=== PATIENT | female | born 1945 | race Caucasian/White ===

== ENCOUNTER 2023-02-21 09:14 | Outpatient (OUT) | payer MEDICARE, OTHER, SELFPAY ==
[2023-02-21 09:54] LABS: Basophils Absolute Auto 0.1 10^3/uL (0.0-0.1); Basophils Percent Auto 0.8 % (0.2-2.0); Eosinophils Absolute Auto 0.8 10^3/uL (0.0-0.7); Eosinophils Percent Auto 8.8 % (0.9-7.0); Hematocrit 31.6 % (36.0-48.0); Immature Granulocytes Abs Auto 0.03 10^3/uL (0.00-0.03); Immature Granulocytes Pct Auto 0.3 % (0.0-0.5); Lymphocytes Absolute Auto 3.1 10^3/uL (1.2-3.8); Lymphocytes Percent Auto 32.9 % (20.5-60.0); Mean Corpuscular HGB Conc 31.6 g/dL (29.9-35.2); Mean Corpuscular Volume 88.5 fL (81.0-99.0); Mean Platelet Volume 9.6 fL (9.5-13.5); Monocytes Percent Auto 10.5 % (1.7-12.0); Neutrophils Absolute Auto 4.3 10^3/uL (1.4-6.5); Neutrophils Percent Auto 46.7 % (43.0-75.0); Platelet Count 305 10^3/uL (150-450); Red Blood Count 3.57 10^6/uL (4.20-5.40); Red Cell Distribution Width 14.9 % (11.0-15.0); White Blood Count 9.3 10^3/uL (4.0-11.0)
[2023-02-21 10:12] LABS: Estimated Average Glucose 120 mg/dL; Glycohemoglobin A1C 5.8 % (4.5-6.2)
[2023-02-21 10:26] LABS: Alanine Aminotransferase 26 U/L (14-59); Albumin Globulin Ratio 0.7; Alkaline Phosphatase 110 U/L (46-116); Anion Gap 12.9; Aspartate Amino Transferase 22 U/L (15-37); BUN Creatinine Ratio 21.5; Bilirubin Total 0.4 mg/dL (0.2-1.0); Calcium 8.5 mg/dL (8.5-10.1); Carbon Dioxide 25.2 mmol/L (21.0-32.0); Chloride 107 mmol/L (98-107); Chol HDL Ratio 2.2; Cholesterol 112 mg/dL (<=200); Estimated GFR (African America >60 (>=60); Estimated GFR (Non-African Ame >60 (>=60); Free T3 1.97 pg/mL (2.18-3.98); Globulin 4.5 g/dL; Glucose 94 mg/dL (74-106); HDL Cholesterol 50 mg/dL (40-60); LDL Cholesterol Calculated 44.2 mg/dL; Potassium 4.1 mmol/L (3.5-5.1); Sodium 141 mmol/L (136-145); Total Protein 7.5 g/dL (6.4-8.2); Triglycerides 89 mg/dL (<=150); VLDL CHOLESTEROL 17.8 mg/dL
== END 2023-02-21 09:15 | disposition home or self-care (01) ==
LOC: LAB 09:23
PROVIDERS: PCP Family Medicine; Visit Provider Family Medicine
DX: E78.5 Hyperlipidemia, unspecified (principal); I48.91 Unspecified atrial fibrillation; E03.9 Hypothyroidism, unspecified; E66.9 Obesity, unspecified; I25.10 Atherosclerotic heart disease of native coronary artery without angina pectoris; I10 Essential (primary) hypertension; R73.09 Other abnormal glucose; E55.9 Vitamin D deficiency, unspecified; D64.9 Anemia, unspecified
CPT/HCPCS: 36415; 80053; 80061; 82306; 83036; 83540; 84436; 84443; 84481; 85025

== ENCOUNTER 2023-03-15 20:52 | Outpatient (OUT) | payer MEDICARE, OTHER, SELFPAY | END 2023-03-15 20:53 | disposition home or self-care (01) | LOC: SLEEP 20:53 | PROVIDERS: PCP Family Medicine; Visit Provider Family Medicine | DX: G47.33 Obstructive sleep apnea (adult) (pediatric) (principal) | CPT/HCPCS: 95810 ==

== ENCOUNTER 2023-04-19 19:54 | Outpatient (OUT) | payer MEDICARE, OTHER, SELFPAY | END 2023-04-19 19:55 | disposition home or self-care (01) | LOC: SLEEP 19:54 | PROVIDERS: PCP Family Medicine; Visit Provider Family Medicine | DX: G47.33 Obstructive sleep apnea (adult) (pediatric) (principal) | CPT/HCPCS: 95811 ==

== ENCOUNTER 2023-04-21 08:10 | Outpatient (OUT) | payer MEDICARE, OTHER, SELFPAY ==
[2023-04-21 08:23] LABS: Basophils Absolute Auto 0.1 10^3/uL (0.0-0.1); Basophils Percent Auto 0.8 % (0.2-2.0); Eosinophils Absolute Auto 0.6 10^3/uL (0.0-0.7); Hematocrit 38.5 % (36.0-48.0); Hemoglobin 11.9 g/dL (12.0-16.0); Immature Granulocytes Abs Auto 0.03 10^3/uL (0.00-0.03); Immature Granulocytes Pct Auto 0.3 % (0.0-0.5); Lymphocytes Absolute Auto 3.5 10^3/uL (1.2-3.8); Lymphocytes Percent Auto 35.1 % (20.5-60.0); Mean Corpuscular HGB Conc 30.9 g/dL (29.9-35.2); Mean Corpuscular Hemoglobin 28.1 pg (26.7-34.0); Mean Corpuscular Volume 90.8 fL (81.0-99.0); Mean Platelet Volume 9.7 fL (9.5-13.5); Monocytes Absolute Auto 1.2 10^3/uL (0.3-0.8); Monocytes Percent Auto 12.2 % (1.7-12.0); Neutrophils Absolute Auto 4.6 10^3/uL (1.4-6.5); Neutrophils Percent Auto 45.6 % (43.0-75.0); Platelet Count 297 10^3/uL (150-450); Red Blood Count 4.24 10^6/uL (4.20-5.40); Red Cell Distribution Width 14.5 % (11.0-15.0)
[2023-04-21 09:14] LABS: Estimated Average Glucose 120 mg/dL; Glycohemoglobin A1C 5.8 % (4.5-6.2)
[2023-04-21 10:52] LABS: Alanine Aminotransferase 27 U/L (14-59); Albumin Globulin Ratio 0.7; Albumin Level 3.3 g/dL (3.4-5.0); Alkaline Phosphatase 120 U/L (46-116); Anion Gap 11.7; Aspartate Amino Transferase 24 U/L (15-37); BUN Creatinine Ratio 22.3; Bilirubin Total 0.4 mg/dL (0.2-1.0); Calcium 8.9 mg/dL (8.5-10.1); Chloride 104 mmol/L (98-107); Chol HDL Ratio 2.6; Cholesterol 112 mg/dL (<=200); Estimated GFR (African America >60 (>=60); Estimated GFR (Non-African Ame 58 (>=60); Free T3 2.18 pg/mL (2.18-3.98); Globulin 4.9 g/dL; Glucose 99 mg/dL (74-106); HDL Cholesterol 43 mg/dL (40-60); Potassium 4.7 mmol/L (3.5-5.1); Sodium 138 mmol/L (136-145); Thyroid Stimulating Hormone 4.595 uIU/mL (0.358-3.740); Total Protein 8.2 g/dL (6.4-8.2); Triglycerides 100 mg/dL (<=150)
== END 2023-04-21 08:11 | disposition home or self-care (01) ==
LOC: LAB 08:10
PROVIDERS: PCP Family Medicine; Visit Provider Family Medicine
DX: R73.09 Other abnormal glucose (principal); I48.91 Unspecified atrial fibrillation; E78.5 Hyperlipidemia, unspecified; E03.9 Hypothyroidism, unspecified; I25.10 Atherosclerotic heart disease of native coronary artery without angina pectoris; I10 Essential (primary) hypertension; Z12.12 Encounter for screening for malignant neoplasm of rectum; D64.9 Anemia, unspecified; E55.9 Vitamin D deficiency, unspecified
CPT/HCPCS: 36415; 80053; 80061; 82306; 83036; 83540; 84436; 84443; 84481; 85025

== ENCOUNTER 2023-10-31 08:36 | Outpatient (OUT) | payer MEDICARE, OTHER, SELFPAY ==
--- OUTSIDE RECORDS SUMMARY | 2023-10-31 08:41 | XMS_ITS | CCD ---
Author Organization [facility] Care Team Providers Care Paper Machine Backtender Name Role Phone CARI DE LEON Attending Unavailable MAKENNA SCHILLING Primary Care Unavailable CARI DE LEON Attending Unavailable MAKENNA SCHILLING Primary Care Unavailable Nicki Tamayo Unavailable Unavailable Unavailable ENRIKE ., DR CACERES Primary Care Unavailable HOY ., DR CACERES Admitting Unavailable HOY ., DR CACERES Attending Unavailable HOY ., DR CACERES Consulting Unavailable [place], DR ALMA ROSA Dickinson Consulting Unavailable ZIEBER, DR GORDY Martinez Consulting Unavailable HOY ., DR CACERES Primary Care Unavailable HOY ., DR CACERES Consulting Unavailable HOY ., DR CACERES Admitting Unavailable HOY ., DR CACERES Attending Unavailable ZIEBER, DR GORDY Martinez Consulting Unavailable HOY ., DR CACERES Admitting Unavailable HOY ., DR CACERES Primary Care Unavailable HOY ., DR CACERES Attending Unavailable HOY ., DR CACERES Consulting Unavailable DE LEON, DR CARI Silva Attending Unavailable DE LEON, DR CARI Silva Admitting Unavailable HOY ., DR CACERES Primary Care Unavailable HOY ., DR CACERES Admitting Unavailable HOY ., DR CACERES Attending Unavailable HOY ., DR CACERES Consulting Unavailable HOY ., DR CACERES Primary Care Unavailable HOY ., DR CACERES Admitting Unavailable HOY ., DR CACERES Attending Unavailable HOY ., DR CACERES Primary Care Unavailable HOY ., DR CACERES Admitting Unavailable HOY ., DR CACERES Attending Unavailable HOY ., DR CACERES Consulting Unavailable HOY ., DR CACERES Primary Care Unavailable HOY ., DR CACERES Primary Care Unavailable DE LEON, DR CARI Silva Admitting Unavailable DE LEON, DR CARI Silva Attending Unavailable DE LEON, DR CARI iSlva Consulting Unavailable Kristin Giang Unavailable Cari De Leon Attending Unavailable Dr. Nicki Tamayo Primary [facility] Unavail able Cari De Leon Referring Unavailable Dr. Nicki Tamayo Primary Care Unavail able Cari De Leon Referring Unavailable Cari De Leon Attending Unavailable Dr. Nicki Tamayo Primary Care Unavail able Cari De Leon Referring Unavailable Cari De Leon Attending Unavailable CARI D ELEON Attending Unavailable NICKI TAMAYO Primary Care Unavailable Allergies Allergy Classification Reported Allergen(s) Allergy Type Date of Onset Reaction(s) Facility (13 sources) Lisinopril; Translations: [Lisinopril TABS] Drug Allergy Cough [address] Work Phone: (1 source) Lisinopril; Translations: [LISINOPRIL] Drug Allergy 03-22-2023 [facility] 3 Repository Medications Current Medications Medication Drug Class(es) Dates Sig (Normalized) Sig (Original) amoxicillin 500 mg oral capsule (1 source) Penicillin-class Antibacterial Start: 08-21-2022 take 1 capsule by mouth every eight hours Amoxicillin 500 MG 1 capsule Orally three times a day for 10 day(s) Aug, Active Iron (1 source) Iron Active Potassium (1 source) Potassium Active Triple Layland-3-6-9 (1 source) Triple Layland-3-6 -9 Active Vitamin D3 (1 source) Vitamin D3 Activ e Womens Multivitamin (1 source) Womens Multivitamin Active Completed/Discontinued Medications Medication Drug Class(es) Dates Sig (Normalized) Sig (Original) amLODIPine 10 mg oral tablet (13 sources) Dihydropyridine Calcium Channel Jordan Start: 09-16-2021 take 1 tablet by mouth once daily amLODIPine Besylate 10 MG Oral Tablet TAKE 1 TABLET DAILY. Quantity: 90 Refills: 3 Ordered: 17-Aug-2022 Cari De Leon MD Start : 16-Sep-2021 Active amLODIPine Besyl ate Active take 1 tablet by mouth once mamta y amLODIPine Besylate 5 MG Oral Tablet TAKE 1 TABLET DAILY. Quantity: 90 Refills: 3 Ordered: 26-May-2021 Cari De Leon MD Active ascorbic acid 1000 mg oral tablet (13 sources) Vitamin C take 1 tablet by once daily Vitamin C 1000 MG Oral Tablet TAKE 1 TABLET DAILY. Quantity: 0 Refills: 0 Ordered: 18-Mar-2021 DO Active Vitamin C Active aspirin 81 mg delayed release oral tablet (13 sources) Platelet Aggregation Inhibitor, Nonsteroidal Anti-inflammatory Drug Aspirin 81 MG Oral T ablet Delayed Release take one tablet on Mon and only Quantity: 24 Refills: 3 Ordered: 15-Sep-2022 Cari De Leon MD Active Aspirin 81 Activ e atorvastatin 80 mg oral tablet (13 sources) HMG-CoA Reductase Inhibitor take 1 tablet by mouth at bedtime Atorvastatin Calcium 80 MG Oral Tablet TAKE 1 TABLET AT BEDTIME. Quantity: 90 Refills: 3 Ordered: 17-Aug-2022 Cari De Leon MD Active Atorvastatin Arnold cium Active cholecalciferol 0.05 mg oral tablet (12 sources) Vitamin D take 1 tablet by mouth once daily Vitamin D3 50 MCG (1999 [place]) Oral Tablet Take 1 tablet daily Quantity: 0 Refills: 0 Ordered: 18-Mar-2021 DO Active cranberry preparation 200 mg oral capsule (9 sources) Non-Standardized Food Allergenic Extract, Non-Standardized Plant Allergenic Extract Cranberry 200 MG Ora l Capsule as directed Quantity: 0 Refills: 0 Ordered: 16-Sep-2021 DO Active Cranberry Active ferrous sulfate (8 sources) Ferrous Sulfate 325 MG CAPS TAKE 1 CAPSULE EVERY OTHER DAY Quantity: 0 Refills: 0 Ordered: 16-Sep-2021 DO Active 24 hr isosorbide mononitrate 30 mg extended release oral tablet (13 sources) Nitrate Vasodilator take 1 tablet by mouth once daily Isosorbide Mononitrate ER 30 MG Oral Tablet Extended Release 24 Hour TAKE 1 TABLET DAILY. Quantity: 90 Refills: 3 Ordered: 20-May-2022 Cari De Leon MD Active Isosorbide Helena itrate Active levothyroxine sodium 0.05 mg oral tablet (13 sources) l-Thyroxine take 1 tablet by mouth once daily Levothyroxine Sodium 50 MCG Oral Tablet TAKE 1 TABLET DAILY. Quantity: 0 Refills: 0 Ordered: 23-Mar-2022 DO Active Levothyroxine So dium Active take 1 tablet by mouth once mamta y Levothyroxine Sodium 25 MCG Oral Tablet TAKE 1 TABLET DAILY. Quantity: 0 Refills: 0 Ordered: 18-Mar-2021 DO Active Layland 3 340 MG Oral Capsule Delayed Release (8 sources) take 1 capsule by mouth twice daily Layland 3 340 MG Oral Capsule Delayed Release one twice daily Quantity: 0 Refills: 0 Ordered: 16-Sep-2021 DO Active microencapsulated potassium chloride 20 meq extended release oral tablet (12 sources) take 1 tablet by brandy th once daily Potassium Chloride Ruby ER 20 MEQ Oral Tablet Extended Release TAKE 1 TABLET DAILY. Quantity: 90 Refills: 3 Ordered: 20-May-2022 Cari De Leon MD Active take 1 tablet by mouth once mamta y Potassium Chloride Ruby ER 20 MEQ Oral Tablet Extended Release TAKE 1 TABLET DAILY. Quantity: 90 Refills: 3 Ordered: 26-May-2021 Cari De Leon MD Active rivaroxaban 20 mg oral tablet (13 sources) Factor Xa Inhibitor take 1 tablet by mouth once daily Xarelto 20 MG Oral Tablet 1 TAB DAILY Quantity: 90 Refills: 3 Ordered: 17-Aug-2022 Cari De Leon MD Active Xarelto Active sotalol hydrochloride 120 mg oral tablet (13 sources) Antiarrhythmic take 1 tablet by mouth twice daily Sotalol HCl - 120 MG Oral Tablet TAKE 1 TABLET TWICE DAILY. Quantity: 180 Refills: 3 Ordered: 07-Jul-2022 Cari De Leon MD Active Sotalol HCl Acti ve sucralfate 1000 mg oral tablet (13 sources) Aluminum Complex take 1 tablet by mouth four times daily Sucralfate 1 GM Oral Tablet TAKE 1 TABLET 4 TIMES DAILY. Quantity: 0 Refills: 0 Ordered: 18-Mar-2021 DO Active Sucralfate Activ e valsartan 320 mg oral tablet (13 sources) Angiotensin 2 Receptor Jordan take 1 tablet by mouth once daily Valsartan 320 MG Oral Tablet TAKE 1 TABLET DAILY. Quantity: 90 Refills: 3 Ordered: 07-Jul-2022 Cari De Leon MD Active Valsartan Active Problems Active Problems Problem Classification Problem Date Documented Date Episodic/Chronic Cardiac dysrhythmias (17 sources) Paroxysmal atrial fibrillation; Translations: [Persistent atrial fibrillation] Onset: 11-16-2017 Chronic Coronary atherosclerosis and other heart disease (20 sources) Atherosclerotic heart disease of [place] coronary artery without angina pectoris; Translations: [Coronary atherosclerosis] Onset: 06-27-2018 Chronic Disorders of lipid metabolism (16 sources) Hyperlipidemia, unspecified; Translations: [Hyperlipidemia] Onset: 06-27-2018 Chronic Comment on above: on Lipitor; Essential hypertension (16 sources) Essential (primary) hypertension; Translations: [Essential hypertension] Onset: 06-27-2018 Chronic Immunizations and screening for infectious disease (2 sources) Contact with and (suspected) exposure to other viral communicable diseases; Translations: [Contact with and (suspected) exposure to other viral communicable diseases] Episodic Other aftercare (20 sources) Drug therapy finding; Translations: [Long-term (current) use of anticoagulants] Episodic Other bone disease and musculoskeletal deformities (1 source) Other specified disorders of bone density and structure, left thigh; Translations: [OTH D/O BONE DEN STRUCT LT THIGH] Onset: 06-20-2022 Episodic Other nutritional; endocrine; and metabolic disorders (12 sources) Obesity; Translations: [Obesity, unspecified] Chronic Other nutritional; endocrine; and metabolic disorders (2 sources) Obesity, unspecified; Translations: [Obesity, unspecified] Onset: 03-23-2023 Chronic Other nutritional; endocrine; and metabolic disorders (2 sources) Body mass index (BMI) 36.0-36.9, adult; Translations: [Body mass index (BMI) 36.0-36.9, adult] Onset: 03-23-2023 Chronic Other screening for suspected conditions (not mental disorders or infectious disease) (9 sources) Other abnormal and inconclusive findings on diagnostic imaging of breast; Translations: [Encounter for screening mammogram for malignant neoplasm of breast] Onset: 06-16-2022 Episodic Other upper respiratory infections (1 source) Streptococcal pharyngitis Episodic Residual codes; unclassified (1 source) Family history of malignant neoplasm of breast; Translations: [FAMILY HX MALIG NEOPLASM OF BREAST] Onset: 06-20-2022 Episodic Residual codes; unclassified (1 source) Family history of malignant neoplasm of trachea, bronchus and lung; Translations: [FAM HX MALIG NEOPLSM TRACH BRON LNG] Onset: 06-20-2022 Episodic Residual codes; unclassified (1 source) Family history of malignant neoplasm of other organs or systems; Translations: [FAM HX MALIG NEOPLASM OTH ORGN/SYS] Onset: 06-20-2022 Episodic Screening and history of mental health and substance abuse codes (8 sources) Ex-smoker; Translations: [Personal history of tobacco use] Episodic Comment on above: quit approx 1988, 1 PPD; Thyroid disorders (4 sources) Hypothyroidism, unspecified; Translations: [HYPOTHYROIDISM UNSPECIFIED] Onset: 11-12-2021 Chronic Unclassified (1 source) Other intermodal dispatcher (current) drug therapy Onset: 06-27-2018 Unclassified (1 source) Chronic atrial fibrillation, unspecified; Translations: [CHRONIC ATRIAL FIBRILLATION UNSPEC] Onset: 09-08-2021 Unclassified (1 source) CONTACT W/AND (SUSP) EXPOS COVID-19; Translations: [CONTACT W/AND (SUSP) EXPOS COVID-19] Onset: 09-01-2021 Past or Other Problems Problem Classification Problem Date Documented Da te Episodic/Chronic Acute bronchitis (4 sources) Acute bronchitis, unspecified; Translations: [ACUTE BRONCHITIS UNSPECIFIED] Onset: 08-30-2021 Episodic Cardiac dysrhythmias (3 sources) Sinus bradycardia; Translations: [Other specified cardiac dysrhythmias] Onset: 03-22-2023 Episodic Coronary atherosclerosis and other heart disease (14 sources) Past history of procedure; Translations: [Percutaneous transluminal coronary angioplasty status] Onset: 03-22-2023 Episodic Comment on above: LAD 1997 /RCA; Deficiency and other anemia (1 source) Anemia, unspecified; Translations: [ANEMIA UNSPECIFIED] Onset: 09-08-2021 Episodic Diabetes mellitus without complication (1 source) Other abnormal glucose; Translations: [OTHER ABNORMAL GLUCOSE] Onset: 09-08-2021 Episodic Other aftercare (6 sources) Other intermodal dispatcher (current) drug therapy; Translations: [OTH SKILLED NURSING CURRENT DRUG THERAPY] Onset: 04-05-2022 Episodic Other aftercare (2 sources) alf (current) use of anticoagulants; Translations: [alf (current) use of anticoagulants] Onset: 03-22-2023 Episodic Results Test Name Value Interpretation Reference Range Facility Office Visit (Cardiology)on 09-15-2022 Follow-up visit Diagnoses/Problems Assessed Atherosclerosis of [place] coronary artery (414.01) (I25.10) Status post coronary angioplasty (V45.82) (Z98.61) LAD 1997 /RCA Paroxysmal atrial fibrillation (427.31) (I48.0) High risk medication use (V58.69) (Z79.899) Anticoagulated (V58.61) (Z79.01) Essential hypertension (401.9) (I10) Hyperlipidemia (272.4) (E78.5) on Lipitor Sinus bradycardia (427.89) (R00.1) Class 2 obesity with body mass index (BMI) of 35.0 to 35.9 in adult (278.00,V85.35) (E66.9,Z68.35) Former smoker (V15.82) (Z87.891) quit approx 1988, 1 PPD Orders Atherosclerosis of [place] coronary artery Changed: From Aspirin EC 81 MG TBEC 1 tablet twice weekly To Aspirin 81 MG Oral Tablet Delayed Release take one tablet on Mon and only Atherosclerosis of [place] coronary artery, High risk medication use, Paroxysmal atrial fibrillation Basic Metabolic Panel; Status:Active - Retrospective Authorization; Requested for:15Sep2022; Complete Blood Count; Status:Active - Retrospective Authorization; Requested for:15Sep2022; Atherosclerosis of [place] coronary artery, Hyperlipidemia ALT - Alanine Aminotransferase, Serum; Status:Active - Retrospective Authorization; Requested for:15Sep2022; AST; Status:Active - Retrospective Authorization; Requested for:15Sep2022; Lipid Panel; Status:Active - Retrospective Authorization; Requested for:15Sep2022; Class 2 obesity with body mass index (BMI) of 35.0 to 35.9 in adult Healthy Weight Tips; Status:Complete - Retrospective Authorization; Done: 15Sep2022 Some eating tips that can help you lose weight.; Status:Complete - Retrospective Authorization; Done: 15Sep2022 SocHx: Former smoker Tobacco Use Screening; Status:Complete; Done: 15Sep2022 Patient Instructions Please bring all medicines, vitamins, and herbal supplements with you when you come to the office. Prescriptions will not be filled unless you are compliant with your follow up appointments or have a follow up appointment scheduled as per instruction of your physician. Refills should be requested at the time of your visit. Follow up in 6 months Lab work Same meds The provider reviewed the following test(s) and result(s) with the patient: ECG Chief Complaint MARIO MITCHELL is being seen for a 6 month follow-up of. Patient is in the office for follow-up for the problems noted below. Since her last visit she has had no current events whatsoever. Has had no breakthrough defibrillation and no bleeding complications. She is on sotalol and Xarelto. EKG today confirmed normal sinus rhythm with sinus bradycardia which is asymptomatic QTc interval in the therapeutic range. Her lab data from PCP were reviewed. She need lipid profile which is ordered. Apart from obesity physical examination is unremarkable. Her weight has dropped several pounds from last visit and encouragement for weight loss was provided to the patient. ASSESSMENT AND PLAN: 1. Paroxysmal fibrillation, on sotalol and Xarelto, which have been monitored and have been well tolerated. ECG today revealed normal sinus rhythm and normal intervals 2. Two-vessel coronary artery disease and status post angioplasty in 1997 involving the right coronary artery and 2007 involving the LAD. Risk factor had been controlled. The patient has been compliant with no recurrent disease. Last stress test with 2016 was normal 3. Obesity. Encouraged Mrs. Mitchell to cut back calorie intake on regular basis, patient lost several pounds last visit and encouragement for more weight loss provided. 4. Hypertension, currently controlled. 5. Hyperlipidemia, on maximal intensity atorvastatin, lipid profile is needed and was ordered. 6. Hypothyroidism on replacement therapy 7. 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 Six-month follow-up is scheduled Surgical History Problems History of Cataract surgery History of Colonoscopy [id number] Current Meds Medication NameInstruction amLODIPine Besylate 10 MG Oral TabletTAKE 1 TABLET DAILY. Aspirin EC 81 MG TBEC1 tablet twice weekly Atorvastatin Calcium 80 MG Oral TabletTAKE 1 TABLET AT BEDTIME. Cranberry 200 MG Oral Capsuleas directed Ferrous Sulfate 325 MG CAPSTAKE 1 CAPSULE EVERY OTHER DAY Isosorbide Mononitrate ER 30 MG Oral Tablet Extended Release 24 HourTAKE 1 TABLET DAILY. Levothyroxine Sodium 50 MCG Oral TabletTAKE 1 TABLET DAILY. Layland 3 340 MG Oral Capsule Delayed Releaseone twice daily Potassium Chloride Ruby ER 20 MEQ Oral Tablet Extended ReleaseTAKE 1 TABLET DAILY. Sotalol HCl - 120 MG Oral TabletTAKE 1 TABLET TWICE DAILY. Sucralfate 1 GM Oral TabletTAKE 1 TABLET 4 TIMES DAILY. Valsartan 320 MG Oral TabletTAKE 1 TABLET DAILY. Vitamin C 1000 MG Oral TabletTAKE 1 TABLET DAILY. Vitamin D3 50 MCG (1999) Oral TabletTake 1 tablet daily Xarelto 20 MG Oral Tablet1 TAB DAILY Allergies Medication Lisinopril TABS Allergy; Cough; Recorded By: Rachel Pizarro; 03/13/2021 11:22 (more content not included)... Normal [facility] Tobacco Screening.on 023 Adult depression screening assessment No FR-Bhnfeedmvc-Za [place] 250 DO Work Phone: Fall risk assessment a) No falls within the last year ON-Uhsjhryowc-Lh [place] 250 DO Work Phone: Tobacco use status [facility]PH[facility] b) No CI-Wnljlhpfpc-Yr [place] 250 DO Work Phone: COVID/FLU RT-PCRon 3 SARS-CoV-2 (COVID-19) RNA DENISSE+probe Ql (Unsp spec) Negative [facility] Other COVID/FLU RT-PCR Negative [facility] [place] Other Quick Strepon 08-21-2022 S. pyogenes Org specific cx Ql (Throat) Positive [facility] Other Quick Strep [facility] Other MG MAMM RT DIAG FUon 023 MG MAMM RT DIAG FU Patient: MARIO MITCHELL Exam Date: 07/01/2022 : 1945 Gender:F Ordering : DR NICKI TAMAYO . Admission #: [id number] Family : Order #: [id number] CLICK HERE TO VIEW EXAM RADIOLOGY REPORT PROCEDURE: MAMMOGRAM RIGHT DIAGNOSTIC DIGITAL FOLLOW UP, 07/01/2022, 10:02 ULTRASOUND BREAST RIGHT LIMITED, 07/01/2022, 10:32 COMPARISON: MG MAMM SCREEN 3D MOHINDER CAD, 06/16/2022. INDICATIONS: Mammography abnormal Calculator Name NCI Breast Cancer Risk Assessment Tool 5 Year Breast Cancer Risk 3.30% Lifetime Breast Cancer Risk 6.30% Personal Breast Cancer No Personal Ovarian Cancer No Treatments None Family Cancers Sister with breast cancer at age 50; Sister with lung cancer at age 40; Brother with prostate cancer at age 70. LOCATION: [facility] BREAST COMPOSITION: Heterogeneously dense,which may obscure small masses. FINDINGS: DIAGNOSTIC CATEGORY 2--BENIGN FINDING: RIGHT BREAST: Spot magnification views demonstrate dispersion of previously seen asymmetry. Ultrasound evaluation demonstrates normal appearing fibroglandular tissue; no cyst, mass, or architectural distortion. Annual screening mammography is recommended. RECOMMENDATIONS: ROUTINE MAMMOGRAM AND CLINICAL EVALUATION IN 12 MONTHS. PLEASE NOTE: A NORMAL MAMMOGRAM DOES NOT EXCLUDE THE POSSIBILITY OF BREAST CANCER. A CLINICALLY SUSPICIOUS PALPABLE LUMP SHOULD BE BIOPSIED. Dictated by: Gordy Giraldo M.D. on 07/01/2022 at 10:49 Approved by: Gordy Giraldo M.D. on 07/01/2022 at 11:[address] [facility] US BREAST RIGHT LIMITEDon US BREAST RIGHT LIMITED Patient: MARIO MITCHELL Exam Date: 07/01/2022 : 1945 Gender:F Ordering : DR NICKI TAMAYO . Admission #: [id number] Family : Order #: [id number] CLICK HERE TO VIEW EXAM RADIOLOGY REPORT PROCEDURE: MAMMOGRAM RIGHT DIAGNOSTIC DIGITAL FOLLOW UP, 07/01/2022, 10:02 ULTRASOUND BREAST RIGHT LIMITED, 07/01/2022, 10:32 COMPARISON: MG MAMM SCREEN 3D MOHINDER CAD, 06/16/2022. INDICATIONS: Mammography abnormal Calculator Name NCI Breast Cancer Risk Assessment Tool 5 Year Breast Cancer Risk 3.30% Lifetime Breast Cancer Risk 6.30% Personal Breast Cancer No Personal Ovarian Cancer No Treatments None Family Cancers Sister with breast cancer at age 50; Sister with lung cancer at age 40; Brother with prostate cancer at age 70. LOCATION: [facility] BREAST COMPOSITION: Heterogeneously dense,which may obscure small masses. FINDINGS: DIAGNOSTIC CATEGORY 2--BENIGN FINDING: RIGHT BREAST: Spot magnification views demonstrate dispersion of previously seen asymmetry. Ultrasound evaluation demonstrates normal appearing fibroglandular tissue; no cyst, mass, or architectural distortion. Annual screening mammography is recommended. RECOMMENDATIONS: ROUTINE MAMMOGRAM AND CLINICAL EVALUATION IN 12 MONTHS. PLEASE NOTE: A NORMAL MAMMOGRAM DOES NOT EXCLUDE THE POSSIBILITY OF BREAST CANCER. A CLINICALLY SUSPICIOUS PALPABLE LUMP SHOULD BE BIOPSIED. Dictated by: Gordy Giraldo M.D. on 07/01/2022 at 10:49 Approved by: Gordy Giraldo M.D. on 07/01/2022 at 11:[address] [facility] MG MAMM SCREEN 3D MOHINDER CADon 06-16-2022 MG MAMM SCREEN 3D MOHINDER CAD Patient: MARIO MITCHELLMartin Exam Date: 06/16/2022 : 1945 Gender:F Ordering : DR NICKI TAMAYO . Admission #: [id number] Family : Order #: [id number] CLICK HERE TO VIEW EXAM RADIOLOGY REPORT PROCEDURE: MAMMOGRAM SCREENING 3D BILATERAL CAD COMPARISON: None. INDICATIONS: Screening mammography Calculator Name NCI Breast Cancer Risk Assessment Tool 5 Year Breast Cancer Risk 3.30% Lifetime Breast Cancer Risk 6.30% Personal Breast Cancer No Personal Ovarian Cancer No Treatments None Family Cancers Sister with breast cancer at age 50; Sister with lung cancer at age 40; Brother with prostate cancer at age 70. LOCATION: [facility] BREAST COMPOSITION: Heterogeneously dense, which may obscure small masses. FINDINGS: DIAGNOSTIC CATEGORY 0--INCOMPLETE: NEED ADDITIONAL IMAGING EVALUATION. Scattered benign-appearing nodules are present. Scattered benign-appearing calcifications are present. Scattered benign-appearing lymph nodes are present. RIGHT BREAST: 1.2 x 1.9 cm partially circumscribed lobular density 12 o'clock posterior breast seen on both the CC and MLO projections. Spot compression and Ultrasound follow-up is recommended. LEFT BREAST: No significant suspicious finding. RECOMMENDATIONS: ADDITIONAL MAMMOGRAPHIC VIEWS REQUIRED: RIGHT BREAST - spot compression ULTRASOUND: RIGHT BREAST PLEASE NOTE: A NORMAL MAMMOGRAM DOES NOT EXCLUDE THE POSSIBILITY OF BREAST CANCER. A CLINICALLY SUSPICIOUS PALPABLE LUMP SHOULD BE BIOPSIED. Dictated by: Alma Rosa Morrow MD on 06/16/2022 at 10:51 Approved by: Alma Rosa Morrow MD on 06/16/2022 at 10:[address] [facility] XR DEXA BONE DENSITYon 06-16 XR DEXA BONE DENSITY EXAMINATION: XR DEXA BONE DENSITY, 06/16/2022 9:45 AM EST HISTORY: Screening for osteoporosis COMPARISON: None. TECHNIQUE: Dual-energy X-ray absorptiometry (DEXA) bone density study performed for the axial skeleton. FINDINGS: SPINE ANALYSIS: Average bone mineral density is 1.2-3 g/cm2. T-score (standard deviation relative to young adult mean): 0.4 . HIP ANALYSIS: Lowest bone mineral density is within the left femoral trochanter, 0.666 g/cm2. T-score (standard deviation relative to young adult mean): -1.6 . IMPRESSION: World [employer] Organization Classification: Osteopenia - Moderate Fracture Risk Electronically authenticated by: GORDY GIRALDO Date: 2022-06-16 10:08 Normal [facility] CBC AUTO DIFFon 04-05-2022 BASO # 0.1 103/ul Normal 0.0-0.1 [facility] Comment on above: Performed By: #### C BC #### [facility] [address] [address] [address] Stacy Rocha Basophils/100 WBC (Bld) 0.5 % Normal 0.2-2.0 [facility] Comment on above: Performed By: #### C BC #### [facility] [address] [address] [address] Stacy Rocha EO # 1.0 103/ul Critically high 0.0-0.[address] [facility] Comment on above: Performed By: #### C BC #### [facility] [address] [place] [address] Dr. Stacy Rocha Eosinophils/100 WBC (Bld) 8.7 % Critically high 0.9-7.0 [facility] Comment on above: Performed By: #### C BC #### [facility] [address] [address] [address] Stacy Rocha Erythrocyte distribution width (RBC) [Ratio] 13.7 % Normal 11.0-15.0 St[facility] [facility] Comment on above: Performed By: #### C BC #### [facility] [address] [place] [address] Dr. Stacy Rocha Hematocrit (Bld) [Volume fraction] 34.2 % Critically low 36.0-48.0 [facility] Comment on above: Performed By: #### C BC #### [facility] [address] [address] [address] Stacy Rocha Hemoglobin (Bld) [Mass/Vol] 10.9 g/dL Critically low 12.0-16.0 [facility] Comment on above: Performed By: #### C BC #### [facility] [address] [place] [address] Dr. Stacy Rocha IG # 0.03 10e3/ul Normal 0.00-0.03 [facility] Comment on above: Performed By: #### C BC #### [facility] [address] [address] [address] Stacy Rocha IG % 0.3 % Normal 0.0-0.5 [facility] Comment on above: Performed By: #### C BC #### [facility] [address] [place] [address] Dr. Stacy Rocha LYMPH # 3.9 103/ul Critically high 1.2-3.[address] [facility] Comment on above: Performed By: #### C BC #### [facility] [address] [place] [address] Dr. Stacy Rocha Lymphocytes/100 WBC (Bld) 35.0 % Normal 20.5-60.0 The [facility] Comment on above: Performed By: #### C BC #### [facility] [address] [place] [address] Dr. Stacy Rocha MANUAL DIFF REQ NO Normal [facility] Comment on above: Performed By: #### C BC #### [facility] [address] [place] [address] Dr. Stacy Rocha MCH (RBC) [Entitic mass] 27.9 pg Normal 26.7-34.0 [facility] Comment on above: Performed By: #### C BC #### [facility] [address] [place] [address] Dr. Stacy Rocha MCHC (RBC) [Mass/Vol] 31.9 g/dL Normal 29.9-35.2 [facility] Comment on above: Performed By: #### C BC #### [facility] [address] [place] [address] Dr. Stacy Rocha MCV (RBC) [Entitic vol] 87.5 fL Normal 81.0-99.0 [facility] Comment on above: Performed By: #### C BC #### [facility] [address] [place] [address] Dr. Stacy Rocha MONO # 1.2 103/ul Critically high 0.3-0.[address] [facility] Comment on above: Performed By: #### C BC #### [facility] [address] [place] [address] Dr. Stacy Rocha Monocytes/100 WBC (Bld) 10.8 % Normal 1.7-12.0 [facility] Comment on above: Performed By: #### C BC #### [facility] [address] [place] [address] Dr. Stacy Rocha NEUT # 5.0 103/ul Normal 1.4-6.5 [facility] Comment on above: Performed By: #### C BC #### [facility] [address] [place] [address] Dr. Stacy Rocha Neutrophils/100 WBC (Bld) 44.7 % Normal 43.0-75.0 [facility] Comment on above: Performed By: #### C BC #### [facility] [address] [place] [address] Dr. Stacy Rocha Platelet mean volume (Bld) [Entitic vol] 9.5 fL Normal 9.5-13.5 [facility] Comment on above: Performed By: #### C BC #### [facility] [address] [place] [address] Dr. Stacy Rocha PLT 289 103/ul Normal 150-450 [facility] Comment on above: Performed By: #### C BC #### [facility] [address] [place] [address] Dr. Stacy Rocha RBC 3.91 106/ul Critically low 4.20-5.[address] [facility] Comment on above: Performed By: #### C BC #### [facility] [address] [place] [address] Dr. Stacy Rocha WBC 11.3 103/ul Critically high 4.0-11.0 [facility] Comment on above: Performed By: #### C BC #### [facility] [address] [place] [address] Dr. Stacy Rocha PROF CHEM 8 (BAS METB)on Anion gap [Moles/Vol] 8.7 mmol/L Normal [facility] Comment on above: Performed By: #### B MP #### [facility] [address] [place] [address] Dr. Stacy Rocha Calcium [Mass/Vol] 8.7 mg/dL Normal 8.5-10.1 [facility] Comment on above: Performed By: #### B MP #### [facility] [address] [address] [address] Stacy Rocha Chloride [Moles/Vol] 105 mmol/L Normal 98-107 [facility] Comment on above: Performed By: #### B MP #### [facility] [address] [address] [address] Stacy Rocha CO2 [Moles/Vol] 30.3 mmol/L Normal 21.0-32.0 [facility] Comment on above: Performed By: #### B MP #### [facility] [address] [place] [address] Dr. Stacy Rocha Creatinine [Mass/Vol] 0.77 mg/dL Normal 0.55-1.02 [facility] Comment on above: Performed By: #### B MP #### [facility] [address] [place] [address] Dr. Stacy Rocha EGFR-AF NIUEAN >60 Normal >=60 The [facility] Comment on above: Performed By: #### B MP #### [facility] [address] [place] [address] Dr. Stacy Rocha EGFR-NON AF NIUEAN >60 Normal >=60 [facility] Comment on above: Performed By: #### B MP #### [facility] [address] [address] [address] Stacy Rocha Glucose [Mass/Vol] 116 mg/dL Critically high 74-106 [facility] Comment on above: Performed By: #### B MP #### [facility] [address] [address] [address] Stacy Rocha Potassium [Moles/Vol] 4.0 mmol/L Normal 3.5-5.1 [facility] Comment on above: Performed By: #### B MP #### [facility] [address] [address] [address] Stacy Rocha Sodium [Moles/Vol] 140 mmol/L Normal 136-145 [facility] Comment on above: Performed By: #### B MP #### [facility] [address] [place], [place] [address] Dr. Stacy Rocha Urea nitrogen [Mass/Vol] 11.0 mg/dL Normal 7.0-18.0 [facility] Comment on above: Performed By: #### B MP #### [facility] [address] [place], [place] [address] Dr. Stacy Rocha Urea nitrogen/Creatinine [Mass ratio] 14.3 mg/mg Normal [facility] Comment on above: Performed By: #### B MP #### [facility] [address] [place], [place] [address] Dr. Stacy Rocha Office Visit (Cardiology)on 03-23-2022 Follow-up visit Diagnoses/Problems Assessed Atherosclerosis of [place] coronary artery (414.01) (I25.10) Essential hypertension (401.9) (I10) Hyperlipidemia (272.4) (E78.5) on Lipitor Paroxysmal atrial fibrillation (427.31) (I48.0) High risk medication use (V58.69) (Z79.899) Former smoker (V15.82) (Z87.891) quit approx 1988, 1 PPD Class 2 obesity with body mass index (BMI) of 36.0 to 36.9 in adult (278.00,V85.36) (E66.9,Z68.36) Anticoagulated (V58.61) (Z79.01) Status post coronary angioplasty (V45.82) (Z98.61) LAD 2007/ 1997 /RCA Orders Class 2 obesity with body mass index (BMI) of 36.0 to 36.9 in adult Healthy Weight Tips; Status:Complete - Retrospective Authorization; Done: 23Mar2022 Some eating tips that can help you lose weight.; Status:Complete - Retrospective Authorization; Done: 23Mar2022 High risk medication use, Paroxysmal atrial fibrillation Basic Metabolic Panel; Status:Active - Retrospective Authorization; Requested for:23Mar2022; Complete Blood Count; Status:Active - Retrospective Authorization; Requested for:23Mar2022; Paroxysmal atrial fibrillation IO EKG Electrocardiogram- 12 Lead; Status:Complete; Done: 23Mar2022 SocHx: Former smoker Tobacco Use Screening; Status:Complete; Done: [id number] Patient Instructions Please bring all medicines, vitamins, and herbal supplements with you when you come to the office. Prescriptions will not be filled unless you are compliant with your follow up appointments or have a follow up appointment scheduled as per instruction of your physician. Refills should be requested at the time of your visit. recent lab results discussed Follow up in 6 months Chief Complaint MARIO MITCHELL is being seen for a 6 month follow-up of. Patient is in the office for follow-up for the problems noted below. Since her last visit she has not had any cardiac events whatsoever. Denies any chest pain palpitations or side effect of medications. She maintains active lifestyle but in spite of that has not been able to lose weight. Her lab data have been reviewed and there has been no areas of concern. Apart from obesity physical examination was normal. ECG revealed normal sinus rhythm with normal QTc interval. There has been no breakthrough atrial fibrillation ASSESSMENT AND PLAN: 1. Paroxysmal fibrillation, on sotalol and Xarelto, which have been monitored and have been well tolerated. ECG today revealed normal sinus rhythm and normal intervals 2. Two-vessel coronary artery disease and status post angioplasty in 1997 involving the right coronary artery and 2007 involving the LAD. Risk factor had been controlled. The patient has been compliant with no recurrent disease. Last stress test with 2016 was normal 3. Obesity. Encouraged Mrs. Mitchell to cut back calorie intake on regular basis 4. Hypertension, currently controlled. 5. Hyperlipidemia, currently under control. LDL on target 6. Hypothyroidism on replacement therapy Six-month follow-up is scheduled Surgical History Problems History of Cataract surgery History of Colonoscopy [id number] Current Meds Medication NameInstruction amLODIPine Besylate 10 MG Oral TabletTAKE 1 TABLET DAILY. Aspirin EC 81 MG Oral Tablet Delayed Release1 tablet twice weekly Atorvastatin Calcium 80 MG Oral TabletTAKE 1 TABLET AT BEDTIME. Cranberry 200 MG Oral Capsuleas directed Ferrous Sulfate 325 MG CAPSTAKE 1 CAPSULE EVERY OTHER DAY Isosorbide Mononitrate ER 30 MG Oral Tablet Extended Release 24 HourTAKE 1 TABLET DAILY. Levothyroxine Sodium 50 MCG Oral TabletTAKE 1 TABLET DAILY. Layland 3 340 MG Oral Capsule Delayed Releaseone twice daily Potassium Chloride Ruby ER 20 MEQ Oral Tablet Extended ReleaseTAKE 1 TABLET DAILY. Sotalol HCl - 120 MG Oral TabletTAKE 1 TABLET TWICE DAILY. Sucralfate 1 GM Oral TabletTAKE 1 TABLET 4 TIMES DAILY. Valsartan 320 MG Oral TabletTAKE 1 TABLET DAILY. Vitamin C 1000 MG Oral TabletTAKE 1 TABLET DAILY. Vitamin D3 50 MCG (1999 [place]) Oral TabletTake 1 tablet daily Xarelto 20 MG Oral Tablet1 TAB DAILY Allergies Medication Lisinopril TABS Allergy; Cough; Recorded By: Rachel Pizarro; 03/13/2021 11:22:34 AM Social History Problems Daily caffeine consumption, 2-3 servings a day Former smoker (V15.82) (Z87.891) quit approx 1988, 1 PPD No alcohol use No illicit drug use Review of Systems Constitutional: not feeling tired. Cardiovascular: no intermittent leg claudication and as noted in HPI. Respiratory: no cough and no shortness of breath. Gastrointestinal: no change in bowel habits and no blood in stools. Integumentary: no skin rashes. Neurological: no seizures and no frequent falls. All other systems have been reviewed and are negative for complaint. Vitals Vital Signs Recorded: 23Mar2022 08:41AM Heart Rate53, Apical Varzbqxj751, LUE, Sitting Aqleskbym45, LUE, Sitting Height5 ft 4 in Yabqmz636 lb BMI Ohrdalbfkg11.56 kg/m2 BSA Calculated2.01 Tobacco Useb) No Falls Scr (more content not included)... Normal [facility] Tobacco Screening.on 022 Fall risk assessment a) No falls within the last year [facility] [employer] 250 DO Work Phone: Tobacco use status [facility] b) No [facility] 250 DO Work Phone: FREE T3on 11-12-2021 FREE T3 2.36 pg/mlL Normal 2.18-3.98 [facility] Comment on above: Performed By: #### T 4, FT3, TSH #### [facility] [address] [address] [address] Stacy Rocha T4on 11-12-2021 T4 [Mass/Vol] 7.40 ug/dL Normal 4.80-13.90 [facility] Comment on above: Performed By: #### T 4, FT3, TSH #### [facility] [address] [address] [address] Stacy Rocha TSHon 11-12-2021 TSH 4.606 uIU/mL Critically high 0.358-3.740 [facility] Comment on above: Performed By: #### T 4, FT3, TSH #### [facility] [address] [place], [place] [address] Dr. Stacy Rocha Falls Risk Screeningon 09-30 Fall risk assessment a) No falls within the last year [facility] [employer] 250 DO Work Phone: Office Visit (Cardiology)on 09-30-2021 Follow-up visit Diagnoses/Problems Assessed Essential hypertension (401.9) (I10) Patient Instructions By signing my name below, I, Liliam French Lpn,Scribe, attest that this documentation has been prepared under the direction and in the presence of Dr. Cari De Leon MD. All medical record entries made by the Scribe were at my direction and personally dictated by me. I have reviewed the chart and agree that the record accurately reflects my personal performance of the history, physical exam, discussion and plan. Follow up in Mar as scheduled. Same medications. Chief Complaint MARIO MITCHELL is being seen for hypertension. Patient is in the office for hypertension management. Since the changes made last visit her pressure is not completely under control. She had no side effect of medications and no changes are needed.1 1 Amended By: Cari De Leon; Oct 01 2021 4:36 PM ESTCurrent Meds Medication NameInstruction amLODIPine Besylate 10 MG Oral TabletTAKE 1 TABLET DAILY. Aspirin EC 81 MG Oral Tablet Delayed Release1 tablet twice weekly Atorvastatin Calcium 80 MG Oral TabletTAKE 1 TABLET AT BEDTIME. Cranberry 200 MG Oral Capsuleas directed Ferrous Sulfate 325 MG CAPSTAKE 1 CAPSULE EVERY OTHER DAY Isosorbide Mononitrate ER 30 MG Oral Tablet Extended Release 24 HourTAKE 1 TABLET DAILY. Levothyroxine Sodium 25 MCG Oral TabletTAKE 1 TABLET DAILY. Layland 3 340 MG Oral Capsule Delayed Releaseone twice daily Potassium Chloride Ruby ER 20 MEQ Oral Tablet Extended ReleaseTAKE 1 TABLET DAILY. Sotalol HCl - 120 MG Oral TabletTAKE 1 TABLET TWICE DAILY. Sucralfate 1 GM Oral TabletTAKE 1 TABLET 4 TIMES DAILY. Valsartan 320 MG Oral TabletTAKE 1 TABLET DAILY. Vitamin C 1000 MG Oral TabletTAKE 1 TABLET DAILY. Vitamin D3 50 MCG (1999) Oral TabletTake 1 tablet daily Xarelto 20 MG Oral Tablet1 TAB DAILY Allergies Medication Lisinopril TABS Allergy; Cough; Recorded By: Rachel Pizarro; 03/13/2021 11:22:34 AM Vitals Vital Signs Printed in Appendix #1 below. Signatures Electronically signed by : Cari De Leon MD; Oct 01 2021 4:36PM EST (Author) Appendix #1 Vital Signs Patient: MARIO MITCHELL; : 1945; Recorded: 30Sep2021 02:26PMRecorded: [id number] 02:13PMRecorded: 30Sep2021 02:12PM Iysfwlyc181, LUE, Ysirqiu264, RUE, Yrkashq655, LUE, Sitting Grucjtldm04, LUE, Uwohhub79, RUE, Lxmnxfv34, LUE, Sitting Heart Rate54, R Radial Height5 ft 4 in Mtwptp996 lb BMI Occlmytosc30.05 kg/m2 BSA Calculated2 Fall Screeninga) No falls within the last year Normal [facility] PHQ-2 [facility] 09-16-2021 Adult depression screening assessment No [facility] [employer] 250 DO Work Phone: Fall risk assessment a) No falls within the last year [facility] [employer] 250 DO Work Phone: Tobacco use status [facility] b) No [facility] [place] 250 DO Work Phone: CBC AUTO DIFFon 09-07-2021 BASO # 0.1 103/ul Normal 0.0-0.1 [facility] Comment on above: Performed By: #### T 4, FT3, TSH #### [facility] [address] [address] [address] Stacy Rocha Basophils/100 WBC (Bld) 0.7 % Normal 0.2-2.0 [facility] Comment on above: Performed By: #### T 4, FT3, TSH #### [facility] [address] [address] [address] Stacy Rocha EO # 0.7 103/ul Normal 0.0-0.7 [facility] Comment on above: Performed By: #### T 4, FT3, TSH #### [facility] [address] [place] [address] Dr. Stacy Rocha Eosinophils/100 WBC (Bld) 7.1 % Critically high 0.9-7.0 [facility] Comment on above: Performed By: #### T 4, FT3, TSH #### [facility] [address] [place] [address] Dr. Stacy Rocha Erythrocyte distribution width (RBC) [Ratio] 13.8 % Normal 11.0-15.0 [facility] Comment on above: Performed By: #### T 4, FT3, TSH #### [facility] [address] [place] [address] Dr. Stacy Rocha Hematocrit (Bld) [Volume fraction] 39.3 % Normal 36.0-48.0 [facility] Comment on above: Performed By: #### T 4, FT3, TSH #### [facility] [address] [place] [address] Dr. Stacy Rocha Hemoglobin (Bld) [Mass/Vol] 12.4 g/dL Normal 12.0-16.0 [facility] Comment on above: Performed By: #### T 4, FT3, TSH #### [facility] [address] [place] [address] Dr. Stacy Rocha IG # 0.03 10e3/ul Normal 0.00-0.03 [facility] Comment on above: Performed By: #### T 4, FT3, TSH #### [facility] [address] [place] [address] Dr. Stacy Rcoha IG % 0.3 % Normal 0.0-0.5 [facility] Comment on above: Performed By: #### T 4, FT3, TSH #### [facility] [address] [place] [address] Dr. Stacy Rocha LYMPH # 3.5 103/ul Normal 1.2-3.8 [facility] Comment on above: Performed By: #### T 4, FT3, TSH #### [facility] [address] [place] [address] Dr. Stacy Rocha Lymphocytes/100 WBC (Bld) 35.3 % Normal 20.5-60.0 [facility] Comment on above: Performed By: #### T 4, FT3, TSH #### [facility] [address] [place] [address] Dr. Stacy Rocha MANUAL DIFF REQ NO Normal [facility] Comment on above: Performed By: #### T 4, FT3, TSH #### [facility] [address] [place] [address] Dr. Stacy Rocha MCH (RBC) [Entitic mass] 28.7 pg Normal 26.7-34.0 [facility] Comment on above: Performed By: #### T 4, FT3, TSH #### [facility] [address] [place] [address] Dr. Stacy Rocha MCHC (RBC) [Mass/Vol] 31.6 g/dL Normal 29.9-35.2 [facility] Comment on above: Performed By: #### T 4, FT3, TSH #### [facility] [address] [place] [address] Dr. Stacy Rocha MCV (RBC) [Entitic vol] 91.0 fL Normal 81.0-99.0 [facility] Comment on above: Performed By: #### T 4, FT3, TSH #### [facility] [address] [place] [address] Dr. Stacy Rocha MONO # 1.1 103/ul Critically high 0.3-0.8 [facility] Comment on above: Performed By: #### T 4, FT3, TSH #### [facility] [address] [place] [address] Dr. Stacy Rocha Monocytes/100 WBC (Bld) 11.2 % Normal 1.7-12.0 [facility] Comment on above: Performed By: #### T 4, FT3, TSH #### [facility] [address] [place] [address] Dr. Stacy Rocha NEUT # 4.5 103/ul Normal 1.4-6.5 [facility] Comment on above: Performed By: #### T 4, FT3, TSH #### [facility] [address] [place] [address] Dr. Stacy Rocha Neutrophils/100 WBC (Bld) 45.4 % Normal 43.0-75.0 [facility] Comment on above: Performed By: #### T 4, FT3, TSH #### [facility] [address] [place] [address] Dr. Stacy Rocha Platelet mean volume (Bld) [Entitic vol] 9.0 fL Critically low 9.5-13.5 [facility] Comment on above: Performed By: #### T 4, FT3, TSH #### [facility] [address] [place] [address] Dr. Stacy Rocha PLT 380 103/ul Normal 150-450 [facility] Comment on above: Performed By: #### T 4, FT3, TSH #### [facility] [address] [place] [address] Dr. Stacy Rocha RBC 4.32 106/ul Normal 4.20-5.40 [facility] Comment on above: Performed By: #### T 4, FT3, TSH #### [facility] [address] [place] [address] Dr. Stacy Rocha WBC 10.0 103/ul Normal 4.0-11.0 [facility] Comment on above: Performed By: #### T 4, FT3, TSH #### [facility] [address] [place] [address] Dr. Stacy Rocha FREE THYROXINE INDEX T7on FTI 2.64 Normal [facility] Comment on above: Performed By: #### T 4, FT3, TSH #### [facility] [address] [place] [address] Dr. Stacy Rocha T3U 33.0 % Normal 23.5-40.5 [facility] Comment on above: Performed By: #### T 4, FT3, TSH #### [facility] [address] [place] [address] Dr. Stacy Rocha T4 [Mass/Vol] 8.00 ug/dL Normal 4.80-13.90 [facility] Comment on above: Performed By: #### T 4, FT3, TSH #### [facility] [address] [address] [address] Stacy Rocha GLYCOHEMOGLOBIN A1Con 2021 ADA RECOMMENDATION SEE BELOW Normal [facility] Comment on above: Result Comment: ADA RECOMMENDED LIMIT 4.0 - 6.0 ADA THERAPEUTIC TARGET < 7.0 ACTION SUGGESTED > 7.0 Performed By: #### T 4, FT3, TSH #### [facility] [address] [address] [address] Stacy Rocha Glucose [Mass/Vol] 120 mg/dL Normal [facility] Comment on above: Performed By: #### T 4, FT3, TSH #### [facility] [address] [address] [address] Stacy Rocha HbA1c (Bld) [Mass fraction] 5.8 % Normal 4.5-6.2 [facility] Comment on above: Performed By: #### T 4, FT3, TSH #### [facility] [address] [address] [address] Stacy Rocha IRONon 09-07-2021 Iron [Mass/Vol] 57.0 ug/dL Normal 50.0-170.0 [facility] Comment on above: Performed By: #### I KIMBERLY #### [facility] [address] [address] [address] Stacy Rocha LIPID PROFILEon 09-07-2021 CHOL-HDL RATIO NORM SEE BELOW Normal [facility] Comment on above: Result Comment: 3.3 - 4.4 LOW RISK 4.4 - 7.1 AVERAGE RISK 7.1 - 11.0 MODERATE RISK >11.0 HIGH RISK Performed By: #### T 4, FT3, TSH #### [facility] [address] [address] [address] Stacy Rocha Cholesterol [Mass/Vol] 108 mg/dL Normal <=200 [facility] Comment on above: Performed By: #### T 4, FT3, TSH #### [facility] [address] [address] [address] Stacy Rohca Cholesterol in HDL [Mass/Vol] 43 mg/dL Normal 40-60 [facility] Comment on above: Performed By: #### T 4, FT3, TSH #### [facility] [address] [address] [address] Stacy Rocha Cholesterol in LDL [Mass/Vol] 45.2 mg/dL Normal [facility] Comment on above: Performed By: #### T 4, FT3, TSH #### [facility] [address] [address] [address] Stacy Rocha Cholesterol.total/C holesterol in HDL [Mass ratio] 2.5 {ratio} Normal [facility] Comment on above: Performed By: #### T 4, FT3, TSH #### [facility] [address] [address] [address] Stacy Rocha HDL NORMAL > or = 60 mg/dl - LOW CARDIOVASCULAR RISK <40 mg/dl - HIGH CARDIOVASCULAR RISK Normal [facility] Comment on above: Performed By: #### T 4, FT3, TSH #### [facility] [address] [place] [address] Dr. Stacy Rocha LDL CALC NORMAL SEE BELOW Normal [facility] Comment on above: Result Comment: <100 mg/dl OPTIMAL 100 - 129 mg/dl NEAR OR ABOVE OPTIMAL 130 - 159 mg/dl BORDERLINE HIGH 160 - 189 mg/dl HIGH >190 mg/dl VERY HIGH Performed By: #### T 4, FT3, TSH #### [facility] [address] [address] [address] Stacy Rocha Triglyceride [Mass/Vol] 99 mg/dL Normal <=150 [facility] Comment on above: Performed By: #### T 4, FT3, TSH #### [facility] [address] [place] [address] Dr. Stacy Rocha VLDL CALC 19.8 mg/dL Normal [facility] Comment on above: Performed By: #### T 4, FT3, TSH #### [facility] [address] [address] [address] Stacy Rocha PROF 14(COMP METB)on 022 Albumin [Mass/Vol] 3.1 g/dL Critically low 3.4-5.0 Th [facility] Comment on above: Performed By: #### T 4, FT3, TSH #### [facility] [address] [address] [address] Stacy Rocha Albumin/Globulin [Mass ratio] 0.7 {ratio} Normal [facility] Comment on above: Performed By: #### T 4, FT3, TSH #### [facility] [address] [address] [address] Stacy Rocha ALP [Catalytic activity/Vol] 124 U/L Critically high 46-116 [facility] Comment on above: Performed By: #### T 4, FT3, TSH #### [facility] [address] [address] [address] Stacy Rocha ALT [Catalytic activity/Vol] 33 U/L Normal 14-59 [facility] Comment on above: Performed By: #### T 4, FT3, TSH #### [facility] [address] [address] [address] Stacy Rocha Anion gap [Moles/Vol] 7.2 mmol/L Normal [facility] Comment on above: Performed By: #### T 4, FT3, TSH #### [facility] [address] [address] [address] Stacy Rocha AST [Catalytic activity/Vol] 28 U/L Normal 15-37 [facility] Comment on above: Performed By: #### T 4, FT3, TSH #### [facility] [address] [address] [address] Stacy Rocha Bilirubin [Mass/Vol] 0.5 mg/dL Normal 0.2-1.0 [facility] Comment on above: Performed By: #### T 4, FT3, TSH #### [facility] [address] [address] [address] Stacy Rocha Calcium [Mass/Vol] 8.5 mg/dL Normal 8.5-10.1 [facility] Comment on above: Performed By: #### T 4, FT3, TSH #### [facility] [address] [address] [address] Stacy Rocha Chloride [Moles/Vol] 105 mmol/L Normal 98-107 [facility] Comment on above: Performed By: #### T 4, FT3, TSH #### [facility] [address] [place] [address] Dr. Stacy Rocha CO2 [Moles/Vol] 29.3 mmol/L Normal 21.0-32.0 [facility] Comment on above: Performed By: #### T 4, FT3, TSH #### [facility] [address] [place] [address] Dr. Stacy Rocha Creatinine [Mass/Vol] 0.92 mg/dL Normal 0.55-1.02 [facility] Comment on above: Performed By: #### T 4, FT3, TSH #### [facility] [address] [place] [address] Dr. Stacy Rocha EGFR-AF NIUEAN >60 Normal >=60 [facility] Comment on above: Performed By: #### T 4, FT3, TSH #### [facility] [address] [place] [address] Dr. Stacy Rocha EGFR-NON AF NIUEAN 59 mL/min/1.73m2 Critically low >=60 [facility] Comment on above: Performed By: #### T 4, FT3, TSH #### [facility] [address] [place] [address] Dr. Stacy Rocha Globulin (S) [Mass/Vol] 4.7 g/dL Normal [facility] Comment on above: Performed By: #### T 4, FT3, TSH #### [facility] [address] [place] [address] Dr. Stacy Rocha Glucose [Mass/Vol] 107 mg/dL Critically high 74-106 [facility] Comment on above: Performed By: #### T 4, FT3, TSH #### [facility] [address] [place] [address] Dr. Stacy Rocha Potassium [Moles/Vol] 4.5 mmol/L Normal 3.5-5.1 [facility] Comment on above: Performed By: #### T 4, FT3, TSH #### [facility] [address] [place] [address] Dr. Stacy Rocha Protein [Mass/Vol] 7.8 g/dL Normal 6.1-8.2 [facility] Comment on above: Performed By: #### T 4, FT3, TSH #### [facility] [address] [place] [address] Dr. Stacy Rocha Sodium [Moles/Vol] 137 mmol/L Normal 136-145 [facility] Comment on above: Performed By: #### T 4, FT3, TSH #### [facility] [address] [place] [address] Dr. Stacy Rocha Urea nitrogen [Mass/Vol] 13.0 mg/dL Normal 7.0-18.0 [facility] Comment on above: Performed By: #### T 4, FT3, TSH #### [facility] [address] [place] [address] Dr. Stacy Rocha Urea nitrogen/Creatinine [Mass ratio] 14.1 mg/mg Normal [facility] Comment on above: Performed By: #### T 4, FT3, TSH #### [facility] [address] [place] [address] Dr. Stacy Rocha TSHon 09-07-2021 TSH 5.986 uIU/mL Critically high 0.470-4.680 [facility] Comment on above: Performed By: #### T 4, FT3, TSH #### [facility] [address] [place] [address] Dr. Stacy Rocha TSH RANGE SEE BELOW Normal [facility] Comment on above: Result Comment: <0.3 4 UIU/ml HYPERTHYROID 0.34-5.60 UIU/ml EUTHYROID >5.60 UIU/ml HYPOTHYROID Performed By: #### T 4, FT3, TSH #### [facility] [address] [place] [address] Dr. Stacy Rocha Covid-19 PCR (CVDTB)on 08-07 SARS-CoV-2 (COVID-19) RNA DENISSE+probe Ql (Unsp spec) Not detected Normal NOT DETECTED [facility] Comment on above: Result Comment: This test is not yet approved or cleared by the [place] FDA. When there are no FDA-approved or cleared tests available, and other criteria are met, FDA can make tests available under an emergency access mechanism called an Emergency Use Authorization (EUA). The EUA for this test is supported by the Rainbow of Health and Human Service's (HHS's) declaration that circumstances exist to justify the emergency use of in vitro diagnostics for the detection and/or diagnosis of the virus that causes COVID-19. This EUA will remain in effect (meaning this test can be used) for the duration of the COVID-19 declaration justifying emergency of IVDs, unless it is terminated or revoked by FDA (after which the test may no longer be used). When diagnostic testing is negative, the possibility of a false negative should be considered in the context of a patient's recent exposures and the presence of clinical signs and symptoms consistent with SARS-CoV-2. Performed By: #### T 4, FT3, TSH #### [facility] [address] [place] [address] Dr. Stacy Rocha INFLUENZA A AND B AGon 08-30 [facility] Normal [facility] Comment on above: Result Comment: Nega tive for Flu A protein angiten. Infection due to Flu A cannot be ruled out. Flu A angiten in the sample may be below the detection limit of the test. Performed By: #### I NFLUAB #### [facility] [address] [address] [address] Stacy Rocha INFLUBNEG SEE BELOW Normal [facility] Comment on above: Result Comment: Nega tive for Flu B protein antigen. Infection due to Flu B cannot be ruled out. Flu B antigen in the sample may be below the detection limit of the test. Performed By: #### I NFLUAB #### [facility] [address] [place] [address] Dr. Stacy Rocha INFLUENZA A AG Negative Normal NEGATIVE SEE COMMENT The [facility] Comment on above: Performed By: #### I NFLUAB #### [facility] [address] [address] [address] Stacy Rocha INFLUENZA B AG Negative Normal NEGATIVE SEE COMMENT The [facility] Comment on above: Performed By: #### I NFLUAB #### [facility] [address] [address] [address] Stacy Rocha INTERNAL CONTROLS Within Normal Limits Normal Within Normal Limits [facility] Comment on above: Performed By: #### I NFLUAB #### [facility] [address] [address] [address] Stacy Rocha Tobacco Screening.on 021 Fall risk assessment a) No falls within the last year [facility] [address] [place] Work Phone: Tobacco use status CPHS b) No [facility] [address] [place] Work Phone: Blood Urea Nitrogenon 2020 Urea nitrogen [Mass/Vol] 10 mg/dL Normal 01-28 [facility] Comment on above: Order Comment: PT FA STED 12 HRS Performed By: #### C REAT, LYTES, CBC, BUN #### [facility] [address] [place] [address] Complete Blood Count Auto Di ffon 03-10-2021 Basophils (Bld) [#/Vol] 0.1 10*3/uL Normal 0.0-0.2 [facility] Comment on above: Order Comment: PT FA STED 12 HRS Result Comment: PERF ORMED BY: [place] [address] PATHOLOGIST FOWL BLOOD TESTER FAHEEM CARSON M.D. Performed By: #### C REAT, LYTES, CBC, BUN #### [facility] [address] [place] [address] Basophils/100 WBC (Bld) 1.3 % Normal . [facility] Comment on above: Order Comment: PT FA STED 12 HRS Performed By: #### C REAT, LYTES, CBC, BUN #### [address] Eosinophils (Bld) [#/Vol] 0.5 10*3/uL High 0.0-0.45 [facility] Comment on above: Order Comment: PT FA STED 12 HRS Performed By: #### C REAT, LYTES, CBC, BUN #### [address] Eosinophils/100 WBC (Bld) 5.3 % Normal . [facility] Comment on above: Order Comment: PT FA STED 12 HRS Performed By: #### C REAT, LYTES, CBC, BUN #### [address] Erythrocyte distribution width (RBC) [Ratio] 13.8 % Normal 11.9-15.3 [facility] Comment on above: Order Comment: PT FA STED 12 HRS Performed By: #### C REAT, LYTES, CBC, BUN #### [address] Hematocrit (Bld) [Volume fraction] 39.7 % Normal 34.0-46.4 [facility] Comment on above: Order Comment: PT FA STED 12 HRS Performed By: #### C REAT, LYTES, CBC, BUN #### [address] Hemoglobin (Bld) [Mass/Vol] 13.2 g/dL Normal 11.8-15.4 [facility] Comment on above: Order Comment: PT FA STED 12 HRS Performed By: #### C REAT, LYTES, CBC, BUN #### [address] Lymphocytes (Bld) [#/Vol] 2.9 10*3/uL Normal 1.00-4.8 [facility] Comment on above: Order Comment: PT FA STED 12 HRS Performed By: #### C REAT, LYTES, CBC, BUN #### [address] Lymphocytes/100 WBC (Bld) 33.1 % Normal . [facility] Comment on above: Order Comment: PT FA STED 12 HRS Performed By: #### C REAT, LYTES, CBC, BUN #### [address] MCH (RBC) [Entitic mass] 30.2 pg Normal 24.7-34.3 [facility] Comment on above: Order Comment: PT FA STED 12 HRS Performed By: #### C REAT, LYTES, CBC, BUN #### [address] MCV (RBC) [Entitic vol] 90.5 fL Normal 80-100 [facility] Comment on above: Order Comment: PT FA STED 12 HRS Performed By: #### C REAT, LYTES, CBC, BUN #### [address] Mean Corpuscular HGB Conc 33.4 g/dL Normal 32.0-35.0 [facility] Comment on above: Order Comment: PT FA STED 12 HRS Performed By: #### C REAT, LYTES, CBC, BUN #### [address] Monocytes (Bld) [#/Vol] 1.0 10*3/uL High 0.0-0.8 [facility] Comment on above: Order Comment: PT FA STED 12 HRS Performed By: #### C REAT, LYTES, CBC, BUN #### [address] Monocytes/100 WBC (Bld) 11.7 % Normal . [facility] Comment on above: Order Comment: PT FA STED 12 HRS Performed By: #### C REAT, LYTES, CBC, BUN #### [facility] [address] [place] [address] Neutrophils (Bld) [#/Vol] 4.3 10*3/uL Normal 1.8-7.7 [facility] Comment on above: Order Comment: PT FA STED 12 HRS Performed By: #### C REAT, LYTES, CBC, BUN #### [facility] [address] Neutrophils/100 WBC (Bld) 48.6 % Normal . [facility] Comment on above: Order Comment: PT FA STED 12 HRS Performed By: #### C REAT, LYTES, CBC, BUN #### [facility] [address] Nucleated RBC/100 WBC (Bld) [Ratio] 0.0 % Normal 0-0.5 [facility] Comment on above: Order Comment: PT FA STED 12 HRS Performed By: #### C REAT, LYTES, CBC, BUN #### [facility] [address] Platelet mean volume (Bld) [Entitic vol] 8.3 fL Normal 6.3-10.7 [facility] Comment on above: Order Comment: PT FA STED 12 HRS Performed By: #### C REAT, LYTES, CBC, BUN #### [facility] [address] Platelets (Bld) [#/Vol] 270 10*3/uL Normal 150-450 [facility] Comment on above: Order Comment: PT FA STED 12 HRS Performed By: #### C REAT, LYTES, CBC, BUN #### [address] RBC (Bld) [#/Vol] 4.39 10*6/uL Normal 3.60-5.00 [facility] Comment on above: Order Comment: PT FA STED 12 HRS Performed By: #### C REAT, LYTES, CBC, BUN #### [facility] [address] WBC (Bld) [#/Vol] 8.8 10*3/uL Normal 4.5-11.0 [facility] Comment on above: Order Comment: PT FA STED 12 HRS Performed By: #### C REAT, LYTES, CBC, BUN #### [facility] [address] Creatinineon 03-10-2021 Creatinine [Mass/Vol] 0.83 mg/dL Normal 0.44-1.03 [facility] Comment on above: Order Comment: PT FA STED 12 HRS Performed By: #### C REAT, LYTES, CBC, BUN #### [facility] [address] [place] [address] Estimated GFR ( Gabrielle > 60 Normal [facility] Comment on above: Order Comment: PT FA STED 12 HRS Result Comment: GFR estimated reference range: According to KDOQI guidelines, <60 ml/min/1.73m2 is sufficient to diagnose a patient with chronic kidney disease. PERFORMED BY: [place] [address] PATHOLOGIST FOWL BLOOD TESTER FAHEEM CARSON M.D. Performed By: #### C REAT, LYTES, CBC, BUN #### [address] Estimated GFR (Non- Am > 60 Normal [facility] Comment on above: Order Comment: PT FA STED 12 HRS Performed By: #### C REAT, LYTES, CBC, BUN #### [facility] [address] [place] [address] Electrolyteson 03-10-2021 Chloride [Moles/Vol] 104 mmol/L Normal 95-114 [facility] Comment on above: Order Comment: PT FA STED 12 HRS Performed By: #### C REAT, LYTES, CBC, BUN #### [facility] [address] [place] [address] CO2 [Moles/Vol] 28.5 mmol/L Normal 22.0-30.0 [facility] Comment on above: Order Comment: PT FA STED 12 HRS Performed By: #### C REAT, LYTES, CBC, BUN #### [address] Potassium [Moles/Vol] 4.4 mmol/L Normal 3.5-5.1 [facility] Comment on above: Order Comment: PT FA STED 12 HRS Performed By: #### C REAT, LYTES, CBC, BUN #### [address] [place] [address] [facility] Sodium [Moles/Vol] 141 mmol/L Normal 136-146 [facility] Comment on above: Order Comment: PT FA STED 12 HRS Performed By: #### C DEE, ORION, CBC, BUN #### [facility] [id number] [facility] No Panel Informationon 03-10 48.6\S\48.[address] [facility] [address] Work Phone: 8.3\S\8.3 Normal 6.3-10.7 -[facility] [address] DO Work Phone: 270\S\270 Normal 150-450 -[facility] 600 DO Work Phone: 13.8\S\13.8 Normal 11.9-15.3 [facility] [address] DO Work Phone: 33.4\S\33.4 Normal 32.0-35.0 [facility] 600 DO Work Phone: 30.2\S\30.2 Normal 24.7-34.3 [facility] [address] DO Work Phone: 4.3\S\4.3 Normal 1.8-7.7 [facility] [address] DO Work Phone: 0.0\S\0.0 Normal 0-0.5 -[facility] [address] DO Work Phone: 1.3\S\1.[address] [facility] 600 DO Work Phone: 5.3\S\5.[address] [facility] [address] DO Work Phone: 11.7\S\11.[address] [facility] 600 DO Work Phone: 33.1\S\33.[address] [facility] 600 DO Work Phone: 0.1\S\0.1 Normal 0.0-0.2 [facility] [address] DO Work Phone: Comment on above: PERFORMED BY:[facility] [place], [place] [id number] MEDICAL DIRECTORFAHEEM CARSON M.D. 0.5\S\0.5 above high threshold 0.0-0.45 -[facility] [address] DO Work Phone: 1.0\S\1.0 above high threshold 0.0-0.8 -[facility] 600 DO Work Phone: 2.9\S\2.9 Normal 1.00-4.8 -[facility] [address] DO Work Phone: 90.5\S\90.5 Normal 80-100 -[facility] [address] DO Work Phone: 39.7\S\39.7 Normal 34.0-46.4 -[facility] [address] DO Work Phone: 13.2\S\13.2 Normal 11.8-15.4 -[facility] [address] DO Work Phone: 4.39\S\4.39 Normal 3.60-5.00 -[facility] [address] DO Work Phone: 8.8\S\8.8 Normal 3.8-11.6 -[facility] [address] DO Work Phone: 28.5\S\28.5 Normal 22.0-30.0 -[facility] 600 DO Work Phone: 104\S\104 Normal 95-114 -[facility] [address] DO Work Phone: 4.4\S\4.4 Normal 3.5-5.1 [facility] 600 DO Work Phone: 141\S\141 Normal 136-146 [facility] 600 DO Work Phone: 10\S\10 Normal 9-23 [facility] 600 DO Work Phone: > 60 Normal [facility] 600 DO Work Phone: Comment on above: GFR estimated refere nce range: According to KDOQI guidelines, <60 ml/min/1.73m2 is sufficient to diagnose a patient with chronic kidney disease.PERFORMED BY:[facility] [place], [place] [id number] MEDICAL DIRECTORFAHEEM CARSON M.D. 0.83\S\0.83 Normal 0.44-1.03 [facility] [address] DO Work Phone: ALT (SGPT)on 06-27-2018 ALT enzyme act/vol 26 U/L Normal 7-45 [facility] Comment on above: Performed By: #### 1 [id number] #### [facility] [address] [place] [id number] AST (SGOT)on 06-27-2018 AST enzyme act/vol 27 U/L Normal 13-39 [facility] Comment on above: Performed By: #### 1 [id number] #### [facility] [address] [place] [address] CBCon 06-27-2018 Erythrocyte distribution width Ratio (RBC) 13.7 % Normal 12.0-15.4 [facility] Comment on above: Performed By: #### 2 [id number] #### [facility] [address] [place] [address] Hematocrit Volume Fraction (Bld) 41.8 % Normal 36.5-46.6 [facility] Comment on above: Performed By: #### 2 [id number] #### [facility] [address] [place] [address] Hemoglobin mass conc (Bld) 13.5 g/dL Normal 11.8-15.3 [facility] Comment on above: Performed By: #### 2 [id number] #### [facility] [address] [place] [address] MCH Entitic mass (RBC) 29.7 pg Normal 27.5-33.0 [facility] Comment on above: Performed By: #### 2 [id number] #### [facility] [address] [place] [address] MCHC mass conc (RBC) 32.3 g/dL Normal 30.1-35.0 [facility] Comment on above: Performed By: #### 2 [id number] #### [facility] [address] [place] [address] MCV Entitic volume (RBC) 91.9 fL Normal 85.4-100.0 [facility] Comment on above: Performed By: #### 2 [id number] #### [facility] [address] [place] [address] NRBC Absolute 0.00 10*3/uL Normal [facility] Comment on above: Performed By: #### 2 [id number] #### [facility] [address] [place] [address] NRBC Automated 0.0 /100{WBCs} Normal [facility] Comment on above: Performed By: #### 2 [id number] #### [facility] [address] [place] [address] Platelet mean volume Entitic volume (Bld) 11.3 fL Normal 9.9-12.1 [facility] Comment on above: Performed By: #### 2 [id number] #### [facility] [address] [place] [address] Platelets #/vol (Bld) 316 10*3/uL Normal 155-404 [facility] Comment on above: Performed By: #### 2 [id number] #### [facility] [address] [place] [address] RBC #/vol (Bld) 4.55 10*6/uL Normal 3.85-5.10 [facility] Comment on above: Performed By: #### 2 [id number] #### [facility] [address] [place] [address] RDW SD 46.5 fL Normal 39.3-48.6 [facility] Comment on above: Performed By: #### 2 [id number] #### [facility] [address] [place] [address] WBC #/vol (Bld) 9.6 10*3/uL Normal 4.4-9.9 [facility] Comment on above: Performed By: #### 2 [id number] #### [facility] [address] [place] [address] Creatinineon 06-27-2018 Creatinine mass conc 0.91 mg/dL Normal 0.50-1.05 [facility] Comment on above: Performed By: #### 1 [id number] #### [facility] [address] [place] [address] GFR/1.73 sq M.predicted MDRD vol rate/area mL/min/{1.73_m2} Normal [facility] Comment on above: Result Comment: Inte rpretation for Chronic Kidney Disease: Stages 1&2 >60 Healthy or potential kidney damage. Mild decrease of GFR. Stage 3 30-59 Moderate decrease of GFR. Stage 4 15-29 Severe decrease of GFR. Stage 5 <15 Kidney failure or on dialysis. Performed By: #### 1 [id number] #### [facility] [address] [place] [address] Electrolyte Panelon 06-27-19 19 Anion gap molar conc 12 mmol/L Normal 10-20 [facility] Comment on above: Performed By: #### 1 [id number] #### [facility] [address] [place] [address] Chloride molar conc 102 mmol/L Normal 98-107 [facility] Comment on above: Performed By: #### 1 [id number] #### [facility] [address] [place] [address] HCO3 molar conc (Bld) 32 mmol/L Normal 21-32 [facility] Comment on above: Performed By: #### 1 [id number] #### [facility] [address] [place] [address] Potassium molar conc 3.7 mmol/L Normal 3.5-5.1 [facility] Comment on above: Performed By: #### 1 [id number] #### [facility] [address] [place] [address] Sodium molar conc 142 mmol/L Normal 136-145 [facility] Comment on above: Performed By: #### 1 [id number] #### [facility] [address] [place] [address] Lipid Panelon 06-27-2018 Cholesterol in HDL mass conc 38 mg/dL Abnormal [facility] Comment on above: Result Comment: Age Normal Mod Risk High Risk 5-9 >46 38-46 <38 10-14 >44 40-44 <40 15-19 >42 38-42 <38 Adult >49 Performed By: #### 1 [id number] #### [facility] [address] [place] [address] Cholesterol in LDL mass conc 51 mg/dL Normal <130 [facility] Comment on above: Performed By: #### 1 [id number] #### [facility] [address] [place] [address] Cholesterol in VLDL mass conc 29 mg/dL Normal <30 [facility] Comment on above: Performed By: #### 1 [id number] #### [facility] [address] [place] [address] Cholesterol mass conc 118 mg/dL Normal <200 [facility] Healthcare Comment on above: Performed By: #### 1 [id number] #### [facility] [address] [place] [address] Cholesterol.total/C holesterol in HDL mass ratio 3.1 {ratio} Normal [facility] Comment on above: Performed By: #### 1 [id number] #### [facility] [address] [place] [address] Triglyceride mass conc 146 mg/dL Normal <150 [facility] Healthcare Comment on above: Result Comment: 150- 199 Borderline High 200-499 High >500 Very High Performed By: #### 1 [id number] #### [facility] [address] [place] [address] TSHon 06-27-2018 Thyrotropin Qn 3.33 mU/L Normal 0.44-3.98 [facility] Health care Comment on above: Performed By: #### 1 [id number] #### [facility] [address] [place] [address] Thyroxineon 06-27-2018 T4 mass conc 8.4 ug/dL Normal 7.1-13.1 [facility] Healthca re Comment on above: Performed By: #### 1 [id number] #### [facility] [address] [place] [address] Thyroxine, Freeon 06-27-2018 Thyroxine, Free 0.80 ng/dL Normal 0.61-1.12 [facility] Healt hcare Comment on above: Performed By: #### 1 [id number] #### [facility] [address] [place] [address] Urea Nitrogenon 06-27-2018 Urea nitrogen mass conc 16 mg/dL Normal 6-23 [facility] Comment on above: Performed By: #### 1 [id number] #### [facility] [address] [place] [address] CBCon 11-16-2017 Erythrocyte distribution width Ratio (RBC) 13.7 % Normal 12.0-15.4 [facility] Comment on above: Performed By: #### 2 [id number] #### [facility] [address] [place] [address] Hematocrit Volume Fraction (Bld) 40.4 % Normal 36.5-46.6 [facility] Comment on above: Performed By: #### 2 [id number] #### [facility] [address] [place] [address] Hemoglobin mass conc (Bld) 12.6 g/dL Normal 11.8-15.3 [facility] Comment on above: Performed By: #### 2 [id number] #### [facility] [address] [place] [address] MCH Entitic mass (RBC) 29.4 pg Normal 27.5-33.0 [facility] Comment on above: Performed By: #### 2 [id number] #### [facility] [address] [place] [address] MCHC mass conc (RBC) 31.2 g/dL Normal 30.1-35.0 [facility] Comment on above: Performed By: #### 2 [id number] #### [facility] [address] [place] [address] MCV Entitic volume (RBC) 94.2 fL Normal 85.4-100.0 [facility] Comment on above: Performed By: #### 2 [id number] #### [facility] [address] [place] [address] NRBC Absolute 0.00 10*3/uL [facility] Comment on above: Performed By: #### 2 [id number] #### [facility] [address] [place] [address] NRBC Automated 0.0 /100{WBCs} Normal [facility] Comment on above: Performed By: #### 2 [id number] #### [facility] [address] [place] [address] Platelet mean volume Entitic volume (Bld) 10.9 fL Normal 9.9-12.1 [facility] Comment on above: Performed By: #### 2 [id number] #### [facility] [address] [place] [address] Platelets #/vol (Bld) 298 10*3/uL Normal 155-404 [facility] Comment on above: Performed By: #### 2 [id number] #### [facility] [address] [place] [address] RBC #/vol (Bld) 4.29 10*6/uL Normal 3.85-5.10 [facility]care Comment on above: Performed By: #### 2 [id number] #### [facility] [address] [place] [address] RDW SD 46.8 fL Normal 39.3-48.6 [facility] Comment on above: Performed By: #### 2 [id number] #### [facility] [address] [place] [address] WBC #/vol (Bld) 9.4 10*3/uL Normal 4.4-9.9 [facility] Heal thcare Comment on above: Performed By: #### 2 [id number] #### [facility] [address] [place] [address] Creatinineon 11-16-2017 Creatinine mass conc 0.98 mg/dL Normal 0.50-1.05 [facility] Comment on above: Performed By: #### 1 [id number] #### [facility] [address] [place] [address] GFR/1.73 sq M.predicted MDRD vol rate/area 56 mL/min/{1.73_m2} [facility] Comment on above: Result Comment: Inte rpretation for Chronic Kidney Disease: Stages 1&2 >60 Healthy or potential kidney damage. Mild decrease of GFR. Stage 3 30-59 Moderate decrease of GFR. Stage 4 15-29 Severe decrease of GFR. Stage 5 <15 Kidney failure or on dialysis. Performed By: #### 1 [id number] #### [facility] [address] [place] [address] Electrolyte Panelon 11-17-19 18 Anion gap molar conc 11 mmol/L Normal 10-20 [facility] Comment on above: Performed By: #### 1 [id number] #### [facility] [address] [place] [address] Chloride molar conc 104 mmol/L Normal 98-107 [facility] ealthcare Comment on above: Performed By: #### 1 [id number] #### [facility] [address] [place] [address] HCO3 molar conc (Bld) 29 mmol/L Normal 21-32 [facility] Comment on above: Performed By: #### 1 [id number] #### [facility] [address] [place] [address] Potassium molar conc 4.2 mmol/L Normal 3.5-5.1 [facility] Comment on above: Performed By: #### 1 [id number] #### [facility] [address] [place] [address] Sodium molar conc 140 mmol/L Normal 136-145 [facility] Comment on above: Performed By: #### 1 [id number] #### [facility] [address] [place] [address] Urea Nitrogenon 11-16-2017 Urea nitrogen mass conc 20 mg/dL Normal 6-23 [facility] Comment on above: Performed By: #### 1 [id number] #### [facility] [address] [place] [address] Vital Signs Date Time Vital Sign Value Performing Clinician Facility 09-15-2022 08:50-0400 Body height 162.56 cm Nicki Ricardo Hoy Work Phone: [facility] [place] [address] DO Work Phone: 09-15-2022 08:50-0400 Body mass index (BMI) [Ratio] 35.36 kg/m2 Nicki Ricardo Hoy Work Phone: [facility] [place] [address] DO Work Phone: 09-15-2022 08:50-0400 Body surface area Derived from formula 1.98 m2 Nicki M Hoy Work Phone: [facility]Yhrhdaeakj[facility]Loikds [place] 250 DO Work Phone: 09-15-2022 08:50-0400 Body weight 93.44 kg Nicki Ricardo Hoy Work Phone: [facility]Wewdyyqtgc[facility]Prezcu [place] 250 DO Work Phone: 09-15-2022 08:50-0400 Diastolic blood pressure 84 mm[Hg] Nicki M Hoy Work Phone: [facility]Ybyididvhr-Fylpxg [place] 250 DO Work Phone: 09-15-2022 08:50-0400 Heart rate 49 /min Nicki M Hoy Work Phone: L[facility]Mnsbwfryum-Ckhafx [place] 250 DO Work Phone: 05-11-2023 08:50-0400 Systolic blood pressure 128 mm[Hg] Nicki M Hoy Work Phone: XS[facility]Mucenvmnxm-Abhlhc [place] 250 DO Work Phone: 08-21-2022 10:30-0400 Body height 162.56 cm Kristin Ballesterosmond Other [facility] Other 08-21-2022 10:30-0400 Body mass index (BMI) [Ratio] 36.04 kg/m2 Kristin Ballesterosmond Other [facility] Other 08-21-2022 10:30-0400 Body temperature 100.6 [degF] Kristin Ballesterosmond Other [facility] Other 08-21-2022 10:30-0400 Body weight 95.26 kg Kristin Ballesterosmond Other [facility] Other 08-21-2022 10:30-0400 Diastolic blood pressure 50 mm[Hg] Kristin Ballesterosmond Other [facility] Other 08-21-2022 10:30-0400 Respiratory rate 18 /min Kristin Giang Other [facility] Other 08-21-2022 10:30-0400 SaO2% (BldA) [Mass fraction] 95 % Kristin Ballesterosmond Other [facility] Other 08-21-2022 10:30-0400 Systolic blood pressure 137 mm[Hg] Kristin Padmaja Other [facility] Other 03-23-2022 08:41-0500 Body height 162.56 cm Nicki M Hoy Work Phone: [facility] 250 DO Work Phone: 03-23-2022 08:41-0500 Body mass index (BMI) [Ratio] 36.56 kg/m2 Nicki M Hoy Work Phone: [facility] 250 DO Work Phone: 03-23-2022 08:41-0500 Body surface area Derived from formula 2.01 m2 Nicki M Hoy Work Phone: [facility] 250 DO Work Phone: 03-23-2022 08:41-0500 Body weight 96.62 kg Nicki M Hoy Work Phone: [facility] 250 DO Work Phone: 03-23-2022 08:41-0500 Diastolic blood pressure 66 mm[Hg] Nicki M Hoy Work Phone: [facility] 250 DO Work Phone: 03-23-2022 08:41-0500 Heart rate 53 /min Nicki M Hoy Work Phone: [facility] 250 DO Work Phone: 03-23-2022 08:41-0500 Systolic blood pressure 124 mm[Hg] Nicki M Hoy Work Phone: [facility] 250 DO Work Phone: 09-30-2021 14:26-0400 Diastolic blood pressure 68 mm[Hg] Nicki M Hoy Work Phone: [facility] 250 DO Work Phone: 09-30-2021 14:26-0400 Systolic blood pressure 128 mm[Hg] Nicki M Hoy Work Phone: [facility] 250 DO Work Phone: 09-30-2021 14:13-0400 Diastolic blood pressure 60 mm[Hg] Nicki M Hoy Work Phone: [facility] 250 DO Work Phone: 09-30-2021 14:13-0400 Systolic blood pressure 138 mm[Hg] Nicki Ricardo Hoy Work Phone: [facility] 250 DO Work Phone: 09-30-2021 14:12-0400 Body height 162.56 cm Nicki M Hoy Work Phone: [facility] 250 DO Work Phone: 09-30-2021 14:12-0400 Body mass index (BMI) [Ratio] 36.05 kg/m2 Nicki M Hoy Work Phone: [facility] 250 DO Work Phone: 09-30-2021 14:12-0400 Body surface area Derived from formula 2 m2 Nicki Ricardo Hoy Work Phone: [facility] [address] DO Work Phone: 09-30-2021 14:12-0400 Body weight 95.26 kg Nicki Ricardo Hoy Work Phone: [facility] 250 DO Work Phone: 09-30-2021 14:12-0400 Diastolic blood pressure 60 mm[Hg] Nicki M Hoy Work Phone: [facility] DO Work Phone: 09-30-2021 14:12-0400 Heart rate 54 /min Nicki M Hoy Work Phone: [facility] 250 DO Work Phone: 09-30-2021 14:12-0400 Systolic blood pressure 140 mm[Hg] Nicki M Hoy Work Phone: [facility] 250 DO Work Phone: 09-16-2021 09:34-0400 Diastolic blood pressure 80 mm[Hg] Nicki M Hoy Work Phone: [facility] 250 DO Work Phone: 09-16-2021 09:34-0400 Systolic blood pressure 160 mm[Hg] Nicki M Hoy Work Phone: [facility] 250 DO Work Phone: 09-16-2021 09:05-0400 Body height 162.56 cm Nicki Ricardo Hoy Work Phone: [facility] 250 DO Work Phone: 09-16-2021 09:05-0400 Body mass index (BMI) [Ratio] 35.87 kg/m2 Nicki M Hoy Work Phone: [facility] 250 DO Work Phone: 09-16-2021 09:05-0400 Body surface area Derived from formula 1.99 m2 Nicki Ricardo Hoy Work Phone: [facility] 250 DO Work Phone: 09-16-2021 09:05-0400 Body weight 94.8 kg Nicki Ricardo Hoy Work Phone: [facility] 250 DO Work Phone: 09-16-2021 09:05-0400 Diastolic blood pressure 80 mm[Hg] Nicki Ricardo Hoy Work Phone: [facility] 250 DO Work Phone: 09-16-2021 09:05-0400 Heart rate 59 /min Nicki M Hoy Work Phone: [facility] 250 DO Work Phone: 09-16-2021 09:05-0400 Systolic blood pressure 150 mm[Hg] Nicki M Hoy Work Phone: [facility] 250 DO Work Phone: 09-07-2021 16:12-0400 5.8 1 Nicki M Hoy Work Phone: [facility] DO Work Phone: Comment on above: [id number] 09-07-2021 00:00-0400 45.2 1 Nicki M Hoy Work Phone: [facility] 250 DO Work Phone: Comment on above: [facility] 03-18-2021 08:50-0500 Body height 162.56 cm Nicki M Hoy Work Phone: [facility] [address] [place] Work Phone: 03-18-2021 08:50-0500 Body mass index (BMI) [Ratio] 37.25 kg/m2 Nicki M Hoy Work Phone: [facility] [address] [place] Work Phone: 03-18-2021 08:50-0500 Body surface area Derived from formula 2.03 m2 Nicki M Hoy Work Phone: [facility] [address] [place] Work Phone: 03-18-2021 08:50-0500 Body weight 98.43 kg Nicki M Hoy Work Phone: [facility] [address] [place] Work Phone: 03-18-2021 08:50-0500 Diastolic blood pressure 68 mm[Hg] Nicki M Hoy Work Phone: [facility] [address] [place] Work Phone: 03-18-2021 08:50-0500 Heart rate 54 /min Nicki M Hoy Work Phone: [facility] [address] [place] Work Phone: 03-18-2021 08:50-0500 Systolic blood pressure 128 mm[Hg] Nicki M Hoy Work Phone: [facility] [address] [place] Work Phone: Encounters Encounter Date Encounter Type Care Provider Facility Start: 03-23-2023 End: 03-23-2023 ambulatory [facility] Ambulatory Start: 09-15-2022 Office outpatient vi sit 25 minutes Nicki Tamayo Work Phone: [facility] 250 DO Work Phone: Start: 09-15-2022 ambulatory [facility] Facility : Start: 08-21-2022 End: 08-21-2022 ambulatory Kristin Giang Other [facility] op5 Other Start: 08-21-2022 Office outpatient ne w 30 minutes Kristin Giang [facility] Start: 08-15-2022 Rx Renewal Nicki Tamayo Work Phone: [facility] 250 DO Work Phone: Start: 07-06-2022 Patient encounter procedure Nicki Tamayo Work Phone: [facility] DO Work Phone: Start: 07-01-2022 End: 07-02-[address] NICKI TAMAYO . Facility:[facility]1 Start: 06-16-2022 End: 06-17-[address] NICKI TAMAYO . Facility:[facility] Start: 04-05-2022 End: 04-06-[address] NICKI TAMAYO . Facility:[facility] Start: 03-23-2022 Office outpatient vi sit 25 minutes Nicki Tamayo Work Phone: [facility] DO Work Phone: Start: 03-23-[address] Nicki Tamayo Facility: Start: 11-12-2021 End: 11-13-[address] NICKI TAMAYO . Facility:[facility] Start: 10-06-[address] NICKI TAMAYO . Facili ty:[facility]1 Start: 09-30-2021 Office outpatient vi sit 10 minutes Nicki M Hoy Work Phone: [facility] 250 DO Work Phone: Start: 09-30-[address] Nicki Tamayo Facility: Start: 09-16-2021 Office outpatient vi sit 25 minutes Nicki M Hoy Work Phone: [facility] 250 DO Work Phone: Start: 09-07-2021 End: 09-08-[address] CARI DE LEON Facility:[facility]1 Start: 08-30-2021 End: 08-30-[address] NICKI TAMAYO . Facility:[facility]1 Start: 08-16-2021 Rx Renewal Nicki M Hoy Work Phone: [facility] 250 DO Work Phone: Start: 05-26-2021 Rx Renewal Nicki M Hoy Work Phone: [facility] [address] [place] Work Phone: Start: 03-18-2021 Office outpatient vi sit 25 minutes Nicki M Hoy Work Phone: [facility] [address] [place] Work Phone: Start: 03-10-2021 Chart Update Cari De Leon MD Work Phone: [facility] 600 DO Work Phone: Start: 06-27-2018 Patient encounter procedure CARI DE LEON Facility:[id number] Start: 11-16-2017 Patient encounter procedure CARI DE LEON Facility:[id number] Procedures Date Procedure Procedure Detail Performing Clinician Start: 03-23-2023 ECG 12-LEAD CARI HODGE Cataract surgery Nicki M H oy Work Phone: Colonoscopy Nicki M Hoy Work Phone: Comment on above: [id number]; Plan of Treatment Date Care Activity Detail Author Start: 03-23-2023 FUV, Provider: Cari De Leon, Status: Pen, Time: 8:30 AM FUV, Provider: Cari De Leon, Status: Pen, Time: 8:30 AM [facility] 250 DO Work Phone: Start: 09-15-2022 FUV, Provider: Cari De Leon, Status: Pen, Time: 9:00 AM FUV, Provider: Cari De Leon, Status: Pen, Time: 9:00 AM [facility] 250 DO Work Phone: Start: 03-23-2022 FUV, Provider: Cari De Leon, Status: Pen, Time: 8:40 AM FUV, Provider: Cari De Leon, Status: Pen, Time: 8:40 AM [facility] 250 DO Work Phone: Start: 09-30-2021 NURSEVST, Provider: JULIUS LANE MAKING MACHINE OPERATOR [id number], Status: Pen, Time: 2:00 PM NURSEVST, Provider: JULIUS LANE MAKING MACHINE OPERATOR 1,[id number], Status: Pen, Time: 2:00 PM [facility] 250 DO Work Phone: Start: 09-16-2021 FUV, Provider: Cari De Leon, Status: Pen, Time: 9:10 AM FUV, Provider: Cari De Leon, Status: Pen, Time: 9:10 AM [facility] [address] [place] Work Phone: Start: 03-18-2021 FUV, Provider: Cari De Leon, Status: Pen, Time: 9:00 AM FUV, Provider: Cari De Leon, Status: Pen, Time: 9:00 AM [facility] 600 DO Work Phone: Immunizations Immunization Date Immunization Notes Care Provider Fa cili 02-02-2022 Fluzone High-Dose Quadrivalent 0.7 ML Intramuscular Suspension Prefilled Syringe Nicki Hoffmannin3Dgallery Work Phone: [facility] 250 DO Work Phone: 02-02-2022 Pfizer COVID-19 Vac Bivalent 30 MCG/0.3ML Intramuscular Suspension Nicki Hoffmanny Work Phone: [facility] 250 DO Work Phone: 02-08-2021 Pfizer-BioNTech COVI D-19 Vacc 30 MCG/0.3ML Intramuscular Suspension [facility] [place] Work Phone: 07-10-2020 Pfizer-BioNTech COVI D-19 Vacc 30 MCG/0.3ML Intramuscular Suspension Nicki Silva Hoy [facility] [place] Work Phone: 06-19-2020 Pfizer-BioNTech COVI D-19 Vacc 30 MCG/0.3ML Intramuscular Suspension Nicki Silva Hoy Work Phone: [facility] [address] [place] Work Phone: 03-30-2020 Seasonal trivalent influenza vaccine, adjuvanted, preservative free Nicki Silva Hoy Work Phone: [facility] [address] [place] Work Phone: 02-06-2020 influenza virus vacc ine, unspecified formulation Nicki Ricardo Hoy Work Phone: [facility] 250 DO Work Phone: 02-06-2020 influenza, seasonal, injectable Nicki M Hoy Work Phone: [facility] [address] [place] Work Phone: 03-08-2019 influenza virus vacc ine, unspecified formulation Nicki M Hoy [facility] Work Phone: 03-08-2019 influenza, seasonal, injectable Nicki M Hoy Work Phone: [facility] [address] [place] Work Phone: 02-10-2019 influenza, high dose seasonal, preservative-free Nicki M Hoy Work Phone: [facility] 250 DO Work Phone: 02-05-2019 pneumococcal polysaccharide vaccine, 23 valent Nicki M Hoy Work Phone: [facility] 250 DO Work Phone: 02-05-2018 influenza virus vacc ine, unspecified formulation Nicki M Hoy Work Phone: [facility] 250 DO Work Phone: 01-17-2017 influenza, injectabl e, quadrivalent, preservative free Nicki M Hoy Work Phone: [facility] [address] [place] Work Phone: 01-14-2017 influenza virus vacc ine, unspecified formulation Nicki M Hoy Work Phone: [place] [address] [place] Work Phone: 06-08-2015 pneumococcal conjuga te vaccine, 13 valent Nicki M Hoy Work Phone: [facility] 250 DO Work Phone: 03-26-2015 influenza, injectabl e, quadrivalent, contains preservative Nicki M Hoy Work Phone: [facility] [address] [place] Work Phone: 03-08-2015 influenza virus vacc ine, unspecified formulation Nicki M Hoy Work Phone: [facility] 250 DO Work Phone: 02-11-2014 influenza virus vacc ine, whole virus Nicki M Hoy Work Phone: [facility] 250 DO Work Phone: 02-09-2012 influenza, injectabl e, quadrivalent, contains preservative Nicki M Hoy [facility] [place] Work Phone: 02-07-2012 pneumococcal polysaccharide vaccine, 23 valent Nicki Silva [facility]oy [facility] [place] Work Phone: 02-07-2012 zoster vaccine, live Nicki Hoffmanny Work Phone: [facility] [address] [place] Work Phone: 05-08-2011 pneumococcal polysaccharide vaccine, 23 valent Nicki Silva Hoy [facility] [place] Work Phone: influenza virus vacc ine, unspecified formulation [facility]i Hoffmanny Work Phone: [facility] DO Work Phone: Comment on above: 2012Feb 20122010 Payers Date Payer Category Payer Medicare [id number] 1959 Self-pay 1959 Unknown [id number] 1945 Unknown [id number] 2.16.8 [id number] 1945 Unknown [id number] 2.16.8 [id number] 1945 Unknown [id number] 2.16.84 [id number] 1945 Unknown [id number] 2.16.84 [id number] 1945 Unknown [id number] 2.16.84 [id number] 1945 Unknown [id number] 2.16.84 [id number] 1945 Unknown [id number] 2.16.84 [id number] 1945 Unknown [id number] 2.16.84 [id number] 1945 Unknown [id number] 2.16.84 [id number] 1945 Unknown [id number] 2.16.84 [id number] 1945 Unknown [id number] 2.16. [id number] 1945 Unknown [id number] 2.16. [id number] 1945 Unknown [id number] 2.16. [id number] 1945 Unknown [id number] 2.16.8 [id number] Medicare [id number] Unknown [id number] Unknown Social History Date Type Detail Facility Daily caffeine consumption, 2-3 servings a day Daily caffeine consumption, 2-3 servings a day [address] Work Phone: Comment on above: quit approx 1988, 1 PPD; Sex Assigned At Sex Assigned At Bir th [facility] Other Evaluation note 08-21-2022 Note Date & Type Note Facility 08-21-2022 Evaluation note Encounter Date Diagnosis Assessment Notes Aug, Contact with and (suspected) exposure to other viral communicable diseases (ICD-10 - Z20.828) Aug, Strep pharyngitis (ICD-10 - J02.0) Strep throat material was printed Drink plenty fluids, get plenty of rest. Take the amoxicillin as prescribed until gone. Take Tylenol or Motrin as needed for aches pains or fevers. Drink warm tea with honey for comfort. Follow-up with your family doctor if no improvement in 2 to 3 days [facility] Other History general Narrative - Reported Note Date & Type Note Facility History general Narrative - Reported Type Medical History heart disease Surgical History 3 heart stents Hospitalization History see above [facility] Other Summary Purpose Family History No Family History Records FoundUnknown Family Member Name Dates Details Family history of malignant neoplasm: Brother(V16.9, Z80.9) Status:Active Family history of congestive heart failure: Mother(V17.49, Z82.49) Status:Active Family history of cardiac di sorder: Sister(V17.49, Z82.49) Status:Active S/P PTCA (percutaneous trans luminal coronary angioplasty): Sister(V45.82, Z98.61) Status:Active Unknown Family Member Name Dates Details Family history of malignant neoplasm: Brother(V16.9, Z80.9) Status:Active Family history of congestive heart failure: Mother(V17.49, Z82.49) Status:Active Family history of cardiac di sorder: Sister(V17.49, Z82.49) Status:Active S/P PTCA (percutaneous trans luminal coronary angioplasty): Sister(V45.82, Z98.61) Status:Active Unknown Family Member Name Dates Details Family history of malignant neoplasm: Brother(V16.9, Z80.9) Status:Active Family history of congestive heart failure: Mother(V17.49, Z82.49) Status:Active Family history of cardiac di sorder: Sister(V17.49, Z82.49) Status:Active S/P PTCA (percutaneous trans luminal coronary angioplasty): Sister(V45.82, Z98.61) Status:Active Unknown Family Member Name Dates Details Family history of malignant neoplasm: Brother(V16.9, Z80.9) Status:Active Family history of congestive heart failure: Mother(V17.49, Z82.49) Status:Active Family history of cardiac di sorder: Sister(V17.49, Z82.49) Status:Active S/P PTCA (percutaneous trans luminal coronary angioplasty): Sister(V45.82, Z98.61) Status:Active Unknown Family Member Name Dates Details Family history of malignant neoplasm: Brother(V16.9, Z80.9) Status:Active Family history of congestive heart failure: Mother(V17.49, Z82.49) Status:Active Family history of cardiac di sorder: Sister(V17.49, Z82.49) Status:Active S/P PTCA (percutaneous trans luminal coronary angioplasty): Sister(V45.82, Z98.61) Status:Active Unknown Family Member Name Dates Details Family history of malignant neoplasm: Brother(V16.9, Z80.9) Status:Active Family history of congestive heart failure: Mother(V17.49, Z82.49) Status:Active Family history of cardiac di sorder: Sister(V17.49, Z82.49) Status:Active S/P PTCA (percutaneous trans luminal coronary angioplasty): Sister(V45.82, Z98.61) Status:Active Unknown Family Member Name Dates Details Family history of malignant neoplasm: Brother(V16.9, Z80.9) Status:Active Family history of congestive heart failure: Mother(V17.49, Z82.49) Status:Active Family history of cardiac di sorder: Sister(V17.49, Z82.49) Status:Active S/P PTCA (percutaneous trans luminal coronary angioplasty): Sister(V45.82, Z98.61) Status:Active Unknown Family Member Name Dates Details Family history of malignant neoplasm: Brother(V16.9, Z80.9) Status:Active Family history of congestive heart failure: Mother(V17.49, Z82.49) Status:Active Family history of cardiac di sorder: Sister(V17.49, Z82.49) Status:Active S/P PTCA (percutaneous trans luminal coronary angioplasty): Sister(V45.82, Z98.61) Status:Active Unknown Family Member Name Dates Details Family history of malignant neoplasm: Brother(V16.9, Z80.9) Status:Active Family history of congestive heart failure: Mother(V17.49, Z82.49) Status:Active Family history of cardiac di sorder: Sister(V17.49, Z82.49) Status:Active S/P PTCA (percutaneous trans luminal coronary angioplasty): Sister(V45.82, Z98.61) Status:Active Family history of cardiac pa cemaker: Sister(V17.49, Z82.49) Status:Active Advance Directives No Advanced Directives Records FoundNo Advanced Directives Records FoundNo Advanced Directives Records FoundNo Advanced Directives Records FoundNo Advanced Directives Records FoundNo Advanced Directives Records Found Chief Complaint * MARIO MITCHELL is being seen for a 6 month follow-up of. * Patient is in the office for follow-up for the problems noted below. She reports no breakthrough atrial fibrillation and no symptoms suggestive of recurrent coronary artery disease. She has been active but unfortunately has not lost weight. Her review of system was entirely normal physical examination was only remarkable for obesity. Her last blood work from several months ago was reviewed with her all her numbers are on target. * ASSESSMENT AND PLAN: * 1. Paroxysmal fibrillation, on sotalol and Xarelto, which have been * monitored and have been well tolerated. ECG today revealed normal sinus rhythm and normal intervals * 2. Two-vessel coronary artery disease and status post angioplasty in * 1997 involving the right coronary artery and 2007 involving the LAD. Risk factor had been controlled. The patient has been compliant with no recurrent disease. Last stress test with 2016 was normal * 3. Obesity. Encouraged Mrs. Mitchell to cut back calorie intake on regular basis * 4. Hypertension, currently controlled. * 5. Hyperlipidemia, currently under control. LDL August 2020 * 6. Hypothyroidism on replacement therapy recent testing was reviewed with the patient * Six-month follow-up is scheduled * Cari De Leon MD, FACC * MARIO MITCHELL is being seen for a 6 month follow-up of. * Patient is in the office for follow-up for the problems noted below. She reports no breakthrough atrial fibrillation and no symptoms suggestive of recurrent coronary artery disease. She has been active but unfortunately has not lost weight. Her review of system was entirely normal physical examination was only remarkable for obesity. Her last blood work from several months ago was reviewed with her all her numbers are on target. * ASSESSMENT AND PLAN: * 1. Paroxysmal fibrillation, on sotalol and Xarelto, which have been * monitored and have been well tolerated. ECG today revealed normal sinus rhythm and normal intervals * 2. Two-vessel coronary artery disease and status post angioplasty in * 1997 involving the right coronary artery and 2007 involving the LAD. Risk factor had been controlled. The patient has been compliant with no recurrent disease. Last stress test with 2016 was normal * 3. Obesity. Encouraged Mrs. Mitchell to cut back calorie intake on regular basis * 4. Hypertension, currently controlled. * 5. Hyperlipidemia, currently under control. LDL August 2020 * 6. Hypothyroidism on replacement therapy recent testing was reviewed with the patient * Six-month follow-up is scheduled * Cari De Leon MD, FACC * MARIO MITCHELL is being seen for a 6 month follow-up of. * Patient is in the office for follow-up for the problems noted below. Since her last visit March 2021 she has remained symptoms free and has no trouble with medications and denies any orthopnea PNDpalpitations or chest pain. She has joint problems in her knees which is age-related. Her pressure was noted to be surprisingly elevated today on the same medication her she was on previously with noobvious cause for elevated blood pressure. Adjustment medication was recommended as noted below. Her weight remains above target and this was brought her attention. Recent labs were reviewed with thepatient and they look excellent. Patient has had no indication of recurrent atrial fibrillation since her last visit. Has had no bleeding complications on anticoagulation * ASSESSMENT AND PLAN: * 1. Paroxysmal fibrillation, on sotalol and Xarelto, which have been monitored and have been well tolerated. ECG today revealed normal sinus rhythm and normal intervals * 2. Two-vessel coronary artery disease and status post angioplasty in 1997 involving the right coronary artery and 2007 involving the LAD. Risk factor had been controlled. The patient has been compliant with no recurrent disease. Last stress test with 2017 was normal * 3. Obesity. Encouraged Mrs. Mitchell to cut back calorie intake on regular basis * 4. Hypertension, currently not controlled. We will increase amlodipine up to 10 mg daily and followblood pressure reading in few weeks. Low-salt diet, exercise and weight control were encouraged * 5. Hyperlipidemia, currently under control. LDL on target * 6. Hypothyroidism on replacement therapy recent testing was reviewed with the patient * Six-month follow-up is scheduled * MARIO MITCHELL is being seen for a 6 month follow-up of. * Patient is in the office for follow-up for the problems noted below. Since her last visit March 2021 she has remained symptoms free and has no trouble with medications and denies any orthopnea PNDpalpitations or chest pain. She has joint problems in her knees which is age-related. Her pressure was noted to be surprisingly elevated today on the same medication her she was on previously with noobvious cause for elevated blood pressure. Adjustment medication was recommended as noted below. Her weight remains above target and this was brought her attention. Recent labs were reviewed with thepatient and they look excellent. Patient has had no indication of recurrent atrial fibrillation since her last visit. Has had no bleeding complications on anticoagulation * ASSESSMENT AND PLAN: * 1. Paroxysmal fibrillation, on sotalol and Xarelto, which have been monitored and have been well tolerated. ECG today revealed normal sinus rhythm and normal intervals * 2. Two-vessel coronary artery disease and status post angioplasty in 1997 involving the right coronary artery and 2007 involving the LAD. Risk factor had been controlled. The patient has been compliant with no recurrent disease. Last stress test with 2016 was normal * 3. Obesity. Encouraged Mrs. Mitchell to cut back calorie intake on regular basis * 4. Hypertension, currently not controlled. We will increase amlodipine up to 10 mg daily and followblood pressure reading in few weeks. Low-salt diet, exercise and weight control were encouraged * 5. Hyperlipidemia, currently under control. LDL on target * 6. Hypothyroidism on replacement therapy recent testing was reviewed with the patient * Six-month follow-up is scheduled MARIO MITCHELL is being seen for hypertension.* MARIO MITCHELL is being seen for hypertension. * Patient is in the office for hypertension management. Since the changes made last visit her pressure is not completely under control. She had no side effect of medications and no changes are needed. * MARIO MITCHELL is being seen for a 6 month follow-up of. * Patient is in the office for follow-up for the problems noted below. Since her last visit she has not had any cardiac events whatsoever. Denies any chest pain palpitations or side effect of medications. She maintains active lifestyle but in spite of that has not been able to lose weight. Her lab data have been reviewed and there has been no areas of concern. Apart from obesity physical examination was normal. ECG revealed normal sinus rhythm with normal QTc interval. There has been no breakthrough atrial fibrillation * ASSESSMENT AND PLAN: * 1. Paroxysmal fibrillation, on sotalol and Xarelto, which have been monitored and have been well tolerated. ECG today revealed normal sinus rhythm and normal intervals * 2. Two-vessel coronary artery disease and status post angioplasty in 1997 involving the right coronary artery and 2007 involving the LAD. Risk factor had been controlled. The patient has been compliant with no recurrent disease. Last stress test with 2016 was normal * 3. Obesity. Encouraged Mrs. Mitchell to cut back calorie intake on regular basis * 4. Hypertension, currently controlled. * 5. Hyperlipidemia, currently under control. LDL on target * 6. Hypothyroidism on replacement therapy * Six-month follow-up is scheduled * MARIO MITCHELL is being seen for a 6 month follow-up of. * Patient is in the office for follow-up for the problems noted below. Since her last visit she has had no current events whatsoever. Has had no breakthrough defibrillation and no bleeding complications. She is on sotalol and Xarelto. EKG today confirmed normal sinus rhythm with sinus bradycardia which is asymptomatic QTc interval in the therapeutic range. Her lab data from PCP were reviewed. She need lipid profile which is ordered. Apart from obesity physical examination is unremarkable. Her weight has dropped several pounds from last visit and encouragement for weight loss was provided to thepatient. * ASSESSMENT AND PLAN: * 1. Paroxysmal fibrillation, on sotalol and Xarelto, which have been monitored and have been well tolerated. ECG today revealed normal sinus rhythm and normal intervals * 2. Two-vessel coronary artery disease and status post angioplasty in 1997 involving the right coronary artery and 2007 involving the LAD. Risk factor had been controlled. The patient has been compliant with no recurrent disease. Last stress test with 2016 was normal * 3. Obesity. Encouraged Mrs. Mitchell to cut back calorie intake on regular basis, patient lost several pounds last visit and encouragement for more weight loss provided. * 4. Hypertension, currently controlled. * 5. Hyperlipidemia, on maximal intensity atorvastatin, lipid profile is needed and was ordered. * 6. Hypothyroidism on replacement therapy * 7. 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 * Six-month follow-up is scheduled Additional Source Comments INFORMATION SOURCE (unrecogn ized section and content) DATE CREATED AUTHOR 07/10/2018 [facility] DATE CREATED AUTHOR AUTHOR'S ORGANIZ ATION 06/01/2021 [facility] DATE CREATED AUTHOR AUTHOR'S ORGANIZ ATION 07/08/2022 [facility] DATE CREATED AUTHOR AUTHOR'S ORGANIZ ATION 09/17/2022 [facility] [place] DATE CREATED AUTHOR AUTHOR'S ORGANIZ ATION 09/17/2022 [employer] DATE CREATED AUTHOR AUTHOR'S ORGANIZ ATION 09/02/2023 [facility] REASON FOR VISIT (unrecogniz ed section and content) SORE THROAT, CHILLS, EARACHE , COUGH FOR RECORDS PERTAINING TO PATIENTS WHO ARE OR HAVE BEEN ENROLLED IN A CHEMICAL DEPENDENCY/SUBSTANCEABUSE PROGRAM, SOME INFORMATION MAY BE OMITTED. This clinical summary was aggregated from multiple sources. Caution should be exercised in using it in the provision of clinical care. This summary normalizes information from multiple sources, and as a consequence, information in this document may materially change the coding, format and clinical context of patient data. In addition, data may be omitted in some cases. CLINICAL DECISIONS SHOULD BE BASED ON THE PRIMARY CLINICAL RECORDS. [facility] [employer] [facility]. provides no warranty or guarantee of the accuracy or completeness of information in this document.
[2023-10-31 09:28] LABS: Basophils Absolute Auto 0.1 10^3/uL (0.0-0.1); Basophils Percent Auto 0.8 % (0.2-2.0); Eosinophils Absolute Auto 0.7 10^3/uL (0.0-0.7); Eosinophils Percent Auto 7.5 % (0.9-7.0); Hematocrit 37.3 % (36.0-48.0); Hemoglobin 11.6 g/dL (12.0-16.0); Immature Granulocytes Abs Auto 0.02 10^3/uL (0.00-0.03); Immature Granulocytes Pct Auto 0.2 % (0.0-0.5); Lymphocytes Absolute Auto 2.8 10^3/uL (1.2-3.8); Lymphocytes Percent Auto 29.2 % (20.5-60.0); Mean Corpuscular HGB Conc 31.1 g/dL (29.9-35.2); Mean Corpuscular Volume 90.1 fL (81.0-99.0); Mean Platelet Volume 10.2 fL (9.5-13.5); Monocytes Absolute Auto 1.2 10^3/uL (0.3-0.8); Monocytes Percent Auto 12.8 % (1.7-12.0); Neutrophils Absolute Auto 4.7 10^3/uL (1.4-6.5); Neutrophils Percent Auto 49.5 % (43.0-75.0); Platelet Count 280 10^3/uL (150-450); Red Blood Count 4.14 10^6/uL (4.20-5.40); Red Cell Distribution Width 14.5 % (11.0-15.0); White Blood Count 9.6 10^3/uL (4.0-11.0)
[2023-10-31 10:02] LABS: Alanine Aminotransferase 34 U/L (14-59); Aspartate Amino Transferase 30 U/L (15-37); BUN Creatinine Ratio 19.8; Calcium 8.8 mg/dL (8.5-10.1); Chloride 106 mmol/L (98-107); Chol HDL Ratio 2.2; Cholesterol 93 mg/dL (<=200); Estimated GFR (African America >60 (>=60); Estimated GFR (Non-African Ame 60 (>=60); Glucose 103 mg/dL (74-106); HDL Cholesterol 42 mg/dL (40-60); LDL Cholesterol Calculated 35.6 mg/dL; Sodium 142 mmol/L (136-145); Triglycerides 77 mg/dL (<=150); VLDL CHOLESTEROL 15.4 mg/dL
== END 2023-10-31 08:37 | disposition home or self-care (01) ==
LOC: LAB 08:37
PROVIDERS: PCP Family Medicine; Visit Provider Internal Medicine Cardiovascular Disease
DX: I48.0 Paroxysmal atrial fibrillation (principal); I25.10 Atherosclerotic heart disease of native coronary artery without angina pectoris; E78.2 Mixed hyperlipidemia
CPT/HCPCS: 36415; 80048; 80061; 84450; 84460; 85025

== ENCOUNTER 2024-06-04 09:37 | Outpatient (OUT) | payer MEDICARE, SELFPAY ==
--- OUTSIDE RECORDS SUMMARY | 2024-06-04 10:03 | XMS_ITS | CCD ---
Author Organization [facility] Care Team Providers Care Lithograph Press Feeder Name Role Phone CARI DE LEON Attending Unavailable MAKENNA SCHILLING Primary Care Unavailable CARI DE LEON Attending Unavailable MAKENNA SCHILLING Primary Care Unavailable Nicki Tamayo M Unavailable Unavailable Unavailable ENRIKE ., DR CACERES Primary Care Unavailable HOY ., DR CACERES Admitting Unavailable HOY ., DR CACERES Attending Unavailable HOY ., DR CACERES Consulting Unavailable [place], DR ALMA ROSA Dickinson Consulting Unavailable ZIEBER, [...] Primary Care Unavailable HOY ., DR CACERES Admdawit Unavailable HOY ., DR CACERES Attending Unavailable HOY ., DR CACERES Consulting Unavailable HOY ., DR CACERES Primary Care Unavailable HOY ., DR CACERES Primary Care Unavailable DE LEON, DR CARI Silva Admitting Unavailable DE LEON, DR CARI Silva Attending Unavailable DE LEON, DR CARI Silva Consulting Unavailable Kristin Giang Unavailable Cari De Leon Attending Unavailable Dr. Nicki Tamayo Primary Care Unavail able Cari De Leon Referring Unavailable Dr. Nicki Tamayo Primary Care Unavail able Cari De Leon Referring Unavailable Cari De Leon Attending Unavailable Dr. Nicki Tamayo Primary Care Unavail able Cari De Leon Referring Unavailable Cari De Leon Attending Unavailable MD Nicki Tamayo Primary Care Provider [id number] MD Cari De Leon Attending Provider MD Cari De Leon Referring Provider Nicki Tamayo Primary Care Unavailable Cari De Leon Referring Unavailable Cari De Leon Attending Unavailable Cari De Leon Admitting Unavailable Nicki Tamayo MD Primary Care Provider [phone] CARI DE LEON Attending Unavailable JULIETTE DE LEONAN M Referring Unavailable NICKI TAMAYO Primary Care Unavailable CARI DE LEON M Referring Unavailable NICKI TAMAYO Primary Care Unavailable CARI DE LEON M Attending Unavailable JULIETTE DE LEONAN M Referring Unavailable NICKI TAMAYO Primary Care Unavailable Allergies Allergy Classification Reported Allergen(s) Allergy Type Date of Onset Reaction(s) Facility (16 sources) Lisinopril; Translations: [Lisinopril TABS] Drug Allergy 03-22-2023 [facility] (2 sources) Lisinopril; Translations: [LISINOPRIL] Drug Allergy 08-21-2022 [facility] Repository Medications Current Medications Medication Drug Class(es) Dates Sig (Normalized) Sig (Original) amLODIPine 10 mg oral tablet (17 sources) Dihydropyridine Calcium Channel Jordan Start: 08-31-2023 End: 08-30-2024 take 1 tablet by mouth once daily amLODIPine (Norvasc) 10 mg tablet Indications: Essential hypertension Take 1 tablet (10 mg) by mouth once daily. 90 tablet 3 08/31/2023 05/23/2024 Discontinued (Therapy completed) Start: 09-16-2021 take 1 tablet by brandy th once daily amLODIPine Besylate 10 MG Oral Tablet TAKE 1 TABLET DAILY. Quantity: 90 Refills: 3 Ordered: 17-Aug-2022 Cari De Leon MD Start : 16-Sep-2021 Active amLODIPine Besyl ate Active take 1 tablet by brandy th once daily amLODIPine Besylate 5 MG Oral Tablet TAKE 1 TABLET DAILY. Quantity: 90 Refills: 3 Ordered: 26-May-2021 Cari De Leon MD Active amLODIPine 10 mg / valsartan 320 mg oral tablet (1 source) Dihydropyridine Calcium Channel Jordan, Angiotensin 2 Receptor Jordan Start: 05-23-2024 End: 05-23-2025 take 1 tablet by mouth once daily amlodipine-valsartan (Exforge) 10-320 mg tablet Indications: Essential hypertension Take 1 tablet by mouth once daily. 30 tablet 11 05/23/2024 05/23/2025 Active amoxicillin 500 mg oral capsule (1 source) Penicillin-class Antibacterial Start: 08-21-2022 take 1 capsule by mouth every eight hours Amoxicillin 500 MG 1 capsule Orally three times a day for 10 day(s) Aug, Active Ascorbic Acid (17 sources) Vitamin C Start: 11-01-2023 take 1 g by mouth once daily Ascorbic Acid (Vitamin C) Active 1 GM PO Daily November 01, 2023 12:00am take 1 tablet by mouth once mamta y ascorbic acid (Vitamin C) 1,000 mg tablet Take 1 tablet (1,000 mg) by mouth once daily. Active Vitamin C Active aspirin 81 mg delayed release oral tablet (17 sources) Platelet Aggregation Inhibitor, Nonsteroidal Anti-inflammatory Drug Start: 11-01-2023 Aspirin (Adult Lo w Dose Aspirin) 81 mg tablet,delayed release (DR/EC) Active 81 MG PO .COMPLEX November 01, 2023 12:00am 81 mg orally Monday and ; Aspirin 81 Activ e atorvastatin 80 mg oral tablet (17 sources) HMG-CoA Reductase Inhibitor Start: 08-31-2023 End: 08-30-2024 take 1 tablet by mouth once daily at bedtime atorvastatin (Lipitor) 80 mg tablet Indications: Mixed hyperlipidemia Take 1 tablet (80 mg) by mouth once daily at bedtime. 90 tablet 3 08/31/2023 08/30/2024 Active take 1 tablet by mouth at bedtim e Atorvastatin Calcium 80 MG Oral Tablet TAKE 1 TABLET AT BEDTIME. Quantity: 90 Refills: 3 Ordered: 17-Aug-2022 Cari De Leon MD Active Atorvastatin Arnold cium Active cholecalciferol 0.05 mg oral capsule (16 sources) Vitamin D Start: 11-01-2023 take 50 ug by mouth once daily Cholecalciferol (Vitamin D3) Active 50 MCG PO Daily November 01, 2023 12:00am take 1 tablet by mouth once mamta y cholecalciferol (Vitamin D-3) 50 MCG (2000 UT) tablet Take 1 tablet (2,000 Units) by mouth once daily. Active Cranberry Extract (13 sources) Non-Standardized Food Allergenic Extract, Non-Standardized Plant Allergenic Extract Start: 11-01-2023 take 200 mg by mouth twice daily at mealtime Cranberry Extract Active 200 MG PO Twice daily November 01, 2023 12:00am administer with meals take 1 capsule by mouth twice da danie cranberry extract 200 mg capsule Take by mouth 2 times a day. Active Cranberry 200 MG Oral Capsule as directed Quantity: 0 Refills: 0 Ordered: 16-Sep-2021 DO Active Cranberry Active ferrous sulfate 325 mg delayed release oral tablet (12 sources) Start: 11-01-2023 take 325 mg by mouth once daily Ferrous Sulfate Active 325 MG PO Daily November 01, 2023 12:00am Ferrous Sulfate 325 MG CAPS TAKE 1 CAPSULE EVERY OTHER DAY Quantity: 0 Refills: 0 Ordered: 16-Sep-2021 DO Active fish,bora,flax oils-om3,6,9no1 ([place] 3-6-9) 1,200 mg capsule (3 sources) take 1 capsule by mouth twice daily fish,bora,flax oils-om3,6,9no1 ([place] 3-6-9) 1,200 mg capsule Take 1 capsule by mouth 2 times a day. Active Fish,Bora,Flax Oils-Om3,6,9no1 (Triple [place] 3-6-9) 400-400-400 mg capsule (1 source) Start: Fish,Bora,Flax Oils-Om3,6,9no1 (Triple [place] 3-6-9) 400-400-400 mg capsule Active 3 CAP PO Daily November 01, 2023 12:00am Iron (1 source) Iron Active 24 hr isosorbide mononitrate 30 mg extended release oral tablet (18 sources) Nitrate Vasodilator Start: End: 01-16-2 026 take 1 tablet by mouth once daily isosorbide mononitrate ER (Imdur) 30 mg 24 hr tablet Indications: Atherosclerosis of [place] coronary artery of [place] heart without angina pectoris Take 1 tablet (30 mg) by mouth once daily. 90 tablet 3 05/23/2024 05/23/2025 Active take 1 tablet by mouth once mamta y Isosorbide Mononitrate ER 30 MG Oral Tablet Extended Release 24 Hour TAKE 1 TABLET DAILY. Quantity: 90 Refills: 3 Ordered: 20-May-2022 Cari De Leon MD Active Isosorbide [place] itrate Active levothyroxine sodium 0.05 mg oral capsule (17 sources) l-Thyroxine Start: 11-01-2023 take 50 ug by mouth once daily Levothyroxine Active 50 MCG PO Daily November 01, 2023 12:00am take 1 tablet by mouth once mamta y levothyroxine (Synthroid, Levoxyl) 50 mcg tablet Take 1 tablet (50 mcg) by mouth once daily. Active Levothyroxine So dium Active take 1 tablet by mouth once mamta y Levothyroxine Sodium 25 MCG Oral Tablet TAKE 1 TABLET DAILY. Quantity: 0 Refills: 0 Ordered: 18-Mar-2021 DO Active liothyronine sodium 0.005 mg oral tablet (4 sources) l-Triiodothyronine Start: 02-21-2023 Cytomel 5 mcg tablet 1 tablet (5 mcg) once daily. 02/21/2023 Active mv-min/iron/folic/calc ium/vitK (WOMEN'S MULTIVITAMIN ORAL) (1 source) take 1 tablet by mouth once in the morning mv-min/iron/folic /calcium/vitK (WOMEN'S MULTIVITAMIN ORAL) 1 tablet early in the morning.. Active Potassium (1 source) Potassium Active microencapsulated potassium chloride 20 meq extended release oral tablet (20 sources) Start: 06-02-2023 End: 05-23-2025 take 1 tablet by mouth once daily potassium chloride CR 20 mEq ER tablet Indications: Essential hypertension , High risk medication use Take 1 tablet (20 mEq) by mouth once daily. 90 tablet 3 05/23/2024 05/23/2025 Active take 1 tablet by mouth once mamta y Potassium Chloride Ruby ER 20 MEQ Oral Tablet Extended Release TAKE 1 TABLET DAILY. Quantity: 90 Refills: 3 Ordered: 26-May-2021 Cari De Leon MD Active rivaroxaban 20 mg oral tablet (18 sources) Factor Xa Inhibitor Start: 08-31-2023 End: 10-29-2024 take 1 tablet by mouth once daily Xarelto 20 mg tablet Indications: Paroxysmal atrial fibrillation (Multi) Take 1 tablet (20 mg) by mouth once daily. 90 tablet 3 10/30/2023 10/29/2024 Active take 1 tablet by mouth once mamta y Xarelto 20 MG Oral Tablet 1 TAB DAILY Quantity: 90 Refills: 3 Ordered: 17-Aug-2022 Cari De Leon MD Active Xarelto Active sotalol hydrochloride 120 mg oral tablet (18 sources) Antiarrhythmic Start: 06-02-2023 End: 05-23-2025 take 1 tablet by mouth twice daily sotalol (Betapace) 120 mg tablet Indications: Paroxysmal atrial fibrillation (Multi) Take 1 tablet (120 mg) by mouth 2 times a day. 180 tablet 3 05/23/2024 05/23/2025 Active take 1 tablet by mouth twice ruth ly Sotalol HCl - 120 MG Oral Tablet TAKE 1 TABLET TWICE DAILY. Quantity: 180 Refills: 3 Ordered: 07-Jul-2022 Cari De Leon MD Active Sotalol HCl Acti ve sucralfate 1000 mg oral tablet (17 sources) Aluminum Complex Start: 11-01-2023 take 1 g by mouth every six hours Sucralfate Active 1 GM PO Every 6 hours November 01, 2023 12:00am take 1 tablet by brandy th four times daily before mealtime sucralfate (Carafate) 1 gram tablet Take 1 tablet (1 g) by mouth 4 times a day before meals. Active Sucralfate Activ e Triple [place]-3-6-9 (1 source) Triple [place]-3-6 -9 Active valsartan 320 mg oral tablet (17 sources) Angiotensin 2 Receptor Jordan Start: End: take 1 tablet by mouth once daily valsartan (Diovan) 320 mg tablet Indications: Essential hypertension Take 1 tablet (320 mg) by mouth once daily. 90 tablet 3 06/02/2023 05/23/2024 Discontinued (Med List Cleanup) take 1 tablet by mouth once mamta y Valsartan 320 MG Oral Tablet TAKE 1 TABLET DAILY. Quantity: 90 Refills: 3 Ordered: 07-Jul-2022 Cari De Leon MD Active Valsartan Active Vitamin D3 (1 source) Vitamin D3 Activ e Womens Multivitamin (1 source) Womens Multivita min Active Completed/Discontinued Medications Medication Drug Class(es) Dates Sig (Normalized) Sig (Original) [place] 3 340 MG Oral Capsule Delayed Release (8 sources) take 1 capsule by mo ut twice daily [place] 3 340 MG Oral Capsule Delayed Release one twice daily Quantity: 0 Refills: 0 Ordered: 16-Sep-2021 DO Active Problems Active Problems Problem Classification Problem Date Documented Date Episodic/Chronic Cardiac dysrhythmias (20 sources) Paroxysmal atrial fibrillation; Translations: [Persistent atrial fibrillation] Onset: 11-16-2017 10-30-2023 Chronic Coronary atherosclerosis and other heart disease (20 sources) Atherosclerotic heart disease of [place] coronary artery without angina pectoris; Translations: [Coronary atherosclerosis] Onset: 06-27-2018 Chronic Disorders of lipid metabolism (20 sources) Hyperlipidemia, unspecified; Translations: [Hyperlipidemia] Onset: 06-27-2018 10-30-2023 Chronic Comment on above: on Lipitor; Essential hypertension (20 sources) Essential (primary) hypertension; Translations: [Essential hypertension] Onset: 06-27-2018 10-30-2023 Chronic Immunizations and screening for infectious disease (2 sources) Contact with and (suspected) exposure to other viral communicable diseases; Translations: [Contact with and (suspected) exposure to other viral communicable diseases] Episodic Other aftercare (20 sources) Drug therapy finding; Translations: [Long-term (current) use of anticoagulants] Onset: 03-22-2023 03-22-2023 Episodic Other aftercare (5 sources) Taking high risk medication; Translations: [Other fitter up (current) drug therapy] Onset: 03-22-2023 10-30-2023 Episodic Other aftercare (2 sources) bottle packer (current) use of anticoagulants; Translations: [prison (current) use of anticoagulants] Onset: 03-22-2023 Episodic Other bone disease and musculoskeletal deformities (1 source) Other specified disorders of bone density and structure, left thigh; Translations: [OTH D/O BONE DEN STRUCT LT THIGH] Onset: 06-20-2022 Episodic Other nutritional; endocrine; and metabolic disorders (15 sources) Obesity; Translations: [Obesity, unspecified] Onset: 03-22-2023 03-23-2023 Chronic Other nutritional; endocrine; and metabolic disorders (5 sources) Body mass index 30+ - obesity; Translations: [Body mass index (BMI) 34.0-34.9, adult] Onset: 10-30-2023 10-30-2023 Chronic Other nutritional; endocrine; and metabolic disorders (1 source) Obese class I; Translations: [Obesity, unspecified] 10-30-2023 Chronic Other nutritional; endocrine; and metabolic disorders (2 sources) Body mass index (BMI) 35.0-35.9, adult; Translations: [Body mass index (BMI) 35.0-35.9, adult] Onset: 05-23-2024 Chronic Other nutritional; endocrine; and metabolic disorders (2 sources) Obesity, unspecified; Translations: [Obesity, unspecified] Onset: 10-30-2023 Chronic Other nutritional; endocrine; and metabolic disorders (2 sources) Body mass index (BMI) 34.0-34.9, adult; Translations: [Body mass index (BMI) 34.0-34.9, adult] Onset: 10-30-2023 Chronic Other screening for suspected conditions (not mental disorders or infectious disease) (9 sources) Other abnormal and inconclusive findings on diagnostic imaging of breast; Translations: [Encounter for screening mammogram for malignant neoplasm of breast] Onset: 06-16-2022 Episodic Other upper respiratory infections (1 source) Streptococcal pharyngitis Episodic Residual codes; unclassified (5 sources) Obstructive sleep apnea syndrome; Translations: [Obstructive sleep apnea (adult) (pediatric)] Onset: 03-23-2023 10-30-2023 Chronic Residual codes; unclassified (2 sources) Obstructive sleep apnea (adult) (pediatric); Translations: [Obstructive sleep apnea (adult) (pediatric)] Onset: 03-23-2023 Chronic Residual codes; unclassified (1 source) Family history [...] MALIG NEOPLASM OTH ORGN/SYS] Onset: 06-20-2022 Episodic Thyroid disorders (4 sources) Hypothyroidism, unspecified; Translations: [HYPOTHYROIDISM UNSPECIFIED] Onset: 11-12-2021 Chronic Unclassified (1 source) Other fitter up (current) drug therapy Onset: 06-27-2018 Unclassified (1 source) Chronic atrial fibrillation, unspecified; Translations: [CHRONIC ATRIAL FIBRILLATION UNSPEC] Onset: 09-08-2021 Unclassified (1 source) CONTACT W/AND (SUSP) EXPOS COVID-19; Translations: [CONTACT W/AND (SUSP) EXPOS COVID-19] Onset: 09-01-2021 Past or Other Problems Problem Classification Problem Date Documented Da te Episodic/Chronic Acute bronchitis (4 sources) Acute bronchitis, unspecified; Translations: [ACUTE BRONCHITIS UNSPECIFIED] Onset: 08-30-2021 Episodic Cardiac dysrhythmias (4 sources) Sinus bradycardia; Translations: [Other specified cardiac dysrhythmias] Onset: 03-22-2023 03-22-2023 Episodic Coronary atherosclerosis and other heart disease (19 sources) Past history of procedure; Translations: [Percutaneous transluminal coronary angioplasty status] Onset: 03-22-2023 10-30-2023 Episodic Comment on above: LAD 1997 /RCA; Deficiency and other anemia (1 source) Anemia, unspecified; Translations: [ANEMIA UNSPECIFIED] Onset: 09-08-2021 Episodic Diabetes mellitus without complication (1 source) Other abnormal glucose; Translations: [OTHER ABNORMAL GLUCOSE] Onset: 09-08-2021 Episodic Other aftercare (6 sources) Other fitter up (current) drug therapy; Translations: [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 THERAPY] Onset: 04-05-2022 Episodic Screening and history of mental health and substance abuse codes (15 sources) Ex-smoker; Translations: [Personal history of tobacco use] Onset: 10-30-2023 10-30-2023 Episodic Comment on above: quit approx 1988, 1 PPD; Unclassified (3 sources) Onset: 10-30-2023 Resolved: 05-23-2024 10-30-2023 Results Test Name Value Interpretation Reference Range Facility ECG 12 Leadon 05-23-2024 ECG revealed sinus bradycardia,, right bundle branch block, abnormal ECG [facility] Work Phone: Carbon dioxide, total [Moles /volume] in Serum or PlasmaOrdered By: Cari De Leon on 11-02-2023 CO2 [Moles/Vol] 27.7 mmol/L Normal 21.0-31.0 [facility] Comment on above: Performed By: #### L YTES #### [facility] [address] Chloride [Moles/volume] in S seven or PlasmaOrdered By: Cari De Leon on 11-02-2023 Chloride [Moles/Vol] 108 mmol/L High 98-107 [facility] Comment on above: Performed By: #### L YTES #### [facility] [address] ECG 12 lead ECGon 11-02-2023 ECG 12 lead ECG [facility] [place] [address] Electrocardiograph Report Signed Patient: Mario Mitchell MR#: [id number] 7 : 1945 Acct:[id number] Age/Sex: 78 / F ADM Date: 11/02/23 Loc: Room: Type: [facility] Attending Dr: Cari De Leon MD Ordering Provider: Cari De Leon MD, [facility] Date of Service: 11/02/23 ECG/ECG 12 lead ECG: Pre-cardioversion rhythm assessment Copies to: Test Reason : Blood Pressure : / mmHG Vent. Rate : 095 BPM Atrial Rate : 141 BPM P-R Int : 000 ms QRS Dur : 124 ms QT Int : 414 ms P-R-T Axes : 000 064 001 degrees QTc Int : 520 ms Atrial fibrillation RSR' or QR pattern in V1 suggests right ventricular conduction delay Abnormal ECG When compared with ECG of 15-DEC-2016 13:30, Atrial fibrillation has replaced Sinus rhythm RSR' pattern in V1 is now present Non-specific change in ST segment in Inferior leads T wave inversion now evident in Anterior leads Confirmed by KIMI JOSEPH [facility] ([id number]) on 11/02/2023 5:02:12 PM Referred By: Cari De Leon Electronically Signed By:TANI BOLDEN MD [facility] Transcribed By: MUS Signed By Remy Bolden MD 11/02/23 1702 Normal [facility] ECG post procedureon 024 ECG post procedure [facility] [place] [address] [place] [address] Electrocardiograph Report Signed Patient: Mario Mitchell MR#: [id number] 7 : 1945 Acct:[id number] Age/Sex: 78 / F ADM Date: 11/02/23 Loc: Room: Type: [facility] Attending Dr: Cari De Leon MD Ordering Provider: Cari De Leon MD, [facility] Date of Service: 11/02/23 ECG/ECG post procedure: CV Copies to: Test Reason : Blood Pressure : 142/077 mmHG Vent. Rate : 050 BPM Atrial Rate : 050 BPM P-R Int : 220 ms QRS Dur : 130 ms QT Int : 504 ms P-R-T Axes : 079 072 045 degrees QTc Int : 459 ms Sinus bradycardia with 1st degree AV block Right bundle branch block Abnormal ECG When compared with ECG of 02-NOV-2023 11:31, (Unconfirmed) Sinus rhythm has replaced Atrial fibrillation Vent. rate has decreased BY 45 BPM T wave inversion no longer evident in Anterior leads QT has shortened Confirmed by rGeg Glaser ([id number]) on 11/06/2023 4:21:27 PM Referred By: Cari De Leon Electronically Signed By:Greg Glaser Transcribed By: BENJAMIN Signed By Greg Glaser MD 11/06/23 1621 Normal [facility] Potassium [Moles/volume] in Serum or PlasmaOrdered By: Cari De Leon on 11-02-2023 Potassium [Moles/Vol] 4.5 mmol/L Normal 3.5-5.1 [facility] Comment on above: Performed By: #### L YTES #### [address] Serum or plasma anion gap de terminationOrdered By: Cari De Leon on 11-02-2023 Anion gap [Moles/Vol] 7.8 mmol/L Normal 6.0-15.0 [facility] Comment on above: Result Comment: PERF ORMED BY: [place] [address] PATHOLOGIST SECURITIES DEALER FAHEEM CARSON M.D. Performed By: #### L YTES #### [facility] [address] Sodium [Moles/volume] in Ser um or PlasmaOrdered By: Cari De Leon on 11-02-2023 Sodium [Moles/Vol] 139 mmol/L Normal 136-145 [facility] Comment on above: Performed By: #### L YTES #### [facility] [address] [place] [id number] [facility] ECG 12 Leadon 10-30-2023 ECG revealed atrial fibrillation with controlled rate, right bundle branch block [facility] Work Phone: Office Visit (Cardiology)on 09-15-2022 Follow-up visit Diagnoses/Problems Assessed Atherosclerosis of [place] coronary artery (414.01) (I25.10) Status post coronary [...] approx 1988, 1 PPD Orders Atherosclerosis of [place] coronary artery Changed: From Aspirin EC 81 MG TBEC 1 tablet twice weekly To Aspirin 81 MG Oral Tablet Delayed Release take one tablet on Mon and only Atherosclerosis of [place] coronary artery, High risk medication use, Paroxysmal atrial fibrillation Basic Metabolic Panel; Status:Active - Retrospective Authorization; Requested for:15Sep2022; Complete Blood Count; Status:Active - Retrospective Authorization; Requested for:15Sep2022; Atherosclerosis of [place] coronary artery, Hyperlipidemia ALT - Alanine Aminotransferase, [...] Last stress test with 2017 was normal 3. Obesity. Encouraged Mrs. Mitchell [...] 50 MCG Oral TabletTAKE 1 TABLET DAILY. [place] 3 340 MG Oral Capsule Delayed Releaseone [...] 1 TABLET DAILY. Vitamin D3 50 MCG (2000 UT) Oral TabletTake 1 tablet daily Xarelto 20 MG Oral Tablet1 TAB DAILY Allergies Medication Lisinopril TABS Allergy; Cough; Recorded By: Rachel Pizarro; 03/13/2021 11:22 (more content not included)... Normal [facility] Tobacco Screening.on 023 Adult depression screening assessment No MP-Cardiolo gy-S [place] [address] DO Work Phone: Fall risk assessment a) No falls within the last year KC-Qltxaephnn-M [place] [address] DO Work Phone: Tobacco use status CP b) No M S-Dbxziggymr-F [place] [address] DO Work Phone: COVID/FLU RT-PCRon 3 SARS-CoV-2 (COVID-19) RNA DENISSE+probe Ql (Unsp spec) Negative [employer] Other COVID/FLU RT-PCR Negative [employer] Other Quick Strepon 08-21-2022 S. pyogenes Org specific cx Ql (Throat) Positive [employer] Other Quick Strep [employer] Other MG MAMM RT DIAG FUon 023 MG MAMM RT DIAG FU Patient: MARIO MITCHELL Exam Date: 07/01/2022 : 1945 Gender:F Ordering : DR NICKI TAMAYO . Admission #: [id number] Family : Order #: [id number] CLICK HERE TO VIEW EXAM RADIOLOGY REPORT [...] prostate cancer at age 70. LOCATION: [facility] BREAST COMPOSITION: Heterogeneously dense,which may obscure small [...] Giraldo M.D. on 07/01/2022 at 11:41 Normal [facility] US BREAST RIGHT LIMITEDon US BREAST RIGHT LIMITED Patient: MARIO MITCHELL Exam Date: 07/01/2022 : 1945 Gender:F Ordering : DR NICKI ATMAYO . Admission #: [id number] Family : Order #: [id number] CLICK HERE TO VIEW EXAM RADIOLOGY REPORT [...] prostate cancer at age 70. LOCATION: [facility] BREAST COMPOSITION: Heterogeneously dense,which may obscure small [...] Giraldo M.D. on 07/01/2022 at 11:41 Normal [facility] MAMM SCREEN 3D MOHINDER CADon 06-16-2022 MG MAMM SCREEN 3D MOHINDER CAD Patient: MARIO MITCHELL Exam Date: 06/16/2022 : 1945 Gender:F Ordering : DR NICKI TAMAYO . Admission #: [id number] Family : Order #: [id number] CLICK HERE TO VIEW EXAM RADIOLOGY REPORT [...] prostate cancer at age 70. LOCATION: [facility] BREAST COMPOSITION: Heterogeneously dense, which may obscure [...] Morrow MD on 06/16/2022 at 10:57 Normal [facility] XR DEXA BONE DENSITYon 06-16 XR [...] by: GORDY GIRALDO Date: 2022-06-16 10:08 Normal [facility] CBC AUTO DIFFon 04-05-2022 BASO # 0.1 103/ul Normal 0.0-0.1 [facility] Comment on above: Performed By: #### C BC #### [facility] [address] [place], [place] [address] Dr. Stacy Rocha Basophils/100 WBC (Bld) 0.5 % Normal 0.2-2.0 [facility] Comment on above: Performed By: #### C BC #### [facility] [address] [place] [id number] [address] Stacy Rocha EO # 1.0 103/ul Critically high 0.0-0.7 [facility] Comment on above: Performed By: #### C BC #### [facility] [address] [place] [address] Dr. Stacy Rocha Eosinophils/100 WBC (Bld) 8.7 % Critically high 0.9-7.0 [facility] Comment on above: Performed By: #### C BC #### [facility] [address] [place] [address] Dr. Stacy Rocha Erythrocyte distribution width (RBC) [Ratio] 13.7 % Normal 11.0-15.0 [facility] Comment on above: Performed By: #### C BC #### [facility] [address] [place] [address] Dr. Stcay Rocha Hematocrit (Bld) [Volume fraction] 34.2 % Critically low 36.0-48.0 [facility] Comment on above: Performed By: #### C BC #### [facility] [address] [place] [address] Dr. Stacy Rocha Hemoglobin (Bld) [Mass/Vol] 10.9 g/dL Critically low 12.0-16.0 [facility] Comment on above: Performed By: #### C BC #### [facility] [address] [place] [address] Dr. Stacy Rocha IG # 0.03 10e3/ul Normal 0.00-0.03 [facility] Comment on above: Performed By: #### C BC #### [facility] [address] [place] [address] Dr. Stacy Rocha IG % 0.3 % Normal 0.0-0.5 [facility] Comment on above: Performed By: #### C BC #### [facility] [address] [place] [address] Dr. Stacy Rocha LYMPH # 3.9 103/ul Critically high 1.2-3.8 [facility] Comment on above: Performed By: #### C BC #### [facility] [address] [place] [address] Dr. Stacy Rocha Lymphocytes/100 WBC (Bld) 35.0 % Normal 20.5-60.0 [facility] Comment on above: Performed By: #### C BC #### [facility] [address] [place] [address] Dr. Stacy Rocha MANUAL DIFF REQ NO Normal [facility] Comment on above: Performed By: #### C BC #### [facility] [address] [place] [address] Dr. Stacy Rocha MCH (RBC) [Entitic mass] 27.9 pg Normal 26.7-34.0 [facility] Comment on above: Performed By: #### C BC #### [facility] [address] [place] [address] Dr. Stacy Rocha MCHC (RBC) [Mass/Vol] 31.9 g/dL Normal 29.9-35.2 [facility] Comment on above: Performed By: #### C BC #### [facility] [address] [place] [address] Dr. Stacy Rocha MCV (RBC) [Entitic vol] 87.5 fL Normal 81.0-99.0 [facility] Comment on above: Performed By: #### C BC #### [facility] [address] [place] [address] Dr. Stacy Rocha MONO # 1.2 103/ul Critically high 0.3-0.8 [facility] Comment on above: Performed By: #### C BC #### [facility] [address] [place] [address] Dr. Stacy Rocha Monocytes/100 WBC (Bld) 10.8 % Normal 1.7-12.0 [facility] Comment on above: Performed By: #### C BC #### [facility] [address] [place] [address] Dr. Stacy Rocha NEUT # 5.0 103/ul Normal 1.4-6.5 [facility] Comment on above: Performed By: #### C BC #### [facility] [address] [place] [address] Dr. Stacy Rocha Neutrophils/100 WBC (Bld) 44.7 % Normal 43.0-75.0 [facility] Comment on above: Performed By: #### C BC #### [facility] [address] [place] [address] Dr. Stacy Rocha Platelet mean volume (Bld) [Entitic vol] 9.5 fL Normal 9.5-13.5 [facility] Comment on above: Performed By: #### C BC #### [facility] [address] [place] [address] Dr. Stacy Rocha PLT 289 103/ul Normal 150-450 [facility] Comment on above: Performed By: #### C BC #### [facility] [address] [place] [address] Dr. Stacy Rocha RBC 3.91 106/ul Critically low 4.20-5.40 [facility] Comment on above: Performed By: #### C BC #### [facility] [address] [place] [address] Dr. Stacy Rocha WBC 11.3 103/ul Critically high 4.0-11.0 [facility] Comment on above: Performed By: #### C BC #### [facility] [address] [place] [address] Dr. Stacy Rocha PROF CHEM 8 (BAS METB)on Anion gap [Moles/Vol] 8.7 mmol/L Normal [facility] Comment on above: Performed By: #### B MP #### [facility] [address] [place] [address] Dr. Stacy Rocha Calcium [Mass/Vol] 8.7 mg/dL Normal 8.5-10.1 [facility] Comment on above: Performed By: #### B MP #### [facility] [address] [place] [address] Dr. Stacy Rocha Chloride [Moles/Vol] 105 mmol/L Normal 98-107 [facility] Comment on above: Performed By: #### B MP #### [facility] [address] [place] [address] Dr. Stacy Rocha CO2 [Moles/Vol] 30.3 mmol/L Normal 21.0-32.0 [facility] Comment on above: Performed By: #### B MP #### [facility] [address] [address] [address] Stacy Rocha Creatinine [Mass/Vol] 0.77 mg/dL Normal 0.55-1.02 [facility] Comment on above: Performed By: #### B MP #### [facility] [address] [address] [address] Stacy Rocha EGFR-AF SWAZI >60 Normal >=60 [facility] Comment on above: Performed By: #### B MP #### [facility] [address] [address] [address] Stacy Rocha EGFR-NON AF SWAZI >60 Normal >=60 [facility] Comment on above: Performed By: #### B MP #### [facility] [address] [address] [address] Stacy Rocha Glucose [Mass/Vol] 116 mg/dL Critically high 74-106 [facility] Comment on above: Performed By: #### B MP #### [facility] [address] [address] [address] Stacy Rocha Potassium [Moles/Vol] 4.0 mmol/L Normal 3.5-5.1 [facility] Comment on above: Performed By: #### B MP #### [facility] [address] [place] [address] Dr. Stacy Rocha Sodium [Moles/Vol] 140 mmol/L Normal 136-145 [facility] Comment on above: Performed By: #### B MP #### [facility] [address] [address] [address] Stacy Rocha Urea nitrogen [Mass/Vol] 11.0 mg/dL Normal 7.0-18.0 [facility] Comment on above: Performed By: #### B MP #### [facility] [address] [address] [address] Stacy Rocha Urea nitrogen/Creatinine [Mass ratio] 14.3 mg/mg Normal [facility] Comment on above: Performed By: #### B MP #### [facility] [address] [address] [address] Stacy Rocha Office Visit (Cardiology)on 03-23-2022 Follow-up visit Diagnoses/Problems Assessed Atherosclerosis of [place] coronary artery (414.01) (I25.10) Essential hypertension (401.9) [...] Former smoker Tobacco Use Screening; Status:Complete; Done: [id number] Patient Instructions Please bring all medicines, vitamins, [...] 50 MCG Oral TabletTAKE 1 TABLET DAILY. [place] 3 340 MG Oral Capsule Delayed Releaseone [...] 1 TABLET DAILY. Vitamin D3 50 MCG (2000 UT) Oral TabletTake 1 tablet daily Xarelto [...] Signs Recorded: 23Mar2022 08:41AM Heart Rate53, Apical Tdwymluo466, LUE, Sitting Alygvpbzv18, LUE, Sitting Height5 ft 4 in Nqoxwo794 lb BMI Qymcqsuxhr10.56 kg/m2 BSA Calculated2.01 Tobacco Useb) No Falls Scr (more content not included)... Normal [employer] Tobacco Screening.on Fall risk assessment a) No falls within the last year [facility] [employer] DO Work Phone: Tobacco use status CPHS b) No [facility] Work Phone: FREE T3on 11-12-2021 FREE T3 2.36 pg/mlL Normal 2.18-3.98 [facility] Comment on above: Performed By: #### T 4, FT3, TSH #### [facility] [address] [address] [address] Stacy Rocha T4on 11-12-2021 T4 [Mass/Vol] 7.40 ug/dL Normal 4.80-13.90 [facility] Comment on above: Performed By: #### T 4, FT3, TSH #### [facility] [address] [address] [address] Stacy Rocha TSHon 11-12-2021 TSH 4.606 uIU/mL Critically high 0.358-3.740 [facility] Comment on above: Performed By: #### T 4, FT3, TSH #### [facility] [address] [place] [address] Dr. Stacy Rocha Falls Risk Screeningon 09-30 Fall risk assessment a) No falls within the last year [facility] [employer] DO Work Phone: Office Visit (Cardiology)on 09-30-2021 Follow-up visit Diagnoses/Problems Assessed Essential hypertension (401.9) (I10) Patient Instructions By signing my name below, I, Liliam Gillian Blue,Montrell, attest that this documentation has been prepared under the direction and in the presence of Dr. Cari De Leon MD. All medical record entries made by the Zehraibe were at my direction and personally dictated [...] 25 MCG Oral TabletTAKE 1 TABLET DAILY. [place] 3 340 MG Oral Capsule Delayed Releaseone [...] 1 TABLET DAILY. Vitamin D3 50 MCG (2000 UT) Oral TabletTake 1 tablet daily Xarelto 20 MG Oral Tablet1 TAB DAILY Allergies Medication Lisinopril TABS Allergy; Cough; Recorded By: Rachel Pizarro; 03/13/2021 11:22:34 AM Vitals Vital Signs Printed in Appendix #1 below. Signatures Electronically signed by : Cari De Leon MD; Oct 01 2021 4:36PM EST (Author) Appendix #1 Vital Signs Patient: MARIO MITCHELLMartin; : 1945; Recorded: 30Sep2021 02:26PMRecorded: 30Sep2021 02:13PMRecorded: 30Sep2021 02:12PM Zgdyavsz267, LUE, Gqhxecy470, RUE, Qyhliyq100, LUE, Sitting Naedbkflp77, LUE, Evxrude81, RUE, Fefwiey99, LUE, Sitting Heart Rate54, R Radial Height5 ft 4 in Ybyarj107 lb BMI Jyiqddjsqi44.05 kg/m2 BSA Calculated2 Fall Screeninga) No falls within the last year [facility] PHQ-2 VITALSon 09-16-2021 Adult depression screening assessment No [facility] [employer] DO Work Phone: Fall risk assessment a) No falls within the last year [facility] [employer] DO Work Phone: Tobacco use status CPHS b) No M [facility] [employer] DO Work Phone: CBC AUTO DIFFon 09-07-2021 BASO # 0.1 103/ul Normal 0.0-0.1 [facility] Comment on above: Performed By: #### T 4, FT3, TSH #### [facility] [address] [address] [address] Stacy Rocha Basophils/100 WBC (Bld) 0.7 % Normal 0.2-2.0 [facility] Comment on above: Performed By: #### T 4, FT3, TSH #### [facility] [address] [address] [address] Stacy Rocha EO # 0.7 103/ul Normal 0.0-0.7 [facility] Comment on above: Performed By: #### T 4, FT3, TSH #### [facility] [address] [address] [address] Stacy Rocha Eosinophils/100 WBC (Bld) 7.1 % Critically high 0.9-7.0 [facility] Comment on above: Performed By: #### T 4, FT3, TSH #### [facility] [address] [address] [address] Stacy Rocha Erythrocyte distribution width (RBC) [Ratio] 13.8 % Normal 11.0-15.0 [facility] Comment on above: Performed By: #### T 4, FT3, TSH #### [facility] [address] [place] [address] Dr. Stacy Rocha Hematocrit (Bld) [Volume fraction] 39.3 % Normal 36.0-48.0 [facility] Comment on above: Performed By: #### T 4, FT3, TSH #### [facility] [address] [place] [address] Dr. Stacy Rocha Hemoglobin (Bld) [Mass/Vol] 12.4 g/dL Normal 12.0-16.0 [facility] Comment on above: Performed By: #### T 4, FT3, TSH #### [facility] [address] [place] [address] Dr. Stacy Rocha IG # 0.03 10e3/ul Normal 0.00-0.03 [facility] Comment on above: Performed By: #### T 4, FT3, TSH #### [facility] [address] [place] [address] Dr. Stacy Rocha IG % 0.3 % Normal 0.0-0.5 [facility] Comment on above: Performed By: #### T 4, FT3, TSH #### [facility] [address] [place] [address] Dr. Stacy Rocha LYMPH # 3.5 103/ul Normal 1.2-3.8 [facility] Comment on above: Performed By: #### T 4, FT3, TSH #### [facility] [address] [place] [address] Dr. Stacy Rocha Lymphocytes/100 WBC (Bld) 35.3 % Normal 20.5-60.0 [facility] Comment on above: Performed By: #### T 4, FT3, TSH #### [facility] [address] [place] [address] Dr. Stacy Rocha MANUAL DIFF REQ NO Normal [facility] [place] [facility] Comment on above: Performed By: #### T 4, FT3, TSH #### [facility] [address] [address] [address] Stacy Rocha MCH (RBC) [Entitic mass] 28.7 pg Normal 26.7-34.0 [facility] Comment on above: Performed By: #### T 4, FT3, TSH #### [facility] [address] [place] [address] Dr. Stacy Rocha MCHC (RBC) [Mass/Vol] 31.6 g/dL Normal 29.9-35.2 [facility] Comment on above: Performed By: #### T 4, FT3, TSH #### [facility] [address] [place] [address] Dr. Stacy Rocha MCV (RBC) [Entitic vol] 91.0 fL Normal 81.0-99.0 [facility] Comment on above: Performed By: #### T 4, FT3, TSH #### [facility] [address] [place] [address] Dr. Stacy Rocha MONO # 1.1 103/ul Critically high 0.3-0.8 [facility] Comment on above: Performed By: #### T 4, FT3, TSH #### [facility] [address] [place] [address] Dr. Stacy Rocha Monocytes/100 WBC (Bld) 11.2 % Normal 1.7-12.0 [facility] Comment on above: Performed By: #### T 4, FT3, TSH #### [facility] [address] [place] [address] Dr. Stacy Rocha NEUT # 4.5 103/ul Normal 1.4-6.5 [facility] Comment on above: Performed By: #### T 4, FT3, TSH #### [facility] [address] [place] [address] Dr. Stacy Rocha Neutrophils/100 WBC (Bld) 45.4 % Normal 43.0-75.0 [facility] Comment on above: Performed By: #### T 4, FT3, TSH #### [facility] [address] [place] [address] Dr. Stacy Rocha Platelet mean volume (Bld) [Entitic vol] 9.0 fL Critically low 9.5-13.5 [facility] Comment on above: Performed By: #### T 4, FT3, TSH #### [facility] [address] [address] [address] Stacy Rocha PLT 380 103/ul Normal 150-450 [facility] Comment on above: Performed By: #### T 4, FT3, TSH #### [facility] [address] [address] [address] Stacy Rocha RBC 4.32 106/ul Normal 4.20-5.40 [facility] Comment on above: Performed By: #### T 4, FT3, TSH #### [facility] [address] [address] [address] Stacy Rocha WBC 10.0 103/ul Normal 4.0-11.0 [facility] Comment on above: Performed By: #### T 4, FT3, TSH #### [facility] [address] [address] [address] Stacy Rocha FREE THYROXINE INDEX T7on FTI 2.64 Normal [facility] Comment on above: Performed By: #### T 4, FT3, TSH #### [facility] [address] [place] [address] Dr. Stacy Rocha T3U 33.0 % Normal 23.5-40.5 [facility] Comment on above: Performed By: #### T 4, FT3, TSH #### [facility] [address] [address] [address] Stacy Rocha T4 [Mass/Vol] 8.00 ug/dL Normal 4.80-13.90 [facility] Comment on above: Performed By: #### T 4, FT3, TSH #### [facility] [address] [place] [address] Dr. Stacy Rocha GLYCOHEMOGLOBIN A1Con 2021 ADA RECOMMENDATION SEE BELOW Normal [facility] Comment on above: Result Comment: ADA RECOMMENDED LIMIT 4.0 - 6.0 ADA THERAPEUTIC TARGET < 7.0 ACTION SUGGESTED > 7.0 Performed By: #### T 4, FT3, TSH #### [facility] [address] [address] [address] Stacy Rocha Glucose [Mass/Vol] 120 mg/dL Normal [facility] Comment on above: Performed By: #### T 4, FT3, TSH #### [facility] [address] [address] [address] Stacy Rocha HbA1c (Bld) [Mass fraction] 5.8 % Normal 4.5-6.2 [facility] Comment on above: Performed By: #### T 4, FT3, TSH #### [facility] [address] [address] [address] Stacy Rocha IRONon 09-07-2021 Iron [Mass/Vol] 57.0 ug/dL Normal 50.0-170.0 [facility] Comment on above: Performed By: #### I KIMBERLY #### [facility] [address] [place] [address] Dr. Stacy Rocha LIPID PROFILEon 09-07-2021 CHOL-HDL RATIO NORM SEE BELOW Normal [facility] Comment on above: Result Comment: 3.3 - 4.4 LOW RISK 4.4 - 7.1 AVERAGE RISK 7.1 - 11.0 MODERATE RISK >11.0 HIGH RISK Performed By: #### T 4, FT3, TSH #### [facility] [address] [place] [address] Dr. Stacy Rocha Cholesterol [Mass/Vol] 108 mg/dL Normal <=200 [facility] Comment on above: Performed By: #### T 4, FT3, TSH #### [facility] [address] [place] [address] Dr. Stacy Rocha Cholesterol in HDL [Mass/Vol] 43 mg/dL Normal 40-60 [facility] Comment on above: Performed By: #### T 4, FT3, TSH #### [facility] [address] [place] [address] Dr. Stacy Rocha Cholesterol in LDL [Mass/Vol] 45.2 mg/dL Normal [facility] Comment on above: Performed By: #### T 4, FT3, TSH #### [facility] [address] [address] [address] Stacy Rocha Cholesterol.total/Ani sterol in HDL [Mass ratio] 2.5 {ratio} Normal [facility] Comment on above: Performed By: #### T 4, FT3, TSH #### [facility] [address] [address] [address] Stacy Rocha HDL NORMAL > or = 60 mg/dl - LOW CARDIOVASCULAR RISK <40 mg/dl - HIGH CARDIOVASCULAR RISK Normal [facility] Comment on above: Performed By: #### T 4, FT3, TSH #### [facility] [address] [address] [address] Stacy Rocha LDL CALC NORMAL SEE BELOW Normal [facility] Comment on above: Result Comment: <100 mg/dl OPTIMAL 100 - 129 mg/dl NEAR OR ABOVE OPTIMAL 130 - 159 mg/dl BORDERLINE HIGH 160 - 189 mg/dl HIGH >190 mg/dl VERY HIGH Performed By: #### T 4, FT3, TSH #### [facility] [address] [place] [address] Dr. Stacy Rocha Triglyceride [Mass/Vol] 99 mg/dL Normal <=150 [facility] Comment on above: Performed By: #### T 4, FT3, TSH #### [facility] [address] [place] [address] Dr. Stacy Rocha VLDL CALC 19.8 mg/dL Normal [facility] Comment on above: Performed By: #### T 4, FT3, TSH #### [facility] [address] [address] [address] Stacy Rocha PROF 14(COMP METB)on 022 Albumin [Mass/Vol] 3.1 g/dL Critically low 3.4-5.0 [facility] Comment on above: Performed By: #### T 4, FT3, TSH #### [facility] [address] [place] [address] Dr. Stacy Rocha Albumin/Globulin [Mass ratio] 0.7 {ratio} Normal [facility] Comment on above: Performed By: #### T 4, FT3, TSH #### [facility] [address] [address] [address] Stacy Rocha ALP [Catalytic activity/Vol] 124 U/L Critically high 46-116 [facility] Comment on above: Performed By: #### T 4, FT3, TSH #### [facility] [address] [address] [address] Stacy Rocha ALT [Catalytic activity/Vol] 33 U/L Normal 14-59 [facility] Comment on above: Performed By: #### T 4, FT3, TSH #### [facility] [address] [address] [address] Stacy Rocha Anion gap [Moles/Vol] 7.2 mmol/L Normal [facility] Comment on above: Performed By: #### T 4, FT3, TSH #### [facility] [address] [place] [address] Dr. Stacy Rocha AST [Catalytic activity/Vol] 28 U/L Normal 15-37 [facility] Comment on above: Performed By: #### T 4, FT3, TSH #### [facility] [address] [address] [address] Stacy Rocha Bilirubin [Mass/Vol] 0.5 mg/dL Normal 0.2-1.0 [facility] Comment on above: Performed By: #### T 4, FT3, TSH #### [facility] [address] [place] [address] Dr. Stacy Rocha Calcium [Mass/Vol] 8.5 mg/dL Normal 8.5-10.1 [facility] Comment on above: Performed By: #### T 4, FT3, TSH #### [facility] [address] [address] [address] Stacy Rocha Chloride [Moles/Vol] 105 mmol/L Normal 98-107 [facility] Comment on above: Performed By: #### T 4, FT3, TSH #### [facility] [address] [address] [address] Stacy Rocha CO2 [Moles/Vol] 29.3 mmol/L Normal 21.0-32.0 [facility] Comment on above: Performed By: #### T 4, FT3, TSH #### [facility] [address] [address] [address] Stacy Rocha Creatinine [Mass/Vol] 0.92 mg/dL Normal 0.55-1.02 [facility] Comment on above: Performed By: #### T 4, FT3, TSH #### [facility] [address] [place] [address] Dr. Stacy Rocha EGFR-AF SWAZI >60 Normal >=60 [facility] Comment on above: Performed By: #### T 4, FT3, TSH #### [facility] [address] [place] [address] Dr. Stacy Rocha EGFR-NON AF SWAZI 59 mL/min/1.73m2 Critically low >=60 [facility] Comment on above: Performed By: #### T 4, FT3, TSH #### [facility] [address] [place] [address] Dr. Stacy Rocha Globulin (S) [Mass/Vol] 4.7 g/dL Normal [facility] Comment on above: Performed By: #### T 4, FT3, TSH #### [facility] [address] [place] [address] Dr. Stacy Rocha Glucose [Mass/Vol] 107 mg/dL Critically high 74-106 [facility] Comment on above: Performed By: #### T 4, FT3, TSH #### [facility] [address] [place] [address] Dr. Stacy Rocha Potassium [Moles/Vol] 4.5 mmol/L Normal 3.5-5.1 [facility] Comment on above: Performed By: #### T 4, FT3, TSH #### [facility] [address] [place] [address] Dr. Stacy Rocha Protein [Mass/Vol] 7.8 g/dL Normal 6.1-8.2 [facility] Comment on above: Performed By: #### T 4, FT3, TSH #### [facility] [address] [place] [address] Dr. Stacy Rocha Sodium [Moles/Vol] 137 mmol/L Normal 136-145 [facility] Comment on above: Performed By: #### T 4, FT3, TSH #### [facility] [address] [address] [address] Stacy Rocha Urea nitrogen [Mass/Vol] 13.0 mg/dL Normal 7.0-18.0 [facility] Comment on above: Performed By: #### T 4, FT3, TSH #### [facility] [address] [address] [address] Stacy Rocha Urea nitrogen/Creatinine [Mass ratio] 14.1 mg/mg Normal [facility] Comment on above: Performed By: #### T 4, FT3, TSH #### [facility] [address] [address] [address] Stacy Rocha TSHon 09-07-2021 TSH 5.986 uIU/mL Critically high 0.470-4.680 [facility] Comment on above: Performed By: #### T 4, FT3, TSH #### [facility] [address] [place] [address] Dr. Stacy Rocha TSH RANGE SEE BELOW Normal [facility] Comment on above: Result Comment: <0.3 4 UIU/ml HYPERTHYROID 0.34-5.60 UIU/ml EUTHYROID >5.60 UIU/ml HYPOTHYROID Performed By: #### T 4, FT3, TSH #### [facility] [address] [place] [address] Dr. Stacy Rocha [facility] SARS-CoV-2 (COVID-19) RNA DENISSE+probe Ql (Unsp spec) Not detected Normal NOT DETECTED [facility] Comment on above: Result Comment: This test is not yet approved or cleared by the [place] FDA. When there are no FDA-approved or cleared tests available, and other criteria are met, FDA can make tests available under an emergency access mechanism called an Emergency Use Authorization (EUA). The EUA for this test is supported by the [place] of [employer] and Human Service's (HHS's) declaration [...] By: #### T 4, FT3, TSH #### [facility] [address] [place] [address] Dr. Stacy Rocha INFLUENZA A AND B AGon 08-30 [facility] SEE BELOW Normal [facility] Comment on above: Result Comment: Nega tive for Flu A protein angiten. Infection due to Flu A cannot be ruled out. Flu A angiten in the sample may be below the detection limit of the test. Performed By: #### I NFLUAB #### [facility] [address] [place] [address] Dr. Stacy Rocha INFLUCITY OF HOPE, [place] SEE BELOW Normal [facility] Comment on above: Result Comment: Nega tive for Flu B protein antigen. Infection due to Flu B cannot be ruled out. Flu B antigen in the sample may be below the detection limit of the test. Performed By: #### I NFLUAB #### [facility] [address] [place] [address] Dr. Stacy Rocha INFLUENZA A AG Negative Normal NEGATIVE SEE COMMENT [facility] Comment on above: Performed By: #### I NFLUAB #### [facility] [address] [place] [address] Dr. Stacy Rocha INFLUENZA B AG Negative Normal NEGATIVE SEE COMMENT [facility] Comment on above: Performed By: #### I NFLUAB #### [facility] [address] [place] [address] Dr. Stacy Rocha INTERNAL CONTROLS Within Normal Limits Normal Within Normal Limits [facility] Comment on above: Performed By: #### I NFLUAB #### [facility] [address] [place] [address] Dr. Stacy Rocha Tobacco Screening.on 021 Fall risk assessment a) No falls within the last year -[facility] [place] Work Phone: Tobacco use status CPHS b) No M -[facility] [place] Work Phone: No Panel Informationon 03-10 48.6\S\48.6 Normal . [facility] [address] [place] Work Phone: 8.3\S\8.3 Normal 6.3-10.7 -[facility] DO Work Phone: 270\S\270 Normal 150-450 [facility] DO Work Phone: 13.8\S\13.8 Normal 11.9-15.3 [facility] DO Work Phone: 33.4\S\33.4 Normal 32.0-35.0 [facility] [address] DO Work Phone: 30.2\S\30.2 Normal 24.7-34.3 [facility] [address] DO Work Phone: 4.3\S\4.3 Normal 1.8-7.7 [facility] DO Work Phone: 0.0\S\0.0 Normal 0-0.5 [facility] DO Work Phone: 1.3\S\1.3 Normal . [facility] DO Work Phone: 5.3\S\5.3 Normal . [facility] DO Work Phone: 11.7\S\11.7 Normal . [facility] DO Work Phone: 33.1\S\33.1 Normal . -[facility] [address] DO Work Phone: 0.1\S\0.1 Normal 0.0-0.2 [facility] [address] DO Work Phone: Comment on above: PERFORMED BY:[place] [address] [address] [place], [place] [phone] MEDICAL DIRECTORFAHEEM CARSON M.D. 0.5\S\0.5 above high threshold 0.0-0.45 [facility] [address] DO Work Phone: 1.0\S\1.0 above high threshold 0.0-0.8 -[facility] [address] [place] Work Phone: 2.9\S\2.9 Normal 1.00-4.8 -[facility] [address] DO Work Phone: 90.5\S\90.5 Normal 80-100 [facility] [address] DO Work Phone: 39.7\S\39.7 Normal 34.0-46.4 -[facility] [address] DO Work Phone: 13.2\S\13.2 Normal 11.8-15.4 -[facility] [address] DO Work Phone: 4.39\S\4.39 Normal 3.60-5.00 [facility] [address] DO Work Phone: 8.8\S\8.8 Normal 3.8-11.6 [facility] [address] DO Work Phone: 28.5\S\28.5 Normal 22.0-30.0 -[facility] [address] DO Work Phone: 104\S\104 Normal 95-114 [facility] [address] DO Work Phone: 4.4\S\4.4 Normal 3.5-5.1 [facility] [address] DO Work Phone: 141\S\141 Normal 136-146 [facility] DO Work Phone: 10\S\10 Normal 9-23 [facility] 600 DO Work Phone: > 60 Normal [facility] 600 DO Work Phone: Comment on above: GFR estimated refere nce range: According to KDOQI guidelines, <60 ml/min/1.73m2 is sufficient to diagnose a patient with chronic kidney disease.PERFORMED BY:[facility] [place], [place] [phone] MEDICAL DIRECTORFAHEEM CARSON M.D. 0.83\S\0.83 Normal 0.44-1.03 [facility] 600 DO Work Phone: ALT (SGPT)on 06-27-2018 ALT enzyme act/vol 26 U/L Normal 7-45 [facility] Comment on above: Performed By: #### 1 [id number] #### [facility] [address] [place] [address] AST (SGOT)on 06-27-2018 AST enzyme act/vol 27 U/L Normal 13-39 [facility] Comment on above: Performed By: #### 1 [id number] #### [facility] [address] [place] [address] CBCon 06-27-2018 Erythrocyte distribution width Ratio (RBC) 13.7 % Normal 12.0-15.[address] [facility] Healthcare Comment on above: Performed By: #### 2 [id number] #### [facility] [address] [place] [address] Hematocrit Volume Fraction (Bld) 41.8 % Normal 36.5-46.[address] [facility] Healthcare Comment on above: Performed By: #### 2 [id number] #### [facility] [address] [place] [address] Hemoglobin mass conc (Bld) 13.5 g/dL Normal 11.8-15.3 [facility] Comment on above: Performed By: #### 2 [id number] #### [facility] [address] [place] [address] MCH Entitic mass (RBC) 29.7 pg Normal 27.5-33.0 [facility] Comment on above: Performed By: #### 2 [id number] #### [facility] [address] [place] [address]328 MCHC mass conc (RBC) 32.3 g/dL Normal 30.1-35.0 [facility] Comment on above: Performed By: #### 2 [id number] #### [facility] [address] [place] [address] 72465 MCV Entitic volume (RBC) 91.9 fL Normal 85.4-100.0 [facility] Comment on above: Performed By: #### 2 [id number] #### [facility] [address] [place] [address]278 NRBC Absolute 0.00 10*3/uL Normal [facility] Comment on above: Performed By: #### 2 [id number] #### [facility] [address] [place] [address] NRBC Automated 0.0 /100{WBCs} Normal [facility] Comment on above: Performed By: #### 2 [id number] #### [facility] [address] [place] [address] Platelet mean volume Entitic volume (Bld) 11.3 fL Normal 9.9-12.[address] [facility] Healthc are Comment on above: Performed By: #### 2 [id number] #### [facility] [address] [place] [address] Platelets #/vol (Bld) 316 10*3/uL Normal 155-404 [facility] Comment on above: Performed By: #### 2 [id number] #### [facility] [address] [place] [address] 79901 RBC #/vol (Bld) 4.55 10*6/uL Normal 3.85-5.[address] [facility] Hea lthcare Comment on above: Performed By: #### 2 [id number] #### [facility] [address] [place] [address] RDW SD 46.5 fL Normal 39.3-48.6 [facility] Comment on above: Performed By: #### 2 [id number] #### [facility] [address] [place] [address]67 WBC #/vol (Bld) 9.6 10*3/uL Normal 4.4-9.[address] [facility]al [facility]care Comment on above: Performed By: #### 2 [id number] #### [facility] [address] [place] [address] Creatinineon 06-27-2018 Creatinine mass conc 0.91 mg/dL Normal 0.50-1.05 [facility] Comment on above: Performed By: #### 1 [id number] #### [facility] [address] [place] [address] 12965 GFR/1.73 sq M.predicted MDRD vol rate/area mL/min/{1.73_m2} Normal [facility] Comment on above: Result Comment: Inte rpretation for Chronic Kidney Disease: Stages 1&2 >60 Healthy or potential kidney damage. Mild decrease of GFR. Stage 3 30-59 Moderate decrease of GFR. Stage 4 15-29 Severe decrease of GFR. Stage 5 <15 Kidney failure or on dialysis. Performed By: #### 1 [id number] #### [facility] [address] [place] [address] Electrolyte Panelon 06-27-19 19 Anion gap molar conc 12 mmol/L Normal 10-20 [facility] Comment on above: Performed By: #### 1 [id number] #### [facility] [address] [place] [address]79[address] Chloride molar conc 102 mmol/L Normal 98-107 [facility]althcare Comment on above: Performed By: #### 1 [id number] #### [facility] [address] [place] [address] 74769 HCO3 molar conc (Bld) 32 mmol/L Normal 21-32 [facility] Comment on above: Performed By: #### 1 [id number] #### [facility] [address] [place] [address] Potassium molar conc 3.7 mmol/L Normal 3.5-5.1 [facility] Comment on above: Performed By: #### 1 [id number] #### [facility] [address] [place] [address] Sodium molar conc 142 mmol/L Normal 136-145 [facility] Comment on above: Performed By: #### 1 [id number] #### [facility] [address] [place] [address] Lipid Panelon 06-27-2018 Cholesterol in HDL mass conc 38 mg/dL Abnormal [facility] Comment on above: Result Comment: Age Normal Mod Risk High Risk 5-9 >46 38-46 <38 10-14 >44 40-44 <40 15-19 >42 38-42 <38 Adult >49 Performed By: #### 1 [id number] #### [facility] [address] [place] [address] Cholesterol in LDL mass conc 51 mg/dL Normal <130 [facility] Comment on above: Performed By: #### 1 [id number] #### [facility] [address] [place] [address] Cholesterol in VLDL mass conc 29 mg/dL Normal <30 [facility] Comment on above: Performed By: #### 1 [id number] #### [facility] [address] [place] [address] Cholesterol mass conc 118 mg/dL Normal <200 [facility] Comment on above: Performed By: #### 1 [id number] #### [facility] [address] [place] [address] Cholesterol.total/Ani sterol in HDL mass ratio 3.1 {ratio} Normal [facility] Healthcare Comment on above: Performed By: #### 1 [id number] #### [facility] [address] [place] [address] Triglyceride mass conc 146 mg/dL Normal <150 [facility] Comment on above: Result Comment: 150- 199 Borderline High 200-499 High >500 Very High Performed By: #### 1 [id number] #### [facility] [address] [place] [address] TSHon 06-27-2018 Thyrotropin Qn 3.33 mU/L Normal 0.44-3.98 [facility] care Comment on above: Performed By: #### 1 [id number] #### [facility] [address] [place] [address] Thyroxineon 06-27-2018 T4 mass conc 8.4 ug/dL Normal 7.1-13.[address] [facility] Healthca re Comment on above: Performed By: #### 1 [id number] #### [facility] [address] [place] [address] 117[address] Thyroxine, Freeon 06-27-2018 Thyroxine, Free 0.80 ng/dL Normal 0.61-1.[address] [facility] Healt hcare Comment on above: Performed By: #### 1 [id number] #### [facility] [address] [place] [address] Urea Nitrogenon 06-27-2018 Urea nitrogen mass conc 16 mg/dL Normal 6-23 [facility] Comment on above: Performed By: #### 1 [id number] #### [facility] [address] [place] [address] CBCon 11-16-2017 Erythrocyte distribution width Ratio (RBC) 13.7 % Normal 12.0-15.4 [facility] Comment on above: Performed By: #### 2 [id number] #### [facility] [address] [place] [address]8542 Hematocrit Volume Fraction (Bld) 40.4 % Normal 36.5-46.6 [facility] Comment on above: Performed By: #### 2 [id number] #### [facility] [address] [place] [address] 58944 Hemoglobin mass conc (Bld) 12.6 g/dL Normal 11.8-15.3 [facility] Comment on above: Performed By: #### 2 [id number] #### [facility] [address] [place] [address] 96956 MCH Entitic mass (RBC) 29.4 pg Normal 27.5-33.0 [facility] Comment on above: Performed By: #### 2 [id number] #### [facility] [address] [place] [address] MCHC mass conc (RBC) 31.2 g/dL Normal 30.1-35.0 [facility] Comment on above: Performed By: #### 2 [id number] #### [facility] [address] [place] [address] MCV Entitic volume (RBC) 94.2 fL Normal 85.4-100.0 [facility] Comment on above: Performed By: #### 2 [id number] #### [facility] [address] [place] [address] 50062 NRBC Absolute 0.00 10*3/uL Normal [facility] Comment on above: Performed By: #### 2 [id number] #### [facility] [address] [place] [address] NRBC Automated 0.0 /100{WBCs} Normal [facility] He althcare Comment on above: Performed By: #### 2 [id number] #### [facility] [address] [place] [address] Platelet mean volume Entitic volume (Bld) 10.9 fL Normal 9.9-12.[address] [facility] Healthc are Comment on above: Performed By: #### 2 [id number] #### [facility] [address] [place] [address] Platelets #/vol (Bld) 298 10*3/uL Normal 155-404 [facility] Comment on above: Performed By: #### 2 [id number] #### [facility] [address] [place] [address] RBC #/vol (Bld) 4.29 10*6/uL Normal 3.85-5.10 [facility] Comment on above: Performed By: #### 2 [id number] #### [facility] [address] [place] [address] RDW SD 46.8 fL Normal 39.3-48.6 [facility] Comment on above: Performed By: #### 2 [id number] #### [facility] [address] [place] [address] WBC #/vol (Bld) 9.4 10*3/uL Normal 4.4-9.[address] [facility] Heal thcare Comment on above: Performed By: #### 2 [id number] #### [facility] [address] [place] [address] Creatinineon 11-16-2017 Creatinine mass conc 0.98 mg/dL Normal 0.50-1.05 [facility] Comment on above: Performed By: #### 1 [id number] #### [facility] [address] [place] [address] 43598 GFR/1.73 sq M.predicted MDRD vol rate/area 56 mL/min/{1.73_m2} Normal [facility] Comment on above: Result Comment: Inte rpretation for Chronic Kidney Disease: Stages 1&2 >60 Healthy or potential kidney damage. Mild decrease of GFR. Stage 3 30-59 Moderate decrease of GFR. Stage 4 15-29 Severe decrease of GFR. Stage 5 <15 Kidney failure or on dialysis. Performed By: #### 1 [id number] #### [facility] [address] [place] [address]6906 Electrolyte Panelon 11-17-19 18 Anion gap molar conc 11 mmol/L Normal 10-20 [facility] Comment on above: Performed By: #### 1 [id number] #### [facility] [address] [place] [address] 09920 Chloride molar conc 104 mmol/L Normal 98-107 [facility]care Comment on above: Performed By: #### 1 [id number] #### [facility] [address] [place] [address] HCO3 molar conc (Bld) 29 mmol/L Normal 21-32 [facility] Comment on above: Performed By: #### 1 [id number] #### [facility] [address] [place] [address]009 Potassium molar conc 4.2 mmol/L Normal 3.5-5.1 [facility] Comment on above: Performed By: #### 1 [id number] #### [facility] [address] [place] [address] Sodium molar conc 140 mmol/L Normal 136-145 [facility] ltare Comment on above: Performed By: #### 1 [id number] #### [facility] [address] [place] [address] Urea Nitrogenon 11-16-2017 Urea nitrogen mass conc 20 mg/dL Normal 6-23 [facility] Comment on above: Performed By: #### 1 [id number] #### [facility] [address] [place] [address] Vital Signs Date Time Vital Sign Value Performing Clinician Facility 05-23-2024 09:09-0500 Body height 162.6 cm Cari De Leon MD Work Phone: [facility] 05-23-2024 09:09-0500 Body mass index (BMI) [Ratio] 35.87 kg/m2 Cari De Leon MD Work Phone: [facility] 05-23-2024 09:09-0500 Body weight 94.8 kg Cari De Leon MD Work Phone: [facility] 05-23-2024 09:09-0500 Diastolic blood pressure 60 mm[Hg] Cari De Leon MD Work Phone: [facility] 05-23-2024 09:09-0500 Heart rate 57 /min Cari De Leon MD Work Phone: [facility] 05-23-2024 09:09-0500 Systolic blood pressure 132 mm[Hg] Cari De Leon MD Work Phone: [facility] 11-08-2023 09:10-0400 Body height 162.6 cm Mando Aguirre [facility] 11-08-2023 09:10-0400 Body mass index (BMI) [Ratio] 35.19 kg/m2 Mando Aguirre MA [facility] 11-08-2023 09:10-0400 Body weight 92.99 kg [facility] 11-08-2023 09:10-0400 Diastolic blood pressure 68 mm[Hg] [facility] 11-08-2023 09:10-0400 Heart rate 67 /min [facility] 11-08-2023 09:10-0400 Systolic blood pressure 140 mm[Hg] [facility] 10-30-2023 12:54-0400 Body height 162.6 cm Cari De Leon MD Work Phone: [facility] 10-30-2023 12:54-0400 Body mass index (BMI) [Ratio] 34.84 kg/m2 Cari De Leon MD Work Phone: [facility] 10-30-2023 12:54-0400 Body weight 92.08 kg Cari De Leon MD Work Phone: [facility] 10-30-2023 12:54-0400 Diastolic blood pressure 84 mm[Hg] Cari De Leon MD Work Phone: [facility] 10-30-2023 12:54-0400 Heart rate 81 /min Cari De Leon MD Work Phone: [facility] 10-30-2023 12:54-0400 Systolic blood pressure 122 mm[Hg] Cari De Leon MD Work Phone: [facility] 09-15-2022 08:50-0400 Body height 162.56 cm Nicki Ricardo Hoffmanny Work Phone: [facility]Wlsktk[facility] [place] [address] DO Work Phone: 09-15-2022 08:50-0400 Body mass index (BMI) [Ratio] 35.36 kg/m2 Nicki M Hoy Work Phone: [facility]Mpdgxqfhtg-Qclxwg [place] [address] DO Work Phone: 09-15-2022 08:50-0400 Body surface area Derived from formula 1.98 m2 Nicki M Hoy Work Phone: [facility]Istlogjmgq-Jomrgr [place] [address] DO Work Phone: 09-15-2022 08:50-0400 Body weight 93.44 kg Nicki Silva Hoy Work Phone: [facility]-Wsdyalvavd-Umvdjc [place] [address] DO Work Phone: 09-15-2022 08:50-0400 Diastolic blood pressure 84 mm[Hg] Nicki Silva Hoy Work Phone: QV-Wtjvyrgvzu-Pqugcw [place] [address] DO Work Phone: 09-15-2022 08:50-0400 Heart rate 49 /min Nicki Silva Hoy Work Phone: VR-Vvdxybwnhn-Uznwxi [place] [address] DO Work Phone: 09-15-2022 08:50-0400 Systolic blood pressure 128 mm[Hg] Nicki Silva Hoy Work Phone: AN-Snybexyxnf-Aabkff christopher 250 DO Work Phone: 08-21-2022 10:30-0400 Body height 162.56 cm Kristin Padmaja Other [employer] Other 08-21-2022 10:30-0400 Body mass index (BMI) [Ratio] 36.04 kg/m2 Kristin Padmaja Other [employer] Other 08-21-2022 10:30-0400 Body temperature 100.6 [degF] Kristin Padmaja Other [employer] Other 08-21-2022 10:30-0400 Body weight 95.26 kg Kristin Padmaja Other [employer] Other 08-21-2022 10:30-0400 Diastolic blood pressure 50 mm[Hg] Kristin Giang Other [employer] Other 08-21-2022 10:30-0400 Respiratory rate 18 /min Kristin Giang Other [employer] Other 08-21-2022 10:30-0400 SaO2% (BldA) [Mass fraction] 95 % Kristin Giang Other [employer] Other 08-21-2022 10:30-0400 Systolic blood pressure 137 mm[Hg] Kristin Giang Other [employer] [employer] Other 03-23-2022 08:41-0500 Body height 162.56 cm Nicki lifeIOy Work Phone: [facility] [employer] 250 DO Work Phone: 03-23-2022 08:41-0500 Body mass index (BMI) [Ratio] 36.56 kg/m2 Nicki M Hoy Work Phone: [facility] [facility] DO Work Phone: 03-23-2022 08:41-0500 Body surface area Derived from formula 2.01 m2 Nicki ClairMail Hoy Work Phone: [facility] [facility] DO Work Phone: 03-23-2022 08:41-0500 Body weight 96.62 kg Nicki M Hoy Work Phone: [facility] DO Work Phone: 03-23-2022 08:41-0500 Diastolic blood pressure 66 mm[Hg] Nicki M Hoy Work Phone: [facility] DO Work Phone: 03-23-2022 08:41-0500 Heart rate 53 /min Nicki ClairMail Hoy Work Phone: [facility] DO Work Phone: 03-23-2022 08:41-0500 Systolic blood pressure 124 mm[Hg] Nicki M Hoy Work Phone: [facility] DO Work Phone: 09-30-2021 14:26-0400 Diastolic blood pressure 68 mm[Hg] Nicki M Hoy Work Phone: [facility] 250 DO Work Phone: 09-30-2021 14:26-0400 Systolic blood pressure 128 mm[Hg] Nicki M Hoy Work Phone: [facility] 250 DO Work Phone: 09-30-2021 14:13-0400 Diastolic blood pressure 60 mm[Hg] Nicki M Hoy Work Phone: [facility] 250 DO Work Phone: 09-30-2021 14:13-0400 Systolic blood pressure 138 mm[Hg] Nicki M Hoy Work Phone: [facility] DO Work Phone: 09-30-2021 14:12-0400 Body height 162.56 cm Nicik M Hoy Work Phone: [facility] 250 DO Work Phone: 09-30-2021 14:12-0400 Body mass index (BMI) [Ratio] 36.05 kg/m2 Nicki M Hoy Work Phone: [facility] 250 DO Work Phone: 09-30-2021 14:12-0400 Body surface area Derived from formula 2 m2 Nicki M Hoy Work Phone: [facility] DO Work Phone: 09-30-2021 14:12-0400 Body weight 95.26 kg Nicki M Hoy Work Phone: [facility] DO Work Phone: 09-30-2021 14:12-0400 Diastolic blood pressure 60 mm[Hg] Nicki M Hoy Work Phone: [facility] 250 DO Work Phone: 09-30-2021 14:12-0400 Heart rate 54 /min Nicki M Hoy Work Phone: [facility] 250 DO Work Phone: 09-30-2021 14:12-0400 Systolic blood pressure 140 mm[Hg] Nicki M Hoy Work Phone: [facility] 250 DO Work Phone: 09-16-2021 09:34-0400 Diastolic blood pressure 80 mm[Hg] Nicki M Hoy Work Phone: [facility] 250 DO Work Phone: 09-16-2021 09:34-0400 Systolic blood pressure 160 mm[Hg] Nicki M Hoy Work Phone: [facility] 250 DO Work Phone: 09-16-2021 09:05-0400 Body height 162.56 cm Nicki M Hoy Work Phone: [facility] 250 DO Work Phone: 09-16-2021 09:05-0400 Body mass index (BMI) [Ratio] 35.87 kg/m2 Nicki M Hoy Work Phone: [facility] 250 DO Work Phone: 09-16-2021 09:05-0400 Body surface area Derived from formula 1.99 m2 Nicki M Hoy Work Phone: [facility] 250 DO Work Phone: 09-16-2021 09:05-0400 Body weight 94.8 kg Nicki M Hoy Work Phone: [facility] 250 DO Work Phone: 09-16-2021 09:05-0400 Diastolic blood pressure 80 mm[Hg] Nicki M Hoy Work Phone: [facility] 250 DO Work Phone: 09-16-2021 09:05-0400 Heart rate 59 /min Nicki M Hoy Work Phone: [facility] 250 DO Work Phone: 09-16-2021 09:05-0400 Systolic blood pressure 150 mm[Hg] Nicki M Hoy Work Phone: [facility] 250 DO Work Phone: 09-07-2021 16:12-0400 5.8 1 Nicki M Hoy Work Phone: [facility] 250 DO Work Phone: Comment on above: [id number] 09-07-2021 00:00-0400 45.2 1 Nicki M Hoy Work Phone: [facility] 250 DO Work Phone: Comment on above: FSL 03-18-2021 08:50-0500 Body height 162.56 cm Nicki Ricardo Hoy Work Phone: [facility] [address] [place] Work Phone: 03-18-2021 08:50-0500 Body mass index (BMI) [Ratio] 37.25 kg/m2 Nicki M Hoy Work Phone: [facility] [address] [place] Work Phone: 03-18-2021 08:50-0500 Body surface area Derived from formula 2.03 m2 Nicki M Hoy Work Phone: [facility] [address] [place] Work Phone: 03-18-2021 08:50-0500 Body weight 98.43 kg Nicki Tamayo Work Phone: [facility] [address] [place] Work Phone: 03-18-2021 08:50-0500 Diastolic blood pressure 68 mm[Hg] Nicik Hoffmanny Work Phone: [facility] [address] [place] Work Phone: 03-18-2021 08:50-0500 Heart rate 54 /min Nicki Silva Hoy Work Phone: [facility] [address] [place] Work Phone: 03-18-2021 08:50-0500 Systolic blood pressure 128 mm[Hg] Nicki Hoffmanny Work Phone: [facility] [address] [place] Work Phone: Encounters Encounter Date Encounter Type Care Provider Facility Start: 05-23-2024 End: 05-23-2024 Office outpatient visit 25 minutes Cari De Leon MD Work Phone: [facility] Comment on above: Atherosclerosis of n ative coronary artery of [place] heart without angina pectoris; Essential hypertension; Paroxysmal atrial fibrillation (Multi); High risk medication use; Mixed hyperlipidemia; Status post coronary angioplasty; Anticoagulated; Obstructive sleep apnea; Former smoker; BMI 35.0-35.9,adult Start: 05-23-2024 End: 05-23-2024 ambulatory [facility] Start: 11-08-2023 End: 11-08-2023 Professional / ancillary services management Mando Aguirre MA [facility] Comment on above: Paroxysmal atrial fi brillation (Multi) Start: 11-08-2023 End: 11-08-2023 ambulatory [facility] Start: 11-02-2023 End: 11-02-2023 Admission to same day surgery center MD Nicki Tamayo Work Phone: [facility] Outpatient Work Phone: Start: 11-02-2023 End: 11-02-2023 ambulatory MD Nicki Tamayo Work Phone: [facility] Work Phone: Start: 10-30-2023 End: 10-30-2023 Office outpatient visit 25 minutes Cari De Leon MD Work Phone: [facility] Comment on above: Obesity, Class I, BM I 30-34.9 (Primary Dx); Atherosclerosis of [place] coronary artery of [place] heart without angina pectoris; High risk medication use; Essential hypertension; Mixed hyperlipidemia; Paroxysmal atrial fibrillation (Multi); Status post coronary angioplasty; Obstructive sleep apnea; BMI 34.0-34.9,adult; Former smoker Start: 10-30-2023 End: 10-30-2023 ambulatory [facility] Start: 09-15-2022 Office outpatient vi sit 25 minutes Nicki Tamayo Work Phone: [facility] 250 DO Work Phone: Start: 09-15-2022 ambulatory Cari De Leon Facility : Start: 08-21-2022 End: 08-21-2022 ambulatory Kristin Giang Other [facility] [employer] Other Start: 08-21-2022 Office outpatient ne w 30 minutes Kristin Giang [facility] [place] Start: 08-15-2022 Rx Renewal Nicki Tamayo Work Phone: [facility] 250 DO Work Phone: Start: 07-06-2022 Patient encounter procedure Nicki Tamayo Work Phone: [facility] 250 DO Work Phone: Start: 07-01-2022 End: 07-02-[address] NICKI TAMAYO . Facility:[facility]1 Start: 06-16-2022 End: 06-17-[address] NICKI TAMAYO . Facility:[facility] Start: 04-05-2022 End: 04-06-[address] NICKI TAMAYO . Facility:[facility] Start: 03-23-2022 Office outpatient vi sit 25 minutes Nicki M Hoy Work Phone: [facility] 250 DO Work Phone: Start: 03-23-[address] Nicki Tamayo Facility: Start: 11-12-2021 End: 11-13-[address] NICKI TAMAYO . Facility:[facility] Start: 10-06-[address] NICKI TAMAYO . Facili ty:H1 Start: 09-30-2021 Office outpatient vi sit 10 minutes Nicki M Hoy Work Phone: [facility] 250 DO Work Phone: Start: 09-30-[address] Nicki Tamayo Facility: Start: 09-16-2021 Office outpatient vi sit 25 minutes Nicki M Hoy Work Phone: [facility] 250 DO Work Phone: Start: 09-07-2021 End: 09-08-[address] CARI DE LEON Facility:[facility]1 Start: 08-30-2021 End: 08-30-[address] NICKI TAMAYO . Facility:[facility]1 Start: 08-16-2021 Rx Renewal Nicki M Hoy Work Phone: [facility] 250 DO Work Phone: Start: 05-26-2021 Rx Renewal Nicki M Hoy Work Phone: [facility] [address] [place] Work Phone: Start: 03-18-2021 Office outpatient vi sit 25 minutes Nicki M Hoy Work Phone: [facility] [address] [place] Work Phone: Start: 03-10-2021 Chart Update Cari De Leon MD Work Phone: [facility] 600 DO Work Phone: Start: 06-27-2018 Patient encounter procedure CARI DE LEON Facility:[id number] Start: 11-16-2017 Patient encounter procedure CARI DE LEON Facility:[id number] Procedures Date Procedure Procedure Detail Performing Clinician Start: 05-23-2024 Ecg routine ecg w/le ast 12 lds w/i&r Cari De Leon MD Work Phone: Start: 10-30-2023 Ecg routine ecg w/le ast 12 lds w/i&r Cari De Leon MD Work Phone: Start: 09-01-2020 Lipid 1996 panel - S seven or Plasma Cari De Leon MD Work Phone: Start: 09-01-2020 Thyrotropin [Units/v olume] in Serum or Plasma Cari De Leon MD Work Phone: Cataract surgery Nicki Ely ocarly Work Phone: Colonoscopy Nicki Tamayo Work Phone: Comment on above: [id number]; Plan of Treatment Date Care Activity Detail Author Start: 09-01-2025 Lipid panel Lipid Panel [facility] Start: 01-23-2025 End: 01-23-2025 Patient encounter procedure 01/23/2025 9:20 AM EDT Office Visit [facility] [address] [address] Cari De Leon MD [address] [facility] [address] [place] [address] [facility] Start: 05-23-2024 End: 05-23-2025 Alanine aminotransferase [Enzymatic activity/volume] in Serum or Plasma by With P-5'-P Alanine Aminotransferase Lab Routine Atherosclerosis of [place] coronary artery of [place] heart without angina pectoris Mixed hyperlipidemia Expected: 05/23/2024 (Approximate), Expires: 05/23/2025 [facility] Service Area Work Phone: Comment on above: Expected: 05/23/2024 (Approximate), Expi res: 05/23/2025 Start: 05-23-2024 End: 05-23-2025 Aspartate aminotransferase [Enzymatic activity/volume] in Serum or Plasma by With P-5'-P Aspartate Aminotransferase Lab Routine Atherosclerosis of [place] coronary artery of [place] heart without angina pectoris Mixed hyperlipidemia Expected: 05/23/2024 (Approximate), Expires: 05/23/2025 [facility] Work Phone: Comment on above: Expected: 05/23/2024 (Approximate), Expi res: 05/23/2025 Start: 05-23-2024 End: 05-23-2025 Basic metabolic 2000 panel - Serum or Plasma Basic Metabolic Panel Lab Routine Atherosclerosis of [place] coronary artery of [place] heart without angina pectoris Essential hypertension Expected: 05/23/2024 (Approximate), Expires: 05/23/2025 [facility] Work Phone: Comment on above: Expected: 05/23/2024 (Approximate), Expi res: 05/23/2025 Start: 05-23-2024 End: 05-23-2025 CBC panel - Blood by Automated count CBC Lab Routine Atherosclerosis of [place] coronary artery of [place] heart without angina pectoris Anticoagulated Expected: 05/23/2024 (Approximate), Expires: 05/23/2025 [facility] Work Phone: Comment on above: Expected: 05/23/2024 (Approximate), Expi res: 05/23/2025 Start: 05-23-2024 End: 05-23-2025 Lipid 1996 panel - Serum or Plasma Lipid Panel Lab Routine Atherosclerosis of [place] coronary artery of [place] heart without angina pectoris Mixed hyperlipidemia Expected: 05/23/2024 (Approximate), Expires: 05/23/2025 [facility] Work Phone: Comment on above: Expected: 05/23/2024 (Approximate), Expi res: 05/23/2025 Start: 05-23-2024 End: 05-23-2024 Patient encounter procedure 05/23/2024 9:30 AM EST Office Visit [facility] [address] [facility] [address] [place] [id number] Cari De Leon MD [address] [place] [address] [facility] Start: 03-18-2024 Zoster Vaccines (3 of 3) Zoster Vaccines (3 of 3) [facility] Start: 01-07-2024 COVID-19 Vaccine ( season) COVID-19 Vaccine ( season) [facility] Start: 01-07-2024 Influenza vaccination Influenza Vaccine (#1) [facility] Start: 11-06-2023 End: 10-29-2024 ECG 12 Lead ECG 12 Lead ECG Routine Paroxysmal atrial fibrillation (Multi) Expected: 11/06/2023 (Approximate), Expires: 10/29/2024 [facility] Work Phone: Comment on above: Expected: 11/06/2023 (Approximate), Expi res: 10/29/2024 Start: 11-02-2023 [facility] Start: 10-30-2023 End: 10-29-2024 Alanine aminotransferase [Enzymatic activity/volume] in Serum or Plasma by With P-5'-P Alanine Aminotransferase Lab Routine Atherosclerosis of [place] coronary artery of [place] heart without angina pectoris Mixed hyperlipidemia Expected: 10/30/2023 (Approximate), Expires: 10/29/2024 [facility] Work Phone: Comment on above: Expected: 10/30/2023 (Approximate), Expi res: 10/29/2024 Start: 10-30-2023 End: 10-29-2024 Aspartate aminotransferase [Enzymatic activity/volume] in Serum or Plasma by With P-5'-P Aspartate Aminotransferase Lab Routine Atherosclerosis of [place] coronary artery of [place] heart without angina pectoris Mixed hyperlipidemia Expected: 10/30/2023 (Approximate), Expires: 10/29/2024 [facility] Work Phone: Comment on above: Expected: 10/30/2023 (Approximate), Expi res: 10/29/2024 Start: 10-30-2023 End: 10-29-2024 Basic metabolic 2000 panel - Serum or Plasma Basic Metabolic Panel Lab Routine Paroxysmal atrial fibrillation (Multi) Expected: 10/30/2023 (Approximate), Expires: 10/29/2024 [facility] Service Area Work Phone: Comment on above: Expected: 10/30/2023 (Approximate), Expi res: 10/29/2024 Start: 10-30-2023 End: 10-29-2025 Cardioversion External Cardioversion External Cardiac Services Routine Paroxysmal atrial fibrillation (Multi) Expected: 10/30/2023 (Approximate), Expires: 10/29/2025 [facility] Work Phone: Comment on above: Expected: 10/30/2023 (Approximate), Expi res: 10/29/2025 Start: 10-30-2023 End: 10-29-2024 CBC panel - Blood by Automated count CBC Lab Routine Paroxysmal atrial fibrillation (Multi) Expected: 10/30/2023 (Approximate), Expires: 10/29/2024 [facility] Work Phone: Comment on above: Expected: 10/30/2023 (Approximate), Expi res: 10/29/2024 Start: 10-30-2023 End: 10-29-2024 Lipid 1996 panel - Serum or Plasma Lipid Panel Lab Routine Atherosclerosis of [place] coronary artery of [place] heart without angina pectoris Mixed hyperlipidemia Expected: 10/30/2023 (Approximate), Expires: 10/29/2024 [facility] Work Phone: Comment on above: Expected: 10/30/2023 (Approximate), Expi res: 10/29/2024 Start: 08-28-2023 COVID-19 Vaccine ( season) COVID-19 Vaccine ( season) [facility] Start: 06-07-2023 Medicare Annual Wellness Visit Medicare Annual Wellness Visit (AWV) [facility] Start: 03-23-2023 FUV, Provider: Cari De Leon, Status: Pen, Time: 8:30 AM FUV, Provider: Cari De Leon, Status: Pen, Time: 8:30 AM [facility] 250 DO Work Phone: Start: 09-15-2022 FUV, Provider: Cari De Leon, Status: Pen, Time: 9:00 AM FUV, Provider: Cari De Leon, Status: Pen, Time: 9:[address] [facility] 250 DO Work Phone: Start: 03-23-2022 FUV, Provider: Cari De Leon, Status: Pen, Time: 8:40 AM FUV, Provider: Cair De Leon, Status: Pen, Time: 8:[address] [facility] 250 DO Work Phone: Start: 09-30-2021 NURSEVST, Provider: JULIUS LANE LOCK TENDER CHIEF OPERATOR 1,[id number], Status: Pen, Time: 2:00 PM NURSEVST, Provider: JULIUS LANE LOCK TENDER CHIEF OPERATOR 1,[id number], Status: Pen, Time: 2:[address] [facility] 250 DO Work Phone: Start: 09-16-2021 FUV, Provider: Cari De Leon, Status: Pen, Time: 9:10 AM FUV, Provider: Cari De Leon, Status: Pen, Time: 9:[address] [facility] [address] [place] Work Phone: Start: 09-01-2021 Thyroid stimulating hormone measurement TSH Level [facility] Start: 03-18-2021 FUV, Provider: Cari De Leon, Status: Pen, Time: 9:00 AM FUV, Provider: Cari De Leon, Status: Pen, Time: 9:[address] [facility] [address] DO Work Phone: Start: 2020 RSV High Risk: (Elderly (60+) or Population) (1 - 1-dose 75+ series) RSV High Risk: (Elderly (60+) or Population) (1 - 1-dose 75+ series) [facility] Start: 04-03-2012 Zoster Vaccines (2 of 3) Zoster Vaccines (2 of 3) [facility] Start: 2005 RSV patients and/or patients aged 60+ years (1 - 1-dose 60+ series) RSV patients and/or patients aged 60+ years (1 - 1-dose 60+ series) [facility] Start: 1967 DTaP/Tdap/Td Vaccines (1 - Tdap) DTaP/Tdap/Td Vaccines (1 - Tdap) [facility] Start: 1963 Diabetes mellitus screening Diabetes Screening [facility] Start: 1963 Hepatitis C screening Hepatitis C Screening [facility] Start: 1945 Medicare Annual Wellness Visit Medicare Annual Wellness Visit (AWV) [facility] ECG 12 Lead ECG 12 Lead ECG Routine Paroxysmal atrial fibrillation (Multi) 11/08/2023 8:37 AM EDT [facility] Service Area Work Phone: [facility] Work Phone: Immunizations Immunization Date Immunization Notes Care Provider Fa [facility] 01-22-2024 zoster vaccine recombinant Cari De Leon MD Work Phone: [facility] 04-21-2023 influenza virus vacc ine, unspecified formulation Mando Aguirre [facility] Work Phone: 02-02-2022 Fluzone High-Dose Quadrivalent 0.7 ML Intramuscular Suspension Prefilled Syringe Nicki Hoffmanncarly Work Phone: [facility] [employer] 250 DO Work Phone: 02-02-2022 influenza, high dose seasonal, preservative-free Cari De Leon MD Work Phone: [facility] Work Phone: 02-02-2022 Pfizer COVID-19 Vac Bivalent 30 MCG/0.3ML Intramuscular Suspension Nicki Tamayo Work Phone: [facility] [employer] 250 DO Work Phone: 02-02-2022 Pfizer Purple Cap SARS-CoV-2 Cari De Leon MD Work Phone: [facility] Work Phone: 02-08-2021 Pfizer-BioNTech COVI D-19 Vacc 30 MCG/0.3ML Intramuscular Suspension Nicki Tamayo Work Phone: [facility] [address] [place] Work Phone: 07-10-[facility]-19 Vacc 30 MCG/0.3ML Intramuscular Suspension Nicki Silva Hoy Work Phone: [facility] [address] [place] Work Phone: 06-19-2020 [email or web address] Vacc 30 MCG/0.3ML Intramuscular Suspension Nicki Silva Hoy Work Phone: [facility] [address] [place] Work Phone: 03-30-2020 Seasonal trivalent influenza vaccine, adjuvanted, preservative free Nicki Silva Hoy Work Phone: [facility] [address] [place] Work Phone: 02-06-2020 influenza virus vacc ine, unspecified formulation Nicki M Hoy Work Phone: [facility] 250 DO Work Phone: 02-06-2020 influenza, seasonal, injectable Nicki M Hoy Work Phone: [facility] [address] [place] Work Phone: 03-13-2019 pneumococcal conjuga te vaccine, 13 valent Cari De Leon MD Work Phone: [facility] Work Phone: 03-08-2019 influenza virus vacc ine, unspecified formulation Nicki M Hoy [facility] Work Phone: 03-08-2019 influenza, seasonal, injectable Nicki M Hoy Work Phone: [facility] [address] [place] Work Phone: 02-10-2019 influenza, high dose seasonal, preservative-free Nicki M Hoy Work Phone: [facility] 250 DO Work Phone: 02-05-2019 pneumococcal polysaccharide vaccine, 23 valent Nicki Silva Hoy Work Phone: [facility] 250 DO Work Phone: 02-05-2018 influenza virus vacc ine, unspecified formulation Nicki Ricardo Hoy Work Phone: [facility] 250 DO Work Phone: 01-17-2017 influenza, injectabl e, quadrivalent, preservative free Nicki Ricardo Hoy Work Phone: [facility] [address] [place] Work Phone: 01-14-2017 influenza virus vacc ine, unspecified formulation Nicki Silva Hoy Work Phone: [place] [address] DO Work Phone: 06-08-2015 pneumococcal conjuga te vaccine, 13 valent Nicki Silva Hoy Work Phone: [place] [address] DO Work Phone: 03-26-2015 influenza, injectabl e, quadrivalent, contains preservative Nicki Ricardo Hoy Work Phone: [facility] [address] [place] Work Phone: 03-08-2015 influenza virus vacc ine, unspecified formulation Nicki Ricardo Hoy Work Phone: [facility] 250 DO Work Phone: 02-11-2014 influenza virus vacc ine, whole virus Nicki M Hoy Work Phone: [facility] 250 DO Work Phone: 02-09-2012 influenza, injectabl e, quadrivalent, contains preservative Nicki M Hoy Work Phone: [facility] [address] [place] Work Phone: 02-07-2012 pneumococcal polysaccharide vaccine, 23 valent Nicki Hoffmanny Work Phone: [facility] [address] [place] Work Phone: 02-07-2012 zoster vaccine, live Nicki Tamayo Work Phone: [facility] 05-08-2011 pneumococcal polysaccharide vaccine, 23 valent Nicki Hoffmanny Work Phone: [facility] [address] [place] Work Phone: influenza virus vacc ine, unspecified formulation Nicki Silva Hoy Work Phone: [facility] 250 DO Work Phone: Comment on above: 2012Feb 20122010 Payers Date Payer Category Payer Medicare (Managed Care) [facility] [id number] 2024 Medicare [id number] 2014 Medicare MEDICARE MEDICAR E PART A AND B [id number] 2014-Present [address] [place] [address] [id number] 2014 Unknown 2014 Unknown [id number] 1959 Medicare [id number] 1959 Self-pay 1959 Unknown [id number] 1945 Unknown [id number] [id number]. 2.355 1945 Unknown [id number] 2.16.840.1.859958.3.579. 2.355 1945 Unknown [id number] 2.16.840.1.150561.3.579. 2.593 1945 Unknown [id number] 2.16.840.1.569275.3.579. 2.593 1945 Unknown [id number] 2.16.840.1.806423.3.579. 2.593 1945 Unknown [id number] 2.16.840.1.455553.3.579. 2.593 1945 Unknown [id number] 2.16.840.1.595802.3.579. 2.593 1945 Unknown [id number] 2.16.840.1.840592.3.579. 2.593 1945 Unknown [id number] 2.16.840.1.292352.3.579. 2.593 1945 Unknown [id number] 2.16.840.1.925049.3.579. 2.593 1945 Unknown [id number] 2.16.840.1.711920.3.579. 2.356 1945 Unknown [id number] 2.16.840.1.271301.3.579. 2.356 1945 Unknown [id number] 2.16.840.1.140106.3.579. 2.356 1945 Unknown [id number] 2.16.840.1.612584.3.579. 2.1244 1945 Unknown [id number] 2.16.840.1.509430.3.579. 2.1244 1945 Unknown [id number] 2.16.840.1.922552.3.579. 2.1244 Medicare [id number] Private Health Insurance [employer] [id number] Unknown [id number] Unknown [id number] [id number]. 2.531 Social History Date Type Detail Facility Start: 10-30-2023 End: 05-23-2024 Daily caffeine consumption, 2-3 servings a day Daily caffeine consumption, 2-3 servings a day -[facility] [address] [place] Work Phone: Comment on above: quit approx 1988, 1 PPD; Start: 10-30-2023 End: 05-23-2024 Sex Assigned At [facility] [employer] Other Start: 1945 Sex Assigned At Female F [facility] Start: 10-30-2023 Tobacco smoking status NHIS Ex-smoker [facility] End: 05-08-1986 History of tobacco use Current smoker [facility] Work Phone: End: 05-08-1986 History of tobacco use Cigarette Smoker [facility] Work Phone: Start: 10-30-2023 Tobacco use and exposure Smokeless tobacco non-user [facility] Work Phone: Start: 10-30-2023 End: 05-23-2024 Alcoholic beverage intake Lifetime non-drinker (finding) [facility] Work Phone: Start: 02-10-2023 Gender identity Identifies as female gender (finding) [facility] Work Phone: Start: 10-20-2023 End: 05-23-2024 Exposure to SARS-CoV-2 (event) Not sure [facility] Clinical Notes 08-21-2022 to 05-23-2024 Cari De Leon MD - 05/23/2024 9:30 AM ESTPatient InstructionsMando Aguirre MA - 11/08/2023 9:00 AM EDT Note Date & Type Note Facility 05-23-2024 History of Present illness Narrative Subjective Mario Mitchell is a 79 y.o. female Chief Complaint Follow-up HPI Patient is in the office for follow-up for paroxysmal atrial fibrillation, coronary arteries hypertension and hyperlipidemia among other problems noted below. She reports no breakthrough atrial fibrillation since her cardioversion back in October 2023. She maintains active lifestyle but unfortunately her weight has not come down. She reports no angina pectoris no dyspnea and no bleeding complications. She is due for blood work which is scheduled. Apart from class II obesity her physical examination was remarkable for very soft systolic murmur consistent with mild aortic stenosis to be monitored. ASSESSMENT AND PLAN: 1. Paroxysmal fibrillation, on sotalol and Xarelto, currently in normal sinus rhythm with normal QTc interval. She is status post cardioversion October 2023 with no recurrent events. Her medicine has been well-tolerated and effective. No changes are needed. 2. Coronary artery disease, patient has two-vessel coronary artery disease and status post angioplasty in 1997 involving the right coronary artery and 2007 involving the LAD. Risk factor had been controlled. The patient has been compliant with no recurrent disease. Last stress test with 2016 was normal 3. Class II obesity. More weight loss with modification of lifestyle was recommended. 4. Essential hypertension, currently controlled. Renal function is normal 5. Hyperlipidemia, on maximal intensity atorvastatin, lipid profile is needed and was ordered. 6. Hypothyroidism on replacement therapy, followed periodically 7. Obstructive sleep apnea on CPAP machine 8. High risk medication with anticoagulants and antiarrhythmics with no complications Review of Systems All other systems reviewed and are negative. Vitals: 05/23/24 0909 BP: 132/60 BP Location: Left arm Patient Position: Sitting Pulse: 57 Weight: 94.8 kg (209 lb) Height: 1.626 m (5' 4 ) EKG done in office today Objective Physical Exam Constitutional: Appearance: Normal appearance. HENT: Nose: Nose normal. Neck: Vascular: No carotid bruit. Cardiovascular: Rate and Rhythm: Normal rate. Pulses: Normal pulses. Heart sounds: Murmur heard. Systolic murmur is present with a grade of 1/6. Pulmonary: Effort: Pulmonary effort is normal. Abdominal: General: Bowel sounds are normal. Palpations: Abdomen is soft. Musculoskeletal: General: Normal range of motion. Cervical back: Normal range of motion. Right lower leg: No edema. Left lower leg: No edema. Skin: General: Skin is warm and dry. Neurological: General: No focal deficit present. Mental Status: She is alert. Psychiatric: Mood and Affect: Mood normal. Behavior: Behavior normal. Thought Content: Thought content normal. Judgment: Judgment normal. Allergies Lisinopril Current Medications Current Outpatient Medications: ascorbic acid (Vitamin C) 1,000 mg tablet, Take 1 tablet (1,000 mg) by mouth once daily., Disp: , Rfl: aspirin 81 mg EC tablet, Take 1 tablet (81 mg) by mouth. Monday & , Disp: , Rfl: atorvastatin (Lipitor) 80 mg tablet, Take 1 tablet (80 mg) by mouth once daily at bedtime., Disp: 90 tablet, Rfl: 3 cholecalciferol (Vitamin D-3) 50 MCG (2000 UT) tablet, Take 1 tablet (2,000 Units) by mouth once daily., Disp: , Rfl: cranberry extract 200 mg capsule, Take by mouth 2 times a day., Disp: , Rfl: Cytomel 5 mcg tablet, 1 tablet (5 mcg) once daily., Disp: , Rfl: ferrous sulfate 325 (65 Fe) MG EC tablet, Take 1 tablet by mouth once daily., Disp: , Rfl: fish,bora,flax oils-om3,6,9no1 ([place] 3-6-9) 1,200 mg capsule, Take 1 capsule by mouth 2 times a day., Disp: , Rfl: isosorbide mononitrate ER (Imdur) 30 mg 24 hr tablet, Take 1 tablet (30 mg) by mouth once daily., Disp: 90 tablet, Rfl: 3 levothyroxine (Synthroid, Levoxyl) 50 mcg tablet, Take 1 tablet (50 mcg) by mouth once daily., Disp: , Rfl: potassium chloride CR 20 mEq ER tablet, Take 1 tablet (20 mEq) by mouth once daily., Disp: 90 tablet, Rfl: 3 sotalol (Betapace) 120 mg tablet, Take 1 tablet (120 mg) by mouth 2 times a day., Disp: 180 tablet, Rfl: 3 sucralfate (Carafate) 1 gram tablet, Take 1 tablet (1 g) by mouth 4 times a day before meals., Disp: , Rfl: Xarelto 20 mg tablet, Take 1 tablet (20 mg) by mouth once daily., Disp: 90 tablet, Rfl: 3 mv-min/iron/folic/calcium/vitK (WOMEN'S MULTIVITAMIN ORAL), 1 tablet early in the morning.., Disp: , Rfl: Assessment/Plan 1. Atherosclerosis of [place] coronary artery of [place] heart without angina pectoris 2. Essential hypertension 3. Paroxysmal atrial fibrillation (Multi) Follow Up In Cardiology 4. High risk medication use 5. Mixed hyperlipidemia 6. Status post coronary angioplasty 7. Anticoagulated 8. Obstructive sleep apnea 9. Former smoker 10. BMI 35.0-35.9,adult Scribe Attestation By signing my name below, ILiliam LPN, Scribe attest that this documentation has been prepared under the direction and in the presence of Cari De Leon MD. Provider Attestation - Scribe documentation All medical record entries made by the Scribe were at my direction and personally dictated by me. I have reviewed the chart and agree that the record accurately reflects my personal performance of the history, physical exam, discussion and plan. documented in this encounter [facility] Work Phone: 05-23-2024 Instructions Liliam French LPN - 05/23/2024 9:30 AM EST Please bring all medicines, vitamins, and herbal supplements with you when you come to the office. Prescriptions will not be filled unless you are compliant with your follow up appointments or have a follow up appointment scheduled as per instruction of your physician. Refills should be requested at the time of your visit. BMI was above normal measurement. Current weight: 94.8 kg (209 lb) Weight change since last visit (-) denotes wt loss 4 lbs Weight loss needed to achieve BMI 25: 63.7 Lbs Weight loss needed to achieve BMI 30: 34.6 Lbs Provided instructions on dietary changes Provided instructions on exercise. Stop Valsartan Stop Norvasc Start Exforge 10/320 mg Lab work Follow up 6 months documented in this encounter [facility] Work Phone: 11-08-2023 History of Present illness Narrative Patient is here for an EKG visit ordered by Dr. De Leon due to atrial fibrillation. Dr. De Leon is in suite. Patient is here status post Cardioversion completed on 11[place]01 [place] [facility] [place] Cari De Leon MD. Medication list Updated verbally with patient in office. Denies any cardiac complaints at this time. Discussed with Ama Briggs RN prior to discharge. To Dr. De Leon for review. To Dr. De Leon to read. Vitals: 11/08/23 0910 BP: 140/68 BP Location: Right arm Patient Position: Sitting Pulse: 67 Weight: 93 kg (205 lb) Height: 1.626 m (5' 4 ) documented in this encounter [facility] Work Phone: 11-02-2023 Discharge summary Note Date/Time November 02, 2023 1:23 pm [facility] [address] [place] [address] Discharge Summary Signed Patient: Mario Mitchell MR#: [id number] : 1945 Acct:[id number] Age/Sex: 78 / F Adm Date: 4 Loc: PO Room: Attending Dr: Cari De Leon MD Copies to: MD Cari Quinonez MD, [facility] Providers Date of Discharge: 11/02/23 Discharging Provider: Cari De Leon Primary Care Provider: Nicki Tamayo Discharge Diagnosis Final Diagnosis Final Discharge Diagnosis: Successful cardioversion from atrial fibrillation to sinus rhythm Summary Hospital Course Hospital course: Outpatient procedure Time Spent with Patient Time spent providing/coordinating discharge services (# min): 20 Discharge Plan Discharge Plan Patient Disposition: Home Activity: Ambulate as Tolerated Comment: Do not drive a car for the rest of today Instructions: Know your Meds Prescriptions: Continued amlodipine 10 mg tablet 10 mg PO DAILY aspirin [Adult Low Dose Aspirin] 81 mg tablet,delayed release (DR/EC) 81 mg PO .COMPLEX Rx Instructions: 81 mg orally Monday and ; ascorbic acid (vitamin C) 1,000 mg capsule 1 g PO DAILY atorvastatin [Lipitor] 80 mg tablet 80 mg PO QHS cholecalciferol (vitamin D3) 50 mcg (2,000 unit) capsule 50 mcg PO DAILY Xarelto 20 mg tablet 20 mg PO DAILY Rx Instructions: must administer with evening meal fish,bora,flax oils-om3,6,9no1 [Triple [place] 3-6-9] 400-400-400 mg capsule 3 cap PO DAILY cranberry extract 200 mg capsule 200 mg PO BID Rx Instructions: administer with meals isosorbide mononitrate 30 mg tablet extended release 24 hr 30 mg PO DAILY levothyroxine 50 mcg capsule 50 mcg PO DAILY sotalol 120 mg tablet 120 mg PO BID sucralfate 1 gram tablet 1 g PO Q6HR potassium chloride 20 mEq tablet,ER particles/crystals 20 meq PO DAILY ferrous sulfate 325 mg (65 mg iron) tablet,delayed release (DR/EC) 325 mg PO DAILY liothyronine [Cytomel] 5 mcg tablet 5 mcg PO DAILY valsartan 320 mg tablet 320 mg PO DAILY Diagnostic Studies Completed and Pending Studies Pending studies at discharge: 11/02/23 11:38 ECG 12 lead ECG Stat Labs on day of discharge: 11/02/23 11:36: Sodium 139, Potassium 4.5, Chloride 108 H, Carbon Dioxide 27.7, Anion Gap 7.8 Documented By: Cari De Leon MD, [facility] 4 1322 Signed By: <Electronically signed by [facility] Cari De Leon> 11/02/23 1323 [facility] Work Phone: 1(510) 124-651106-27-2024 [facility] History of Present illness Narrative* Cari De Leon MD - 10/30/2023 1:00 PM EDT [facility] [address] [address] Subjective Mario Mitchell is a 78 y.o. female Chief Complaint Follow-up HPI Patient is in the office for follow-up for the problems noted below. She was found to be in atrial fibrillation with controlled rate at 81 bpm today and she was not aware of this occurrence. She is currently anticoagulated with Xarelto. There has been no blood work since her last visit. Vital signsrevealed normal blood pressure her weight is down 10 pounds from last visit card examination is is remarkable for irregular rhythm, pulmonary examinations are normal, she has no lower extremity edema. Her medical therapy was reviewed and was felt to be adequate and no changes are necessary. We discussed the need to proceed with cardioversion trying to restore normal sinus rhythm. She is agreeable ASSESSMENT AND PLAN: 1. Paroxysmal fibrillation, on sotalol and Xarelto, today she is in atrial fibrillation with controlled rate but is asymptomatic. I suggested plan to restore normal sinus rhythm with cardioversion and leave on the same amount of medications. She is agreeable and this will likely take place this week. Lab data were ordered. 2. Two-vessel coronary artery disease and status post angioplasty in 1997 involving the right coronary artery and 2007 involving the LAD. Risk factor had been controlled. The patient has been compliant with no recurrent disease. Last stress test with 2017 was normal 3. Class I obesity. Her weight has dropped 10 pounds from last visit which is encouraging. 4. Hypertension, currently controlled. 5. Hyperlipidemia, on maximal intensity atorvastatin, lipid profile is needed and was ordered. 6. Hypothyroidism on replacement therapy 7. Obstructive sleep apnea on CPAP machine 8. High risk medication with anticoagulants and antiarrhythmics with no complications Six-month follow-up is scheduled Review of Systems All other systems reviewed and are negative. Vitals: 10/30/23 1254 BP: 122/84 BP Location: Left arm Patient Position: Sitting Pulse: 81 Weight: 92.1 kg (203 lb) Height: 1.626 m (5' 4 ) EKG done in office today Objective Physical Exam Constitutional: Appearance: Normal appearance. HENT: Nose: Nose normal. Neck: Vascular: No carotid bruit. Cardiovascular: Rate and Rhythm: Normal rate. Rhythm irregular. Pulses: Normal pulses. Heart sounds: Normal heart sounds. Pulmonary: Effort: Pulmonary effort is normal. Abdominal: General: Bowel sounds are normal. Palpations: Abdomen is soft. Musculoskeletal: General: Normal range of motion. Cervical back: Normal range of motion. Right lower leg: No edema. Left lower leg: No edema. Skin: General: Skin is warm and dry. Neurological: General: No focal deficit present. Mental Status: She is alert. Psychiatric: Mood and Affect: Mood normal. Behavior: Behavior normal. Thought Content: Thought content normal. Judgment: Judgment normal. Allergies Lisinopril Current Medications Current Outpatient Medications: amLODIPine (Norvasc) 10 mg tablet, Take 1 tablet (10 mg) by mouth once daily., Disp: 90 tablet, Rfl: 3 ascorbic acid (Vitamin C) 1,000 mg tablet, Take 1 tablet (1,000 mg) by mouth once daily., Disp: , Rfl: aspirin 81 mg EC tablet, Take 1 tablet (81 mg) by mouth. Monday & , Disp: , Rfl: atorvastatin (Lipitor) 80 mg tablet, Take 1 tablet (80 mg) by mouth once daily at bedtime., Disp: 90 tablet, Rfl: 3 cholecalciferol (Vitamin D-3) 50 MCG (2000 UT) tablet, Take 1 tablet (2,000 Units) by mouth once daily., Disp: , Rfl: cranberry extract 200 mg capsule, Take by mouth 2 times a day., Disp: , Rfl: Cytomel 5 mcg tablet, 1 tablet (5 mcg) once daily., Disp: , Rfl: ferrous sulfate 325 (65 Fe) MG EC tablet, Take 1 tablet by mouth once daily., Disp: , Rfl: fish,bora,flax oils-om3,6,9no1 ([place] 3-6-9) 1,200 mg capsule, Take 1 capsule by mouth 2 times a day., Disp: , Rfl: isosorbide mononitrate ER (Imdur) 30 mg 24 hr tablet, Take 1 tablet (30 mg) by mouth once daily., Disp: 90 tablet, Rfl: 3 levothyroxine (Synthroid, Levoxyl) 50 mcg tablet, Take 1 tablet (50 mcg) by mouth once daily., Disp: , Rfl: potassium chloride CR (Klor-Con M20) 20 mEq ER tablet, Take 1 tablet (20 mEq) by mouth once daily. Do not crush or chew., Disp: , Rfl: potassium chloride CR 20 mEq ER tablet, Take 1 tablet (20 mEq) by mouth once daily., Disp: 90 tablet, Rfl: 3 sotalol (Betapace) 120 mg tablet, Take 1 tablet (120 mg) by mouth 2 times a day., Disp: 180 tablet,Rfl: 3 sucralfate (Carafate) 1 gram tablet, Take 1 tablet (1 g) by mouth 4 times a day before meals., Disp: , Rfl: valsartan (Diovan) 320 mg tablet, Take 1 tablet (320 mg) by mouth once daily., Disp: 90 tablet, Rfl: 3 Xarelto 20 mg tablet, Take 1 tablet (20 mg) by mouth once daily., Disp: 90 tablet, Rfl: 3 Assessment/Plan 1. Obesity, Class I, BMI 30-34.9 2. Atherosclerosis of [place] coronary artery of [place] heart without angina pectoris Follow Up In Cardiology Lipid Panel Alanine Aminotransferase Aspartate Aminotransferase Lipid Panel Alanine Aminotransferase Aspartate Aminotransferase 3. High risk medication use 4. Essential hypertension 5. Mixed hyperlipidemia Lipid Panel Alanine Aminotransferase Aspartate Aminotransferase Lipid Panel Alanine Aminotransferase Aspartate Aminotransferase 6. Paroxysmal atrial fibrillation (Multi) Basic Metabolic Panel CBC Follow Up In Cardiology ECG 12 Lead Cardioversion External ECG 12 Lead Xarelto 20 mg tablet Basic Metabolic Panel CBC 7. Status post coronary angioplasty 8. Obstructive sleep apnea 9. BMI 34.0-34.9,adult 10. Former smoker Scribe Attestation By signing my name below, I, Montrell Yates LPN attest that this documentation has been prepared under the direction and in the presence of Cari De Leon MD. Provider Attestation - Scribe documentation All medical record entries made by the Scribe were at my direction and personally dictated by me. Ihave reviewed the chart and agree that the record accurately reflects my personal performance of the history, physical exam, discussion and plan. documented in this [facility] Work Phone: 1(257) 843-806306-24-2024 Instructions* Patient Instructions* Halima Funk LPN - 10/30/2023 1:00 PM EDT Please bring all medicines, vitamins, and herbal supplements with you when you come to the office. Prescriptions will not be filled unless you are compliant with your follow up appointments or have a follow up appointment scheduled as per instruction of your physician. Refills should be requested at the time of your visit. BMI was above normal measurement. Current weight: 92.1 kg (203 lb) Weight change since last visit (-) denotes wt loss -10 lbs Weight loss needed to achieve BMI 25: 57.7 Lbs Weight loss needed to achieve BMI 30: 28.6 Lbs Provided instructions on dietary changes Provided instructions on exercise. [facility] Phone: 1(277) 354-520304-16-2023 Evaluation note* Encounter Date Diagnosis Assessment Notes Treatment Notes Treatment Clinical Notes Aug, Contact with and (suspected) exposure [...] no improvement in 2 to 3 days [employer] Other Evaluation noteNo assessment information available [facility] Work Phone: Evaluation note* Diagnosis Obesity, Class I, BMI 30-34.9- Primary Atherosclerosis of [place] coronary artery of [place] heart without angina pectoris High risk medication use Essential hypertension Unspecified essential hypertension Mixed hyperlipidemia Paroxysmal atrial fibrillation (Multi) Atrial fibrillation Status post coronary angioplasty Postsurgical percutaneous transluminal coronary angioplasty status Obstructive sleep apnea Obstructive sleep apnea (adult) (pediatric) BMI 34.0-34.9,adult Former smoker Personal history of tobacco use, presenting hazards to health documented in this encounter [facility] Work Phone: Evaluation note* Diagnosis Paroxysmal atrial fibrillation (Multi) Atrial fibrillation documented in this encounter [facility] Work Phone: Evaluation note* Diagnosis Atherosclerosis of [place] coronary artery of [place] heart without angina pectoris Essential hypertension Unspecified essential hypertension Paroxysmal atrial fibrillation (Multi) Atrial fibrillation High risk medication use Mixed hyperlipidemia Status post coronary angioplasty Postsurgical percutaneous transluminal coronary angioplasty status Anticoagulated Encounter for long-term (current) use of anticoagulants Obstructive sleep apnea Obstructive sleep apnea (adult) (pediatric) Former smoker Personal history of tobacco use, presenting hazards to health BMI 35.0-35.9,adult documented in this encounter [facility] Work Phone: History general Narrative - Reported* Type Description Date Medical History heart disease Surgical History 3 heart stents Hospitalization History see above [employer] Other Summary Purpose Family History No Family [...] of cardiac pa cemaker: Sister(V17.49, Z82.49) Status:Active Relationship Condition Age at Onset Recorded Date/T sandra father Unknown mother Heart disease Unknown Unknown Advance Directives No Advanced Directives Records Found Advance Directive Response Recorded Date/ Time Advance Directives No March 10, 2021 9:59am Chief Complaint * MARIO MITCHELL is being [...] Hyperlipidemia, currently under control. LDL August 2020 63 * 6. Hypothyroidism on replacement therapy recent [...] Hyperlipidemia, currently under control. LDL August 2020 63 * 6. Hypothyroidism on replacement therapy recent testing was reviewed with the patient * Six-month follow-up is scheduled * Cari De Leon MD, [facility] * MARIO MITCHELL is being seen for [...] currently asymptomatic. * Six-month follow-up is scheduled Chief Complaint and Reason for Visit Chief Complaint paf Reason for Referral Specialty Diagnoses / Procedures Referred By Contalex t Referred To Contact Diagnoses Paroxysmal atrial fibrillation (Multi) Procedures ECG 12 Lead Cari De Leon MD [facility] [address], [address] [address] Referral ID Status Reason Start Date Expiration Date V isits Requested Visits Authorized [id number] Authorized 10/30/2023 10/29/2024 1 1 Specialty Diagnoses / Procedures Referred By Contac t Referred To Contact Cardiology Diagnoses Paroxysmal atrial fibrillation (Multi) Procedures Cardioversion External Cari De Leon MD [facility] [address], [address] [address] Referral ID Status Reason Start Date Expiration Date V isits Requested Visits Authorized [id number] Pending Review 10/30/2023 10/29/2024 1 1 Referral ID Status Reason Start Date Expiration Date V isits Requested Visits Authorized [id number] Authorized 10/30/2023 10/29/2024 1 1 Specialty Diagnoses / Procedures Referred By Contac t Referred To Contact Cardiology Diagnoses Paroxysmal atrial fibrillation (Multi) Procedures Follow Up In Cardiology Cari De Leon MD [facility] [address], [address] [address] Cari De Leon MD [facility] [address], [address] [address] Referral ID Status Reason Start Date Expiration Date V isits Requested Visits Authorized [id number] Authorized 10/30/2023 10/29/2024 1 1 Additional Source Comments INFORMATION SOURCE (unrecogn ized section and content) DATE CREATED AUTHOR 07/10/[address] [facility] Healthcare DATE CREATED AUTHOR AUTHOR'S ORGANIZ ATION 07/08/2022 [facility] DATE CREATED AUTHOR AUTHOR'S ORGANIZ ATION 09/17/2022 [facility] DATE CREATED AUTHOR AUTHOR'S ORGANIZ ATION 09/17/2022 [employer] DATE CREATED AUTHOR AUTHOR'S ORGANIZ ATION 11/27/2023 [facility] DATE CREATED AUTHOR AUTHOR'S ORGANIZ ATION 05/26/2024 [facility] REASON FOR VISIT (unrecogniz ed section and content) Reason Comments Follow-up 6m Specialty Diagnoses / Procedures Referred By Contac t Referred To Contact Cardiology Diagnoses Atherosclerosis of [place] coronary artery of [place] heart without angina pectoris Procedures Follow Up In Cardiology Cari De Leon MD [address], [place] [address] [place] [id number] Cari De Leon MD [address], [place] [address] [place] [id number] Referral ID Status Reason Start Date Expiration Date V isits Requested Visits Authorized [id number] Authorized 03/23/2023 03/22/2024 1 1 Reason Comments EKG visit Specialty Diagnoses / Procedures Referred By Contac t Referred To Contact Diagnoses Paroxysmal atrial fibrillation (Multi) Procedures ECG 12 Lead Cari De Leon MD [address], [address] [address] Referral ID Status Reason Start Date Expiration Date V isits Requested Visits Authorized [id number] Authorized 10/30/2023 10/29/2024 1 1 Reason Comments Follow-up 6 months Specialty Diagnoses / Procedures Referred By Contac t Referred To Contact Cardiology Diagnoses Paroxysmal atrial fibrillation (Multi) Procedures Follow Up In Cardiology Cari De Leon MD [address], [address] [address] Phone: tel: fax: Cari De Leon MD [address], [address] [address] Phone: tel: fax: Referral ID Status Reason Start Date Expiration Date V isits Requested Visits Authorized [id number] Pending Review 10/30/2023 10/29/2024 1 1 Care Teams (unrecognized sec tion and content) Team Status: Active Member Role Status Dates Nicki Tamayo MD Primary Care Provider Active Team Status: Inactive Member Role Status Dates Nicki Tamayo MD Primary Care Provider Active Start: November 02, 2023 End: November 02, 2023 Cari De Leon MD Attending Provider, Referring Provider Active Start: November 02, 2023 End: November 02, 2023 [employer]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 [facility] [employer] [facility]. provides no warranty or guarantee of the accuracy or completeness of information in this document.
[2024-06-04 10:23] LABS: Basophils Absolute Auto 0.1 10^3/uL (0.0-0.1); Basophils Percent Auto 0.8 % (0.2-2.0); Eosinophils Absolute Auto 0.6 10^3/uL (0.0-0.7); Eosinophils Percent Auto 6.5 % (0.9-7.0); Hematocrit 36.4 % (36.0-48.0); Hemoglobin 11.7 g/dL (12.0-16.0); Immature Granulocytes Abs Auto 0.04 10^3/uL (0.00-0.03); Immature Granulocytes Pct Auto 0.4 % (0.0-0.5); Lymphocytes Absolute Auto 3.1 10^3/uL (1.2-3.8); Lymphocytes Percent Auto 32.5 % (20.5-60.0); Mean Corpuscular HGB Conc 32.1 g/dL (29.9-35.2); Mean Corpuscular Volume 90.3 fL (81.0-99.0); Mean Platelet Volume 9.3 fL (9.5-13.5); Monocytes Percent Auto 10.6 % (1.7-12.0); Neutrophils Absolute Auto 4.6 10^3/uL (1.4-6.5); Neutrophils Percent Auto 49.2 % (43.0-75.0); Platelet Count 322 10^3/uL (150-450); Red Blood Count 4.03 10^6/uL (4.20-5.40); Red Cell Distribution Width 13.7 % (11.0-15.0); White Blood Count 9.4 10^3/uL (4.0-11.0)
[2024-06-04 10:47] LABS: Alanine Aminotransferase 33 U/L (14-59); Anion Gap 9.6; Aspartate Amino Transferase 24 U/L (15-37); BUN Creatinine Ratio 14.6; Carbon Dioxide 28.4 mmol/L (21.0-32.0); Chloride 106 mmol/L (98-107); Chol HDL Ratio 2.6; Cholesterol 127 mg/dL (<=200); Estimated GFR (African America >60 (>=60 mL/min/1.73m^2); Estimated GFR (Non-African Ame >60 (>=60 mL/min/1.73m^2); Glucose 98 mg/dL (74-106); HDL Cholesterol 48 mg/dL (40-60); LDL Cholesterol Calculated 57.8 mg/dL; Sodium 140 mmol/L (136-145); Triglycerides 106 mg/dL (<=150); VLDL CHOLESTEROL 21.2 mg/dL
== END 2024-06-04 09:38 | disposition home or self-care (01) ==
LOC: LAB 09:40
PROVIDERS: PCP Family Medicine; Visit Provider Internal Medicine Cardiovascular Disease
DX: I25.10 Atherosclerotic heart disease of native coronary artery without angina pectoris (principal); E78.2 Mixed hyperlipidemia; Z79.01 Long term (current) use of anticoagulants
CPT/HCPCS: 36415; 80048; 80061; 84450; 84460; 85025

== ENCOUNTER 2024-06-04 13:15 | Outpatient (REF) | payer MEDICARE, SELFPAY ==
--- OUTSIDE RECORDS SUMMARY | 2024-06-05 13:37 | XMS_ITS | CCD ---
Author Organization [facility] Care Team Providers Care Air Hose Coupler Name Role Phone CARI DE LEON Attending Unavailable MAKENNA SCHILLING Primary Care Unavailable CARI DE LEON Attending Unavailable MAKENNA SCHILLING Primary Care Unavailable Nicki Tamayo M Unavailable Unavailable Unavailable ENRIKE ., DR CACERES Primary Care Unavailable HOY ., DR CACERES Admitting Unavailable HOY ., DR CACERES Attending Unavailable HOY ., DR CACERES Consulting Unavailable GWYNN, DR ALMA ROSA Dickinson Consulting Unavailable ZIEBER, [...] Provider MD Cari De Leon Referring Provider [phone] Nicki Tamayo Primary Care Unavailable Cari De Leon Referring Unavailable Cari De Leon Attending Unavailable Cari De Leon Admitting Unavailable Nicki Tamayo MD Primary Care Provider [phone] CARI DE LEON Attending Unavailable JULIETTE DE [...] Lisinopril; Translations: [Lisinopril TABS] Drug Allergy 03-22-2023 [facility] (2 sources) Lisinopril; Translations: [LISINOPRIL] Drug Allergy 08-21-2022 [facility] Repository Medications Current Medications Medication Drug [...] 0 Ordered: 16-Sep-2021 DO Active fish,bora,flax oils-om3,6,9no1 ([place] 3-6-9) 1,200 mg capsule (3 sources) take 1 capsule by mouth twice daily fish,bora,flax oils-om3,6,9no1 ([place] 3-6-9) 1,200 mg capsule Take 1 capsule by mouth 2 times a day. Active Fish,Bora,Flax Oils-Om3,6,9no1 (Triple [place] 3-6-9) 400-400-400 mg capsule (1 source) Start: Fish,Bora,Flax Oils-Om3,6,9no1 (Triple [place] 3-6-9) 400-400-400 mg capsule Active 3 CAP PO Daily November 01, 2023 12:00am Iron (1 source) Iron Active 24 hr isosorbide mononitrate 30 mg extended release oral tablet (18 sources) Nitrate Vasodilator Start: End: 01-16-2 026 take 1 tablet by mouth once daily isosorbide mononitrate ER (Imdur) 30 mg 24 hr tablet Indications: Atherosclerosis of [place] coronary artery of [place] heart without angina pectoris Take 1 tablet (30 mg) by mouth once daily. 90 tablet 3 05/23/2024 05/23/2025 Active take 1 tablet by mouth once mamta y Isosorbide Mononitrate ER 30 MG Oral Tablet Extended Release 24 Hour TAKE 1 TABLET DAILY. Quantity: 90 Refills: 3 Ordered: 20-May-2022 Cari De Leon MD Active Isosorbide [place] itrate Active levothyroxine sodium 0.05 mg oral [...] before meals. Active Sucralfate Activ e Triple Salem-3-6-9 (1 source) Triple Salem-3-6 -9 Active valsartan 320 mg oral tablet [...] Drug Class(es) Dates Sig (Normalized) Sig (Original) Salem 3 340 MG Oral Capsule Delayed Release (8 sources) take 1 capsule by mo ut twice daily Salem 3 340 MG Oral Capsule Delayed Release one twice daily Quantity: 0 Refills: 0 Ordered: 16-Sep-2021 DO Active Problems Active Problems Problem Classification Problem Date Documented Date Episodic/Chronic Cardiac dysrhythmias (20 sources) Paroxysmal atrial fibrillation; Translations: [Persistent atrial fibrillation] Onset: 11-16-2017 10-30-2023 Chronic Coronary atherosclerosis and other heart disease (20 sources) Atherosclerotic heart disease of [place] coronary artery without angina pectoris; Translations: [Coronary [...] sources) Taking high risk medication; Translations: [Other long chain quiller tender (current) drug therapy] Onset: 03-22-2023 10-30-2023 Episodic Other aftercare (2 sources) long term care pharmacist (current) use of anticoagulants; Translations: [[facility] (current) use of anticoagulants] Onset: 03-22-2023 Episodic [...] Onset: 11-12-2021 Chronic Unclassified (1 source) Other long chain quiller tender (current) drug therapy Onset: 06-27-2018 Unclassified (1 [...] 09-08-2021 Episodic Other aftercare (6 sources) Other long chain quiller tender (current) drug therapy; Translations: [OTH LAND MANAGEMENT FORESTER CURRENT DRUG THERAPY] Onset: 04-05-2022 Episodic Screening [...] bradycardia,, right bundle branch block, abnormal ECG [facility] Work Phone: Carbon dioxide, total [Moles /volume] in Serum or PlasmaOrdered By: Cari De Leon on 11-02-2023 CO2 [Moles/Vol] 27.7 mmol/L Normal 21.0-31.0 [facility] Comment on above: Performed By: #### L YTES #### [facility] [address] Chloride [Moles/volume] in S seven or PlasmaOrdered By: Cari De Leon on 11-02-2023 Chloride [Moles/Vol] 108 mmol/L High 98-107 [facility] Comment on above: Performed By: #### L YTES #### [facility] [address] ECG 12 lead ECGon 11-02-2023 ECG 12 lead ECG [facility] [place] [address] Electrocardiograph Report Signed Patient: Mario Mitchell MR#: [id number] 7 : 1945 Acct:[id number] Age/Sex: 78 / F ADM Date: 11/02/23 Loc: Room: Type: [facility] Attending Dr: Cari De Leon MD Ordering Provider: Cari De Leon MD, [facility] Date of Service: 11/02/23 ECG/ECG 12 lead [...] in Anterior leads Confirmed by [facility] JO[facility]PH [id number] on 11/02/2023 5:02:12 PM Referred By: Cari De Leon Electronically Signed By:TANI BOLDEN MD [facility] Transcribed By: MUS Signed By Remy Bolden MD 11/02/23 1702 Normal [facility] ECG post procedureon 024 ECG post procedure [facility] [place] [address] [place] [address] Electrocardiograph Report Signed Patient: Mario Mitchell MR#: [id number] 7 : 1945 Acct:[id number] Age/Sex: 78 / F ADM Date: 11/02/23 Loc: Room: Type: [facility] Attending Dr: Cari De Leon MD Ordering Provider: Cari De Leon MD, [facility] Date of Service: 11/02/23 ECG/ECG post procedure: [...] Anterior leads QT has shortened Confirmed by Greg Glaser ([id number]) on 11/06/2023 4:21:27 PM Referred By: Cari De Leon Electronically Signed By:Greg Glaser Transcribed By: BENJAMIN Signed By Greg Glaser MD 11/06/23 1621 Normal [facility] Potassium [Moles/volume] in Serum or PlasmaOrdered By: Cari De Leon on 11-02-2023 Potassium [Moles/Vol] 4.5 mmol/L Normal 3.5-5.1 [facility] Comment on above: Performed By: #### L YTES #### [address] Serum or plasma anion gap de terminationOrdered By: Cari De Leon on 11-02-2023 Anion gap [Moles/Vol] 7.8 mmol/L Normal 6.0-15.0 [facility] Comment on above: Result Comment: PERF ORMED BY: [place] [address] PATHOLOGIST BATH STEWARD FAHEEM CARSON M.D. Performed By: #### L YTES #### [facility] [address] Sodium [Moles/volume] in Ser um or PlasmaOrdered By: Cari De Leon on 11-02-2023 Sodium [Moles/Vol] 139 mmol/L Normal 136-145 [facility] Comment on above: Performed By: #### L YTES #### [facility] [address] [place] [id number] [facility] ECG 12 Leadon 10-30-2023 ECG revealed atrial fibrillation with controlled rate, right bundle branch block [facility] Work Phone: Office Visit (Cardiology)on 09-15-2022 Follow-up visit Diagnoses/Problems Assessed Atherosclerosis of [place] coronary artery (414.01) (I25.10) Status post coronary [...] approx 1988, 1 PPD Orders Atherosclerosis of [place] coronary artery Changed: From Aspirin EC 81 MG TBEC 1 tablet twice weekly To Aspirin 81 MG Oral Tablet Delayed Release take one tablet on Mon and only Atherosclerosis of [place] coronary artery, High risk medication use, Paroxysmal atrial fibrillation Basic Metabolic Panel; Status:Active - Retrospective Authorization; Requested for:15Sep2022; Complete Blood Count; Status:Active - Retrospective Authorization; Requested for:15Sep2022; Atherosclerosis of [place] coronary artery, Hyperlipidemia ALT - Alanine Aminotransferase, [...] 50 MCG Oral TabletTAKE 1 TABLET DAILY. Salem 3 340 MG Oral Capsule Delayed Releaseone [...] 03/13/2021 11:22 (more content not included)... Normal [facility] Tobacco Screening.on 023 Adult depression screening assessment No [facility]iol[facility] [place] [address] DO Work Phone: Fall risk assessment a) No falls within the last year UL-Gqsovgieaq-[facility] [place] [address] DO Work Phone: Tobacco use status CP b) No M X-Qkrdjtxmhm-G [place] 250 DO Work Phone: COVID/FLU RT-PCRon 3 SARS-CoV-2 (COVID-19) RNA DENISSE+probe Ql (Unsp spec) Negative [facility] [place] Other COVID/FLU RT-PCR Negative QR Artist Other Quick Strepon 08-21-2022 S. pyogenes Org specific cx Ql (Throat) Positive QR Artist Other Quick Strep [facility] Other MG MAMM RT DIAG FUon 023 MG MAMM RT DIAG FU Patient: MARIO MITCHELL Exam Date: 07/01/2022 : 1945 Gender:F Ordering : DR NICKI TAMAYO . Admission #: [id number] Family : Order #: [id number] CLICK HERE TO VIEW EXAM RADIOLOGY REPORT [...] prostate cancer at age 70. LOCATION: [facility] BREAST COMPOSITION: Heterogeneously dense,which may obscure [...] M.D. on 07/01/2022 at 11:41 Normal [facility] US BREAST RIGHT LIMITEDon US BREAST RIGHT LIMITED Patient: MARIO MITCHELL Exam Date: 07/01/2022 : 1945 Gender:F Ordering : DR NICKI TAMAYO . Admission #: [id number] Family : Order #: [id number] CLICK HERE TO VIEW EXAM RADIOLOGY REPORT [...] prostate cancer at age 70. LOCATION: [facility] BREAST COMPOSITION: Heterogeneously dense,which may obscure [...] M.D. on 07/01/2022 at 11:41 Normal [facility] MAMM SCREEN 3D MOHINDER CADon 06-16-2022 MG MAMM SCREEN 3D MOHINDER CAD Patient: MARIO MITCHELL Exam Date: 06/16/2022 : 1945 Gender:F Ordering : DR NICKI TAMAYO . Admission #: [id number] Family : Order #: [id number] CLICK HERE TO VIEW EXAM RADIOLOGY REPORT [...] prostate cancer at age 70. LOCATION: [facility] BREAST COMPOSITION: Heterogeneously dense, which may [...] Morrow MD on 06/16/2022 at 10:57 Normal [facility] XR DEXA BONE DENSITYon 06-16 XR [...] by: GORDY GIRALDO Date: 2022-06-16 10:08 Normal [facility] CBC AUTO DIFFon 04-05-2022 BASO # 0.1 103/ul Normal 0.0-0.1 [facility] Comment on above: Performed By: #### C BC #### [facility] [address] [place], [place] [address] Dr. Stacy Rocha Basophils/100 WBC (Bld) 0.5 % Normal 0.2-2.0 [facility] Comment on above: Performed By: #### C BC #### [facility] [address] [place] [address] [address] Stacy Rocha EO # 1.0 103/ul Critically high 0.0-0.7 [facility] Comment on above: Performed By: #### C BC #### [facility] [address] [place] [address] Dr. Stacy Rocha Eosinophils/100 WBC (Bld) 8.7 % Critically high 0.9-7.0 [facility] Comment on above: Performed By: #### C BC #### [facility] [address] [place] [address] Dr. Stacy Rocha Erythrocyte distribution width (RBC) [Ratio] 13.7 % Normal 11.0-15.0 [facility] Comment on above: Performed By: #### C BC #### [facility] [address] [place] [address] Dr. Stacy Rocha Hematocrit (Bld) [Volume fraction] 34.2 % Critically low 36.0-48.0 [facility] Comment on above: Performed By: #### C BC #### [facility] [address] [place] [address] Dr. Stacy Rocha Hemoglobin (Bld) [Mass/Vol] 10.9 g/dL Critically low 12.0-16.0 [facility] Comment on above: Performed By: #### C BC #### [facility] [address] [place] [address] Dr. Stacy Rocha IG # 0.03 10e3/ul Normal 0.00-0.03 [facility] Comment on above: Performed By: #### C BC #### [facility] [address] [place] [address] Dr. Stacy Rocha IG % 0.3 % Normal 0.0-0.5 [facility] Comment on above: Performed By: #### C BC #### [facility] [address] [place] [address] Dr. Stacy Rocha LYMPH # 3.9 103/ul Critically high 1.2-3.[address] [facility] Comment on above: Performed By: #### C BC #### [facility] [address] [place] [address] Dr. Stacy Rocha Lymphocytes/100 WBC (Bld) 35.0 % Normal 20.5-60.0 [facility] Comment on above: Performed By: #### C BC #### [facility] [address] [place] [address] Dr. Stacy Rocha MANUAL DIFF REQ NO Normal [facility] Comment on above: Performed By: #### C BC #### [facility] [address] [place] [address] Dr. Stacy Rocha MCH (RBC) [Entitic mass] 27.9 pg Normal 26.7-34.0 [facility] Comment on above: Performed By: #### C BC #### [facility] [address] [place] [address] Dr. Stacy Rocha MCHC (RBC) [Mass/Vol] 31.9 g/dL Normal 29.9-35.2 [facility] Comment on above: Performed By: #### C BC #### [facility] [address] [place] [address] Dr. Stacy Rocha MCV (RBC) [Entitic vol] 87.5 fL Normal 81.0-99.0 [facility] Comment on above: Performed By: #### C BC #### [facility] [address] [place] [address] Dr. Stacy Rocha MONO # 1.2 103/ul Critically high 0.3-0.8 [facility] Comment on above: Performed By: #### C BC #### [facility] [address] [place] [address] Dr. Stacy Rocha Monocytes/100 WBC (Bld) 10.8 % Normal 1.7-12.0 [facility] Comment on above: Performed By: #### C BC #### [facility] [address] [place] [address] Dr. Stacy Rocha NEUT # 5.0 103/ul Normal 1.4-6.5 [facility] Comment on above: Performed By: #### C BC #### [facility] [address] [place] [address] Dr. Stacy Rocha Neutrophils/100 WBC (Bld) 44.7 % Normal 43.0-75.0 [facility] Comment on above: Performed By: #### C BC #### [facility] [address] [place] [address] Dr. Stacy Rocha Platelet mean volume (Bld) [Entitic vol] 9.5 fL Normal 9.5-13.5 [facility] Comment on above: Performed By: #### C BC #### [facility] [address] [place] [address] Dr. Stacy Rocha PLT 289 103/ul Normal 150-450 [facility] Comment on above: Performed By: #### C BC #### [facility] [address] [place] [address] Dr. Stacy Rocha RBC 3.91 106/ul Critically low 4.20-5.40 [facility] Comment on above: Performed By: #### C BC #### [facility] [address] [place] [address] Dr. Stacy Rocha WBC 11.3 103/ul Critically high 4.0-11.0 [facility] Comment on above: Performed By: #### C BC #### [facility] [address] [place] [address] Dr. Stacy Rocha PROF CHEM 8 (BAS METB)on Anion gap [Moles/Vol] 8.7 mmol/L Normal [facility] Comment on above: Performed By: #### B MP #### [facility] [address] [place] [address] Dr. Stacy Rocha Calcium [Mass/Vol] 8.7 mg/dL Normal 8.5-10.1 [facility] Comment on above: Performed By: #### B MP #### [facility] [address] [place] [address] Dr. Stacy Rocha Chloride [Moles/Vol] 105 mmol/L Normal 98-107 [facility] Comment on above: Performed By: #### B MP #### [facility] [address] [place] [address] Dr. Stacy Rocha CO2 [Moles/Vol] 30.3 mmol/L Normal 21.0-32.0 [facility] Comment on above: Performed By: #### B MP #### [facility] [address] [place] [address] [address] Stacy Rocha Creatinine [Mass/Vol] 0.77 mg/dL Normal 0.55-1.02 [facility] Comment on above: Performed By: #### B MP #### [facility] [address] [place] [address] [address] Stacy Rocha EGFR-AF SOUTH AFRICAN >60 Normal >=60 [facility] Comment on above: Performed By: #### B MP #### [facility] [address] [place] [address] [address] Stacy Rocha EGFR-NON AF SOUTH AFRICAN >60 Normal >=60 [facility] Comment on above: Performed By: #### B MP #### [facility] [address] [place] [address] [address] Stacy Rocha Glucose [Mass/Vol] 116 mg/dL Critically high 74-[address] [facility] Comment on above: Performed By: #### B MP #### [facility] [address] [place] [address] [address] Stacy Rocha Potassium [Moles/Vol] 4.0 mmol/L Normal 3.5-5.1 [facility] Comment on above: Performed By: #### B MP #### [facility] [address] [place] [address] Dr. Stacy Rocha Sodium [Moles/Vol] 140 mmol/L Normal 136-145 [facility] Comment on above: Performed By: #### B MP #### [facility] [address] [place] [address] [address] Stacy Rocha Urea nitrogen [Mass/Vol] 11.0 mg/dL Normal 7.0-18.0 [facility] Comment on above: Performed By: #### B MP #### [facility] [address] [place] [address] [address] Stacy Rocha Urea nitrogen/Creatinine [Mass ratio] 14.3 mg/mg Normal [facility] Comment on above: Performed By: #### B MP #### [facility] [address] [place] [address] [address] Stacy Rocha Office Visit (Cardiology)on 03-23-2022 Follow-up visit Diagnoses/Problems Assessed Atherosclerosis of [place] coronary artery (414.01) (I25.10) Essential hypertension (401.9) [...] Former smoker Tobacco Use Screening; Status:Complete; Done: [id number] Patient Instructions Please bring all medicines, vitamins, [...] 50 MCG Oral TabletTAKE 1 TABLET DAILY. Salem 3 340 MG Oral Capsule Delayed Releaseone [...] Signs Recorded: 23Mar2022 08:41AM Heart Rate53, Apical Oyufajfc318, LUE, Sitting Jrnravjjo98, LUE, Sitting Height5 ft 4 in Nyjgnu507 lb BMI Jzzpfcetnz17.56 kg/m2 BSA Calculated2.01 Tobacco Useb) No Falls Scr (more content not included)... Normal [facility] Tobacco Screening.on Fall risk assessment a) No falls within the last year [facility] [employer] DO Work Phone: Tobacco use status [facility]PHS b) [facility]: FREE T3on 11-12-2021 FREE T3 2.36 pg/mlL Normal 2.18-3.98 [facility] Comment on above: Performed By: #### T 4, FT3, TSH #### [facility] [address] [place] [address] [address] Stacy Rocha T4on 11-12-2021 T4 [Mass/Vol] 7.40 ug/dL Normal 4.80-13.90 [facility] Comment on above: Performed By: #### T 4, FT3, TSH #### [facility] [address] [place] [address] [address] Stacy Rocha TSHon 11-12-2021 TSH 4.606 uIU/mL Critically high 0.358-3.740 [facility] Comment on above: Performed By: #### T 4, FT3, TSH #### [facility] [address] [place] [address] Dr. Stacy Rocha Falls Risk Screeningon 09-30 Fall risk assessment a) No falls within the last year [facility] [employer] DO Work Phone: Office Visit (Cardiology)on 09-30-2021 [...] 25 MCG Oral TabletTAKE 1 TABLET DAILY. [place] 3 340 MG Oral Capsule Delayed Releaseone [...] Recorded: 30Sep2021 02:26PMRecorded: 30Sep2021 02:13PMRecorded: 30Sep2021 02:12PM Musucbzn172, LUE, Bnhhqtn250, RUE, Muvurdp912, LUE, Sitting Ekjjgjror47, LUE, Vhffgzc38, RUE, Ujtvyxw16, LUE, Sitting Heart Rate54, R Radial Height5 ft 4 in Jwahmt779 lb BMI Lkbwqmbuuo93.05 kg/m2 BSA Calculated2 Fall Screeninga) No falls within the last year Normal [facility] PHQ-2 VITALSon 09-16-2021 Adult depression screening assessment No [facility] [employer] DO Work Phone: Fall risk assessment a) No falls within the last year [facility] [employer] DO Work Phone: Tobacco use status CPHS b) No M [facility] [employer] DO Work Phone: CBC AUTO DIFFon 09-07-2021 BASO # 0.1 103/ul Normal 0.0-0.1 [facility] Comment on above: Performed By: #### T 4, FT3, TSH #### [facility] [address] [place] [address] [address] Stacy Rocha Basophils/100 WBC (Bld) 0.7 % Normal 0.2-2.0 [facility] Comment on above: Performed By: #### T 4, FT3, TSH #### [facility] [address] [place] [address] [address] Stacy Rocha EO # 0.7 103/ul Normal 0.0-0.7 [facility] Comment on above: Performed By: #### T 4, FT3, TSH #### [facility] [address] [place] [address] [address] Stacy Rocha Eosinophils/100 WBC (Bld) 7.1 % Critically high 0.9-7.0 [facility] Comment on above: Performed By: #### T 4, FT3, TSH #### [facility] [address] [place] [address] [address] Stacy Rocha Erythrocyte distribution width (RBC) [Ratio] 13.8 % Normal 11.0-15.0 [facility] Comment on above: Performed By: #### T 4, FT3, TSH #### [facility] [address] [place] [address] Dr. Stacy Rocha Hematocrit (Bld) [Volume fraction] 39.3 % Normal 36.0-48.0 [facility] Comment on above: Performed By: #### T 4, FT3, TSH #### [facility] [address] [place] [address] Dr. Stacy Rocha Hemoglobin (Bld) [Mass/Vol] 12.4 g/dL Normal 12.0-16.0 [facility] Comment on above: Performed By: #### T 4, FT3, TSH #### [facility] [address] [place] [address] Dr. Stacy Rocha IG # 0.03 10e3/ul Normal 0.00-0.03 [facility] Comment on above: Performed By: #### T 4, FT3, TSH #### [facility] [address] [place] [address] Dr. Stacy Rocha IG % 0.3 % Normal 0.0-0.5 [facility] Comment on above: Performed By: #### T 4, FT3, TSH #### [facility] [address] [place] [address] Dr. Stacy Rocha LYMPH # 3.5 103/ul Normal 1.2-3.8 [facility] Comment on above: Performed By: #### T 4, FT3, TSH #### [facility] [address] [place] [address] Dr. Stacy Rocha Lymphocytes/100 WBC (Bld) 35.3 % Normal 20.5-60.0 [facility] Comment on above: Performed By: #### T 4, FT3, TSH #### [facility] [address] [place] [address] Dr. Stacy Rocha MANUAL DIFF REQ NO Normal [facility] Comment on above: Performed By: #### T 4, FT3, TSH #### [facility] [address] [place] [address] [address] Stacy Rocha MCH (RBC) [Entitic mass] 28.7 pg Normal 26.7-34.0 [facility] [facility] Comment on above: Performed By: #### T 4, FT3, TSH #### [facility] [address] [place] [address] Dr. Stacy Rocha MCHC (RBC) [Mass/Vol] 31.6 g/dL Normal 29.9-35.2 [facility] Comment on above: Performed By: #### T 4, FT3, TSH #### [facility] [address] [place] [address] Dr. Stacy Rocha MCV (RBC) [Entitic vol] 91.0 fL Normal 81.0-99.0 [facility] Comment on above: Performed By: #### T 4, FT3, TSH #### [facility] [address] [place] [address] Dr. Stacy Rocha MONO # 1.1 103/ul Critically high 0.3-0.8 [facility] Comment on above: Performed By: #### T 4, FT3, TSH #### [facility] [address] [place] [address] Dr. Stacy Rocha Monocytes/100 WBC (Bld) 11.2 % Normal 1.7-12.0 [facility] Comment on above: Performed By: #### T 4, FT3, TSH #### [facility] [address] [place] [address] Dr. Stacy Rocha NEUT # 4.5 103/ul Normal 1.4-6.5 [facility] Comment on above: Performed By: #### T 4, FT3, TSH #### [facility] [address] [place] [address] Dr. Stacy Rocha Neutrophils/100 WBC (Bld) 45.4 % Normal 43.0-75.0 [facility] Comment on above: Performed By: #### T 4, FT3, TSH #### [facility] [address] [place] [address] Dr. Stacy Rocha Platelet mean volume (Bld) [Entitic vol] 9.0 fL Critically low 9.5-13.5 [facility] Comment on above: Performed By: #### T 4, FT3, TSH #### [facility] [address] [address] [address] Stacy Rocha PLT 380 103/ul Normal 150-450 [facility] Comment on above: Performed By: #### T 4, FT3, TSH #### [facility] [address] [address] [address] Stacy Rocha RBC 4.32 106/ul Normal 4.20-5.40 [facility] Comment on above: Performed By: #### T 4, FT3, TSH #### [facility] [address] [address] [address] Stacy Rocha WBC 10.0 103/ul Normal 4.0-11.0 [facility] Comment on above: Performed By: #### T 4, FT3, TSH #### [facility] [address] [address] [address] Stacy Rocha FREE THYROXINE INDEX T7on FTI 2.64 Normal [facility] Comment on above: Performed By: #### T 4, FT3, TSH #### [facility] [address] [place] [address] Dr. Stacy Rocha T3U 33.0 % Normal 23.5-40.5 [facility] Comment on above: Performed By: #### T 4, FT3, TSH #### [facility] [address] [address] [address] Stacy Rocha T4 [Mass/Vol] 8.00 ug/dL Normal 4.80-13.90 [facility] Comment on above: Performed By: #### T 4, FT3, TSH #### [facility] [address] [place] [address] Dr. Stacy Rocha GLYCOHEMOGLOBIN A1Con 2021 ADA RECOMMENDATION SEE BELOW Normal [facility] Comment on above: Result Comment: ADA RECOMMENDED LIMIT 4.0 - 6.0 ADA THERAPEUTIC TARGET < 7.0 ACTION SUGGESTED > 7.0 Performed By: #### T 4, FT3, TSH #### [facility] [address] [address] [address] Stacy Rocha Glucose [Mass/Vol] 120 mg/dL Normal [facility] Comment on above: Performed By: #### T 4, FT3, TSH #### [facility] [address] [address] [address] Stacy Rocha HbA1c (Bld) [Mass fraction] 5.8 % Normal 4.5-6.2 [facility] Comment on above: Performed By: #### T 4, FT3, TSH #### [facility] [address] [address] [address] Stacy Rocha IRONon 09-07-2021 Iron [Mass/Vol] 57.0 ug/dL Normal 50.0-170.0 [facility] Comment on above: Performed By: #### I KIMBERLY #### [facility] [address] [place] [address] Dr. Stacy Rocha LIPID PROFILEon 09-07-2021 CHOL-HDL RATIO NORM SEE BELOW Normal [facility] Comment on above: Result Comment: 3.3 - 4.4 LOW RISK 4.4 - 7.1 AVERAGE RISK 7.1 - 11.0 MODERATE RISK >11.0 HIGH RISK Performed By: #### T 4, FT3, TSH #### [facility] [address] [place] [address] Dr. Stacy Rocha Cholesterol [Mass/Vol] 108 mg/dL Normal <=[address] [facility] Comment on above: Performed By: #### T 4, FT3, TSH #### [facility] [address] [place] [address] Dr. Stacy Rocha Cholesterol in HDL [Mass/Vol] 43 mg/dL Normal 40-60 [facility] Comment on above: Performed By: #### T 4, FT3, TSH #### [facility] [address] [place] [address] Dr. Stacy Rocha Cholesterol in LDL [Mass/Vol] 45.2 mg/dL Normal [facility] Comment on above: Performed By: #### T 4, FT3, TSH #### [facility] [address] [address] [address] Stacy Rocha Cholesterol.total/Ani sterol in HDL [Mass ratio] 2.5 {ratio} Normal [facility] Comment on above: Performed By: #### T 4, FT3, TSH #### [facility] [address] [address] [address] Stacy Rocha HDL NORMAL > or = 60 mg/dl - LOW CARDIOVASCULAR RISK <40 mg/dl - HIGH CARDIOVASCULAR RISK Normal [facility] Comment on above: Performed By: #### T 4, FT3, TSH #### [facility] [address] [address] [address] Stacy Rocha LDL CALC NORMAL SEE BELOW Normal [facility] Comment on above: Result Comment: <100 mg/dl OPTIMAL 100 - 129 mg/dl NEAR OR ABOVE OPTIMAL 130 - 159 mg/dl BORDERLINE HIGH 160 - 189 mg/dl HIGH >190 mg/dl VERY HIGH Performed By: #### T 4, FT3, TSH #### [facility] [address] [place] [address] Dr. Stacy Rocha Triglyceride [Mass/Vol] 99 mg/dL Normal <=150 [facility] Comment on above: Performed By: #### T 4, FT3, TSH #### [facility] [address] [place] [address] Dr. Stacy Rocha VLDL CALC 19.8 mg/dL Normal [facility] Comment on above: Performed By: #### T 4, FT3, TSH #### [facility] [address] [address] [address] Stacy Rocha PROF 14(COMP METB)on 022 Albumin [Mass/Vol] 3.1 g/dL Critically low 3.4-5.0 [facility] Comment on above: Performed By: #### T 4, FT3, TSH #### [facility] [address] [place] [address] Dr. Stacy Rocha Albumin/Globulin [Mass ratio] 0.7 {ratio} Normal [facility] Comment on above: Performed By: #### T 4, FT3, TSH #### [facility] [address] [address] [address] Stacy Rocha ALP [Catalytic activity/Vol] 124 U/L Critically high 46-116 [facility] Comment on above: Performed By: #### T 4, FT3, TSH #### [facility] [address] [address] [address] Stacy Rocha ALT [Catalytic activity/Vol] 33 U/L Normal 14-59 [facility] Comment on above: Performed By: #### T 4, FT3, TSH #### [facility] [address] [address] [address] Stacy Rocha Anion gap [Moles/Vol] 7.2 mmol/L Normal [facility] Comment on above: Performed By: #### T 4, FT3, TSH #### [facility] [address] [place] [address] Dr. Stacy Rocha AST [Catalytic activity/Vol] 28 U/L Normal 15-37 [facility] Comment on above: Performed By: #### T 4, FT3, TSH #### [facility] [address] [address] [address] Stacy Rocha Bilirubin [Mass/Vol] 0.5 mg/dL Normal 0.2-1.0 [facility] Comment on above: Performed By: #### T 4, FT3, TSH #### [facility] [address] [place] [address] Dr. Stacy Rocha Calcium [Mass/Vol] 8.5 mg/dL Normal 8.5-10.1 [facility] Comment on above: Performed By: #### T 4, FT3, TSH #### [facility] [address] [address] [address] Stacy Rocha Chloride [Moles/Vol] 105 mmol/L Normal 98-107 [facility] Comment on above: Performed By: #### T 4, FT3, TSH #### [facility] [address] [address] [address] Stacy Rocha CO2 [Moles/Vol] 29.3 mmol/L Normal 21.0-32.0 [facility] Comment on above: Performed By: #### T 4, FT3, TSH #### [facility] [address] [address] [address] Stacy Rocha Creatinine [Mass/Vol] 0.92 mg/dL Normal 0.55-1.02 [facility] Comment on above: Performed By: #### T 4, FT3, TSH #### [facility] [address] [place] [address] Dr. Stacy Rocha EGFR-AF SOUTH AFRICAN >60 Normal >=60 [facility] Comment on above: Performed By: #### T 4, FT3, TSH #### [facility] [address] [place] [address] Dr. Stacy Rocha EGFR-NON AF S[place]TH AFR[place] 59 mL/min/1.73m2 Critically low >=60 [facility] Comment on above: Performed By: #### T 4, FT3, TSH #### [facility] [address] [place] [address] Dr. Stacy Rocha Globulin (S) [Mass/Vol] 4.7 g/dL Normal [facility] Comment on above: Performed By: #### T 4, FT3, TSH #### [facility] [address] [place] [address] Dr. Stacy Rocha Glucose [Mass/Vol] 107 mg/dL Critically high 74-106 [facility] Comment on above: Performed By: #### T 4, FT3, TSH #### [facility] [address] [place] [address] Dr. Stacy Rocha Potassium [Moles/Vol] 4.5 mmol/L Normal 3.5-5.1 [facility] Comment on above: Performed By: #### T 4, FT3, TSH #### [facility] [address] [place] [address] Dr. Stacy Rocha Protein [Mass/Vol] 7.8 g/dL Normal 6.1-8.2 [facility] Comment on above: Performed By: #### T 4, FT3, TSH #### [facility] [address] [place] [address] Dr. Stacy Rocha Sodium [Moles/Vol] 137 mmol/L Normal 136-145 [facility] Comment on above: Performed By: #### T 4, FT3, TSH #### [facility] [address] [address] [address] Stacy Rocha Urea nitrogen [Mass/Vol] 13.0 mg/dL Normal 7.0-18.0 [facility] Comment on above: Performed By: #### T 4, FT3, TSH #### [facility] [address] [address] [address] Stacy Rocha Urea nitrogen/Creatinine [Mass ratio] 14.1 mg/mg Normal [facility] Comment on above: Performed By: #### T 4, FT3, TSH #### [facility] [address] [address] [address] Stacy Rocha TSHon 09-07-2021 TSH 5.986 uIU/mL Critically high 0.470-4.680 [facility] Comment on above: Performed By: #### T 4, FT3, TSH #### [facility] [address] [place] [address] Dr. Stacy Rocha TSH RANGE SEE BELOW Normal [facility] Comment on above: Result Comment: <0.3 4 UIU/ml HYPERTHYROID 0.34-5.60 UIU/ml EUTHYROID >5.60 UIU/ml HYPOTHYROID Performed By: #### T 4, FT3, TSH #### [facility] [address] [place] [address] Dr. Stacy Rocha [facility] SARS-CoV-2 (COVID-19) RNA DENISSE+probe Ql (Unsp spec) Not detected Normal NOT DETECTED [facility] Comment on above: Result Comment: This test is not yet approved or cleared by the [place] FDA. When there are no FDA-approved or cleared tests available, and other criteria are met, FDA can make tests available under an emergency access mechanism called an Emergency Use Authorization (EUA). The EUA for this test is supported by the [place] of Health and Human Service's (HHS's) declaration [...] By: #### T 4, FT3, TSH #### [facility] [address] [place] [address] Dr. Stacy Rocha INFLUENZA A AND B AGon 08-30 [facility] SEE BELOW Normal [facility] Comment on above: Result Comment: Nega tive for Flu A protein angiten. Infection due to Flu A cannot be ruled out. Flu A angiten in the sample may be below the detection limit of the test. Performed By: #### I NFLUAB #### [facility] [address] [place] [address] Dr. St[facility] BELOW Normal [facility] Comment on above: Result Comment: Nega tive for Flu B protein antigen. Infection due to Flu B cannot be ruled out. Flu B antigen in the sample may be below the detection limit of the test. Performed By: #### I NFLUAB #### [facility] [address] [place] [address] Dr. Stacy Rocha INFLUENZA A AG Negative Normal NEGATIVE SEE COMMENT [facility] Comment on above: Performed By: #### I NFLUAB #### [facility] [address] [place] [address] Dr. Stacy Rocha INFLUENZA B AG Negative Normal NEGATIVE SEE COMMENT [facility] Comment on above: Performed By: #### I NFLUAB #### [facility] [address] [place] [address] Dr. Stacy Rocha INTERNAL CONTROLS Within Normal Limits Normal Within Normal Limits [facility] Comment on above: Performed By: #### I NFLUAB #### [facility] [address] [place] [address] Dr. Stacy Rocha Tobacco Screening.on 021 Fall risk assessment a) No falls within the last year -[facility] [address] [place] Work Phone: Tobacco use status CPHS b) No M -[facility] [address] [place] Work Phone: No Panel Informationon 03-10 48.6\S\48.[address] [facility] [address] [place] Work Phone: 8.3\S\8.3 Normal 6.3-10.7 -[facility] [address] [place] Work Phone: 270\S\270 Normal 150-450 [facility] DO Work Phone: 13.8\S\13.8 Normal 11.9-15.3 [facility] [address] DO Work Phone: 33.4\S\33.4 Normal 32.0-35.0 [facility] [place] Work Phone: 30.2\S\30.2 Normal 24.7-34.3 [facility] [place] Work Phone: 4.3\S\4.3 Normal 1.8-7.7 [facility] [place] Work Phone: 0.0\S\0.0 Normal 0-0.5 [facility] [place] Work Phone: 1.3\S\1.[address] [facility] [place] Work Phone: 5.3\S\5.[address] [facility] [place] Work Phone: 11.7\S\11.[address] [facility] [place] Work Phone: 33.1\S\33.1 Normal . -[facility] DO Work Phone: 0.1\S\0.1 Normal 0.0-0.2 [facility] [address] DO Work Phone: Comment on above: PERFORMED BY:[address] [address] [address] [place], [place] [phone] MEDICAL DIRECTORFAHEEM CARSON M.D. 0.5\S\0.5 above high threshold 0.0-0.45 [facility] [address] DO Work Phone: 1.0\S\1.0 above high threshold 0.0-0.8 -[facility] [address] DO Work Phone: 2.9\S\2.9 Normal 1.00-4.8 -[facility] [address] DO Work Phone: 90.5\S\90.5 Normal 80-100 [facility] [address] DO Work Phone: 39.7\S\39.7 Normal 34.0-46.4 -[facility] [address] [place] Work Phone: 13.2\S\13.2 Normal 11.8-15.4 -[facility] [address] DO Work Phone: 4.39\S\4.39 Normal 3.60-5.00 [facility] DO Work Phone: 8.8\S\8.8 Normal 3.8-11.6 [facility] DO Work Phone: 28.5\S\28.5 Normal 22.0-30.0 -[facility] DO Work Phone: 104\S\104 Normal 95-114 [facility] DO Work Phone: 4.4\S\4.4 Normal 3.5-5.1 [facility] DO Work Phone: 141\S\141 Normal 136-146 [facility] DO Work Phone: 10\S\10 Normal 9-23 [facility] 600 DO Work Phone: > 60 Normal [facility] 600 DO Work Phone: Comment on above: GFR estimated refere nce range: According to KDOQI guidelines, <60 ml/min/1.73m2 is sufficient to diagnose a patient with chronic kidney disease.PERFORMED BY:[email or web address] [address] [place], [place] [id number] MEDICAL DIRECTORFAHEEM CARSON M.D. 0.83\S\0.83 Normal 0.44-1.03 [facility] 600 DO Work Phone: ALT (SGPT)on 06-27-2018 ALT enzyme act/vol 26 U/L Normal 7-45 [facility] Comment on above: Performed By: #### 1 [id number] #### [facility] [address] [place] [address] AST (SGOT)on 06-27-2018 AST enzyme act/vol 27 U/L Normal 13-39 [facility] Comment on above: Performed By: #### 1 [id number] #### [facility] [address] [place] [address] CBCon 06-27-2018 Erythrocyte distribution width Ratio (RBC) 13.7 % Normal 12.0-15.4 [facility] Comment on above: Performed By: #### 2 [id number] #### [facility] [address] [place] [address] Hematocrit Volume Fraction (Bld) 41.8 % Normal 36.5-46.6 [facility] Comment on above: Performed By: #### 2 [id number] #### [facility] [address] [place] [address] Hemoglobin mass conc (Bld) 13.5 g/dL Normal 11.8-15.3 [facility] Comment on above: Performed By: #### 2 [id number] #### [facility] [address] [place] [address] MCH Entitic mass (RBC) 29.7 pg Normal 27.5-33.0 [facility] Comment on above: Performed By: #### 2 [id number] #### [facility] [address] [place] [address] MCHC mass conc (RBC) 32.3 g/dL Normal 30.1-35.0 [facility] Comment on above: Performed By: #### 2 [id number] #### [facility] [address] [place] [address]57 MCV Entitic volume (RBC) 91.9 fL Normal 85.4-100.0 [facility] Comment on above: Performed By: #### 2 [id number] #### [facility] [address] [place] [address]60 NRBC Absolute 0.00 10*3/uL Normal [facility] Comment on above: Performed By: #### 2 [id number] #### [facility] [address] [place] [address] NRBC Automated 0.0 /100{WBCs} Normal [facility] Comment on above: Performed By: #### 2 [id number] #### [facility] [address] [place] [address] Platelet mean volume Entitic volume (Bld) 11.3 fL Normal 9.9-12.1 [facility] Comment on above: Performed By: #### 2 [id number] #### [facility] [address] [place] [address] Platelets #/vol (Bld) 316 10*3/uL Normal 155-404 [facility] Comment on above: Performed By: #### 2 [id number] #### [facility] [address] [place] [address]162 RBC #/vol (Bld) 4.55 10*6/uL Normal 3.85-5.10 [facility] Comment on above: Performed By: #### 2 [id number] #### [facility] [address] [place] [address] RDW SD 46.5 fL Normal 39.3-48.6 [facility] Comment on above: Performed By: #### 2 [id number] #### [facility] [address] [place] [address]62 WBC #/vol (Bld) 9.6 10*3/uL Normal 4.4-9.9 [facility] Comment on above: Performed By: #### 2 [id number] #### [facility] [address] [place] [address] Creatinineon 06-27-2018 Creatinine mass conc 0.91 mg/dL Normal 0.50-1.05 [facility] Comment on above: Performed By: #### 1 [id number] #### [facility] [address] [place] [address] GFR/1.73 sq M.predicted MDRD vol rate/area mL/min/{1.73_m2} Normal [facility] Comment on above: Result Comment: Inte rpretation for Chronic Kidney Disease: Stages 1&2 >60 Healthy or potential kidney damage. Mild decrease of GFR. Stage 3 30-59 Moderate decrease of GFR. Stage 4 15-29 Severe decrease of GFR. Stage 5 <15 Kidney failure or on dialysis. Performed By: #### 1 [id number] #### [facility] [address] [place] [address] Electrolyte Panelon 06-27-19 19 Anion gap molar conc 12 mmol/L Normal 10-20 [facility] Comment on above: Performed By: #### 1 [id number] #### [facility] [address] [place] [address] Chloride molar conc 102 mmol/L Normal 98-107 [facility] Comment on above: Performed By: #### 1 [id number] #### [facility] [address] [place] [address] 82077 HCO3 molar conc (Bld) 32 mmol/L Normal 21-32 [facility] Comment on above: Performed By: #### 1 [id number] #### [facility] [address] [place] [address] Potassium molar conc 3.7 mmol/L Normal 3.5-5.1 [facility] Comment on above: Performed By: #### 1 [id number] #### [facility] [address] [place] [address] Sodium molar conc 142 mmol/L Normal 136-145 [facility] Comment on above: Performed By: #### 1 [id number] #### [facility] [address] [place] [address] Lipid Panelon 06-27-2018 Cholesterol in HDL mass conc 38 mg/dL Abnormal [facility] Comment on above: Result Comment: Age Normal Mod Risk High Risk 5-9 >46 38-46 <38 10-14 >44 40-44 <40 15-19 >42 38-42 <38 Adult >49 Performed By: #### 1 [id number] #### [facility] [address] [place] [address] Cholesterol in LDL mass conc 51 mg/dL Normal <130 [facility] Comment on above: Performed By: #### 1 [id number] #### [facility] [address] [place] [address] Cholesterol in VLDL mass conc 29 mg/dL Normal <30 [facility] Comment on above: Performed By: #### 1 [id number] #### [facility] [address] [place] [address] Cholesterol mass conc 118 mg/dL Normal <200 [facility] Comment on above: Performed By: #### 1 [id number] #### [facility] [address] [place] [address] Cholesterol.total/Ani sterol in HDL mass ratio 3.1 {ratio} Normal [facility] Comment on above: Performed By: #### 1 [id number] #### [facility] [address] [place] [address] Triglyceride mass conc 146 mg/dL Normal <150 [facility] Comment on above: Result Comment: 150- 199 Borderline High 200-499 High >500 Very High Performed By: #### 1 [id number] #### [facility] [address] [place] [address] TSHon 06-27-2018 Thyrotropin Qn 3.33 mU/L Normal 0.44-3.98 [facility] Comment on above: Performed By: #### 1 [id number] #### [facility] [address] [place] [address] Thyroxineon 06-27-2018 T4 mass conc 8.4 ug/dL Normal 7.1-13.1 [facility] Comment on above: Performed By: #### 1 [id number] #### [facility] [address] [place] [address] Thyroxine, Freeon 06-27-2018 Thyroxine, Free 0.80 ng/dL Normal 0.61-1.12 [facility] Comment on above: Performed By: #### 1 [id number] #### [facility] [address] [place] [address] 96565 Urea Nitrogenon 06-27-2018 Urea nitrogen mass conc 16 mg/dL Normal 6-23 [facility] Comment on above: Performed By: #### 1 [id number] #### [facility] [address] [place] [address] 39867 CBCon 11-16-2017 Erythrocyte distribution width Ratio (RBC) 13.7 % Normal 12.0-15.4 [facility] Comment on above: Performed By: #### 2 [id number] #### [facility] [address] [place] [address]0916 Hematocrit Volume Fraction (Bld) 40.4 % Normal 36.5-46.6 [facility] Comment on above: Performed By: #### 2 [id number] #### [facility] [address] [place] [address] 82693 Hemoglobin mass conc (Bld) 12.6 g/dL Normal 11.8-15.3 [facility] Comment on above: Performed By: #### 2 [id number] #### [facility] [address] [place] [address] 83946 MCH Entitic mass (RBC) 29.4 pg Normal 27.5-33.0 [facility] Comment on above: Performed By: #### 2 [id number] #### [facility] [address] [place] [address] MCHC mass conc (RBC) 31.2 g/dL Normal 30.1-35.0 [facility] Comment on above: Performed By: #### 2 [id number] #### [facility] [address] [place] [address] MCV Entitic volume (RBC) 94.2 fL Normal 85.4-100.0 [facility] Comment on above: Performed By: #### 2 [id number] #### [facility] [address] [place] [address] 84572 NRBC Absolute 0.00 10*3/uL Normal [facility] Comment on above: Performed By: #### 2 [id number] #### [facility] [address] [place] [address] NRBC Automated 0.0 /100{WBCs} Normal [facility] Comment on above: Performed By: #### 2 [id number] #### [facility] [address] [place] [address] Platelet mean volume Entitic volume (Bld) 10.9 fL Normal 9.9-12.1 [facility] Comment on above: Performed By: #### 2 [id number] #### [facility] [address] [place] [address] Platelets #/vol (Bld) 298 10*3/uL Normal 155-404 [facility] Comment on above: Performed By: #### 2 [id number] #### [facility] [address] [place] [address] RBC #/vol (Bld) 4.29 10*6/uL Normal 3.85-5.10 [facility] Comment on above: Performed By: #### 2 [id number] #### [facility] [address] [place] [address] RDW SD 46.8 fL Normal 39.3-48.6 [facility] Comment on above: Performed By: #### 2 [id number] #### [facility] [address] [place] [address] WBC #/vol (Bld) 9.4 10*3/uL Normal 4.4-9.9 [facility] Comment on above: Performed By: #### 2 [id number] #### [facility] [address] [place] [address] Creatinineon 11-16-2017 Creatinine mass conc 0.98 mg/dL Normal 0.50-1.05 [facility] Comment on above: Performed By: #### 1 [id number] #### [facility] [address] [place] [address]20 GFR/1.73 sq M.predicted MDRD vol rate/area 56 mL/min/{1.73_m2} Normal [facility] Comment on above: Result Comment: Inte rpretation for Chronic Kidney Disease: Stages 1&2 >60 Healthy or potential kidney damage. Mild decrease of GFR. Stage 3 30-59 Moderate decrease of GFR. Stage 4 15-29 Severe decrease of GFR. Stage 5 <15 Kidney failure or on dialysis. Performed By: #### 1 [id number] #### [facility] [address] [place] [address]81 Electrolyte Panelon 11-17-19 18 Anion gap molar conc 11 mmol/L Normal 10-20 [facility] Comment on above: Performed By: #### 1 [id number] #### [facility] [address] [place] [address]79 Chloride molar conc 104 mmol/L Normal 98-107 [facility] Comment on above: Performed By: #### 1 [id number] #### [facility] [address] [place] [address] HCO3 molar conc (Bld) 29 mmol/L Normal 21-32 [facility] Comment on above: Performed By: #### 1 [id number] #### [facility] [address] [place] [address] Potassium molar conc 4.2 mmol/L Normal 3.5-5.1 [facility] Comment on above: Performed By: #### 1 [id number] #### [facility] [address] [place] [address] Sodium molar conc 140 mmol/L Normal 136-145 [facility] Comment on above: Performed By: #### 1 [id number] #### [facility] [address] [place] [address] Urea Nitrogenon 11-16-2017 Urea nitrogen mass conc 20 mg/dL Normal 6-23 [facility] Comment on above: Performed By: #### 1 [id number] #### [facility] [address] [place] [address] Vital Signs Date Time Vital Sign Value Performing Clinician Facility 05-23-2024 09:09-0500 Body height 162.6 cm Cari De Leon MD Work Phone: [facility] 05-23-2024 09:09-0500 Body mass index (BMI) [Ratio] 35.87 kg/m2 Cari De Leon MD Work Phone: [facility] 05-23-2024 09:09-0500 Body weight 94.8 kg Cari De Leon MD Work Phone: [facility] 05-23-2024 09:09-0500 Diastolic blood pressure 60 mm[Hg] Cari De Leon MD Work Phone: [facility] 05-23-2024 09:09-0500 Heart rate 57 /min Cari De Leon MD Work Phone: [facility] 05-23-2024 09:09-0500 Systolic blood pressure 132 mm[Hg] Cari De Leon MD Work Phone: [facility] 11-08-2023 09:10-0400 Body height 162.6 cm Mando Aguirre MA [facility] 11-08-2023 09:10-0400 Body mass index (BMI) [Ratio] 35.19 kg/m2 Mando Aguirre MA [facility] 11-08-2023 09:10-0400 Body weight 92.[address] [facility] 11-08-2023 09:10-0400 Diastolic blood pressure 68 mm[Hg] [facility] 11-08-2023 09:10-0400 Heart rate 67 /min [facility] 11-08-2023 09:10-0400 Systolic blood pressure 140 mm[Hg] [facility] 10-30-2023 12:54-0400 Body height 162.6 cm Cari De Leon MD Work Phone: [facility] 10-30-2023 12:54-0400 Body mass index (BMI) [Ratio] 34.84 kg/m2 Cari De Leon MD Work Phone: [facility] 10-30-2023 12:54-0400 Body weight 92.08 kg Cari De Leon MD Work Phone: [facility] 10-30-2023 12:54-0400 Diastolic blood pressure 84 mm[Hg] Cari De Leon MD Work Phone: [facility] 10-30-2023 12:54-0400 Heart rate 81 /min Cari De Leon MD Work Phone: [facility] 10-30-2023 12:54-0400 Systolic blood pressure 122 mm[Hg] Cari De Leon MD Work Phone: [facility] 09-15-2022 08:50-0400 Body height 162.56 cm Nicki Ricardo Hoffmanny Work Phone: [facility]Pyxruqdeel-Hkluwu [place] 250 DO Work Phone: 09-15-2022 08:50-0400 Body mass index (BMI) [Ratio] 35.36 kg/m2 Nicki M Hoy Work Phone: XY-Twuoxmfqtw-Lctkcc [place] 250 DO Work Phone: 09-15-2022 08:50-0400 Body surface area Derived from formula 1.98 m2 Nicki M Hoy Work Phone: PE-Hrgvlycnxx-Ccvjmq [place] 250 DO Work Phone: 09-15-2022 08:50-0400 Body weight 93.44 kg Nicki Silva Hoy Work Phone: LH-Lvepjcuqdk-Jtoytn [place] 250 DO Work Phone: 09-15-2022 08:50-0400 Diastolic blood pressure 84 mm[Hg] Nicki Silva Hoy Work Phone: CP-Sukvsfzfux-Forhqp [place] 250 DO Work Phone: 09-15-2022 08:50-0400 Heart rate 49 /min Nicki Silva Hoy Work Phone: XB-Zrfnxfriiy-Tiqqxv [place] 250 DO Work Phone: 09-15-2022 08:50-0400 Systolic blood pressure 128 mm[Hg] Nicki Silva Hoy Work Phone: EQ-Ezyctsjcii-Vmvqvo christopher 250 DO Work Phone: 08-21-2022 10:30-0400 Body height 162.56 cm Kristin Padmaja Other [employer] Other 08-21-2022 10:30-0400 Body mass index (BMI) [Ratio] 36.04 kg/m2 Kristin Padmaja Other [employer] Other 08-21-2022 10:30-0400 Body temperature 100.6 [degF] Kristin Padmaja Other [employer] Other 08-21-2022 10:30-0400 Body weight 95.26 kg Kristin Padmaja Other [employer] Other 08-21-2022 10:30-0400 Diastolic blood pressure 50 mm[Hg] Kristin Giang Other [employer] Other 08-21-2022 10:30-0400 Respiratory rate 18 /min Kristin Giang Other [employer] Other 08-21-2022 10:30-0400 SaO2% (BldA) [Mass fraction] 95 % Kristin Giang Other [employer] Other 08-21-2022 10:30-0400 Systolic blood pressure 137 mm[Hg] Kristin Giang Other [employer] Other 03-23-2022 08:41-0500 Body height 162.56 cm Nicki SolAeroMedy Work Phone: [facility] 250 DO Work Phone: 03-23-2022 08:41-0500 Body mass index (BMI) [Ratio] 36.56 kg/m2 Nicki M Hoy Work Phone: [facility] 250 DO Work Phone: 03-23-2022 08:41-0500 Body surface area Derived from formula 2.01 m2 Nicki Appiphany Hoy Work Phone: [facility] 250 DO Work Phone: 03-23-2022 08:41-0500 Body weight 96.62 kg Nicki M Hoy Work Phone: [facility] 250 DO Work Phone: 03-23-2022 08:41-0500 Diastolic blood pressure 66 mm[Hg] Nicki M Hoy Work Phone: [facility] 250 DO Work Phone: 03-23-2022 08:41-0500 Heart rate 53 /min Nicki Appiphany Hoy Work Phone: [facility] 250 DO Work Phone: 03-23-2022 08:41-0500 Systolic blood pressure 124 mm[Hg] Nicki M Hoy Work Phone: [facility] 250 DO Work Phone: 09-30-2021 14:26-0400 Diastolic blood pressure 68 mm[Hg] Nicki M Hoy Work Phone: [facility] 250 DO Work Phone: 09-30-2021 14:26-0400 Systolic blood pressure 128 mm[Hg] Nicki M Hoy Work Phone: [facility] 250 DO Work Phone: 09-30-2021 14:13-0400 Diastolic blood pressure 60 mm[Hg] Nicki M Hoy Work Phone: [facility] 250 DO Work Phone: 09-30-2021 14:13-0400 Systolic blood pressure 138 mm[Hg] Nicki M Hoy Work Phone: [facility] 250 DO Work Phone: 09-30-2021 14:12-0400 Body height 162.56 cm Nicki M Hoy Work Phone: [facility] 250 DO Work Phone: 09-30-2021 14:12-0400 Body mass index (BMI) [Ratio] 36.05 kg/m2 Nicki M Hoy Work Phone: [facility] 250 DO Work Phone: 09-30-2021 14:12-0400 Body surface area Derived from formula 2 m2 Nicki M Hoy Work Phone: [facility] 250 DO Work Phone: 09-30-2021 14:12-0400 Body weight 95.26 kg Nicki M Hoy Work Phone: [facility] 250 DO Work Phone: 09-30-2021 14:12-0400 Diastolic blood pressure 60 mm[Hg] Nicki M Hoy Work Phone: [facility] 250 DO Work Phone: 09-30-2021 14:12-0400 Heart rate 54 /min Nicki M Hoy Work Phone: [facility] 250 DO Work Phone: 09-30-2021 14:12-0400 Systolic blood pressure 140 mm[Hg] Nicki M Hoy Work Phone: [facility] 250 DO Work Phone: 09-16-2021 09:34-0400 Diastolic blood pressure 80 mm[Hg] Nicki M Hoy Work Phone: [facility] 250 DO Work Phone: 09-16-2021 09:34-0400 Systolic blood pressure 160 mm[Hg] Nicki M Hoy Work Phone: [facility] 250 DO Work Phone: 09-16-2021 09:05-0400 Body height 162.56 cm Nicki M Hoy Work Phone: [facility] 250 DO Work Phone: 09-16-2021 09:05-0400 Body mass index (BMI) [Ratio] 35.87 kg/m2 Nicki M Hoy Work Phone: [facility] 250 DO Work Phone: 09-16-2021 09:05-0400 Body surface area Derived from formula 1.99 m2 Nicki M Hoy Work Phone: [facility] 250 DO Work Phone: 09-16-2021 09:05-0400 Body weight 94.8 kg Nicki M Hoy Work Phone: [facility] 250 DO Work Phone: 09-16-2021 09:05-0400 Diastolic blood pressure 80 mm[Hg] Nicki M Hoy Work Phone: [facility] 250 DO Work Phone: 09-16-2021 09:05-0400 Heart rate 59 /min Nicki M Hoy Work Phone: [facility] 250 DO Work Phone: 09-16-2021 09:05-0400 Systolic blood pressure 150 mm[Hg] Nicki M Hoy Work Phone: [facility] 250 DO Work Phone: 09-07-2021 16:12-0400 5.8 1 Nicki M Hoy Work Phone: [facility] 250 DO Work Phone: Comment on above: [id number] 09-07-2021 00:00-0400 45.2 1 Nicki M Hoy Work Phone: [facility] 250 DO Work Phone: Comment on above: FSL 03-18-2021 08:50-0500 Body height 162.56 cm Nicki Ricardo Hoy Work Phone: [facility] [address] [place] Work Phone: 03-18-2021 08:50-0500 Body mass index (BMI) [Ratio] 37.25 kg/m2 Nicki M Hoy Work Phone: [facility] [address] [place] Work Phone: 03-18-2021 08:50-0500 Body surface area Derived from formula 2.03 m2 Nicki M Hoy Work Phone: [facility] [address] [place] Work Phone: 03-18-2021 08:50-0500 Body weight 98.43 kg Nicki Tamayo Work Phone: [facility] [address] [place] Work Phone: 03-18-2021 08:50-0500 Diastolic blood pressure 68 mm[Hg] Nicki Hoffmanny Work Phone: [facility] [address] [place] Work Phone: 03-18-2021 08:50-0500 Heart rate 54 /min Nicki Silva Hoy Work Phone: [facility] [address] [place] Work Phone: 03-18-2021 08:50-0500 Systolic blood pressure 128 mm[Hg] Nicki Hoffmanny Work Phone: [facility] [address] [place] Work Phone: Encounters Encounter Date Encounter Type Care Provider Facility Start: 05-23-2024 End: 05-23-2024 Office outpatient visit 25 minutes Cari De Leon MD Work Phone: [facility] Comment on above: Atherosclerosis of n ative coronary artery of [place] heart without angina pectoris; Essential hypertension; Paroxysmal atrial fibrillation (Multi); High risk medication use; Mixed hyperlipidemia; Status post coronary angioplasty; Anticoagulated; Obstructive sleep apnea; Former smoker; BMI 35.0-35.9,adult Start: 05-23-2024 End: 05-23-2024 ambulatory [facility] Start: 11-08-2023 End: 11-08-2023 Professional / ancillary services management Mando Aguirre MA [facility] Comment on above: Paroxysmal atrial fi brillation (Multi) Start: 11-08-2023 End: 11-08-2023 ambulatory [facility] Start: 11-02-2023 End: 11-02-2023 Admission to same day surgery center MD Nicki Tamayo Work Phone: [facility] Work Phone: Start: 11-02-2023 End: 11-02-2023 ambulatory MD Nicki Tamayo Work Phone: [facility] Work Phone: Start: 10-30-2023 End: 10-30-2023 Office outpatient visit 25 minutes Cari De Leon MD Work Phone: [facility] Comment on above: Obesity, Class I, BM I 30-34.9 (Primary Dx); Atherosclerosis of [place] coronary artery of [place] heart without angina pectoris; High risk medication use; Essential hypertension; Mixed hyperlipidemia; Paroxysmal atrial fibrillation (Multi); Status post coronary angioplasty; Obstructive sleep apnea; BMI 34.0-34.9,adult; Former smoker Start: 10-30-2023 End: 10-30-2023 ambulatory [facility] Start: 09-15-2022 Office outpatient vi sit 25 minutes Nicki Tamayo Work Phone: [facility] 250 DO Work Phone: Start: 09-15-2022 ambulatory Cari De Leon Facility : Start: 08-21-2022 End: 08-21-2022 ambulatory Kristin Giang Other [employer] [facility] Other Start: 08-21-2022 Office outpatient ne w 30 minutes Kristin Giang [facility] [place] Start: 08-15-2022 Rx Renewal Nicki Tamayo Work Phone: [facility] 250 DO Work Phone: Start: 07-06-2022 Patient encounter procedure Nicki Tamayo Work Phone: [facility] 250 DO Work Phone: Start: 07-01-2022 End: 07-02-[address] NICKI TAMAYO . Facility:[facility] Start: 06-16-2022 End: 06-17-[address] NICKI TAMAYO . Facility:[facility] Start: 04-05-2022 End: 04-06-[address] NICKI TAMAYO . Facility:[facility] Start: 03-23-2022 Office outpatient vi sit 25 minutes Nicki M Hoy Work Phone: [facility] 250 DO Work Phone: Start: 03-23-[address] Nicki Tamayo Facility: Start: 11-12-2021 End: 11-13-[address] NICKI TAMAYO . Facility:[facility] Start: 10-06-[address] NICKI TAMAYO . Facili ty:[facility]1 Start: 09-30-2021 Office outpatient vi sit 10 minutes Nicki M Hoy Work Phone: [facility] 250 DO Work Phone: Start: 09-30-[address] Nicki Tamayo Facility: Start: 09-16-2021 Office outpatient vi sit 25 minutes Nicki M Hoy Work Phone: [facility] 250 DO Work Phone: Start: 09-07-2021 End: 09-08-[address] CARI DE LEON Facility:[facility] Start: 08-30-2021 End: 08-30-[address] NICKI TAMAYO . Facility:[facility] Start: 08-16-2021 Rx Renewal Nicki M Hoy Work Phone: [facility] 250 DO Work Phone: Start: 05-26-2021 Rx Renewal Nicki M Hoy Work Phone: [facility] [address] [place] Work Phone: Start: 03-18-2021 Office outpatient vi sit 25 minutes Nicki M Hoy Work Phone: [facility] [address] [place] Work Phone: Start: 03-10-2021 Chart Update Cari De Leon MD Work Phone: [facility] 600 DO Work Phone: Start: 06-27-2018 Patient [...] Author Start: 09-01-2025 Lipid panel Lipid Panel [facility] Start: 01-23-2025 End: 01-23-2025 Patient encounter procedure 01/23/2025 9:20 AM EDT Office Visit [facility] [address] [phone] Cari De Leon MD [address] [facility] [address] [place] [address] [facility] Start: 05-23-2024 End: 05-23-2025 Alanine aminotransferase [Enzymatic activity/volume] in Serum or Plasma by With P-5'-P Alanine Aminotransferase Lab Routine Atherosclerosis of [place] coronary artery of [place] heart without angina pectoris Mixed hyperlipidemia Expected: 05/23/2024 (Approximate), Expires: 05/23/2025 [facility] Service Area Work Phone: Comment on above: Expected: 05/23/2024 (Approximate), Expi res: 05/23/2025 Start: 05-23-2024 End: 05-23-2025 Aspartate aminotransferase [Enzymatic activity/volume] in Serum or Plasma by With P-5'-P Aspartate Aminotransferase Lab Routine Atherosclerosis of [place] coronary artery of [place] heart without angina pectoris Mixed hyperlipidemia Expected: 05/23/2024 (Approximate), Expires: 05/23/2025 [facility] Work Phone: Comment on above: Expected: 05/23/2024 (Approximate), Expi res: 05/23/2025 Start: 05-23-2024 End: 05-23-2025 Basic metabolic 2000 panel - Serum or Plasma Basic Metabolic Panel Lab Routine Atherosclerosis of [place] coronary artery of [place] heart without angina pectoris Essential hypertension Expected: 05/23/2024 (Approximate), Expires: 05/23/2025 [facility] Work Phone: Comment on above: Expected: 05/23/2024 (Approximate), Expi res: 05/23/2025 Start: 05-23-2024 End: 05-23-2025 CBC panel - Blood by Automated count CBC Lab Routine Atherosclerosis of [place] coronary artery of [place] heart without angina pectoris Anticoagulated Expected: 05/23/2024 (Approximate), Expires: 05/23/2025 [facility] Work Phone: Comment on above: Expected: 05/23/2024 (Approximate), Expi res: 05/23/2025 Start: 05-23-2024 End: 05-23-2025 Lipid 1996 panel - Serum or Plasma Lipid Panel Lab Routine Atherosclerosis of [place] coronary artery of [place] heart without angina pectoris Mixed hyperlipidemia Expected: 05/23/2024 (Approximate), Expires: 05/23/2025 [facility] Work Phone: Comment on above: Expected: 05/23/2024 (Approximate), Expi res: 05/23/2025 Start: 05-23-2024 End: 05-23-2024 Patient encounter procedure 05/23/2024 9:30 AM EST Office Visit [facility] [address] [facility] [address] [place] [id number] Cari De Leon MD [address] [place] [address] [facility] Start: 03-18-2024 Zoster Vaccines (3 of 3) Zoster Vaccines (3 of 3) [facility] Start: 01-07-2024 COVID-19 Vaccine ( season) COVID-19 Vaccine ( season) [facility] Start: 01-07-2024 Influenza vaccination Influenza Vaccine (#1) [facility] Start: 11-06-2023 End: 10-29-2024 ECG 12 Lead ECG 12 Lead ECG Routine Paroxysmal atrial fibrillation (Multi) Expected: 11/06/2023 (Approximate), Expires: 10/29/2024 [facility] Work Phone: Comment on above: Expected: 11/06/2023 (Approximate), Expi res: 10/29/2024 Start: 11-02-2023 [facility] Start: 10-30-2023 End: 10-29-2024 Alanine aminotransferase [Enzymatic activity/volume] in Serum or Plasma by With P-5'-P Alanine Aminotransferase Lab Routine Atherosclerosis of [place] coronary artery of [place] heart without angina pectoris Mixed hyperlipidemia Expected: 10/30/2023 (Approximate), Expires: 10/29/2024 [facility] Work Phone: Comment on above: Expected: 10/30/2023 (Approximate), Expi res: 10/29/2024 Start: 10-30-2023 End: 10-29-2024 Aspartate aminotransferase [Enzymatic activity/volume] in Serum or Plasma by With P-5'-P Aspartate Aminotransferase Lab Routine Atherosclerosis of [place] coronary artery of [place] heart without angina pectoris Mixed hyperlipidemia Expected: 10/30/2023 (Approximate), Expires: 10/29/2024 [facility] Work Phone: Comment on above: Expected: 10/30/2023 (Approximate), Expi res: 10/29/2024 Start: 10-30-2023 End: 10-29-2024 Basic metabolic 2000 panel - Serum or Plasma Basic Metabolic Panel Lab Routine Paroxysmal atrial fibrillation (Multi) Expected: 10/30/2023 (Approximate), Expires: 10/29/2024 [facility] Service Area Work Phone: Comment on above: Expected: 10/30/2023 (Approximate), Expi res: 10/29/2024 Start: 10-30-2023 End: 10-29-2025 Cardioversion External Cardioversion External Cardiac Services Routine Paroxysmal atrial fibrillation (Multi) Expected: 10/30/2023 (Approximate), Expires: 10/29/2025 [facility] Work Phone: Comment on above: Expected: 10/30/2023 (Approximate), Expi res: 10/29/2025 Start: 10-30-2023 End: 10-29-2024 CBC panel - Blood by Automated count CBC Lab Routine Paroxysmal atrial fibrillation (Multi) Expected: 10/30/2023 (Approximate), Expires: 10/29/2024 [facility] Work Phone: Comment on above: Expected: 10/30/2023 (Approximate), Expi res: 10/29/2024 Start: 10-30-2023 End: 10-29-2024 Lipid 1996 panel - Serum or Plasma Lipid Panel Lab Routine Atherosclerosis of [place] coronary artery of [place] heart without angina pectoris Mixed hyperlipidemia Expected: 10/30/2023 (Approximate), Expires: 10/29/2024 [facility] Work Phone: Comment on above: Expected: 10/30/2023 (Approximate), Expi res: 10/29/2024 Start: 08-28-2023 COVID-19 Vaccine ( season) COVID-19 Vaccine ( season) [facility] Start: 06-07-2023 Medicare Annual Wellness Visit Medicare Annual Wellness Visit (AWV) [facility] Start: 03-23-2023 FUV, Provider: Cari De Leon, Status: Pen, Time: 8:30 AM FUV, Provider: Cari De Leon, Status: Pen, Time: 8:30 AM [facility] ghulam 250 DO Work Phone: Start: 09-15-2022 FUV, Provider: Cari De Leon, Status: Pen, Time: 9:00 AM FUV, Provider: Cari De Leon, Status: Pen, Time: 9:00 AM [facility] [place] 250 DO Work Phone: Start: 03-23-2022 FUV, Provider: Cari De Leon, Status: Pen, Time: 8:40 AM FUV, Provider: Cari De Leon, Status: Pen, Time: 8:40 AM [facility] [place] 250 DO Work Phone: Start: 09-30-2021 NURSEVST, Provider: JULIUS LANE TAILOR'S AIDE 1,[id number], Status: Pen, Time: 2:00 PM NURSEVST, Provider: JULIUS LANE TAILOR'S AIDE 1,[id number], Status: Pen, Time: 2:00 PM [facility] 250 DO Work Phone: Start: 09-16-2021 FUV, Provider: Cari De Leon, Status: Pen, Time: 9:10 AM FUV, Provider: Cari De Leon, Status: Pen, Time: 9:10 AM [facility] [address] [place] Work Phone: Start: 09-01-2021 Thyroid stimulating hormone measurement TSH Level [facility] Start: 03-18-2021 FUV, Provider: Cari De Leon, Status: Pen, Time: 9:00 AM FUV, Provider: Cari De Leon, Status: Pen, Time: 9:00 AM [facility] 600 DO Work Phone: Start: 2020 RSV High Risk: (Elderly (60+) or Population) (1 - 1-dose 75+ series) RSV High Risk: (Elderly (60+) or Population) (1 - 1-dose 75+ series) [facility] Start: 04-03-2012 Zoster Vaccines (2 of 3) Zoster Vaccines (2 of 3) [facility] Start: 2005 RSV patients and/or patients aged 60+ years (1 - 1-dose 60+ series) RSV patients and/or patients aged 60+ years (1 - 1-dose 60+ series) [facility] Start: 1967 DTaP/Tdap/Td Vaccines (1 - Tdap) DTaP/Tdap/Td Vaccines (1 - Tdap) [facility] Start: 1963 Diabetes mellitus screening Diabetes Screening [facility] Start: 1963 Hepatitis C screening Hepatitis C Screening [facility] Start: 1945 Medicare Annual Wellness Visit Medicare Annual Wellness Visit (AWV) [facility] ECG 12 Lead ECG 12 Lead ECG Routine Paroxysmal atrial fibrillation (Multi) 11/08/2023 8:37 AM EDT [facility] Service Area Work Phone: [facility] Work Phone: Immunizations Immunization Date Immunization Notes Care Provider Fa [facility] 01-22-2024 zoster vaccine recombinant Cari De Leon MD Work Phone: [facility] 04-21-2023 influenza virus vacc ine, unspecified formulation Mando Aguirre [facility] Work Phone: 02-02-2022 Fluzone High-Dose Quadrivalent 0.7 ML Intramuscular Suspension Prefilled Syringe Nicki Hoffmanncarly Work Phone: [facility] [employer] 250 DO Work Phone: 02-02-2022 influenza, high dose seasonal, preservative-free Cari De Leon MD Work Phone: [facility] Work Phone: 02-02-2022 Pfizer COVID-19 Vac Bivalent 30 MCG/0.3ML Intramuscular Suspension Nicki Tamayo Work Phone: [facility] [employer] 250 DO Work Phone: 02-02-2022 Pfizer Purple Cap SARS-CoV-2 Cari De Leon MD Work Phone: [facility] Work Phone: 02-08-2021 Pfizer-BioNTech COVI D-19 Vacc 30 MCG/0.3ML Intramuscular Suspension Nicki Tamayo Work Phone: [facility] [address] [place] Work Phone: 07-10-[facility] Vacc 30 MCG/0.3ML Intramuscular Suspension Nicki Silva Hoy Work Phone: [facility] [address] [place] Work Phone: 06-19-2020 [facility] Vacc 30 MCG/0.3ML Intramuscular Suspension Nicki Silva Hoy Work Phone: [facility] [address] [place] Work Phone: 03-30-2020 Seasonal trivalent influenza vaccine, adjuvanted, preservative free Nicki Silva Hoy Work Phone: [facility] [address] [place] Work Phone: 02-06-2020 influenza virus vacc ine, unspecified formulation Nicki M Hoy Work Phone: [facility] 250 DO Work Phone: 02-06-2020 influenza, seasonal, injectable Nicki M Hoy Work Phone: [facility] [address] [place] Work Phone: 03-13-2019 pneumococcal conjuga te vaccine, 13 valent Cari De Leon MD Work Phone: [facility] Work Phone: 03-08-2019 influenza virus vacc ine, unspecified formulation [facility]i M Hoy [facility] Work Phone: 03-08-2019 influenza, seasonal, injectable Nicki M Hoy Work Phone: [facility] [address] [place] Work Phone: 02-10-2019 influenza, high dose seasonal, preservative-free Nicki M Hoy Work Phone: [facility] 250 DO Work Phone: 02-05-2019 pneumococcal polysaccharide vaccine, 23 valent Nicki Silva Hoy Work Phone: [facility] 250 DO Work Phone: 02-05-2018 influenza virus vacc ine, unspecified formulation Nicki Ricardo Hoy Work Phone: [facility] 250 DO Work Phone: 01-17-2017 influenza, injectabl e, quadrivalent, preservative free Nicki Ricardo Hoy Work Phone: [facility] [address] [place] Work Phone: 01-14-2017 influenza virus vacc ine, unspecified formulation Nicki Silva Hoy Work Phone: [place] [address] DO Work Phone: 06-08-2015 pneumococcal conjuga te vaccine, 13 valent Nicki Silva Hoy Work Phone: [place] [address] DO Work Phone: 03-26-2015 influenza, injectabl e, quadrivalent, contains preservative Nicki Ricardo Hoy Work Phone: [facility] [address] [place] Work Phone: 03-08-2015 influenza virus vacc ine, unspecified formulation Nicki Ricardo Hoy Work Phone: [facility] 250 DO Work Phone: 02-11-2014 influenza virus vacc ine, whole virus Nicki M Hoy Work Phone: [facility] 250 DO Work Phone: 02-09-2012 influenza, injectabl e, quadrivalent, contains preservative Nicki M Hoy Work Phone: [facility] [address] [place] Work Phone: 02-07-2012 pneumococcal polysaccharide vaccine, 23 valent Nicki Hoffmanny Work Phone: [facility] [address] [place] Work Phone: 02-07-2012 zoster vaccine, live Nicki Tamayo Work Phone: [facility] 05-08-2011 pneumococcal polysaccharide vaccine, 23 valent Nicki Hoffmanny Work Phone: [facility] [address] [place] Work Phone: influenza virus vacc ine, unspecified formulation Nicki Silva Hoy Work Phone: [facility] 250 DO Work Phone: Comment on above: 2012Feb 20122010 Payers Date Payer Category Payer Medicare (Managed Care) [facility] [id number] 2024 Medicare [id number] 2014 Medicare MEDICARE MEDICAR E PART A AND B [id number] 2014-Present [address] [place] [address] [id number] 2014 Unknown 2014 Unknown [id number] 1959 Medicare [id number] 1959 Self-pay 1959 Unknown [id number] 1945 Unknown [id number] 2.16.840.1.393707.3.579. 2.355 1945 Unknown [id number] 2.16.840.1.221413.3.579. 2.355 1945 Unknown [id number] 2.16.840.1.173240.3.579. 2.593 1945 Unknown [id number] 2.16.840.1.002460.3.579. 2.593 1945 Unknown [id number] 2.16.840.1.351577.3.579. 2.593 1945 Unknown [id number] 2.16.840.1.782062.3.579. 2.593 1945 Unknown [id number] 2.16.840.1.360407.3.579. 2.593 1945 Unknown [id number] 2.16.840.1.380758.3.579. 2.593 1945 Unknown [id number] 2.16.840.1.942554.3.579. 2.593 1945 Unknown [id number] 2.16.840.1.271763.3.579. 2.593 1945 Unknown [id number] 2.16.840.1.770387.3.579. 2.356 1945 Unknown [id number] 2.16.840.1.759212.3.579. 2.356 1945 Unknown [id number] 2.16.840.1.915487.3.579. 2.356 1945 Unknown [id number] 2.16.840.1.743445.3.579. 2.1244 1945 Unknown [id number] 2.16.840.1.257603.3.579. 2.1244 1945 Unknown [id number] 2.16.840.1.880593.3.579. 2.1244 Medicare [id number] Private Health Insurance [employer] [id number] Unknown [id number] Unknown [id number] 2.16.840.1.011534.3.579. 2.531 Social History Date Type Detail Facility Start: 10-30-2023 End: 05-23-2024 Daily caffeine consumption, 2-3 servings a day Daily caffeine consumption, 2-3 servings a day -[facility] [address] [place] Work Phone: Comment on above: quit approx 1988, 1 PPD; Start: 10-30-2023 End: 05-23-2024 Sex Assigned At [facility] Other Start: 1945 Sex Assigned At Female F [facility] Start: 10-30-2023 Tobacco smoking status NHIS Ex-smoker [facility] End: 05-08-1986 History of tobacco use Current smoker [facility] Work Phone: End: 05-08-1986 History of tobacco use Cigarette Smoker [facility] Work Phone: Start: 10-30-2023 Tobacco use and exposure Smokeless tobacco non-user [facility] Work Phone: Start: 10-30-2023 End: 05-23-2024 Alcoholic beverage intake Lifetime non-drinker (finding) [facility] Work Phone: Start: 02-10-2023 Gender identity Identifies as female gender (finding) [facility] Work Phone: Start: 10-20-2023 End: 05-23-2024 Exposure to SARS-CoV-2 (event) Not sure [facility] Clinical Notes 08-21-2022 to 05-23-2024 [...] once daily., Disp: , Rfl: fish,bora,flax oils-om3,6,9no1 ([place] 3-6-9) 1,200 mg capsule, Take 1 capsule [...] Disp: , Rfl: Assessment/Plan 1. Atherosclerosis of [place] coronary artery of [place] heart without angina pectoris 2. Essential hypertension [...] discussion and plan. documented in this encounter [facility] Work Phone: 05-23-2024 Instructions Liliam [...] up 6 months documented in this encounter [facility] Work Phone: 11-08-2023 History of Present illness Narrative Patient is here for an EKG visit ordered by Dr. De Leon due to atrial fibrillation. Dr. De Leon is in suite. Patient is here status post [place]io[place] [facility] Cari De Leon MD. Medication [...] (5' 4 ) documented in this encounter [facility] Work Phone: 11-02-2023 Discharge summary Note Date/Time November 02, 2023 1:23 pm [facility] [address] [place] [address] Discharge Summary Signed Patient: Mario Mitchell MR#: [id number] : 1945 Acct:[id number] Age/Sex: 78 / F Adm Date: 4 Loc: PO Room: Attending Dr: aCri De Leon MD Copies to: MD Cari Quinonez MD, [facility]~ Providers Date of Discharge: 11/02/23 Discharging Provider: [...] administer with evening meal fish,bora,flax oils-om3,6,9no1 [Triple [place] 3-6-9] 400-400-400 mg capsule 3 cap PO [...] 7.8 Documented By: Cari De Leon MD, [facility] 4 1322 Signed By: <Electronically signed by [facility] Cari De Leon> 11/02/23 1323 [facility] Work Phone: [phone]) 754-843906-27-2024 [facility] History of Present illness Narrative* Cari De Leon MD - 10/30/2023 1:00 PM EDT [facility] [address] [address] Subjective Mario Mitchell is a 78 y.o. [...] once daily., Disp: , Rfl: fish,bora,flax oils-om3,6,9no1 ([place] 3-6-9) 1,200 mg capsule, Take 1 capsule [...] Class I, BMI 30-34.9 2. Atherosclerosis of [place] coronary artery of [place] heart without angina pectoris Follow Up In [...] exam, discussion and plan. documented in this [facility] Work Phone: 1(177) 155-352206-24-2024 Instructions* Patient Instructions* Halima Funk LPN - [...] Provided instructions on exercise. [facility] Work Phone[facility] 1(209) 227-763404-16-2023 Evaluation note* Encounter Date Diagnosis Assessment Notes [...] no improvement in 2 to 3 days [facility] Other Evaluation noteNo assessment information available [facility] Work Phone: Evaluation note* Diagnosis Obesity, Class I, BMI 30-34.9- Primary Atherosclerosis of [place] coronary artery of [place] heart without angina pectoris High risk medication use Essential hypertension Unspecified essential hypertension Mixed hyperlipidemia Paroxysmal atrial fibrillation (Multi) Atrial fibrillation Status post coronary angioplasty Postsurgical percutaneous transluminal coronary angioplasty status Obstructive sleep apnea Obstructive sleep apnea (adult) (pediatric) BMI 34.0-34.9,adult Former smoker Personal history of tobacco use, presenting hazards to health documented in this encounter [facility] Work Phone: Evaluation note* Diagnosis Paroxysmal atrial fibrillation (Multi) Atrial fibrillation documented in this encounter [facility] Work Phone: Evaluation note* Diagnosis Atherosclerosis of [place] coronary artery of [place] heart without angina pectoris Essential hypertension Unspecified [...] health BMI 35.0-35.9,adult documented in this encounter [facility] Work Phone: History general Narrative - Reported* Type Description Date Medical History heart disease Surgical History 3 heart stents Hospitalization History see above [facility] Other Summary Purpose Family History No Family [...] is scheduled * Cari De Leon MD, [facility] * MARIO MITCHELL is being seen for [...] 12 Lead Cari De Leon MD [address] [facility] [address], [address] [address] Referral ID Status Reason Start Date Expiration Date V isits Requested Visits Authorized [id number] Authorized 10/30/2023 10/29/2024 1 1 Specialty Diagnoses / Procedures Referred By Contac t Referred To Contact Cardiology Diagnoses Paroxysmal atrial fibrillation (Multi) Procedures Cardioversion External Cari De Leon MD [address] [facility] [address], [address] [address] Referral ID Status Reason Start Date Expiration Date V isits Requested Visits Authorized [id number] Pending Review 10/30/2023 10/29/2024 1 1 Referral ID Status Reason Start Date Expiration Date V isits Requested Visits Authorized [id number] Authorized 10/30/2023 10/29/2024 1 1 Specialty Diagnoses / Procedures Referred By Contac t Referred To Contact Cardiology Diagnoses Paroxysmal atrial fibrillation (Multi) Procedures Follow Up In Cardiology Cari De Leon MD [address] [facility] [address], [address] [address] Cari De Leon MD [address] [facility] [address], [address] [address] Referral ID Status Reason Start Date Expiration Date V isits Requested Visits Authorized [id number] Authorized 10/30/2023 10/29/2024 1 1 Additional Source Comments INFORMATION SOURCE (unrecogn ized section and content) DATE CREATED AUTHOR 07/10/2018 [facility] DATE CREATED AUTHOR AUTHOR'S ORGANIZ ATION 07/08/2022 [facility] DATE CREATED AUTHOR AUTHOR'S ORGANIZ ATION 09/17/2022 [facility] DATE CREATED AUTHOR AUTHOR'S ORGANIZ ATION 09/17/2022 [facility] DATE CREATED AUTHOR AUTHOR'S ORGANIZ ATION 11/27/2023 [facility] DATE CREATED AUTHOR AUTHOR'S ORGANIZ ATION 05/26/2024 [facility] REASON FOR VISIT (unrecogniz ed section and content) Reason Comments Follow-up 6m Specialty Diagnoses / Procedures Referred By Contac t Referred To Contact Cardiology Diagnoses Atherosclerosis of [place] coronary artery of [place] heart without angina pectoris Procedures Follow Up In Cardiology Cari De Leon MD [address], [place] [address] [place] [id number] Cari De Leon MD [address], [place] [address] [place] [id number] Referral ID Status Reason Start Date Expiration Date V isits Requested Visits Authorized [id number] Authorized 03/23/2023 03/22/2024 1 1 Reason Comments EKG visit Specialty Diagnoses / Procedures Referred By Contac t Referred To Contact Diagnoses Paroxysmal atrial fibrillation (Multi) Procedures ECG 12 Lead Cari De Leon MD [address], [address] [address] Referral ID Status Reason Start Date Expiration Date V isits Requested Visits Authorized [id number] Authorized 10/30/2023 10/29/2024 1 1 Reason Comments Follow-up 6 months Specialty Diagnoses / Procedures Referred By Contac t Referred To Contact Cardiology Diagnoses Paroxysmal atrial fibrillation (Multi) Procedures Follow Up In Cardiology Cari De Leon MD [address], [address] [address] Phone: tel: fax: Cari De Leon MD [address], [address] [address] Phone: tel: fax: Referral ID Status Reason Start Date Expiration Date V isits Requested Visits Authorized [id number] Pending Review 10/30/2023 10/29/2024 1 1 Care [...] November 02, 2023 End: November 02, 2023 Air Hose Coupler Relationship Specialty Start Date End Date Nicki Tamayo MD [address] [id number] PCP - General 03/18/21 Air Hose Coupler Relationship Specialty Start Date End Date Nicki Tamayo MD [address] [place] [address] PCP - General 03/18/21 Air Hose Coupler Relationship Specialty Start Date End Date Nicki Tamayo MD [address] [place] [address] PCP - General 03/18/21 Goals (unrecognized section [...] BE BASED ON THE PRIMARY CLINICAL RECORDS. [facility]. provides no warranty or guarantee of the accuracy or completeness of information in this document.
[2024-06-05 13:48] LABS: Estimated Average Glucose 117 mg/dL; Glycohemoglobin A1C 5.7 % (4.5-6.2)
[2024-06-05 14:00] LABS: Free T3 2.74 pg/mL (2.18-3.98); Thyroid Stimulating Hormone 2.673 uIU/mL (0.358-3.740)
== END 2024-06-04 13:16 | disposition home or self-care (01) ==
LOC: LAB 13:15
PROVIDERS: PCP Family Medicine; Visit Provider Family Medicine
DX: E03.9 Hypothyroidism, unspecified (principal); I25.10 Atherosclerotic heart disease of native coronary artery without angina pectoris; E78.2 Mixed hyperlipidemia; Z79.01 Long term (current) use of anticoagulants
CPT/HCPCS: 36415; 80048; 80061; 83036; 84436; 84443; 84450; 84460; 84481; 85025

== ENCOUNTER 2025-01-15 09:10 | Outpatient (OUT) | payer MEDICARE, SELFPAY ==
--- OUTSIDE RECORDS SUMMARY | 2024-06-05 06:45 | XMS_ITS ---
Author Organization The [facility] in [place] Address [address] [place] [address] Care Team Providers Care Instructor Looping Name Role Phone Naresh Tamayo Primary Care Provider [phone] Allergies Allergen (clinical drug ingredient) Drug/Non Drug Allergy documented on EMR Reaction Allergy Type Onset Date Status lisinopril Lisinopril cough Drug Allergy Activ e REASON FOR VISIT yearly Medications Medication SIG (Take, Route, Frequency, Duration) Notes Start Date End Date Status Cytomel 5 MCG 1 tablet on an empty stomach Orally Once a day for 90 days 02/21/2023 Active Potassium Chloride ER 20 MEQ 1 tablet with food Orally Once a day Active Levothyroxine Sodium 50 MCG TAKE 1 TABLET BY MOUTH EVERY DAY IN THE MORNING ON EMPTY STOMACH FOR 90 DAYS for 90 Active Isosorbide Mononitrate ER 30 MG 1 tablet in the morning Orally Once a day Active Ferrous Sulfate 325 (65 Fe) MG 1 tablet Orally BID Active Cranberry 25,000 2POQD Active Atorvastatin Calcium 80 MG 1 tablet Orally Once a day Active Aspirin 81 81 MG 1 tablet Orally Once a day Active Exforge 10-320 MG 1 tablet Orally Once a day 06/05/2024 Active Triple [place]-3-6-9 - 2 capsules Orally daily Active Xarelto 20 MG 1 tablet with food Orally Once a day Active Vitamin D3 50 MCG (2000 UT) 1 capsule Orally Once a day Active Vitamin C 1000 MG 1 tablet Orally Once a day Active Sucralfate 1 GM TAKE 1 TABLET FOUR TIMES A DAY Active Sotalol HCl 120 MG 1 tablet Orally ever y 12 hrs Active Social History Tobacco Use: Social History Observation Description Date Details (start date - stop date) Former Smoker 05/08/1962 - 05/08/1984 Tobacco Use/Smoking Question Answer Notes Patient is a former smoker When did you start smoking? 05/08/1962 When did you stop smoking? 05/08/1984 How long has it been since you last smoked? > 10 years Vital Signs Weight 207.4 lbs 06/05/2024 Height 64 in 06/05/2024 Blood pressure systolic 152 mm Hg 06/05/19 25 Blood pressure diastolic 70 mm Hg 025 BMI 35.6 kg/m2 06/05/2024 Encounters Encounter Location Date Provider Diagnosis [facility] [address] [place] [address] 06/05/2024 Naresh Tamayo Hypothyroidism E03.9 ; CAD (coronary artery disease) I25.10 ; Hyperlipidemia E78.5 ; Essential Hypertension I10 and Atrial fibrillation I48.91 Assessments Encounter Date Diagnosis (ICD Code) Assessment Notes Treatment Notes Treatment Clinical Notes Section Notes 06/05/2024 Hypothyroidism (ICD-10 - E03.9) 06/05/2024 CAD (coronary artery disease) (ICD-10 - I25.10) 06/05/2024 Hyperlipidemia (ICD-10 - E78.5) 06/05/2024 Essential Hypertension (ICD-10 - I10) 06/05/2024 Atrial fibrillation (ICD-10 - I48.91) Plan Of Treatment Pending Test Test Name Order Date MM screening mammo BI 06/05/2024 Progress Notes * Sharmin MITCHELL LDOB:1945 (79 yo F)Acc No.[id number]:06/05/2024 Progress Note Patient: Sharmin GUEVARA Provider: Jr Tamayo ([facility])MD :1945 A ge:79 Y S ex:Female Date:06/05/2024 Address[place] [id number] Check In:10:31 AM ESTCheck O ut:11:14 AM EST Subjective: * Chief Complaints: * Y early * HPI: D epression Screening: PHQ-2 (2015 Edition) L ittle interest or pleasure in doing things??Not at all F eeling down, depressed, or hopeless? N ot at all T otal Score 0 well adult disucsed A-fib - stabel disucssed [facility] Hyperchol - needs some labs. * ROS: E ENT: hearing changes d enies. v isual changes d enies.?non-healing mouth sores d enies. s wollen glands or neck lumps d enies. h oarseness d enies. s ore throat d enies. d ifficulty swallowing d enies. n ose bleeds d enies. n nuha congestion d enies. e ar ache d enies. e ar discharge?denies. r inging in ears d enies. l ight sensitivity d enies. e ye pain d enies. b lurring d enies. e ye irritation d enies. d ouble vision d enies.?vision loss d enies. G eneral/Constitutional: Sweats: D enies. F atigue d enies. S leep problems d enies. A norexia d enies. M alaise d enies. W eight loss d enies.?Fatigue or Weakness d enies. F ever or Chills d enies. C ardiovascular: Shortness of Breath w/lying flat d enies. L ightheadedness/dizziness d enies. C hest tightness/ heavy pressure d enies. S welling of legs, ankles, or feet d enies. W aking up with shortness of breath d enies. C hest pain denies. P alpitations d enies. W eight gain d enies. R espiratory: Chronic or frequent cough d enies. C oughing up blood?denies. D ifficulty breathing d enies. P roductive cough d enies. S noring?denies. S hortness of breath that awakens from sleep (PND) d enies. C hest pain d enies. S putum production d enies. W heezing d enies. M usculoskeletal: Joint pain d enies. J oint Fluid d enies. B ack pain d enies. K nee pain d enies. N ofelia pain d enies. J oint Stiffness d enies. M uscle cramps d enies. W eakness of muscles d enies. A rthritis d enies. M uscle aches d enies. P ain in shoulder(s) d enies. S wollen joints d enies. * Active Problem List E66.9 Obesity Modified On:02/16/2023U Status:confirmed E03.9 Hypothyroidism Modified On:02/21/2023U Status:confirmed I25.10 CAD (coronary artery disease) Modified On:02/16/2023U Status:confirmed E78.5 Hyperlipidemia Modified On:02/16/2023 Status:confirmed I10 Essential Hypertensi on Modified On:02/16/2023 Status:confirmed I48.91 Atrial fibrillation Modified On:02/16/2023 Status:confirmed G47.33 Obstructive sleep ap janelle Modified On:10/31/2023 Status:confirmed Z98.61 Status post coronary angioplasty Modified On:10/31/2023 Status:confirmed * Medical History: * Surgical History: T ubal Ligation cardioversion 10/2023 * Hospitalization/Major Diagno stic Procedure: D enies Past Hospitalization * Family History: F ather: , Gall Bladder, stomach issues, diagnosed with Unspecified heart disease.?Mother: , congestive heart failure, diagnosed with Unspecified heart disease. B rother(s): , Cancer- prostate, diagnosed with Unspecified essential hypertension, Unspecified heart disease. S ister(s): Cancer- uterine, lung, diagnosed with Other malignant neoplasm of unspecified site, Unspecified essential hypertension, Unspecified heart disease. S on(s): alive, Sleep Apnea. D aughter(s): alive, Sleep Apnea. 4 brother(s) , 5 sister(s) . 1 son(s) , 5 daughter(s) . . Only one living sister. * Social History: T obacco Use: T obacco Use/Smoking P atient is a f ormer smoker W hen did you start smoking? 0 05/08/1962 W hen did you stop smoking? 0 05/08/1984 H ow long has it been since you last smoked??> 10 years * Medications: T akingAspirin 81(Aspirin) 81 MG Tablet Delayed Release 1 tablet Orally Once a day Atorvastatin Calcium 80 MG Tablet 1 tablet Orally Once a day Cranberry , Notes to Pharmacist: 25,000 2POQDCytomel(Liothyronine Sodium) 5 MCG Tablet 1 tablet on an empty stomach Orally Once a day Exforge(amLODIPine Besylate-Valsartan) 10-320 MG Tablet 1 tablet Orally Once a day Ferrous Sulfate 325 (65 Fe) MG Tablet 1 tablet Orally BID Isosorbide Mononitrate ER 30 MG Tablet Extended Release 24 Hour 1 tablet in the morning Orally Once a day Levothyroxine Sodium 50 MCG Tablet TAKE 1 TABLET BY MOUTH EVERY DAY IN THE MORNING ON EMPTY STOMACH FOR 90 DAYS Potassium Chloride ER 20 MEQ Tablet Extended Release 1 tablet with food Orally Once a day Sotalol HCl 120 MG Tablet 1 tablet Orally every 12 hrs Sucralfate 1 GM Tablet TAKE 1 TABLET FOUR TIMES A DAY Triple [place]-3-6-9([place] 3-6-9 Fatty Acids) - Capsule Delayed Release 2 capsules Orally daily Vitamin C 1000 MG Tablet 1 tablet Orally Once a day Vitamin D3 50 MCG (2000 UT) Capsule 1 capsule Orally Once a day Xarelto(Rivaroxaban) 20 MG Tablet 1 tablet with food Orally Once a day Taking Aspirin 81(Aspirin) 81 MG Tablet Delayed Release 1 tablet Orally Once a day Taking Atorvastatin Calcium 80 MG Tablet 1 tablet Orally Once a day Taking Cranberry , Notes to Pharmacist: 25,000 2POQDTaking Cytomel(Liothyronine Sodium) 5 MCG Tablet 1 tablet on an empty stomach Orally Once a day Taking Exforge(amLODIPine Besylate-Valsartan) 10-320 MG Tablet 1 tablet Orally Once a day Taking Ferrous Sulfate 325 (65 Fe) MG Tablet 1 tablet Orally BID Taking Isosorbide Mononitrate ER 30 MG Tablet Extended Release 24 Hour 1 tablet in the morning Orally Once a day Taking Levothyroxine Sodium 50 MCG Tablet TAKE 1 TABLET BY MOUTH EVERY DAY IN THE MORNING ON EMPTY STOMACH FOR 90 DAYS Taking Potassium Chloride ER 20 MEQ Tablet Extended Release 1 tablet with food Orally Once a day Taking Sotalol HCl 120 MG Tablet 1 tablet Orally every 12 hrs Taking Sucralfate 1 GM Tablet TAKE 1 TABLET FOUR TIMES A DAY Taking Triple [place]-3-6-9([place] 3-6-9 Fatty Acids) - Capsule Delayed Release 2 capsules Orally daily Taking Vitamin C 1000 MG Tablet 1 tablet Orally Once a day Taking Vitamin D3 50 MCG (1999 UT) Capsule 1 capsule Orally Once a day Taking Xarelto(Rivaroxaban) 20 MG Tablet 1 tablet with food Orally Once a day DiscontinuedamLODIPine Besylate 10 MG Tablet 1 tablet Orally Once a day Valsartan 320 MG Tablet 1 tablet Orally once daily Medication List reviewed and reconciled with the patientDiscontinued amLODIPine Besylate 10 MG Tablet 1 tablet Orally Once a day Discontinued Valsartan 320 MG Tablet 1 tablet Orally once daily Medication List reviewed and reconciled with the patient * Allergies: L isinopril: cough - Allergyno[Allergies Verified] Objective: * Vitals: W t:207.4lbs, Ht: 64 in, BP:152/70mm Hg, BMI:35.6Index, Ht-cm: 162.56 cm, Wt-k.07 kg. * Examination: P hysical Exam: GENERAL: w ell developed, well nourished, in no acute distress. HEAD: n ormocephalic/atraumatic. EYES: p upils equal, round and reactive to light, conjunctivae and sclerae normal. EARS: n o deformity or lesion of external ear, canals and TM appear normal bilaterally, TM's intact, not inflamed with normal light reflex, hearing grossly normal to conversational speech. NOSE: n o deformity, discharge, inflammation, or lesions.? MOUTH: m ucous membranes moist, normal oropharynx and posterior pharynx without lesions or exudates, tongue normal, dentition normal. NECK: n ofelia supple, no masses or palpable cervical nodes, trachea midline, thyroid without nodules, masses, tenderness, or enlargement. CHEST: n o chest wall deformity, no chest wall tenderness.? LUNGS: n ormal respiratory effort and clear to auscultation, no wheezes, rales, or rhonchi, good air exchange. CARDIO: r egular rate and rhythm, normal S1 and S2, nor murmur, rub, or gallop. PULSES: n ormal capillary refill. ABDOMEN: s oft, non-distended, non-tender, no masses. MUSCULOSKELETAL: n o deformity or scoliosis noted, normal range of motion, joints normal, no erythema, edema, effusion, or ecchymosis. EXTREMITY: n o clubbing, cyanosis, edema, or deformity with normal ROM in both upper and lower bilateral extremities. NEUROLOGIC: g rossly normal. SKIN: n o rashes, ulcerations, or suspicious lesions. LYMPH NODES: n o cervical adenopathy, nodes normal. MENTAL STATUS: a lert and oriented x3, normal mood and affect. Assessment: * Assessment: 1. H ypothyroidism - E03.9 (Primary) 2 . C AD (coronary artery disease) - I25.10 3 . H yperlipidemia - E78.5 4 . E ssential Hypertension - I10 5 . A trial fibrillation - I48.91 Plan: * Treatment: * Procedure Codes: * Preventive Medicine: Screenings/Counseling: B [place] ACTION PLAN Above Normal BMI Follow-up D ietary management education, guidance, and counseling F ALL RISK SCREENING Fall Risk Assessment: N o falls in the past year * * Sign off status: Completed Visit Status: C HK (Check Out) true * Provider: Jr Tamayo ([facility])MD Date: 0 06/05/2024 Generated for Printi ng/Callie/eTransmitting on: 0 01/15/2025 09:17 AM EDT History and Physical Notes * HPI (History of Present Illness) Category Sub-Category Detail Notes Category Not es Depression Screening PHQ-2 (2015 Edition) Little interest or pleasure in doing things?: Not at all well adult disucsed A-fib - stabel disucssed [facility]tn [facility] Hyperchol - needs some labs Feeling down, depressed, or hopeless?: N ot at all Total Score: 0 Examination Category Sub-Category Detail Notes Category Not es Physical Exam GENERAL: well developed, well nourished, in no acute distress HEAD: normocephalic/atraum atic EYES: pupils equal, round and reactive to light, conjunctivae and sclerae normal EARS: no deformity or lesi on of external ear, canals and TM appear normal bilaterally, TM's intact, not inflamed with normal light reflex, hearing grossly normal to conversational speech NOSE: no deformity, discha rge, inflammation, or lesions MOUTH: mucous membranes selena st, normal oropharynx and posterior pharynx without lesions or exudates, tongue normal, dentition normal NECK: neck supple, no mass es or palpable cervical nodes, trachea midline, thyroid without nodules, masses, tenderness, or enlargement CHEST: no chest wall deform ity, no chest wall tenderness LUNGS: normal respiratory e ffort and clear to auscultation, no wheezes, rales, or rhonchi, good air exchange CARDIO: regular rate and rhy thm, normal S1 and S2, nor murmur, rub, or gallop PULSES: normal capillary ref ill ABDOMEN: soft, non-distended, non-tender, no masses RECTAL: MUSCULOSKELETAL: no deformity or scol iosis noted, normal range of motion, joints normal, no erythema, edema, effusion, or ecchymosis EXTREMITY: no clubbing, cyanosi s, edema, or deformity with normal ROM in both upper and lower bilateral extremities NEUROLOGIC: grossly normal SKIN: no rashes, ulceratio ns, or suspicious lesions LYMPH NODES: no cervical adenopat hy, nodes normal MENTAL STATUS: alert and oriented x 3, normal mood and affect
--- OUTSIDE RECORDS SUMMARY | 2024-06-05 07:09 | XMS_ITS ---
Author Organization The [facility] in [place] Address [address] [place] [address] Care Team Providers Care Dipper Clock And Watch Hands Name Role Phone Naresh Tamayo Primary Care Provider [phone] REASON FOR VISIT Add on Lab Encounters Encounter Location Date Provider Diagnosis [facility] [address] [place] [address] 06/05/2024 Naresh Tamayo Hypothyroidism E03.9 and CAD (coronary artery disease) I25.10 Assessments Encounter Date Diagnosis (ICD Code) Assessment Notes Treatment Notes Treatment Clinical Notes Section Notes 06/05/2024 Hypothyroidism (ICD-10 - E03.9) 06/05/2024 CAD (coronary artery disease) (ICD-10 - I25.10) Plan Of Treatment Pending Test Test Name Order Date GLYCOHEMOGLOBIN A1C 06/05/2024 THYROID PANEL (T4/TSH/FREE T3) Progress Notes * Sharmin MITCHELL LDOB:1945 (79 yo F)Acc No.[id number]:06/05/2024 Patient: Ricardo SANTANASharmin :1945 A ge:79 Y S ex:Female Address:[facility] [address], [address] Subjective: * Chief Complaints: * A dd on Lab * Medical History: * Surgical History: * Hospitalization/Major Diagno stic Procedure: * Medications: Objective: * Vitals: * Physical Examination: Assessment: * Assessment: 1. H ypothyroidism - E03.9 (Primary) 2 . C AD (coronary artery disease) - I25.10 Plan: * Treatment: 2. C AD (coronary artery disease) L AB: GLYCOHEMOGLOBIN A1C * Procedure Codes: * true * Date: Generated for Kristy kinney/Callie/Katelyn on: 0 01/15/2025 09:18 AM EDT
--- OUTSIDE RECORDS SUMMARY | 2024-06-05 16:54 | XMS_ITS ---
Author Organization [facility] [place] Address [address] [place] [address] Care Team Providers Care Cutting Machine Tender Helper Name Role Phone Naresh Tamayo Primary Care Provider [phone] REASON FOR VISIT labs Encounters Encounter Location Date Provider Diagnosis [facility] [address] [facility] [place] [address] 06/05/2024 Naresh Tamayo Plan Of Treatment No Information Progress Notes * Sharmin CHOW LDOB:1945 (79 yo F)Acc No.[id number]:06/05/2024 Patient: Ricardo JUANMichelleSharmin :1945 A ge:79 Y S ex:Female Address:[facility] [place], [address] * true * Date: Generated for Printi ng/Faxing/eTransmitting on: 0 01/15/2025 09:17 AM EDT
--- OUTSIDE RECORDS SUMMARY | 2024-12-02 10:00 | XMS_ITS ---
Author Organization [facility] in [place] Address [address] [place] [address] Care Team Providers Care Lombardi Developer Name Role Phone Naresh Tamayo Primary Care Provider Allergies Allergen (clinical drug ingredient) Drug/Non Drug Allergy documented on EMR Reaction Allergy Type Onset Date Status lisinopril Lisinopril cough Drug Allergy Activ e REASON FOR VISIT poison oak, rash on legs, chest and neck, spreading Medications Medication SIG (Take, Route, Frequency, Duration) Notes Start Date End Date Status Vitamin D3 50 MCG (1999) 1 capsule Orally Once a day Active Triamcinolone Acetonide 0.1 % 1 application Externally bid 12/02/2024 Active Xarelto 20 MG 1 tablet with food Orally Once a day Active Cephalexin 500 MG 2 tabs Orally bid fo r 10 days 12/02/2024 Active Vitamin C 1000 MG 1 tablet Orally Once a day Active Levothyroxine Sodium 50 MCG TAKE 1 TABLET BY MOUTH EVERY DAY IN THE MORNING ON EMPTY STOMACH FOR 90 DAYS for 90 Active Potassium Chloride ER 20 MEQ 1 tablet with food Orally Once a day Active Triple Glide-3-6-9 - 2 capsules Orally daily Active Sotalol HCl 120 MG 1 tablet Orally ever y 12 hrs Active Sucralfate 1 GM TAKE 1 TABLET FOUR TIMES A DAY Active Ferrous Sulfate 325 (65 Fe) MG 1 tablet Orally BID Active Isosorbide Mononitrate ER 30 MG 1 tablet in the morning Orally Once a day Active Cytomel 5 MCG 1 tablet on an empty stomach Orally Once a day for 90 days 02/21/2023 Active Exforge 10-320 MG 1 tablet Orally Once a day 06/05/2024 Active Cranberry 25,000 2POQD Active Atorvastatin Calcium 80 MG 1 tablet Orally Once a day Active amLODIPine Besylate-Valsartan 10-320 MG 1 tablet Orally Once a day Active Aspirin 81 81 MG 1 tablet Orally Once a day Active Social History Tobacco Use: Social History Observation Description Date Details (start date - stop date) Former Smoker 05/08/1962 - 05/08/1984 Tobacco Use/Smoking Question Answer Notes Patient is a former smoker When did you start smoking? 05/08/1962 When did you stop smoking? 05/08/1984 How long has it been since you last smoked? > 10 years AUDIT-C (Standard) Question Answer Notes Did you have a drink containing alcohol in the p ast year? No Points 0 Interpretation Negative Problems Problem Type SNOMED Code ICD Code Onset Dates Problem Status W/U Status Risk Notes Problem Morbid obesity (disorder) (536531365) Morbid (severe) obesity due to excess calories (E66.01) Active confirmed Vital Signs Weight 215 lbs 12/02/2024 Height 64 in 12/02/2024 Blood pressure systolic 132 mm Hg 12/03/19 25 Blood pressure diastolic 70 mm Hg 025 BMI 36.9 kg/m2 12/02/2024 Encounters Encounter Location Date Provider Diagnosis [facility] [address] [place] [address] 12/02/2024 Naresh Tamayo Morbid (severe) obesity due to excess calories E66.01 and Contact dermatitis L25.9 Assessments Encounter Date Diagnosis (ICD Code) Assessment Notes Treatment Notes Treatment Clinical Notes Section Notes 12/02/2024 Morbid (severe) obesity due to excess calories (ICD-10 - E66.01) disucysed diet and exerciuse plan 12/02/2024 Contact dermatitis (ICD-10 - L25.9) Plan Of Treatment Medication Medication Name Sig Start Date Stop Date Notes Triamcinolone Acetonide 0.1 % 1 application Externally bid 12/02/2024 Cephalexin 500 MG 2 tabs Orally bid fo r 10 days 12/02/2024 Treatment Notes Assessment Notes Morbid (severe) obesity due to excess ca lories disucysed diet and exerciuse plan Medications Administered Medication Instructions Date of Administration Dosage Notes Triamcinolone 40 mg/ml 12/02/2024 80 mg Progress Notes * Sharmin MITCHELL LDOB:1945 (79 yo F)Acc No.[id number]:12/02/2024 Progress Note Patient: Sharmin GUEVARA Provider: Jr Tamayo ([facility])MD :1945 A ge:79 Y S ex:Female Date:12/02/2024 Address:[facility] [address], [id number] Check In:01:51 PM ESTCheck O ut:03:56 PM EST Subjective: * Chief Complaints: * P oison oak, rash on legs, chest and neck, spreading * HPI: G eneral: Difufse - face, chext arm, legs. * Active Problem List E66.9 Obesity Modified On:02/16/2023/U Status:confirmed E03.9 Hypothyroidism Modified On:02/21/2023U Status:confirmed I25.10 CAD (coronary artery disease) Modified On:02/16/2023/U Status:confirmed E78.5 Hyperlipidemia Modified On:02/16/2023U Status:confirmed I10 Essential Hypertensi on Modified On:02/16/2023U Status:confirmed I48.91 Atrial fibrillation Modified On:02/16/2023U Status:confirmed G47.33 Obstructive sleep ap janelle Modified On:10/31/2023U Status:confirmed Z98.61 Status post coronary angioplasty Modified On:10/31/2023U Status:confirmed E66.01 Morbid (severe) obes ity due to excess calories Modified On:12/02/2024/U Status:confirmed * Medical History: * Surgical History: T ubal Ligation cardioversion 10/2023 * Hospitalization/Major Diagno stic Procedure: N o Hospitalization History. * Family History: F ather: , Gall Bladder, stomach issues, diagnosed with Unspecified heart disease.?Mother: , congestive heart failure, diagnosed with Unspecified heart disease. B nilser(s): , Cancer- prostate, diagnosed with Unspecified essential hypertension, Unspecified heart disease. S ister(s): Cancer- uterine, lung, diagnosed with Unspecified essential hypertension, Unspecified heart disease, Other malignant neoplasm of unspecified site. S on(s): alive, Sleep Apnea. D aughter(s): [...] been since you last smoked??> 10 years D rug/Alcohol: A STEFANY-C (Standard) D id you have a drink containing alcohol in the past year? N o P oints 0 I nterpretation N egative * Medications: T akingamLODIPine Besylate-Valsartan 10-320 MG Tablet 1 tablet Orally Once a day Aspirin 81(Aspirin) 81 MG Tablet Delayed Release 1 tablet Orally Once a day Atorvastatin Calcium 80 MG Tablet 1 tablet Orally Once a day Lalo , Notes to Pharmacist: 25,000 2POQDCytomel(Liothyronine Sodium) [...] 1 TABLET FOUR TIMES A DAY Triple Glide-3-6-9(Glide 3-6-9 Fatty Acids) - Capsule Delayed Release 2 capsules Orally daily Vitamin C 1000 MG Tablet 1 tablet Orally Once a day Vitamin D3 50 MCG (2000 UT) Capsule 1 capsule Orally Once a day Xarelto(Rivaroxaban) 20 MG Tablet 1 tablet with food Orally Once a day Medication List reviewed and reconciled with the patientTaking amLODIPine Besylate-Valsartan 10-320 MG Tablet 1 tablet Orally Once a day Taking Aspirin 81(Aspirin) [...] TABLET FOUR TIMES A DAY Taking Triple Glide-3-6-9(Glide 3-6-9 Fatty Acids) - Capsule Delayed Release 2 capsules Orally daily Taking Vitamin C 1000 MG Tablet 1 tablet Orally Once a day Taking Vitamin D3 50 MCG (2000 UT) Capsule 1 capsule Orally Once a day Taking Xarelto(Rivaroxaban) 20 MG Tablet 1 tablet with food Orally Once a day Medication List reviewed and reconciled with the patient * Allergies: L isinopril: cough - Allergyno[Allergies Verified] Objective: * Vitals: W t:215lbs, Ht: 64 in, BP:132/70mm Hg, BMI:36.9Index, Ht-cm: 162.56 cm, Wt-k.52 kg. * Physical Examination: D iffuse contact with wheepy lesions on chest and r side face. Assessment: * Assessment: 1. C ontact dermatitis - L25.9 (Primary) 2 . M orbid (severe) obesity due to excess calories - E66.01 Plan: * Treatment: * Therapeutic Injections: Triamcinolone 40 mg/ml : 80 mg (Route: Intramuscular) given by Ava Camara SA on right deltoid (Contact dermatitis) * Procedure Codes: 9 6372 THERAP.INJ. OF MED. INTRAMUSCULAR OR [id number] TMC ACET,PER 10MG., Units: 8.00 * Preventive Medicine: Screenings/Counseling: F ALL RISK SCREENING Fall Risk Assessment: N o falls in the past year * * Sign off status: Completed Visit Status: Jordan HK (Check Out) true * Provider: Jr Tamayo ([facility])MD Date: 0 12/02/2024 Generated for Printi ng/Faameliag/eTransmitting on: 0 01/15/2025 09:17 AM EDT History and Physical Notes * HPI (History of Present Illness) Category Sub-Category Detail Notes Category Not es General Difufse - face, chext arm, legs Physical Examination Category Sub-Category Detail Notes Section Note s Diffuse contact with wheepy lesions on chest and r side face
--- OUTSIDE RECORDS SUMMARY | 2024-12-02 10:23 | XMS_ITS ---
Author Organization [facility] in [place] Address [address] [place] [address] Care Team Providers Care Machine Welt Butter Name Role Phone Naresh Tamayo Primary Care Provider REASON FOR VISIT charges pleas Encounters Encounter Location Date Provider Diagnosis [facility] [address] [facility] [place] [address] 12/02/2024 Naresh Tamayo Plan Of Treatment No Information Progress Notes * Sharmin MITCHELL LDOB:1945 (79 yo F)Acc No.[id number]:12/02/2024 Patient: Ricardo Sharmin SANTANA :1945 A ge:79 Y S ex:Female Address:[facility] [place], [address] * true * Date: Generated for Printi ng/Faxing/eTransmitting on: 0 01/15/2025 09:17 AM EDT
--- OUTSIDE RECORDS SUMMARY | 2025-01-15 09:17 | XMS_ITS | Encounter Summary ---
Author Organization [facility] Address [address] [place] [address] Phone Care Team Providers Care Evp Business Development Name Role Phone Timo Tamayo MD Primary Care Provider [phone] Encounter Details Date Type Department Care Team (Late st Contact Info) Description 07/12/2024 Scanned Document [facility] [address] [place] [phone] Scanning, Generic Provider Social History Tobacco Use Types Packs/Day Years Used Date Smoking Tobacco: Former Cigarettes Q uit: 1987 Smokeless Tobacco: Never Alcohol Use Standard Drinks/Week Comments Never 0 (1 standard drink = 0.6 oz pur e alcohol) Comments Unknown Sex and Gender Information Value Date Recorded Sex Assigned at Female 02/10/2023 11:44 AM EDT Legal Sex Female 4:14 PM EST Gender Identity Female 02/10/2023 11:44 AM EDT Sexual Orientation Not on file COVID-19 Exposure Response Date Recorded In the last 10 days, have yo u been in contact with someone who was confirmed or suspected to have Coronavirus/COVID-19? No / Unsure 07/05/2024 8:35 AM EST documented as of this encounter Plan of Treatment Upcoming Encounters Date Type Department Care Team (Late st Contact Info) Description 01/23/2025 9:20 AM EDT Office Visit [facility] [address] [facility] [address] [place] [phone] Verena De Leon MD [address] [facility] [address] [place] [address] documented as of this encounter Visit Diagnoses Not on filedocumented in this encounter Additional Health Concerns Assessment Noted Time A fall risk assessment has been complete d for the patient 05/23/2024 9:12 AM EST documented as of this encounter Care Teams Evp Business Development Relationship Specialty Start Date End Date Timo Tamayo MD [address] [facility] [place] [address] PCP - General 03/18/21 documented as of this encounter
--- OUTSIDE RECORDS SUMMARY | 2025-01-15 09:17 | XMS_ITS | Encounter Summary ---
Author Organization [facility] Address [address] [place] [address] Phone Care Team Providers Care Form Block Maker Name Role Phone Timo Tamayo MD Primary Care Provider [phone] Encounter Details Date Type Department Care Team (Late st Contact Info) Description 11/02/2023 Scanned Document [facility] [address] [place] [phone] Scanning, Generic Provider Social History Tobacco Use [...] suspected to have Coronavirus/COVID-19? No / Unsure 10/30/2023 12:29 PM EDT documented as of this encounter Plan of Treatment Upcoming Encounters Date Type Department Care Team (Late st Contact Info) Description 01/23/2025 9:20 AM EDT Office Visit [facility] [address] [facility] [address] [place] [phone] Verena De Leon MD [address] [facility] [address] [place], [place] [phone] documented as of this encounter Visit Diagnoses Not on filedocumented in this encounter Additional Health Concerns Assessment Noted Time A fall risk assessment has been complete d for the patient 10/30/2023 12:54 PM EDT documented as of this encounter Care Teams Form Block Maker Relationship Specialty Start Date End Date Timo Tamayo MD [address] [facility] [place] [address] PCP - General 03/18/21 documented as of this encounter
--- OUTSIDE RECORDS SUMMARY | 2025-01-15 09:17 | XMS_ITS | Encounter Summary ---
Author Organization [facility] Address [address] [place] [address] Phone Care Team Providers Care Tele Rn Name Role Phone Timo Tamayo MD Primary Care Provider [phone] Encounter Details Date Type Department Care Team (Late st Contact Info) Description 06/04/2024 Scanned Document [facility] [address] [place] [phone] Scanning, Generic Provider Social History Tobacco Use [...] suspected to have Coronavirus/COVID-19? No / Unsure 05/23/2024 8:59 AM EST documented as of this encounter Plan of Treatment Upcoming Encounters Date Type Department Care Team (Late st Contact Info) Description 01/23/2025 9:20 AM EDT Office Visit [facility] [address] [facility] [address] [place] [address] Verena De Leon MD [address] [facility] [address] [place], [place] [phone] documented as of this encounter Procedures Procedure Name Priority Date/Time Associated Diagnosis Comments OUTSIDE LAB SCAN 06/04/2024 documented in this encounter Results * OUTSIDE LAB SCAN (06/04/2024) Narrative 06/04/2024 Ordered by an unspecified provider. us Generic Provider Scanning OUTSIDE SCAN Final Result documented in this encounter Visit Diagnoses Not on filedocumented in this encounter Additional Health Concerns Assessment Noted Time A fall risk assessment has been complete d for the patient 05/23/2024 9:12 AM EST documented as of this encounter Care Teams Tele Rn Relationship Specialty Start Date End Date Timo Tamayo MD [address] [facility] [place] [address] PCP - General 03/18/21 documented as of this encounter
--- OUTSIDE RECORDS SUMMARY | 2025-01-15 09:17 | XMS_ITS | Encounter Summary ---
Author Organization [facility] Address [address] [place] [address] Phone Care Team Providers Care Legal Document Assistant Name Role Phone Timo Tamayo MD Primary Care Provider [phone] Encounter Details Date Type Department Care Team (Late st Contact Info) Description 11/12/2021 Orders Only [facility] [address] [place] [address] Conversion, Onbase Social History Tobacco Use Types Packs/Day Years Used Date Smoking Tobacco: Never Assessed Comments Unknown Sex and Gender Information Value Date Recorded Sex Assigned at Female 02/10/2023 11:44 AM EDT Legal Sex Female 4:14 PM EST Gender Identity Female 02/10/2023 11:44 AM EDT Sexual Orientation Not on file documented as of this encounter Plan of Treatment Upcoming Encounters Date Type Department Care Team (Late st Contact Info) Description 01/23/2025 9:20 AM EDT Office Visit [place] [address] [phone] Verena De Leon MD [address] [facility] [address] [place], [place] [phone] Scheduled Orders Name Type Priority Associated Diagnoses Orde r Schedule OUTSIDE LAB SCAN Lab Ordered: 11/12/2021 documented as of this encounter Visit Diagnoses Not on filedocumented in this encounter Care Teams Legal Document Assistant Relationship Specialty Start Date End Date Timo Tamayo MD [address] [place] [address] PCP - General 03/18/21 documented as of this encounter
--- OUTSIDE RECORDS SUMMARY | 2025-01-15 09:17 | XMS_ITS | Encounter Summary ---
Author Organization [facility] Address [address] [place] [address] Phone Care Team Providers Care Motorcoach Driver Name Role Phone Timo Tamayo MD Primary Care Provider [phone] Verena De Leon MD Unavailable [phone] Encounter Details Date Type Department Care Team (Late st Contact Info) Description 07/08/2019 Orders Only [facility] [address] [place] [address] Conversion, Onbase Social History Tobacco Use Types [...] Description 01/23/2025 9:20 AM EDT Office Visit [facility] [address] [facility] [address] [place] [address] Verena De Leon MD [address] [place] [address] Scheduled Orders Name Type Priority Associated Diagnoses Orde r Schedule OUTSIDE LAB SCAN Lab Ordered: 07/08/2019 documented as of this encounter Visit Diagnoses Not on filedocumented in this encounter Care Teams Motorcoach Driver Relationship Specialty Start Date End Date Timo Tamayo MD [address] [facility] [place] [address] PCP - General 03/18/21 Verena De Leon MD [address] [facility] [address] [place] [address] PCP - MSSP ACO Attributed Provider 05/08/21 08/05/21 documented as of this encounter
--- OUTSIDE RECORDS SUMMARY | 2025-01-15 09:18 | XMS_ITS | Patient Health Record ---
Author Organization [facility] [place] Address [address] [place] [address] Care Team Providers Care Animal Pathologist Name Role Phone Naresh Tamayo Primary Care Provider Allergies Allergen (clinical drug ingredient) Drug/Non Drug Allergy documented on EMR Reaction Allergy Type Onset Date Status lisinopril Lisinopril cough Drug Allergy Activ e Results Component Value Reference Range Notes PROF CHEM 8 (BAS METB) Reviewed date:06/04/2024 04:43:23 PM Interpretation: Performing Lab: Notes/Report: [facility] , Sodium 140 136-145 mmol/L Potassium 4.0 3.5-5.1 mmol/L Chloride 106 98-107 mmol/L Carbon Dioxide 28.4 21.0-32.0 mmol/L Anion Gap 9.6 Glucose 98 74-106 mg/dL Blood Urea Nitrogen 13.0 7.0-18.0 mg/dL Creatinine 0.89 0.55-1.02 mg/dL Estimated GFR ( Gabrielle >60 >=60 mL/min/1.73m 2 Estimated GFR (Non- Kelly >60 >=60 mL/min/1.73m 2 BUN Creatinine Ratio 14.6 Calcium 9.0 8.5-10.1 mg/dL Performing Lab: see note - [facility] LB SGOT Reviewed date:06/04/2024 04:43:23 PM Interpretation: Performing Lab: Notes/Report: [facility] , Aspartate Amino Transferase 24 15-37 U/L Performing Lab: see note - [facility] LB SGPT Reviewed date:06/04/2024 04:43:23 PM Interpretation: Performing Lab: Notes/Report: [facility] , Alanine Aminotransferase 33 14-59 U/L Performing Lab: see note ML - [facility] LB T4 Reviewed date:06/05/2024 08:55:10 PM Interpretation: Performing Lab: Notes/Report: [facility] , T4 Thyroxine 6.70 4.80-13.90 ug/dL Performing Lab: see note ML - [facility] LB TSH Reviewed date:06/05/2024 08:55:10 PM Interpretation: Performing Lab: Notes/Report: [facility] , Thyroid Stimulating Hormone 2.673 0.358-3.740 u IU/mL Performing Lab: see note ML - [facility] LB LIPID PROFILE Reviewed date:06/04/2024 04:43:23 PM Interpretation: Performing Lab: Notes/Report: [facility] , Triglycerides 106 <=150 mg/dL Cholesterol 127 <=200 mg/dL HDL Cholesterol 48 40-60 mg/dL > or =60 mg/dl - LOW CARDIOVASCULAR RISK <40 mg/dl - HIGH CARDIOVASCULAR RISK LDL Cholesterol Calculated 57.8 <100 mg/dl OPTIMAL 100-129 mg/dl NEAR OR ABOVE OPTIMAL 130-159 mg/dl BORDERLINE HIGH 160-189 mg/dl HIGH >190 mg/dl VERY HIGH VLDL CHOLESTEROL 21.2 Chol HDL Ratio 2.6 3.3 - 4.4 LOW RISK 4.4 - 7.1 AVERAGE RISK 7.1 - 11.0 MODERATE RISK >11.0 HIGH RISK Performing Lab: see note ML - [facility] LB GLYCOHEMOGLOBIN A1C Reviewed date:06/05/2024 08:55:10 PM Interpretation: Performing Lab: Notes/Report: [facility] , Glycohemoglobin A1C 5.7 4.5-6.2 % ADA RECOMMENDED LIMIT 4.0 - 6.0 ADA THERAPEUTIC TARGET < 7.0 ACTION SUGGESTED > 7.0 Estimated Average Glucose 117 Performing Lab: see note ML - [facility] LB FREE T3 Reviewed date:06/05/2024 08:55:10 PM Interpretation: Performing Lab: Notes/Report: [facility] , Free T3 2.74 2.18-3.98 pg/mL Performing Lab: see note ML - [facility] LB CBC AUTO DIFF Reviewed date:06/04/2024 04:43:23 PM Interpretation: Performing Lab: Notes/Report: [facility] , White Blood Count 9.4 4.0-11.0 10 3/uL Red Blood Count 4.03 4.20-5.40 10 6/uL Hemoglobin 11.7 12.0-16.0 g/dL Hematocrit 36.4 36.0-48.0 % Mean Corpuscular Volume 90.3 81.0-99.0 fL Mean Corpuscular Hemoglobin 29.0 26.7-34.0 pg Mean Corpuscular HGB Conc 32.1 29.9-35.2 g/dL Red Cell Distribution Width 13.7 11.0-15.0 % Platelet Count 322 150-450 10 3/uL Mean Platelet Volume 9.3 9.5-13.5 fL Neutrophils Percent Auto 49.2 43.0-75.0 % Lymphocytes Percent Auto 32.5 20.5-60.0 % Monocytes Percent Auto 10.6 1.7-12.0 % Eosinophils Percent Auto 6.5 0.9-7.0 % Basophils Percent Auto 0.8 0.2-2.0 % Immature Granulocytes Pct Auto 0.4 0.0-0.5 % Neutrophils Absolute Auto 4.6 1.4-6.5 10 3/uL Lymphocytes Absolute Auto 3.1 1.2-3.8 10 3/uL Monocytes Absolute Auto 1.0 0.3-0.8 10 3/uL Eosinophils Absolute Auto 0.6 0.0-0.7 10 3/uL Basophils Absolute Auto 0.1 0.0-0.1 10 3/uL Immature Granulocytes Abs Auto 0.04 0.00-0.03 10 3/uL Performing Lab: see note ML - [facility] LB Reason For Referral No Information Medications Medication SIG (Take, Route, Frequency, Duration) Notes Start Date End Date Status Vitamin D3 50 MCG (1999) 1 capsule Orally Once a day Active Xarelto 20 MG 1 tablet with food Orally Once a day Active Triple [place]-3-6-9 - 2 capsules Orally daily Active Vitamin C 1000 MG 1 tablet Orally Once a day Active Sotalol HCl 120 MG 1 tablet Orally ever y 12 hrs Active Sucralfate 1 GM TAKE 1 TABLET FOUR TIMES A DAY Active Levothyroxine Sodium 50 MCG TAKE 1 TABLET BY MOUTH EVERY DAY IN THE MORNING ON EMPTY STOMACH FOR 90 DAYS for 90 Active Potassium Chloride ER 20 MEQ 1 tablet with food Orally Once a day Active Ferrous Sulfate 325 (65 Fe) MG 1 tablet Orally BID Active Isosorbide Mononitrate ER 30 MG 1 tablet in the morning Orally Once a day Active Cytomel 5 MCG 1 tablet on an empty stomach Orally Once a day for 90 days 02/21/2023 Active Exforge 10-320 MG 1 tablet Orally Once a day 06/05/2024 Active Atorvastatin Calcium 80 MG 1 tablet Orally Once a day Active Cranberry 25,000 2POQD Active amLODIPine Besylate-Valsartan 10-320 MG 1 tablet Orally Once a day Active Aspirin 81 81 MG 1 tablet Orally Once a day Active Triamcinolone Acetonide 0.1 % 1 application Externally bid 12/02/2024 Active Cephalexin 500 MG 2 tabs Orally bid fo r 10 days 12/02/2024 Active Immunizations Vaccine Route Administration Date Status Comme nts Flu, Fluad (01733) 65 yrs + High Dose Seasonal (1649-7083) IM Intramuscular 04/21/2023 Administered Social History Tobacco Use: Social History Observation Description Date Details (start date - stop date) Former Smoker 05/08/1962 - 05/08/1984 Tobacco Use/Smoking Question Answer Notes Patient is a former smoker When did you start smoking? 05/08/1962 When did you stop smoking? 05/08/1984 How long has it been since you last smoked? > 10 years Alcohol Screen (Audit-C) Question Answer Notes Did you have a drink containing alcohol in the p ast year? No Points 0 Interpretation Negative AUDIT-C (Standard) Question Answer Notes Did you have a drink containing alcohol in the p ast year? No Points 0 Interpretation Negative Problems Problem Type SNOMED Code ICD Code Onset Dates Problem Status W/U Status Risk Notes Problem Morbid obesity (disorder) (053558912) Morbid (severe) obesity due to excess calories (E66.01) Active confirmed Problem Atrial fibrillation (74727358) Atrial fibrillation (I48.91) Active confirmed Problem Hyperlipidemia (13919270) Hyperlipidemia (E78.5) Active confirmed Problem Hypothyroidism (24595183) Hypothyroidism (E03.9) Active confirmed Problem Obesity (938830981) Obesity (E66.9) Active confirmed Problem Coronary artery disease (97761775) CAD (coronary artery disease) (I25.10) Active confirmed Problem Obstructive sleep apnea (52495040) Obstructive sleep apnea (G47.33) Active confirmed Problem Essential hypertension (02346977) Essential Hypertension (I10) Active confirmed Problem Status post coronary angioplasty (Z98.61) Active confirmed Vital Signs Temperature 97.7 degrees Fahrenheit 04/29/2024 Blood pressure diastolic 70 mm Hg 12/02/2024 Height 64 in 12/02/2024 Blood pressure systolic 132 mm Hg 12/02/2024 Weight 215 lbs 12/02/2024 BMI 36.9 kg/m2 12/02/2024 Procedures Procedure Date Ordered Date Performed Result Body Sit e EAR IRRIGATION - performed 04/29/2024 04/29/2024 N/A Encounters Encounter Location Date Provider Diagnosis [address] [address] 12/02/2024 Naresh Hoy Morbid (severe) obes ity due to excess calories E66.01 and Contact dermatitis L25.[address] [address] 04/29/2024 Naresh Hoy Acute bronchitis, unspecified organism J20.9 and Cerumen debris on tympanic membrane H61.[address] [address] 06/05/2024 Naresh Hoy Hypothyroidism E03.9 ; CAD (coronary artery disease) I25.10 ; Hyperlipidemia E78.5 ; Essential Hypertension I10 and Atrial fibrillation I48.[address] [address] 05/16/2024 Naresh Hoy Acute bronchitis, unspecified organism J20.[address] [address] 05/20/2024 Naresh Hoy [address] [address] 06/05/2024 Naresh Hoy Hypothyroidism E03.9 and CAD (coronary artery disease) I25.[address] [address] 06/05/2024 Naresh Hoy [address] [address] [place] [address] 12/02/2024 Naresh Tamayo Assessments Encounter Date Diagnosis (ICD Code) Assessment Notes Treatment Notes Treatment Clinical Notes Section Notes 04/29/2024 Acute bronchitis, unspecified organism (ICD-10 - J20.9) Rest and drink more liquids, especially water. You may use a humidifier or vaporizer to help keep the drainage moist. Jwjo-lsn-tlpcqni Nasal Saline may help the stuffy and runny nose. Use Ibuprofen and or Tylenol as needed for fever, chills, body aches or pain. Children 5 years old should not be given yepv-irk-apdpzqc cough and cold medications such as guaifenesin and dextromethorphan. If you're over age 5, you may try pnro-otz-uuawcsv cold medications such as guaifenesin and dextromethorphan, or multi-symptom cold reliever such as Dayquil to help reduce the symptoms. Antibiotics have been prescribed. You should take these until completed and follow the directions. Antibiotics can sometimes cause upset stomach, and in rare cases, serious allergic reactions or serious gastrointestinal problems. If you start having severe abdominal pain, severe vomiting, or bloody diarrhea, you should be reevaluated by your physician or urgent care immediately. Follow up with your Primary Care Provider or return to clinic if symptoms do not improve within 3-5 days. If you develop severe symptoms such as shortness of breath, repeated vomiting, coughing up blood, or chest pain you should go to the emergency room or call 911 04/29/2024 Cerumen debris on tympanic membrane (ICD-10 - H61.20) 06/05/2024 Hypothyroidism (ICD-10 - E03.9) 06/05/2024 CAD (coronary artery disease) (ICD-10 - I25.10) 12/02/2024 Morbid (severe) obesity due to excess calories (ICD-10 - E66.01) disucysed diet and exerciuse plan 12/02/2024 Contact dermatitis (ICD-10 - L25.9) 05/16/2024 Acute bronchitis, unspecified organism (ICD-10 - J20.9) 06/05/2024 Hypothyroidism (ICD-10 - E03.9) 06/05/2024 CAD (coronary artery disease) (ICD-10 - I25.10) 06/05/2024 Hyperlipidemia (ICD-10 - E78.5) 06/05/2024 Essential Hypertension (ICD-10 - I10) 06/05/2024 Atrial fibrillation (ICD-10 - I48.91) Plan Of Treatment Pending Test Test Name Order Date CMP (COMPLETE METABOLIC PANEL) 3 HEMOGLOBIN A1C (GLYCO) 02/16/2023 IRON, TOTAL 02/16/2023 LIPID PANEL (CHOL/TRIG/HDL/LDL) 02/17/20 23 CBC WITH DIFF 02/16/2023 VITAMIN D, 25 LEVEL (TOTAL) 02/16/2023 T3 FREE, T4 FREE and TSH 02/21/2023 Sleep study - Diagnostic Polysonogram EAR IRRIGATION - performed 04/29/2024 STOOL OCCULT BLOOD 02/16/2023 GLYCOHEMOGLOBIN A1C 06/05/2024 THYROID PANEL (T4/TSH/FREE T3) 5 THYROID PANEL (T4/TSH/FREE T3) 3 MM screening mammo BI 06/05/2024 Insurance Providers Payer Name Payer Address Payer Phone Subscriber Number Group Number Insured Name Patient Relationship to Insured Coverage Start Date Coverage End Date MMO [employer] MED[employer] HMO [address] [place] [address] [phone] [id number] Sharmin Chow Self - patient is the insured [place] [address] [place] [address] [id number] Sharmin Chow Self - patient is the insured Medications Administered Medication Instructions Date of Administration Dosage Notes Triamcinolone 40 mg/ml 12/02/2024 80 mg Medical (General) History Medical History History ICD Code Obesity E66.9 Hypothyroidism E03.9 CAD (coronary artery disease) I25.10 Hyperlipidemia E78.5 Essential Hypertension I10 Atrial fibrillation I48.91 Surgical History Surgery Date(Month/Year) Tubal Ligation cardioversion 10/2023
--- OUTSIDE RECORDS SUMMARY | 2025-01-15 09:18 | XMS_ITS | Clinical Summary ---
Author Organization [facility] Address [address] [place] [address] Phone Care Team Providers Care Doper Name Role Phone Timo Tamayo MD Primary Care Provider [phone] Allergies Active Allergy Reactions Criticality Noted Date Comments Lisinopril Cough 03/22/2023 Medications ascorbic acid (Vitamin C) 1,000 mg tablet Take 1 tablet (1,000 mg) by mouth once daily. Active aspirin 81 mg EC tablet Take 1 tablet (81 mg) by mouth. Monday & Active cholecalciferol (Vitamin D-3) 50 MCG (1999) tablet Take 1 tablet (50 mcg) by mouth once daily. Active levothyroxine (Synthroid, Levoxyl) 50 mcg tablet Take 1 tablet (50 mcg) by mouth once daily. Active sucralfate (Carafate) 1 gram tablet Take 1 tablet (1 g) by mouth 4 times a day before meals. Active cranberry extract 200 mg capsule Take by mouth 2 times a day. Active Cytomel 5 mcg tablet 1 tablet (5 mcg) once daily. 3 Active fish,bora,flax oils-om3,6,9no1 ([place] 3-6-9) 1,200 mg capsule Take 1 capsule by mouth 2 times a day. Active ferrous sulfate 325 (65 Fe) MG EC tablet Take 1 tablet by mouth once daily. Active mv-min/iron/folic/c alcium/vitK (WOMEN'S MULTIVITAMIN ORAL) 1 tablet early in the morning.. Active amlodipine-valsarta n (Exforge) 10-320 mg tabletIndications:E ssential hypertension Take 1 tablet by mouth once daily. 30 tablet 5 05/23/19 Active isosorbide mononitrate ER (Imdur) 30 mg 24 hr tabletIndications:A therosclerosis of [place] coronary artery of [place] heart without angina pectoris Take 1 tablet (30 mg) by mouth once daily. 90 tablet 3 5 05/23/19 Active potassium chloride CR 20 mEq ER tabletIndications:E ssential hypertension,High risk medication use Take 1 tablet (20 mEq) by mouth once daily. 90 tablet 3 5 05/23/19 Active sotalol (Betapace) 120 mg tabletIndications:P aroxysmal atrial fibrillation (Multi) Take 1 tablet (120 mg) by mouth 2 times a day. 180 tablet 5 05/23/19 Active atorvastatin (Lipitor) 80 mg tabletIndications:M ixed hyperlipidemia Take 1 tablet (80 mg) by mouth once daily at bedtime. 90 tablet 3 5 10/23/19 26 Active Xarelto 20 mg tabletIndications:P aroxysmal atrial fibrillation (Multi) TAKE 1 TABLET (20mg) BY MOUTH EVERY DAY 90 tablet 3 5 Active Active Problems Problem Noted Date Diagnosed Date BMI 35.0-35.9,adult 10/30/2023 Former smoker 10/30/2023 Obstructive sleep apnea 03/23/2023 Atherosclerosis of [place] coronary artery 2022 Essential hypertension 03/22/2023 Hyperlipidemia 03/22/2023 Paroxysmal atrial fibrillation (Multi) 3 Status post coronary angioplasty 03/22/2023 Sinus bradycardia 03/22/2023 Anticoagulated 03/22/2023 Class 2 obesity with body ma ss index (BMI) of 36.0 to 36.9 in adult 03/22/2023 High risk medication use 03/22/2023 Encounters Date Type Department Care Team Description 10/24/2024 Refill [facility] [address] [place] [address] [address] [place] [address] Verena De Leon MD Paroxysmal atrial fibrillation (Multi) 10/21/[address] [place] [address] Altamirano, Karina, SHOCHET Mixed hyperlipidemia from Last 3 Months Immunizations Immunization Administration Dates Next Due Flu vaccine, trivalent, pres ervative free, HIGH-DOSE, age 65y+ (Fluzone) 02/02/2022,02/10/2019 Influenza Whole 02/11/2014 Influenza, Unspecified 04/21/2023 Pfizer Purple Cap SARS-CoV-2 02/02/2022 Pneumococcal conjugate vaccine, 13-valent (PREVN AR 13) 03/13/2019,06/08/2015 Pneumococcal polysaccharide vaccine, 23-valent, age 2 years and older (PNEUMOVAX 23) 02/05/2019 Zoster vaccine, recombinant, adult (SHINGRIX) ,01/22/2024 Zoster, live 02/07/2012 Family History Medical History Relation Name Comments Cancer Brother Heart failure Mother cardiac disorder Sister cardiac pacemaker Sister s/p PTCA Sister Relation Name Status Comments Brother Mother Sister Social History Tobacco Use Types Packs/Day Years Used Date Smoking Tobacco: Former Cigarettes Q uit: 1987 Smokeless Tobacco: Never Tobacco Cessation:Counseling Given: Not Answered Alcohol Use Standard Drinks/Week Comments Never 0 (1 standard drink = 0.6 oz pur e alcohol) Comments Unknown Sex and Gender Information Value Date Recorded Sex Assigned at Female 02/10/2023 11:44 AM EDT Legal Sex Female 4:14 PM EST Gender Identity Female 02/10/2023 11:44 AM EDT Sexual Orientation Not on file Last Filed Vital Signs Vital Sign Reading Time Taken Comments Blood Pressure 132/84 08/19/2024 1:10 PM EDT Pulse 52 08/19/2024 1:10 PM EDT Temperature - - Respiratory Rate - - Oxygen Saturation - - Inhaled Oxygen Concentration - - Weight 94.8 kg (209 lb) 08/19/2024 1:10 PM EDT Height 162.6 cm (5' 4 ) 08/19/2024 1:10 PM EDT Body Mass Index 35.87 08/19/2024 1:10 PM EDT Plan of Treatment Upcoming Encounters Date Type Department Care Team (Late st Contact Info) Description 01/23/2025 9:20 AM EDT Office Visit [facility] [address] [place] [id number] Verena De Leon MD [address] [facility] [address] [place] [address] Health Maintenance Due Date Last Done Comments Diabetes Screening 1963 Hepatitis C Screening 1963 DTaP/Tdap/Td Vaccines (1 - Tdap) 1967 RSV High Risk: (Elderly (60+) or Population) (1 - 1-dose 75+ series) 2020 TSH Level 09/01/2021 09/01/2020, 02/27/2020 Medicare Annual Wellness Visit (AWV) 06/07/2023 06/06/2022 Bone Density Scan 06/16/2024 06/16/2022 COVID-19 Vaccine ( season) 2025 04/28/2023, 02/02/2022 Influenza Vaccine (#1) 2025 , 02/02/2022, 02/10/2019, Additional history exists Lipid Panel 09/01/2025 09/01/2020 Pneumococcal Vaccine Completed 03/13/2019, 02/05/2019, 06/08/2015 Zoster Vaccines Completed 07/02/2024, 01/06, 02/07/2012 HIB Vaccines Aged Out No longer eligi ble based on patient's age to complete this topic HPV Vaccines Aged Out No longer eligi ble based on patient's age to complete this topic Hepatitis A Vaccines Aged Out No long er eligible based on patient's age to complete this topic Hepatitis B Vaccines Aged Out No long er eligible based on patient's age to complete this topic IPV Vaccines Aged Out No longer eligi ble based on patient's age to complete this topic Meningococcal Vaccine Aged Out No elder praful eligible based on patient's age to complete this topic Rotavirus Vaccines Aged Out No longer eligible based on patient's age to complete this topic Procedures Procedure Name Priority Date/Time Associated Diagnosis Comments LIPID PANEL Routine 09/01/2020 11:40 AM EDT TSH Routine 09/01/2020 11:40 AM EDT from Last 3 Months or Most Recently Relevant to Health Maintenance Results * (ABNORMAL) Thyroid Stimulating Hormone (09/01/2020 11:40 AM EDT) TSH 4.23(H) 0.44 - 3.98 mIU/L [facility] Comment: TSH testing is performed using different testing methodology at [facility] than at other [facility]. Direct result comparisons should only be made within the same method. 09/01/2020 11:4 0 AM EDT 09/01/2020 5:40 PM EDT us Verena De Leon MD LAB BLOOD ORDERABLES Final R esult [facility] * Lipid Panel (09/01/2020 11:40 AM EDT) Cholesterol 127 0 - 199 mg/dL [facility] Comment: . AGE DESIRABLE BORDERLINE HIGH HIGH 0-19 Y 0 - 169 170 - 199 >/= 200 20-24 Y 0 - 189 190 - 224 >/= 225 >24 Y 0 - 199 200 - 239 >/= 240 All ranges are based on fasting samples. Specific therapeutic targets will vary based on patient-specific cardiac risk. . Pediatric guidelines reference:Pediatrics 2011, 128(S5). Adult guidelines reference: NCEP ATPIII Guidelines, YIN 2001, 258:2486-97 . Venipuncture immediately after or during the administration of Metamizole may lead to falsely low results. Testing should be performed immediately prior to Metamizole dosing. HDL 43.0 mg/dL [facility] Comment: . AGE VERY LOW LOW NORMAL HIGH 0-19 Y < 35 < 40 40-45 ---- 20-24 Y ---- < 40 >45 ---- >24 Y ---- < 40 40-60 >60 . Cholesterol/HDL Ratio 3.0 [facility] Comment: REF VALUES DESIRABLE < 3.4 HIGH RISK > 5.0 LDL 63 0 - 99 mg/dL [facility] Comment: . NEAR BORD AGE DESIRABLE OPTIMAL HIGH HIGH VERY HIGH 0-19 Y 0 - 109 --- 110-129 >/= 130 ---- 20-24 Y 0 - 119 --- 120-159 >/= 160 ---- >24 Y 0 - 99 100-129 130-159 160-189 >/=190 . VLDL 21 0 - 40 mg/dL [facility] Triglycerides 103 0 - 149 mg/dL [facility] Comment: . AGE DESIRABLE BORDERLINE HIGH HIGH VERY HIGH 0 D-90 D 19 - 174 ---- ---- ---- 91 D- 9 Y 0 - 74 75 - 99 >/= 100 ---- 10-19 Y 0 - 89 90 - 129 >/= 130 ---- 20-24 Y 0 - 114 115 - 149 >/= 150 ---- >24 Y 0 - 149 150 - 199 200- 499 >/= 500 . Venipuncture immediately after or during the administration of Metamizole may lead to falsely low results. Testing should be performed immediately prior to Metamizole dosing. 09/01/2020 11:4 0 AM EDT 09/01/2020 6:20 PM EDT us Verena De Leon MD LAB BLOOD ORDERABLES Final R esult [facility] from Last 3 Months or Most Recently Relevant to Health Maintenance Insurance [place] [employer]IC[employer] Member Subscriber Plan / Payer (Ef fective 2024-Present) Name:Sharmin Chow Relation to Subscriber:Self Name:Sharmin Chow Payer ID:Not on file Type:Not on file Address: [address] [place] [phone] [employer] [place] [employer] Care Teams Doper Relationship Specialty Start Date End Date Timo Tamayo MD [address] [facility] [place] [id number] PCP - General 03/18/21
--- OUTSIDE RECORDS SUMMARY | 2025-01-15 09:18 | XMS_ITS | Clinical Summary ---
Author Organization [facility] Address [address] [place] [address] Care Team Providers Care Family Practice Medical Doctor Name Role Phone Timo Tamayo MD Primary Care Provider [phone] Social History Tobacco Use Types Packs/Day Years Used Date Smoking Tobacco: Never Assessed Comments Unknown Sex and Gender Information Value Date Recorded Sex Assigned at Not on file Legal Sex Female 7:27 PM EDT Gender Identity Not on file Sexual Orientation Not on file Last Filed Vital Signs Vital Sign Reading Time Taken Comments Blood Pressure 110/70 05/31/2018 12:00 PM EST Pulse - - Temperature - - Respiratory Rate - - Oxygen Saturation - - Inhaled Oxygen Concentration - - Weight 101 kg (223 lb) 05/31/2018 12:00 PM EST Height 162.6 cm (5' 4 ) 05/31/2018 12:00 PM EST Body Mass Index 38.28 05/31/2018 12:00 PM EST Plan of Treatment Health Maintenance Due Date Last Done Comments Influenza Vaccine (#1) 2025 2, 02/10/2019, 01/22/2018, Additional history exists Pneumococcal Vaccine: 65+ Years Completed 03/13/2019, 02/05/2019, 07/21/2015, Additional history exists Insurance MEDICARE [facility] [place] [address] Care Teams Family Practice Medical Doctor Relationship Specialty Start Date End Date Timo Tamayo MD PCP - General Family Medicine 08/29/23
--- OUTSIDE RECORDS SUMMARY | 2025-01-15 09:29 | XMS_ITS | CCD ---
Author Organization [facility] Care Team Providers Care Natural Developer Name Role Phone CARI DE LEON Attending Unavailable MAKENNA SCHILLING Primary Care Unavailable CARI DE LEON Attending Unavailable MAKENNA SCHILLING Primary Care Unavailable Nicki Tamayo M Unavailable Unavailable Unavailable ENRIKE ., DR CACERES Primary Care Unavailable HOY ., DR CACERES Admitting Unavailable HOY ., DR CACERES Attending Unavailable HOY ., DR CACERES Consulting Unavailable DEMOREST, DR ALMA ROSA Dickinson Consulting Unavailable ZIEBER, [...] CARI Silva Consulting Unavailable Kristin Giang Unavailable De Leon, [place] Attending Unavailable Dr. Nicki Tamayo Primary Care Unavail able De Leon, [place] Referring Unavailable Dr. Nicki Tamayo Primary Care Unavail able De Leon, [place] Referring Unavailable De Leon, [place] Attending Unavailable Dr. Nicki Tamayo Primary Care Unavail able De Leon, [place] Referring Unavailable De Leon, [place] Attending Unavailable MD Nicki Tamayo Primary Care Provider MD Cari De Leon Attending Provider MD Cari De Leon Referring Provider [phone] Nicki Tamayo MD Primary Care Provider Nicki Tamayo MD Primary Care Provider [phone] Nicki Tamayo MD Primary Care Provider Cari De Leon MD Attending Provider [phone] Cari De Leon MD Referring Provider De Leon, [place] Admitting Unavailable De Leon, [place] Attending Unavailable De Leon, [place] Referring Unavailable Nicki Tamayo Primary Care Unavailable Nicki Tamayo Primary Care Unavailable De Leon, [place] Admitting Unavailable De Leon, [place] Attending Unavailable De Leon, [place] Referring Unavailable DE LEON, ALCALA M Attending Unavailable DE LEON, ALCALA M Referring Unavailable NICKI TAMAYO Primary Care Unavailable DE LEON, ALCALA M Referring Unavailable NICKI TAMAYO Primary Care Unavailable DE LEON, ALCALA M Attending Unavailable DE LEON, ALCALA M Referring Unavailable NICKI TAMAYO Primary Care Unavailable DE LEON, ALCALA M Referring Unavailable NICKI TAMAYO Primary Care Unavailable DE LEON, ALCALA M Attending Unavailable NICKI TAMAYO Primary Care Unavailable Allergies Allergy Classification Reported Allergen(s) Allergy Type Date of Onset Reaction(s) Facility (18 sources) Lisinopril; Translations: [Lisinopril TABS] Drug Allergy 03-22-2023 [facility] (2 sources) Lisinopril; Translations: [LISINOPRIL] Drug Allergy 03-22-2023 [facility] Repository Medications Current Medications Medication Drug Class(es) Dates Sig (Normalized) Sig (Original) amLODIPine 10 mg / valsartan 320 mg oral tablet (4 sources) Dihydropyridine Calcium Channel Jordan, Angiotensin 2 Receptor Jordan Start: 05-23-2024 End: 05-23-2025 take 1 tablet by mouth once daily amlodipine-valsart an (Exforge) 10-320 mg tablet Indications: Essential hypertension Take 1 tablet by mouth once daily. 30 tablet 11 05/23/2024 05/23/2025 Active amoxicillin 500 mg oral capsule (1 source) Penicillin-class Antibacterial Start: 08-21-2022 take 1 capsule by mouth every eight hours Amoxicillin 500 MG 1 capsule Orally three times a day for 10 day(s) Aug, Active ascorbic acid 1000 mg oral tablet (20 sources) Vitamin C Start: 11-01-2023 take 1 g by mouth once daily Ascorbic Acid (Vitamin C) 1,000 mg capsule Active 1 GM PO Daily November 01, 2023 12:00am Start: 11-01-2023 take 1 g by mouth once daily A scorbic Acid (Vitamin C) Active 1 GM PO Daily November 01, 2023 12:00am Vitamin C Active aspirin 81 mg delayed release oral tablet (20 sources) Platelet Aggregation Inhibitor, Nonsteroidal Anti-inflammatory Drug Start: 11-01-2023 Aspirin (Adult Lo w Dose Aspirin) 81 mg tablet,delayed release (DR/EC) Active 81 MG PO .COMPLEX November 01, 2023 12:00am 81 mg orally Monday and ; Aspirin 81 Activ e atorvastatin 80 mg oral tablet (20 sources) HMG-CoA Reductase Inhibitor Start: 08-31-2023 End: [...] cium Active cholecalciferol 0.05 mg oral capsule (19 sources) Vitamin D Start: 11-01-2023 take 1 capsule by mouth once daily Cholecalciferol (Vitamin D3) 50 mcg (2,000 unit) capsule Active 50 MCG PO Daily November 01, 2023 12:00am take 1 tablet by mouth once mamta y cholecalciferol (Vitamin D-3) 50 MCG (2000 UT) tablet Take 1 tablet (50 mcg) by mouth once daily. Active take 1 tablet by mouth once mamta y cholecalciferol (Vitamin D-3) 50 MCG (2000 UT) tablet Take 1 tablet (2,000 Units) by mouth once daily. Active Cranberry Extract (16 sources) Non-Standardized Food Allergenic Extract, Non-Standardized Plant Allergenic Extract Start: 11-01-2023 take 1 capsule by mouth twice daily at mealtime Cranberry Extract 200 mg capsule Active 200 MG PO Twice daily November 01, 2023 12:00am administer with meals Start: 11-01-2023 take 200 mg by mouth twice daily at mealtime Cranberry Extract Active 200 MG PO Twice daily November 01, 2023 12:00am administer with meals take 1 capsule by mo uth twice daily cranberry extract 200 mg capsule Take by mouth 2 times a day. Active Cranberry 200 MG Oral Capsule as directed Quantity: 0 Refills: 0 Ordered: 16-Sep-2021 DO Active Cranberry Active ferrous sulfate 325 mg delayed release oral tablet (15 sources) Start: 11-01-2023 take 1 tablet by mouth once daily Ferrous Sulfate 325 mg (65 mg iron) tablet,delayed release (DR/EC) Active 325 MG PO Daily November 01, 2023 12:00am Ferrous Sulfate 325 MG CAPS TAKE 1 CAPSULE EVERY OTHER DAY Quantity: 0 Refills: 0 Ordered: 16-Sep-2021 DO Active fish,bora,flax oils-om3,6,9no1 ([place] 3-6-9) 1,200 mg capsule (5 sources) take 1 capsule by mouth twice daily fish,bora,flax oils-om3,6,9no1 ([place] 3-6-9) 1,200 mg capsule Take 1 capsule by mouth 2 times a day. Active Fish,Bora,Flax Oils-Om3,6,9no1 (Triple [place] 3-6-9) 400-400-400 mg capsule (2 sources) Start: 11-01-2023 Fish,Bora,Flax Oils-Om3,6,9no1 (Triple [place] 3-6-9) 400-400-400 mg capsule Active 1 CAP PO Twice daily November 01, 2023 12:00am Start: 11-01-2023 Fish,Bora,Flax Oils-Om3,6,9no1 (Triple [place] 3-6-9) 400-400-400 mg capsule Active 3 CAP PO Daily November 01, 2023 12:00am Iron (1 source) Iron Active 24 hr isosorbide mononitrate 30 mg extended release oral tablet (20 sources) Nitrate Vasodilator Start: 06-02-19 End: 05-23-19 take 1 tablet by mouth once daily isosorbide mononitrate ER (Imdur) 30 mg 24 hr tablet Indications: 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 Take 1 tablet (30 mg) by mouth once daily. 90 tablet 3 05/23/2024 05/23/2025 Active take 1 tablet by mouth once mamta y Isosorbide Mononitrate ER 30 MG Oral Tablet Extended Release 24 Hour TAKE 1 TABLET DAILY. Quantity: 90 Refills: 3 Ordered: 20-May-2022 Cari De Leon MD Active Isosorbide [place] itrate Active levothyroxine sodium 0.05 mg oral capsule (20 sources) l-Thyroxine Start: 11-01-2023 take 1 capsule by mouth once daily Levothyroxine 50 mcg capsule Active 50 MCG PO Daily November 01, [...] Active liothyronine sodium 0.005 mg oral tablet (7 sources) l-Triiodothyronine Start: 02-21-2023 Cytomel 5 mcg tablet 1 tablet (5 mcg) once daily. 02/21/2023 Active mv-min/iron/folic/calc ium/vitK (WOMEN'S MULTIVITAMIN ORAL) (3 sources) take 1 tablet by mouth once in [...] MD Active rivaroxaban 20 mg oral tablet (20 sources) Factor Xa Inhibitor Start: 08-31-2023 End: [...] Active sotalol hydrochloride 120 mg oral tablet (20 sources) Antiarrhythmic Start: 06-02-2023 End: 05-23-2025 take [...] Acti ve sucralfate 1000 mg oral tablet (20 sources) Aluminum Complex Start: 11-01-2023 take 1 tablet by mouth every six hours Sucralfate 1 gram tablet Active 1 GM PO Every 6 hours November 01, 2023 12:00am take 1 tablet by brandy th four times daily before mealtime sucralfate (Carafate) 1 gram tablet Take 1 tablet (1 g) by mouth 4 times a day before meals. Active Sucralfate Activ e Triple [place]-3-6-9 (1 source) Triple [place]-3-6 -9 Active Vitamin D3 (1 source) Vitamin D3 Activ e Womens Multivitamin (1 source) Womens Multivita min Active Completed/Discontinued Medications Medication Drug Class(es) Dates Sig (Normalized) Sig (Original) amLODIPine 10 mg oral tablet (18 sources) Dihydropyridine Calcium Channel Jordan Start: 08-31-2023 End: 08-30-2024 take 1 tablet by mouth once daily Amlodipine 10 mg tablet Discontinued 10 MG PO Daily November 01, 2023 12:00am July 11, 2024 2:18pm Start: 09-16-2021 take 1 tablet by brandy [...] Ordered: 26-May-2021 Cari De Leon MD Active [place] 3 340 MG Oral Capsule Delayed Release (8 sources) take 1 capsule by mouth twice daily [place] 3 340 MG Oral Capsule Delayed Release one twice daily Quantity: 0 Refills: 0 Ordered: 16-Sep-2021 DO Active valsartan 320 mg oral tablet (18 sources) Angiotensin 2 Receptor Jordan Start: End: take 1 tablet by mouth once daily Valsartan 320 mg tablet Discontinued 320 MG PO Daily November 02, 2023 12:00am July 11, 2024 2:18pm take 1 tablet by mouth once mamta [...] disease (20 sources) Atherosclerotic heart disease of deering coronary artery without angina pectoris; Translations: [Coronary [...] exposure to other viral communicable diseases] Episodic Malaise and fatigue (3 sources) Fatigue; Translations: [Other fatigue] Onset: 07-05-2024 07-05-2024 Episodic Nutritional deficiencies (1 source) Iron deficiency; Translations: [Iron deficiency] 2024 Episodic Other aftercare (9 sources) Taking high risk medication; Translations: [Other usp (current) drug therapy] Onset: 03-22-2023 10-30-2023 Episodic Other aftercare (2 sources) rubber chemist (current) use of anticoagulants; Translations: [rubber chemist (current) use of anticoagulants] Onset: 03-22-2023 Episodic Other and ill-defined heart disease (1 source) Heart disease; Translations: [Heart disease, unspecified] 2024 Chronic Other bone disease and musculoskeletal deformities (1 source) Other specified disorders of bone density and structure, left thigh; Translations: [OTH D/O BONE DEN STRUCT LT THIGH] Onset: 06-20-2022 Episodic Other lower respiratory disease (2 sources) Dyspnea; Translations: [Shortness of breath] Onset: 07-05-2024 07-05-2024 Episodic Other lower respiratory disease (1 source) Shortness of breath; Translations: [Shortness of breath] Onset: 07-05-2024 Episodic Other nutritional; endocrine; and metabolic disorders (17 sources) Obesity; Translations: [Obesity, unspecified] Onset: 03-22-2023 03-23-2023 Chronic Other nutritional; endocrine; and metabolic disorders (8 sources) Body mass index 30+ - obesity; Translations: [Body mass index (BMI) 34.0-34.9, adult] Onset: 10-30-2023 10-30-2023 Chronic Other nutritional; endocrine; and metabolic disorders (1 source) Obese class I; Translations: [Obesity, unspecified] 10-30-2023 Chronic Other nutritional; endocrine; and metabolic disorders (1 source) Obese class II; Translations: [Class 2 obesity] 08-19-2024 Chronic Other nutritional; endocrine; and metabolic disorders [...] Onset: 06-16-2022 Episodic Other upper respiratory infections (3 sources) Streptococcal pharyngitis; Translations: [Viral upper respiratory tract infection] Episodic Residual codes; unclassified (7 sources) Obstructive sleep apnea syndrome; Translations: [Obstructive [...] OTH ORGN/SYS] Onset: 06-20-2022 Episodic Thyroid disorders (5 sources) Hypothyroidism, unspecified; Translations: [Hypothyroidism] Onset: 11-12-2021 Chronic Unclassified (1 source) Other usp (current) drug therapy Onset: 06-27-2018 Unclassified (1 source) Chronic atrial fibrillation, unspecified; Translations: [CHRONIC ATRIAL FIBRILLATION UNSPEC] Onset: 09-08-2021 Unclassified (1 source) CONTACT W/AND (SUSP) EXPOS COVID-19; Translations: [CONTACT W/AND (SUSP) EXPOS COVID-19] Onset: 09-01-2021 Past or Other Problems Problem Classification Problem Date Documented Da te Episodic/Chronic Acute bronchitis (4 sources) Acute bronchitis, unspecified; Translations: [ACUTE BRONCHITIS UNSPECIFIED] Onset: 08-30-2021 Episodic Cardiac dysrhythmias (6 sources) Sinus bradycardia; Translations: [Other specified cardiac dysrhythmias] Onset: 03-22-2023 03-22-2023 Episodic Coronary atherosclerosis and other heart disease (20 sources) Past history of procedure; Translations: [Percutaneous transluminal coronary angioplasty status] Onset: 03-22-2023 10-30-2023 Episodic Comment on above: LAD 1997 /RCA; Deficiency and other anemia (1 source) Anemia, unspecified; Translations: [ANEMIA UNSPECIFIED] Onset: 09-08-2021 Episodic Diabetes mellitus without complication (1 source) Other abnormal glucose; Translations: [OTHER ABNORMAL GLUCOSE] Onset: 09-08-2021 Episodic Other aftercare (20 sources) Drug therapy finding; Translations: [Long-term (current) use of anticoagulants] Onset: 03-22-2023 03-22-2023 Episodic Other aftercare (6 sources) Other door person (current) drug therapy; Translations: [OTH GROUP HOME CURRENT DRUG THERAPY] Onset: 04-05-2022 Episodic Screening and history of mental health and substance abuse codes (18 sources) Ex-smoker; Translations: [Personal history of tobacco use] Onset: 10-30-2023 10-30-2023 Episodic Comment on above: quit approx 1988, 1 PPD; Unclassified (5 sources) Onset: 10-30-2023 Resolved: 08-19-2024 10-30-2023 Results Test Name Value Interpretation Reference Range Facility ECG 12 Leadon 08-19-2024 ECG revealed sinus bradycardia, right bundle branch block, abnormal ECG [facility] Work Phone: Carbon dioxide, total [Moles /volume] in Serum or PlasmaOrdered By: Cari De Leon on 07-12-2024 CO2 [Moles/Vol] Carbon dioxide, total [Moles/volume] in Serum or Plasma 21.0-31.0 [facility] Chloride [Moles/volume] in S seven or PlasmaOrdered By: Cari De Leon on 07-12-2024 Chloride [Moles/Vol] Chloride [Moles/volume] in Serum or Plasma 98-107 [facility] ECG 12 lead ECGon 07-12-2024 ECG 12 lead ECG [facility] [place] [address] Electrocardiograph Report Signed Patient: Mario Chow MR#: [id number] 7 : 1945 Acct:[id number] Age/Sex: 79 / F ADM Date: 07/12/24 Loc: Room: Type: [facility] Attending Dr: Cari De Leon MD Ordering Provider: Cari De Leon MD, [facility] Date of Service: 07/12/2411/30/751 ECG/ECG 12 lead ECG: Pre-cardioversion rhythm assessment Copies to: Test Reason : Blood Pressure : */* mmHG Vent. Rate : 69 BPM Atrial Rate : 441 BPM P-R Int : * ms QRS Dur : 132 ms QT Int : 442 ms P-R-T Axes : * 62 20 degrees QTcB Int : 473 ms Atrial fibrillation Right bundle branch block Abnormal ECG Confirmed by Lillie Dang ([id number]) on 07/12/2024 9:36:31 PM Referred By: Cari De Leon Electronically Signed By: Lillie Dang Transcribed By: MUS Signed By Lillie Dang MD [id number] Normal [facility] ECG post procedureon 025 ECG post procedure [facility] [place] [id number] Electrocardiograph Report Signed Patient: Mario Chow MR#: [id number] 7 : 1945 Acct:[id number] Age/Sex: 79 / F ADM Date: 07/12/24 Loc: Room: Type: [facility] Attending Dr: Cari De Leon MD Ordering Provider: Cari De Leon MD, [facility] Date of Service: 07/12/24/ ECG/ECG post procedure: afib Copies to: Test Reason : Blood Pressure : 143/71 mmHG Vent. Rate : 63 BPM Atrial Rate : 63 BPM P-R Int : 220 ms QRS Dur : 134 ms QT Int : 494 ms P-R-T Axes : 62 69 59 degrees QTcB Int : 505 ms Sinus rhythm with 1st degree AV block with premature atrial complexes Right bundle branch block Abnormal ECG Confirmed by Lillie Dang ([id number]) on 07/12/2024 9:38:19 PM Referred By: Cari De Leon Electronically Signed By: Lillie Dang Transcribed By: MUS Signed By Lillie Dang MD [id number] Normal [facility] Electrolyteson 07-12-2024 Anion gap [Moles/Vol] 13.0 mmol/L Normal 6.0-15.0 [facility] Comment on above: Result Comment: PERF ORMED BY: [place] [address] PATHOLOGIST FOLDER HAND GEORGE MEDINA M.D. Performed By: #### L YTES #### [facility] [address] [place] [address] Chloride [Moles/Vol] 107 mmol/L Normal 98-107 [facility] Comment on above: Performed By: #### L YTES #### [facility] [address] [place] [address] [place] CO2 [Moles/Vol] 24.5 mmol/L Normal 21.0-31.0 [facility] Comment on above: Performed By: #### L YTES #### [address] Potassium [Moles/Vol] 4.5 mmol/L Normal 3.5-5.1 [facility] Comment on above: Performed By: #### L YTES #### [address] [place] [address] [place] Sodium [Moles/Vol] 140 mmol/L Normal 136-145 [facility] Comment on above: Performed By: #### L BRAVO #### [facility] [address] [place] [address] [place] Potassium [Moles/volume] in Serum or PlasmaOrdered By: Cari De Leon on 07-12-2024 Potassium [Moles/Vol] Potassium [Moles/volume] in Serum or Plasma 3.5-5.1 [facility] Serum or plasma anion gap de terminationOrdered By: Cari De Leon on 07-12-2024 Anion gap [Moles/Vol] Serum or plasma anion gap determination 6.0-15.0 [facility] Sodium [Moles/volume] in Ser um or PlasmaOrdered By: Cari De Leon on 07-12-2024 Sodium [Moles/Vol] Sodium [Moles/volume] in Serum or Plasma 136-145 [facility] ECG 12 Leadon 05-23-2024 ECG revealed sinus bradycardia,, right bundle branch block, abnormal ECG [facility] Work Phone: No Panel InformationOrdered By: Adela Omalley on 2024 Quick Strep (POC) [facility] Carbon dioxide, total [Moles /volume] in Serum or PlasmaOrdered By: Cari De Leon on 11-02-2023 CO2 [Moles/Vol] 27.7 mmol/L Normal 21.0-31.0 [facility] Comment on above: Performed By: #### L BRAVO #### [facility] [address] [place] [id number] [place] Chloride [Moles/volume] in S seven or PlasmaOrdered By: Cari De Leon on 11-02-2023 Chloride [Moles/Vol] 108 mmol/L High 98-107 [facility] Comment on above: Performed By: #### L YTES #### [facility] [address] [place] [id number] [place] ECG 12 lead ECGon 11-02-2023 ECG 12 lead ECG [facility] [place] [id number] Electrocardiograph Report Signed Patient: Mario Chow MR#: [id number] 7 : 1945 Acct:[id number] Age/Sex: 78 / F ADM Date: 11/02/23 Loc: PO Room: Type: [facility] Attending Dr: Cari De Leon [...] BOLDEN MD [facility] Transcribed By: [facility] Signed By Remy Bolden MD 11/02/23 1702 Normal [facility] ECG post procedureon 024 ECG post procedure [place] [id number] Electrocardiograph Report Signed Patient: Mario Chow MR#: [id number] 7 : 1945 Acct:[id number] Age/Sex: 78 / F ADM Date: 11/02/23 Loc: PO Room: Type: [facility] Attending Dr: Cari De Leon [...] QT has shortened Confirmed by Greg Glaser ([id number]) on 11/06/2023 4:21:27 PM Referred By: Cari De Leon Electronically Signed By:Greg Glaser Transcribed By: [facility] Signed By Greg Glaser MD 11/06/23 1621 Normal [facility] Potassium [Moles/volume] in Serum or PlasmaOrdered By: Cari De Leon on 11-02-2023 Potassium [Moles/Vol] 4.5 mmol/L Normal 3.5-5.1 [facility] Comment on above: Performed By: #### L YTES #### [address] Serum or plasma anion gap de terminationOrdered By: Cari De Leon on 11-02-2023 Anion gap [Moles/Vol] 7.8 mmol/L Normal 6.0-15.0 [facility] Comment on above: Result Comment: PERF ORMED BY: [place] [address] PATHOLOGIST FOLDER HAND FAHEEM CARSON M.D. Performed By: #### L YTES #### [address] Sodium [Moles/volume] in Ser um or PlasmaOrdered By: Cari De Leon on 11-02-2023 Sodium [Moles/Vol] 139 mmol/L Normal 136-145 [facility] Comment on above: Performed By: #### L YTES #### [facility] [address] [place], [place] [id number] [place] ECG 12 Leadon 10-30-2023 ECG revealed atrial fibrillation with controlled rate, right bundle branch block [facility] Work Phone: Office Visit (Cardiology)on 09-15-2022 Follow-up visit Diagnoses/Problems Assessed Atherosclerosis of deering coronary artery (414.01) (I25.10) Status post coronary angioplasty (V45.82) (Z98.61) LAD 2007/ 1997 /RCA Paroxysmal atrial fibrillation (427.31) (I48.0) High risk medication use (V58.69) (Z79.899) Anticoagulated (V58.61) (Z79.01) Essential hypertension (401.9) (I10) Hyperlipidemia (272.4) (E78.5) on Lipitor Sinus bradycardia (427.89) (R00.1) Class 2 obesity with body mass index (BMI) of 35.0 to 35.9 in adult (278.00,V85.35) (E66.9,Z68.35) Former smoker (V15.82) (Z87.891) quit approx 1988, 1 PPD Orders Atherosclerosis of deering coronary artery Changed: From Aspirin EC 81 MG TBEC 1 tablet twice weekly To Aspirin 81 MG Oral Tablet Delayed Release take one tablet on Mon and only Atherosclerosis of deering coronary artery, High risk medication use, Paroxysmal atrial fibrillation Basic Metabolic Panel; Status:Active - Retrospective Authorization; Requested for:15Sep2022; Complete Blood Count; Status:Active - Retrospective Authorization; Requested for:15Sep2022; Atherosclerosis of deering coronary artery, Hyperlipidemia ALT - Alanine Aminotransferase, [...] with the patient: ECG Chief Complaint MARIO CHOW is being seen for a 6 month [...] 2016 was normal 3. Obesity. Encouraged Mrs. Chow to cut back calorie intake on regular [...] 50 MCG Oral TabletTAKE 1 TABLET DAILY. [place] 3 340 MG Oral Capsule Delayed Releaseone [...] 03/13/2021 11:22 (more content not included)... Normal [employer] Tobacco Screening.on 023 Adult depression screening assessment No MP-Cardiolo gy-S [place] 250 DO Work Phone: Fall risk assessment a) No falls within the last year BM-Xktrcanohr-Z [place] 250 DO Work Phone: Tobacco use status [facility]PH[facility] b) No M Y-Eebujzxnlm-I [place] 250 DO Work Phone: COVID/FLU RT-PCRon 3 SARS-CoV-2 (COVID-19) RNA DENISSE+probe Ql (Unsp spec) Negative [employer] Other COVID/FLU RT-PCR Negative [facility] Other Quick Strepon 08-21-2022 S. pyogenes Org specific cx Ql (Throat) Positive [facility] Other Quick Strep [employer] Other MG MAMM RT DIAG FUon 023 MG MAMM RT DIAG FU Patient: MARIO CHOW Exam Date: 07/01/2022 : 1945 Gender:F Ordering : DR NICKI TAMAYO . Admission #: [id number] Family : Order #: [id number] CLICK HERE TO VIEW EXAM RADIOLOGY REPORT [...] LOCATION: [facility] BREAST COMPOSITION: Heterogeneously dense,which may obscure small [...] M.D. on 07/01/2022 at 11:41 Normal [facility] US BREAST RIGHT LIMITEDon US BREAST RIGHT LIMITED Patient: MARIO CHOW Exam Date: 07/01/2022 : 1945 Gender:F Ordering : DR NICKI TAMAYO . Admission #: [id number] Family : Order #: [id number] CLICK HERE TO VIEW EXAM RADIOLOGY REPORT [...] LOCATION: [facility] BREAST COMPOSITION: Heterogeneously dense,which may obscure small [...] Giraldo M.D. on 07/01/2022 at 11:41 Normal [facility] MG MAMM SCREEN 3D MOHINDER CADon 06-16-2022 MG MAMM SCREEN 3D MOHINDER CAD Patient: MARIO CHOW Exam Date: 06/16/2022 : 1945 Gender:F Ordering : DR NICKI TAMAYO . Admission #: [id number] Family : Order #: [id number] CLICK HERE TO VIEW EXAM RADIOLOGY REPORT [...] LOCATION: [facility] BREAST COMPOSITION: Heterogeneously dense, which may obscure [...] Morrow MD on 06/16/2022 at 10:57 Normal [facility] XR DEXA BONE DENSITYon 06-16 XR [...] by: GORDY GIRALDO Date: 2022-06-16 10:08 Normal [facility] CBC AUTO DIFFon 04-05-2022 BASO # 0.1 103/ul Normal 0.0-0.1 [facility] Comment on above: Performed By: #### C BC #### [facility] [address] [place] [address] Dr. Stacy Rocha Basophils/100 WBC (Bld) 0.5 % Normal 0.2-2.0 [facility] Comment on above: Performed By: #### C BC #### [facility] [address] [place] [address] Dr. Stacy Rocha EO # 1.0 103/ul Critically high 0.0-0.7 [facility] Comment on above: Performed By: #### C BC #### [facility] [facility] [address] [place] [address] Dr. Stacy Rocha Eosinophils/100 WBC (Bld) 8.7 % Critically high 0.9-7.0 [facility] [place] Comment on above: Performed By: #### C BC #### [facility] [address] [place] [address] Dr. Stacy Rocha Erythrocyte distribution width (RBC) [Ratio] 13.7 % Normal 11.0-15.0 [facility] Comment on above: Performed By: #### C BC #### [facility] [address] [place] [address] Dr. Stacy Rocha Hematocrit (Bld) [Volume fraction] 34.2 % Critically low 36.0-48.0 [facility] Comment on above: Performed By: #### C BC #### [facility] [address] [place] [address] Dr. Stacy Rocha Hemoglobin (Bld) [Mass/Vol] 10.9 g/dL Critically low 12.0-16.0 [facility] Comment on above: Performed By: #### C BC #### [facility] [address] [place] [address] Dr. Stacy Rocha IG # 0.03 10e3/ul Normal 0.00-0.03 [facility] Comment on above: Performed By: #### C BC #### [facility] [address] [place] [address] Dr. Stacy Rocha IG % 0.3 % Normal 0.0-0.5 [facility] Comment on above: Performed By: #### C BC #### [facility] [address] [place] [address] Dr. Stacy Rocha LYMPH # 3.9 103/ul Critically high 1.2-3.8 [facility] Comment on above: Performed By: #### C BC #### [facility] [address] [place] [address] Dr. Stacy Rocha Lymphocytes/100 WBC (Bld) 35.0 % Normal 20.5-60.0 [facility] Comment on above: Performed By: #### C BC #### [facility] [address] [place] [address] Dr. Stacy Rocha MANUAL DIFF REQ NO Normal [facility] Comment on above: Performed By: #### C BC #### [facility] [address] [place] [address] Dr. Stacy Rocha MCH (RBC) [Entitic mass] 27.9 pg Normal 26.7-34.0 [facility] Comment on above: Performed By: #### C BC #### [facility] [address] [place] [address] Dr. Stacy Rocha MCHC (RBC) [Mass/Vol] 31.9 g/dL Normal 29.9-35.2 [facility] Comment on above: Performed By: #### C BC #### [facility] [address] [place] [address] Dr. Stacy Rocha MCV (RBC) [Entitic vol] 87.5 fL Normal 81.0-99.0 [facility] Comment on above: Performed By: #### C BC #### [facility] [address] [place] [address] Dr. Stacy Rocha MONO # 1.2 103/ul Critically high 0.3-0.8 [facility] Comment on above: Performed By: #### C BC #### [facility] [address] [address] [address] Stacy Rocha Monocytes/100 WBC (Bld) 10.8 % Normal 1.7-12.0 [facility] Comment on above: Performed By: #### C BC #### [facility] [address] [place] [address] Dr. Stacy Rocha NEUT # 5.0 103/ul Normal 1.4-6.5 [facility] Comment on above: Performed By: #### C BC #### [facility] [address] [place] [address] Dr. Stacy Rocha Neutrophils/100 WBC (Bld) 44.7 % Normal 43.0-75.0 [facility] Comment on above: Performed By: #### C BC #### [facility] [address] [place] [address] Dr. Stacy Rocha Platelet mean volume (Bld) [Entitic vol] 9.5 fL Normal 9.5-13.5 [facility] Comment on above: Performed By: #### C BC #### [facility] [address] [place] [address] Dr. Stacy Rocha PLT 289 103/ul Normal 150-450 [facility] Comment on above: Performed By: #### C BC #### [facility] [address] [place] [address] Dr. Stacy Rocha RBC 3.91 106/ul Critically low 4.20-5.40 [facility] Comment on above: Performed By: #### C BC #### [facility] [address] [place] [address] Dr. Stacy Rocha WBC 11.3 103/ul Critically high 4.0-11.0 [facility] Comment on above: Performed By: #### C BC #### [facility] [address] [address] [address] Stacy Rocha PROF CHEM 8 (BAS METB)on Anion gap [Moles/Vol] 8.7 mmol/L Normal [facility] Comment on above: Performed By: #### B MP #### [facility] [address] [address] [address] Stacy Rocha Calcium [Mass/Vol] 8.7 mg/dL Normal 8.5-10.1 [facility] Comment on above: Performed By: #### B MP #### [facility] [address] [place] [address] Dr. Stacy Rocha Chloride [Moles/Vol] 105 mmol/L Normal 98-107 [facility] Comment on above: Performed By: #### B MP #### [facility] [address] [place] [address] Dr. Stacy Rocha CO2 [Moles/Vol] 30.3 mmol/L Normal 21.0-32.0 [facility] Comment on above: Performed By: #### B MP #### [facility] [address] [place] [address] Dr. Stacy Rocha Creatinine [Mass/Vol] 0.77 mg/dL Normal 0.55-1.02 [facility] Comment on above: Performed By: #### B MP #### [facility] [address] [place] [address] Dr. Stacy Rocha EGFR-AF LEBANESE >60 Normal >=60 [facility] Comment on above: Performed By: #### B MP #### [facility] [address] [address] [address] Stacy Rocha EGFR-NON AF LEBANESE >60 Normal >=60 [facility] Comment on above: Performed By: #### B MP #### [facility] [address] [place] [address] Dr. Stacy Rocha Glucose [Mass/Vol] 116 mg/dL Critically high 74-106 [facility] Comment on above: Performed By: #### B MP #### [facility] [address] [place], [place] [address] Dr. Stacy Rocha Potassium [Moles/Vol] 4.0 mmol/L Normal 3.5-5.1 [facility] Comment on above: Performed By: #### B MP #### [facility] [address] [place], [place] [address] Dr. Stacy Rocha Sodium [Moles/Vol] 140 mmol/L Normal 136-145 [facility] Comment on above: Performed By: #### B MP #### [facility] [address] [place], [place] [address] Dr. Stacy Rocha Urea nitrogen [Mass/Vol] 11.0 mg/dL Normal 7.0-18.0 [facility] Comment on above: Performed By: #### B MP #### [facility] [address] [place], [place] [address] Dr. Stacy Rocha Urea nitrogen/Creatinine [Mass ratio] 14.3 mg/mg Normal [facility] Comment on above: Performed By: #### B MP #### [facility] [address] [place], [place] [address] Dr. Stacy Rocha Office Visit (Cardiology)on 03-23-2022 Follow-up visit Diagnoses/Problems Assessed Atherosclerosis of deering coronary artery (414.01) (I25.10) Essential hypertension (401.9) [...] Former smoker Tobacco Use Screening; Status:Complete; Done: 23Mar2022 Patient Instructions Please bring all medicines, vitamins, [...] up in 6 months Chief Complaint MARIO CHOW is being seen for a 6 month [...] 2016 was normal 3. Obesity. Encouraged Mrs. Chow to cut back calorie intake on regular [...] 50 MCG Oral TabletTAKE 1 TABLET DAILY. [place] 3 340 MG Oral Capsule Delayed Releaseone [...] Signs Recorded: 23Mar2022 08:41AM Heart Rate53, Apical [id number], LUE, Sitting Lyqtjowhg00, LUE, Sitting Height5 ft 4 in Qzgjvv644 lb BMI Eabcjvomfr57.56 kg/m2 BSA Calculated2.01 Tobacco Useb) No Falls Scr (more content not included)... Normal [employer] Tobacco Screening.on 022 Fall risk assessment a) No falls within the last year [facility] [employer] 250 DO Work Phone: Tobacco use status [facility] b) No [facility] [employer] 250 DO Work Phone: FREE T3on 11-12-2021 FREE T3 2.36 pg/mlL Normal 2.18-3.98 [facility] Comment on above: Performed By: #### T 4, FT3, TSH #### [facility] [id number] Stacy Rocha T4on 11-12-2021 T4 [Mass/Vol] 7.40 ug/dL Normal 4.80-13.90 [facility] Comment on above: Performed By: #### T 4, FT3, TSH #### [facility] [id number] Stacy Rocha TSHon 11-12-2021 TSH 4.606 uIU/mL Critically high 0.358-3.740 [facility] Comment on above: Performed By: #### T 4, FT3, TSH #### [facility] [id number] Stacy Rocha Falls Risk Screeningon 09-30 Fall risk assessment a) No falls within the last year [facility] DO Work Phone: Office Visit (Cardiology)on 09-30-2021 [...] as scheduled. Same medications. Chief Complaint MARIO CHOW is being seen for hypertension. Patient is [...] 25 MCG Oral TabletTAKE 1 TABLET DAILY. [place] 3 340 MG Oral Capsule Delayed Releaseone [...] (Author) Appendix #1 Vital Signs Patient: MARIO CHOWMartin; : 1945; Recorded: [id number] 02:26PMRecorded: [id number] 02:13PMRecorded: [id number] 02:12PM Nyrjiqis886, LUE, Vrwqzed914, RUE, Omqcwek568, LUE, Sitting Awburirza27, LUE, Mmueuos53, RUE, Zvunpdj23, LUE, Sitting Heart Rate54, R Radial Height5 ft 4 in Nzjcfs964 lb BMI Bsqtpdbhye53.05 kg/m2 BSA Calculated2 Fall Screeninga) No falls within the last year Normal [facility] PHQ-2 VITALSon 09-16-2021 Adult depression screening assessment No [facility] [employer] 250 DO Work Phone: Fall risk assessment a) No falls within the last year [facility] [employer] 250 DO Work Phone: Tobacco use status [facility] b) No [facility] [employer] 250 DO Work Phone: CBC AUTO DIFFon 09-07-2021 BASO # 0.1 103/ul Normal 0.0-0.1 [facility] Comment on above: Performed By: #### T 4, FT3, TSH #### [facility] [address] [place] [address] Dr. Stacy Rocha Basophils/100 WBC (Bld) 0.7 % Normal 0.2-2.0 [facility] Comment on above: Performed By: #### T 4, FT3, TSH #### [facility] [address] [place] [address] Dr. Stacy Rocha EO # 0.7 103/ul Normal 0.0-0.7 [facility] Comment on above: Performed By: #### T 4, FT3, TSH #### [facility] [address] [place] [address] Dr. Stacy Rocha Eosinophils/100 WBC (Bld) 7.1 % Critically high 0.9-7.0 [facility] Comment on above: Performed By: #### T 4, FT3, TSH #### [facility] [address] [place] [address] Dr. Stacy Rocha Erythrocyte distribution width (RBC) [Ratio] 13.8 % Normal 11.0-15.0 [facility] Comment on above: Performed By: #### T 4, FT3, TSH #### [facility] [address] [place] [address] Dr. Stacy Rocha Hematocrit (Bld) [Volume fraction] 39.3 % Normal 36.0-48.0 [facility] Comment on above: Performed By: #### T 4, FT3, TSH #### [facility] [address] [place] [address] Dr. Stacy Rocha Hemoglobin (Bld) [Mass/Vol] 12.4 g/dL Normal 12.0-16.0 [facility] Comment on above: Performed By: #### T 4, FT3, TSH #### [facility] [address] [place] [address] Dr. Stacy Rocha IG # 0.03 10e3/ul Normal 0.00-0.03 [facility] Comment on above: Performed By: #### T 4, FT3, TSH #### [facility] [address] [place] [address] Dr. Stacy Rocha IG % 0.3 % Normal 0.0-0.5 [facility] Comment on above: Performed By: #### T 4, FT3, TSH #### [facility] [address] [place] [address] Dr. Stacy Rocha LYMPH # 3.5 103/ul Normal 1.2-3.8 [facility] Comment on above: Performed By: #### T 4, FT3, TSH #### [facility] [address] [place] [address] Dr. Stacy Rocha Lymphocytes/100 WBC (Bld) 35.3 % Normal 20.5-60.0 [facility] Comment on above: Performed By: #### T 4, FT3, TSH #### [facility] [address] [place] [address] Dr. Stacy Rocha MANUAL DIFF REQ NO Normal [facility] Comment on above: Performed By: #### T 4, FT3, TSH #### [facility] [address] [place] [address] Dr. Stacy Rocha MCH (RBC) [Entitic mass] 28.7 pg Normal 26.7-34.0 [facility] Comment on above: Performed By: #### T 4, FT3, TSH #### [facility] [address] [place] [address] Dr. Stacy Rocha MCHC (RBC) [Mass/Vol] 31.6 g/dL Normal 29.9-35.2 [facility] Comment on above: Performed By: #### T 4, FT3, TSH #### [facility] [address] [place] [address] Dr. Stacy Rocha MCV (RBC) [Entitic vol] 91.0 fL Normal 81.0-99.0 [facility] Comment on above: Performed By: #### T 4, FT3, TSH #### [facility] [address] [place] [address] Dr. Stacy Rocha MONO # 1.1 103/ul Critically high 0.3-0.8 [facility] Comment on above: Performed By: #### T 4, FT3, TSH #### [facility] [address] [place] [address] Dr. Stacy Rocha Monocytes/100 WBC (Bld) 11.2 % Normal 1.7-12.0 [facility] Comment on above: Performed By: #### T 4, FT3, TSH #### [facility] [address] [place] [address] Dr. Stacy Rocha NEUT # 4.5 103/ul Normal 1.4-6.5 [facility] Comment on above: Performed By: #### T 4, FT3, TSH #### [facility] [address] [place] [address] Dr. Stacy Rocha Neutrophils/100 WBC (Bld) 45.4 % Normal 43.0-75.0 [facility] Comment on above: Performed By: #### T 4, FT3, TSH #### [facility] [address] [place] [address] Dr. Stacy Rocha Platelet mean volume (Bld) [Entitic vol] 9.0 fL Critically low 9.5-13.5 [facility] Comment on above: Performed By: #### T 4, FT3, TSH #### [facility] [address] [place] [address] Dr. Stacy Rocha PLT 380 103/ul Normal 150-450 [facility] Comment on above: Performed By: #### T 4, FT3, TSH #### [facility] [address] [place] [address] Dr. Stacy Rocha RBC 4.32 106/ul Normal 4.20-5.40 [facility] Comment on above: Performed By: #### T 4, FT3, TSH #### [facility] [address] [place] [address] Dr. Stacy Rocha WBC 10.0 103/ul Normal 4.0-11.0 [facility] Comment on above: Performed By: #### T 4, FT3, TSH #### [facility] [address] [place] [address] Dr. Stacy Rocha FREE THYROXINE INDEX T7on FTI 2.64 Normal [facility] Comment on above: Performed By: #### T 4, FT3, TSH #### [facility] [address] [address] [address] Stacy Rocha T3U 33.0 % Normal 23.5-40.5 [facility] Comment on above: Performed By: #### T 4, FT3, TSH #### [facility] [address] [address] [address] Stacy Rocha T4 [Mass/Vol] 8.00 ug/dL Normal 4.80-13.90 [facility] Comment on above: Performed By: #### T 4, FT3, TSH #### [facility] [address] [address] [address] Stacy Rocha GLYCOHEMOGLOBIN A1Con 2021 ADA RECOMMENDATION SEE BELOW Normal [facility] Comment on above: Result Comment: ADA RECOMMENDED LIMIT 4.0 - 6.0 ADA THERAPEUTIC TARGET < 7.0 ACTION SUGGESTED > 7.0 Performed By: #### T 4, FT3, TSH #### [facility] [address] [address] [address] Stacy Rocha Glucose [Mass/Vol] 120 mg/dL Normal [facility] Comment on above: Performed By: #### T 4, FT3, TSH #### [facility] [address] [address] [address] Stacy Rocha HbA1c (Bld) [Mass fraction] 5.8 % Normal 4.5-6.2 [facility] Comment on above: Performed By: #### T 4, FT3, TSH #### [facility] [address] [address] [address] Stacy Rocha IRONon 09-07-2021 Iron [Mass/Vol] 57.0 ug/dL Normal 50.0-170.0 [facility] Comment on above: Performed By: #### I KIMBERLY #### [facility] [address] [address] [address] Stacy Rocha LIPID PROFILEon 09-07-2021 CHOL-HDL RATIO NORM SEE BELOW Normal [facility] Comment on above: Result Comment: 3.3 - 4.4 LOW RISK 4.4 - 7.1 AVERAGE RISK 7.1 - 11.0 MODERATE RISK >11.0 HIGH RISK Performed By: #### T 4, FT3, TSH #### [facility] [address] [address] [address] Stacy Rocha Cholesterol [Mass/Vol] 108 mg/dL Normal <=200 Th [facility] Comment on above: Performed By: #### T 4, FT3, TSH #### [facility] [address] [address] [address] Stacy Rocha Cholesterol in HDL [Mass/Vol] 43 mg/dL Normal 40-60 [facility] Comment on above: Performed By: #### T 4, FT3, TSH #### [facility] [address] [address] [address] Stacy Rocha Cholesterol in LDL [Mass/Vol] 45.2 mg/dL Normal [facility] Comment on above: Performed By: #### T 4, FT3, TSH #### [facility] [address] [address] [address] Stacy Rocha Cholesterol.total/Ani sterol in HDL [Mass ratio] 2.5 {ratio} Normal [facility] Comment on above: Performed By: #### T 4, FT3, TSH #### [facility] [address] [address] [address] Stacy Rocha HDL NORMAL > or = 60 mg/dl - LOW CARDIOVASCULAR RISK <40 mg/dl - HIGH CARDIOVASCULAR RISK Normal [facility] Comment on above: Performed By: #### T 4, FT3, TSH #### [facility] [address] [address] [address] Stacy Rocha LDL CALC NORMAL SEE BELOW Normal [facility] Comment on above: Result Comment: <100 mg/dl OPTIMAL 100 - 129 mg/dl NEAR OR ABOVE OPTIMAL 130 - 159 mg/dl BORDERLINE HIGH 160 - 189 mg/dl HIGH >190 mg/dl VERY HIGH Performed By: #### T 4, FT3, TSH #### [facility] [address] [address] [address] Stacy Rocha Triglyceride [Mass/Vol] 99 mg/dL Normal <=150 T [facility] Comment on above: Performed By: #### T 4, FT3, TSH #### [facility] [address] [address] [address] Stacy Rocha VLDL CALC 19.8 mg/dL Normal [facility] Comment on above: Performed By: #### T 4, FT3, TSH #### [facility] [address] [address] [address] Stacy Rocha PROF 14(COMP METB)on 022 Albumin [Mass/Vol] 3.1 g/dL Critically low 3.4-5.0 [facility] Comment on above: Performed By: #### T 4, FT3, TSH #### [facility] [address] [address] [address] Stacy Rocha Albumin/Globulin [Mass ratio] 0.7 {ratio} Normal [facility] Comment on above: Performed By: #### T 4, FT3, TSH #### [facility] [address] [address] [address] Stacy Rocha ALP [Catalytic activity/Vol] 124 U/L Critically high 46-116 [facility] Comment on above: Performed By: #### T 4, FT3, TSH #### [facility] [address] [address] [address] Stacy Rocha ALT [Catalytic activity/Vol] 33 U/L Normal 14-59 [facility] Comment on above: Performed By: #### T 4, FT3, TSH #### [facility] [address] [address] [address] Stacy Rocha Anion gap [Moles/Vol] 7.2 mmol/L Normal [facility] Comment on above: Performed By: #### T 4, FT3, TSH #### [facility] [address] [address] [address] Stacy Rocha AST [Catalytic activity/Vol] 28 U/L Normal 15-37 [facility] Comment on above: Performed By: #### T 4, FT3, TSH #### [facility] [address] [address] [address] Stacy Rocha Bilirubin [Mass/Vol] 0.5 mg/dL Normal 0.2-1.0 [facility] Comment on above: Performed By: #### T 4, FT3, TSH #### [facility] [address] [place] [address] Dr. Stacy Rocha Calcium [Mass/Vol] 8.5 mg/dL Normal 8.5-10.1 [facility] Comment on above: Performed By: #### T 4, FT3, TSH #### [facility] [address] [place] [address] Dr. Stacy Rocha Chloride [Moles/Vol] 105 mmol/L Normal 98-107 [facility] Comment on above: Performed By: #### T 4, FT3, TSH #### [facility] [address] [place] [address] Dr. Stacy Rocha CO2 [Moles/Vol] 29.3 mmol/L Normal 21.0-32.0 [facility] Comment on above: Performed By: #### T 4, FT3, TSH #### [facility] [address] [place] [address] Dr. Stacy Rocha Creatinine [Mass/Vol] 0.92 mg/dL Normal 0.55-1.02 [facility] Comment on above: Performed By: #### T 4, FT3, TSH #### [facility] [address] [place] [address] Dr. Stacy Rocha EGFR-AF LEBANESE >60 Normal >=60 [facility] Comment on above: Performed By: #### T 4, FT3, TSH #### [facility] [address] [place] [address] Dr. Stacy Rocha EGFR-NON AF LEBANESE 59 mL/min/1.73m2 Critically low >=60 [facility] Comment on above: Performed By: #### T 4, FT3, TSH #### [facility] [address] [place] [address] Dr. Stacy Rocha Globulin (S) [Mass/Vol] 4.7 g/dL Normal [facility] Comment on above: Performed By: #### T 4, FT3, TSH #### [facility] [address] [place] [address] Dr. Stacy Rocha Glucose [Mass/Vol] 107 mg/dL Critically high 74-106 [facility] Comment on above: Performed By: #### T 4, FT3, TSH #### [facility] [address] [place] [address] Dr. Stacy Rocha Potassium [Moles/Vol] 4.5 mmol/L Normal 3.5-5.1 [facility] Comment on above: Performed By: #### T 4, FT3, TSH #### [facility] [address] [place] [address] Dr. Stacy Rocha Protein [Mass/Vol] 7.8 g/dL Normal 6.1-8.2 [facility] Comment on above: Performed By: #### T 4, FT3, TSH #### [facility] [address] [place] [address] Dr. Stacy oRcha Sodium [Moles/Vol] 137 mmol/L Normal 136-145 [facility] Comment on above: Performed By: #### T 4, FT3, TSH #### [facility] [address] [place] [address] Dr. Stacy Rocha Urea nitrogen [Mass/Vol] 13.0 mg/dL Normal 7.0-18.0 [facility] Comment on above: Performed By: #### T 4, FT3, TSH #### [facility] [address] [place] [address] Dr. Stacy Rocha Urea nitrogen/Creatinine [Mass ratio] 14.1 mg/mg Normal [facility] Comment on above: Performed By: #### T 4, FT3, TSH #### [facility] [address] [place] [address] Dr. Stacy Rocha TSHon 09-07-2021 TSH 5.986 uIU/mL Critically high 0.470-4.680 [facility] Comment on above: Performed By: #### T 4, FT3, TSH #### [facility] [address] [address] [address] Stacy Rocha TSH RANGE SEE BELOW Normal [facility] Comment on above: Result Comment: <0.3 4 UIU/ml HYPERTHYROID 0.34-5.60 UIU/ml EUTHYROID >5.60 UIU/ml HYPOTHYROID Performed By: #### T 4, FT3, TSH #### [facility] [id number] Stacy Rocha [facility]07 SARS-CoV-2 (COVID-19) RNA DENISSE+probe Ql (Unsp spec) Not detected Normal NOT DETECTED The [facility] Comment on above: Result Comment: This test is not yet approved or cleared by the [place] FDA. When there are no FDA-approved or cleared tests available, and other criteria are met, FDA can make tests available under an emergency access mechanism called an Emergency Use Authorization (EUA). The EUA for this test is supported by the [place] of Health and Human Service's (HHS's) declaration [...] TSH #### [facility] [id number] Stacy Rocha INFLUENZA A AND B AGon 08-30 INFLUANEGH SEE BELOW Normal [facility] Comment on above: Result Comment: Nega tive for Flu A protein angiten. Infection due to Flu A cannot be ruled out. Flu A angiten in the sample may be below the detection limit of the test. Performed By: #### I NFLUAB #### [facility] [address] [address] [address] Stacy Rocha [facility] SEE BELOW Normal [facility] Comment on above: Result Comment: Nega tive for Flu B protein antigen. Infection due to Flu B cannot be ruled out. Flu B antigen in the sample may be below the detection limit of the test. Performed By: #### I NFLUAB #### [facility] [address] [address] [address] Stacy Rocha INFLUENZA A AG Negative Normal NEGATIVE SEE COMMENT The [facility] Comment on above: Performed By: #### I NFLUAB #### [facility] [address] [address] [address] Stacy Rocha INFLUENZA B AG Negative Normal NEGATIVE SEE COMMENT The [facility] Comment on above: Performed By: #### I NFLUAB #### [facility] [address] [place] [address] Dr. Stacy Rocha INTERNAL CONTROLS Within Normal Limits Normal Within Normal Limits The [facility] Comment on above: Performed By: #### I NFLUAB #### [facility] [address] [address] [address] Stacy Rocha Tobacco Screening.on 021 Fall risk assessment a) [facility] the [facility] [address] [place] Work Phone: Tobacco use status CP b) No [facility] [address] [place] Work Phone: No Panel Informationon 03-10 48.6\S\48.6 Normal . [facility] [place] [address] DO Work Phone: 8.3\S\8.3 Normal 6.3-10.7 [facility] DO Work Phone: 270\S\270 Normal 150-[facility] Work Phone: 13.8\S\13.8 Normal 11.9-15.3 [facility] Work Phone: 33.4\S\33.4 Normal 32.0-35.0 -[facility] 600 DO Work Phone: 30.2\S\30.2 Normal 24.7-34.3 -[facility] 600 DO Work Phone: 4.3\S\4.3 Normal 1.8-7.7 -[facility] 600 DO Work Phone: 0.0\S\0.0 Normal 0-0.5 [facility] 600 DO Work Phone: 1.3\S\1.3 Normal . [facility] 600 DO Work Phone: 5.3\S\5.3 Normal . [facility] 600 DO Work Phone: 11.7\S\11.7 Normal . [facility] 600 DO Work Phone: 33.1\S\33.1 Normal . [facility] 600 DO Work Phone: 0.1\S\0.1 Normal 0.0-0.2 -[facility] 600 DO Work Phone: Comment on above: PERFORMED BY:[address] [address] [address] [place], [place] [id number] MEDICAL DIRECTORFAHEEM CARSON M.D. 0.5\S\0.5 above high threshold 0.0-0.45 -[facility] 600 DO Work Phone: 1.0\S\1.0 above high threshold 0.0-0.8 -[facility] 600 DO Work Phone: 2.9\S\2.9 Normal 1.00-4.8 -[facility] 600 DO Work Phone: 90.5\S\90.5 Normal 80-100 [facility] 600 DO Work Phone: 39.7\S\39.7 Normal 34.0-46.4 [facility] 600 DO Work Phone: 13.2\S\13.2 Normal 11.8-15.4 [facility] 600 DO Work Phone: 4.39\S\4.39 Normal 3.60-5.00 [facility] 600 DO Work Phone: 8.8\S\8.8 Normal 3.8-11.6 [facility] 600 DO Work Phone: 28.5\S\28.5 Normal 22.0-30.0 [facility] 600 DO Work Phone: 104\S\104 Normal 95-114 [facility] 600 DO Work Phone: 4.4\S\4.4 Normal 3.5-5.1 [facility] 600 DO Work Phone: 141\S\141 Normal 136-146 [facility] 600 DO Work Phone: 10\S\10 Normal 9-23 [facility] 600 DO Work Phone: > 60 Normal [facility] 600 DO Work Phone: Comment on above: GFR estimated refere nce range: According to KDOQI guidelines, <60 ml/min/1.73m2 is sufficient to diagnose a patient with chronic kidney disease.PERFORMED BY:[address] [address] [address] [place], [place] [id number] MEDICAL DIRECTORFAHEEM CARSON M.D. 0.83\S\0.83 Normal 0.44-1.03 [facility] 600 DO Work Phone: ALT (SGPT)on 06-27-2018 ALT enzyme act/vol 26 U/L Normal 7-45 [facility] Comment on above: Performed By: #### 1 [id number] #### [facility] [address] [place] [address] AST (SGOT)on 06-27-2018 AST enzyme act/vol 27 U/L Normal 13-39 [facility] Comment on above: Performed By: #### 1 [id number] #### [facility] [address] [place] [address] CBCon 06-27-2018 Erythrocyte distribution width Ratio (RBC) 13.7 % Normal 12.0-15.4 [facility] Comment on above: Performed By: #### 2 [id number] #### [facility] [address] [place] [address] Hematocrit Volume Fraction (Bld) 41.8 % Normal 36.5-46.6 [facility] Comment on above: Performed By: #### 2 [id number] #### [facility] [address] [place] [address] Hemoglobin mass conc (Bld) 13.5 g/dL Normal 11.8-15.3 [facility] Comment on above: Performed By: #### 2 [id number] #### [facility] [address] [place] [address] MCH Entitic mass (RBC) 29.7 pg Normal 27.5-33.0 [facility] Comment on above: Performed By: #### 2 [id number] #### [facility] [address] [place] [address] MCHC mass conc (RBC) 32.3 g/dL Normal 30.1-35.0 [facility] Comment on above: Performed By: #### 2 [id number] #### [facility] [address] [place] [address] MCV Entitic volume (RBC) 91.9 fL Normal 85.4-100.0 [facility] Comment on above: Performed By: #### 2 [id number] #### [facility] [address] [place] [address] NRBC Absolute 0.00 10*3/uL Normal [facility] Comment on above: Performed By: #### 2 [id number] #### [facility] [address] [place] [address] NRBC Automated 0.0 /100{WBCs} Normal [facility] Comment on above: Performed By: #### 2 [id number] #### [facility] [address] [place] [address] Platelet mean volume Entitic volume (Bld) 11.3 fL Normal 9.9-12.1 [facility] are Comment on above: Performed By: #### 2 [id number] #### [facility] [address] [place] [address] Platelets #/vol (Bld) 316 10*3/uL Normal 155-404 [facility] Comment on above: Performed By: #### 2 [id number] #### [facility] [address] [place] [address] RBC #/vol (Bld) 4.55 10*6/uL Normal 3.85-5.10 [facility] Comment on above: Performed By: #### 2 [id number] #### [facility] [address] [place] [address] RDW SD 46.5 fL Normal 39.3-48.6 [facility] Comment on above: Performed By: #### 2 [id number] #### [facility] [address] [place] [address] WBC #/vol (Bld) 9.6 10*3/uL Normal 4.4-9.9 [facility] Comment on above: Performed By: #### 2 [id number] #### [facility] [address] [place] [address] Creatinineon 06-27-2018 Creatinine mass conc 0.91 mg/dL Normal 0.50-1.05 [facility] Comment on above: Performed By: #### 1 [id number] #### [facility] [address] [place] [address] GFR/1.73 sq M.predicted MDRD vol rate/area mL/min/{1.73_m2} [facility] Comment on above: Result Comment: Inte rpretation for Chronic Kidney Disease: Stages 1&2 >60 Healthy or potential kidney damage. Mild decrease of GFR. Stage 3 30-59 Moderate decrease of GFR. Stage 4 15-29 Severe decrease of GFR. Stage 5 <15 Kidney failure or on dialysis. Performed By: #### 1 [id number] #### [facility] [address] [place] [address] Electrolyte Panelon 06-27-19 Anion gap molar conc 12 mmol/L Normal 10-20 [facility] Comment on above: Performed By: #### 1 [id number] #### [facility] [address] [place] [address] Chloride molar conc 102 mmol/L Normal 98-107 [facility] Comment on above: Performed By: #### 1 [id number] #### [facility] [address] [place] [address] HCO3 molar conc (Bld) 32 mmol/L Normal 21-32 [facility] Comment on above: Performed By: #### 1 [id number] #### [facility] [address] [place] [address] Potassium molar conc 3.7 mmol/L Normal 3.5-5.1 [facility] Comment on above: Performed By: #### 1 [id number] #### [facility] [address] [place] [address] Sodium molar conc 142 mmol/L Normal 136-145 [facility] Comment on above: Performed By: #### 1 [id number] #### [facility] [address] [place] [address] Lipid Panelon 06-27-2018 Cholesterol in HDL mass conc 38 mg/dL Abnormal [facility] Comment on above: Result Comment: Age Normal Mod Risk High Risk 5-9 >46 38-46 <38 10-14 >44 40-44 <40 15-19 >42 38-42 <38 Adult >49 Performed By: #### 1 [id number] #### [facility] [address] [place] [address] Cholesterol in LDL mass conc 51 mg/dL Normal <130 [facility] Comment on above: Performed By: #### 1 [id number] #### [facility] [address] [place] [address] Cholesterol in VLDL mass conc 29 mg/dL Normal <30 [facility] Comment on above: Performed By: #### 1 [id number] #### [facility] [address] [place] [address] Cholesterol mass conc 118 mg/dL Normal <200 [facility] Comment on above: Performed By: #### 1 [id number] #### [facility] [address] [place] [address] Cholesterol.total/Ani sterol in HDL mass ratio 3.1 {ratio} Normal [facility] Comment on above: Performed By: #### 1 [id number] #### [facility] [address] [place] [address] Triglyceride mass conc 146 mg/dL Normal <150 [facility] Comment on above: Result Comment: 150- 199 Borderline High 200-499 High >500 Very High Performed By: #### 1 [id number] #### [facility] [address] [place] [address] TSHon 06-27-2018 Thyrotropin Qn 3.33 mU/L Normal 0.44-3.98 [facility] Health care Comment on above: Performed By: #### 1 [id number] #### [facility] [address] [place] [address] Thyroxineon 06-27-2018 T4 mass conc 8.4 ug/dL Normal 7.1-13.1 [facility] Comment on above: Performed By: #### 1 [id number] #### [facility] [address] [place] [address] Thyroxine, Freeon 06-27-2018 Thyroxine, Free 0.80 ng/dL Normal 0.61-1.12 [facility] Comment on above: Performed By: #### 1 [id number] #### [facility] [address] [place] [address] Urea Nitrogenon 06-27-2018 Urea nitrogen mass conc 16 mg/dL Normal 6-23 [facility] Comment on above: Performed By: #### 1 [id number] #### [facility] [address] [place] [address] CBCon 11-16-2017 Erythrocyte distribution width Ratio (RBC) 13.7 % Normal 12.0-15.4 [facility] Comment on above: Performed By: #### 2 [id number] #### [facility] [address] [place] [address] Hematocrit Volume Fraction (Bld) 40.4 % Normal 36.5-46.6 [facility] Comment on above: Performed By: #### 2 [id number] #### [facility] [address] [place] [address] Hemoglobin mass conc (Bld) 12.6 g/dL Normal 11.8-15.3 [facility] Comment on above: Performed By: #### 2 [id number] #### [facility] [address] [place] [address] MCH Entitic mass (RBC) 29.4 pg Normal 27.5-33.0 [facility] Comment on above: Performed By: #### 2 [id number] #### [facility] [address] [place] [address] MCHC mass conc (RBC) 31.2 g/dL Normal 30.1-35.0 [facility] Comment on above: Performed By: #### 2 [id number] #### [facility] [address] [place] [address] MCV Entitic volume (RBC) 94.2 fL Normal 85.4-100.0 [facility] Comment on above: Performed By: #### 2 [id number] #### [facility] [address] [place] [address] NRBC Absolute 0.00 10*3/uL Normal [facility] Comment on above: Performed By: #### 2 [id number] #### [facility] [address] [place] [address] NRBC Automated 0.0 /100{WBCs} Normal [facility] Comment on above: Performed By: #### 2 [id number] #### [facility] [address] [place] [address] Platelet mean volume Entitic volume (Bld) 10.9 fL Normal 9.9-12.1 [facility] are Comment on above: Performed By: #### 2 [id number] #### [facility] [address] [place] [address] Platelets #/vol (Bld) 298 10*3/uL Normal 155-404 [facility] Comment on above: Performed By: #### 2 [id number] #### [facility] [address] [place] [address] RBC #/vol (Bld) 4.29 10*6/uL Normal 3.85-5.10 [facility] Comment on above: Performed By: #### 2 [id number] #### [facility] [address] [place] [address] RDW SD 46.8 fL Normal 39.3-48.6 [facility] Comment on above: Performed By: #### 2 [id number] #### [facility] [address] [place] [address] WBC #/vol (Bld) 9.4 10*3/uL Normal 4.4-9.9 [facility] Comment on above: Performed By: #### 2 [id number] #### [facility] [address] [place] [address] Creatinineon 11-16-2017 Creatinine mass conc 0.98 mg/dL Normal 0.50-1.05 [facility] Comment on above: Performed By: #### 1 [id number] #### [facility] [address] [place] [address] GFR/1.73 sq M.predicted MDRD vol rate/area 56 mL/min/{1.73_m2} Normal [facility] Comment on above: Result Comment: Inte rpretation for Chronic Kidney Disease: Stages 1&2 >60 Healthy or potential kidney damage. Mild decrease of GFR. Stage 3 30-59 Moderate decrease of GFR. Stage 4 15-29 Severe decrease of GFR. Stage 5 <15 Kidney failure or on dialysis. Performed By: #### 1 [id number] #### [facility] [address] [place] [address] Electrolyte Panelon 11-17-19 18 Anion gap molar conc 11 mmol/L Normal 10-20 [facility] Comment on above: Performed By: #### 1 [id number] #### [facility] [address] [place] [address] Chloride molar conc 104 mmol/L Normal 98-107 [facility] Comment on above: Performed By: #### 1 [id number] #### [facility] [address] [place] [address] HCO3 molar conc (Bld) 29 mmol/L Normal 21-32 [facility] Comment on above: Performed By: #### 1 [id number] #### [facility] [address] [place] [address] Potassium molar conc 4.2 mmol/L Normal 3.5-5.1 [facility] Comment on above: Performed By: #### 1 [id number] #### [facility] [address] [place] [address] Sodium molar conc 140 mmol/L Normal 136-145 [facility] Comment on above: Performed By: #### 1 [id number] #### [facility] [address] [place] [address] Urea Nitrogenon 11-16-2017 Urea nitrogen mass conc 20 mg/dL Normal 6-23 [facility] Comment on above: Performed By: #### 1 [id number] #### [facility] [address] [place] [address] Vital Signs Date Time Vital Sign Value Performing Clinician Facility 08-19-2024 13:10040 Body height 162.6 cm Cari De Leon MD Work Phone: [facility] 08-19-2024 13:10-0400 Body mass index (BMI) [Ratio] 35.87 kg/m2 Cari De Leon MD Work Phone: [facility] 08-19-2024 13:10-0400 Body weight 94.8 kg Cari De Leon MD Work Phone: [facility] 08-19-2024 13:10-0400 Diastolic blood pressure 84 mm[Hg] Cari De Leon MD Work Phone: [facility] 08-19-2024 13:10-0400 Heart rate 52 /min Cari De Leon MD Work Phone: [facility] 08-19-2024 13:10-0400 Systolic blood pressure 132 mm[Hg] Cari De Leon MD Work Phone: [facility] 07-12-2024 09:45-0500 Diastolic blood pressure 61 mm[Hg] Nicki Tamayo MD Work Phone: [facility] 07-12-2024 09:45-0500 Heart rate 41 /min Nicki Tamayo MD Work Phone: [facility] 07-12-2024 09:45-0500 Respiratory rate 25 /min Nicki Tamayo MD Work Phone: [facility] 07-12-2024 09:45-0500 SaO2% (BldA) [Mass fraction] 96 % Nicki Tamayo MD Work Phone: [facility] 07-12-2024 09:45-0500 Systolic blood pressure 130 mm[Hg] Nicki Tamayo MD Work Phone: [facility] 07-11-2024 13:19-0500 Body height 162.56 cm Nicki Tamayo MD Work Phone: [facility] 07-11-2024 13:19-0500 Body weight 94.8 kg Nicki Tamayo MD Work Phone: [facility] 07-05-2024 08:56-0500 Body height 162.6 cm Alejandra Carcamo [facility] 07-05-2024 08:56-0500 Body mass index (BMI) [Ratio] 36.9 kg/m2 [facility] 07-05-2024 08:56-0500 Body weight 97.52 kg [facility] 07-05-2024 08:56-0500 Diastolic blood pressure 80 mm[Hg] [facility] 07-05-2024 08:56-0500 Heart rate 92 /min [facility] 07-05-2024 08:56-0500 Systolic blood pressure 132 mm[Hg] [facility] 05-23-2024 09:09-0500 Body height 162.6 cm Cari De Leon MD Work Phone: [facility] 05-23-2024 09:09-0500 Body mass index (BMI) [Ratio] 35.87 kg/m2 Cari De Leon MD Work Phone: [facility] 05-23-2024 09:09-0500 Body weight 94.8 kg Cari De Leon MD Work Phone: [facility] 05-23-2024 09:09-0500 Diastolic blood pressure 60 mm[Hg] Cari De Leon MD Work Phone: [facility] 05-23-2024 09:09-0500 Heart rate 57 /min Cari De Leon MD Work Phone: [facility] 05-23-2024 09:09-0500 Systolic blood pressure 132 mm[Hg] Cari De Leon MD Work Phone: [facility] 2024 10:07-0500 Body height 162.56 cm Nicki Tamayo MD Work Phone: [facility] 2024 10:07-0500 Body mass index (BMI) [Ratio] 35 kg/m2 Nicki Tamayo MD Work Phone: [facility] 2024 10:07-0500 Body temperature 97.8 [degF] Nicki Tamayo MD Work Phone: [facility] 2024 10:07-0500 Body weight 92.53 kg Nicki Tamayo MD Work Phone: [facility] 2024 10:07-0500 Diastolic blood pressure 63 mm[Hg] Nicki Tamayo MD Work Phone: [facility] 2024 10:07-0500 Heart rate 73 /min Nicki Tamayo MD Work Phone: [facility] 2024 10:07-0500 Respiratory rate 18 /min Nicki Tamayo MD Work Phone: [facility] 2024 10:07-0500 SaO2% (BldA) [Mass fraction] 96 % Nicki Tamayo MD Work Phone: [facility] 2024 10:07-0500 Systolic blood pressure 159 mm[Hg] Nicki Tamayo MD Work Phone: [facility] 11-08-2023 09:10-0400 Body height 162.6 cm [facility] 11-08-2023 09:10-0400 Body mass index (BMI) [Ratio] 35.19 kg/m2 [facility] 11-08-2023 09:10-0400 Body weight 92.99 kg [facility] 11-08-2023 09:10-0400 Diastolic blood pressure 68 mm[Hg] [facility] 11-08-2023 09:10-0400 Heart rate 67 /min [facility] 11-08-2023 09:10-0400 Systolic blood pressure 140 mm[Hg] [facility] 10-30-2023 12:54-0400 Body height 162.6 cm Cari De Leon MD Work Phone: [facility] 10-30-2023 12:54-0400 Body mass index (BMI) [Ratio] 34.84 kg/m2 Cari De Leon MD Work Phone: [facility] 10-30-2023 12:54-0400 Body weight 92.08 kg Cari De Leon MD Work Phone: [facility] 10-30-2023 12:54-0400 Diastolic blood pressure 84 mm[Hg] Cari De Leon MD Work Phone: [facility] 10-30-2023 12:54-0400 Heart rate 81 /min Cari De Leon MD Work Phone: [facility] 10-30-2023 12:54-0400 Systolic blood pressure 122 mm[Hg] Cari De Leon MD Work Phone: [facility] 09-15-2022 08:50-0400 Body height 162.56 cm Nicki M Hoy Work Phone: AN-Pxefdgowku-Flyxah [place] [address] DO Work Phone: 09-15-2022 08:50-0400 Body mass index (BMI) [Ratio] 35.36 kg/m2 Nicki M Hoy Work Phone: WH-Bhxmmamnlw-Okjrvj [address] DO Work Phone: 09-15-2022 08:50-0400 Body surface area Derived from formula 1.98 m2 Nicki M Hoy Work Phone: NG-Bczjbfhaje-Rrimsv [place] [address] DO Work Phone: 09-15-2022 08:50-0400 Body weight 93.44 kg Nicki M Hoy Work Phone: EB-Certtcbkgs-Vjuahc [place] [address] DO Work Phone: 09-15-2022 08:50-0400 Diastolic blood pressure 84 mm[Hg] Nicki M Hoy Work Phone: XT-Adlgebxjvc-Ivrlku [place] [address] DO Work Phone: 09-15-2022 08:50-0400 Heart rate 49 /min Nicki Silva Hoy Work Phone: CQ-Snxbwzihxx-Urbkqu [address] DO Work Phone: 09-15-2022 08:50-0400 Systolic blood pressure 128 mm[Hg] Nicki Hoffmanny Work Phone: TP-Dygufdlhlz-Qnqlzx [address] DO Work Phone: 08-21-2022 10:30-0400 Body height 162.56 cm Kristin Padmaja Other [employer] Other 08-21-2022 10:30-0400 Body mass index (BMI) [Ratio] 36.04 kg/m2 Kristin Padmaja Other [facility] Other 08-21-2022 10:30-0400 Body temperature 100.6 [degF] Kristin Padmaja Other [facility] [facility] Other 08-21-2022 10:30-0400 Body weight 95.26 kg Kristin Padmaja Other [facility] Other 08-21-2022 10:30-0400 Diastolic blood pressure 50 mm[Hg] Kristin Padmaja Other [facility] Other 08-21-2022 10:30-0400 Respiratory rate 18 /min Kristin Padmaja Other [facility] Other 08-21-2022 10:30-0400 SaO2% (BldA) [Mass fraction] 95 % Kristin Padmaja Other [facility] Other 08-21-2022 10:30-0400 Systolic blood pressure 137 mm[Hg] Kristin Padmaja Other [facility] Other 03-23-2022 08:41-0500 Body height 162.56 cm Nciki M Hoy Work Phone: [facility] DO Work Phone: 03-23-2022 08:41-0500 Body mass index (BMI) [Ratio] 36.56 kg/m2 Nicki M Hoy Work Phone: [facility] DO Work Phone: 03-23-2022 08:41-0500 Body surface area Derived from formula 2.01 m2 Nicki M Hoy Work Phone: [facility] DO Work Phone: 03-23-2022 08:41-0500 Body weight 96.62 kg Nicki M Hoy Work Phone: [facility] DO Work Phone: 03-23-2022 08:41-0500 Diastolic blood pressure 66 mm[Hg] Nicki M Hoy Work Phone: [facility] DO Work Phone: 03-23-2022 08:41-0500 Heart rate 53 /min Nicki M Hoy Work Phone: [facility] DO Work Phone: 03-23-2022 08:41-0500 Systolic blood pressure 124 mm[Hg] Nicki M Hoy Work Phone: [facility] DO Work Phone: 09-30-2021 14:26-0400 Diastolic blood pressure 68 mm[Hg] Nicki M Hoy Work Phone: [facility] DO Work Phone: 09-30-2021 14:26-0400 Systolic blood pressure 128 mm[Hg] Nicki M Hoy Work Phone: [facility] DO Work Phone: 09-30-2021 14:13-0400 Diastolic blood pressure 60 mm[Hg] Nicki M Hoy Work Phone: [facility] DO Work Phone: 09-30-2021 14:13-0400 Systolic blood pressure 138 mm[Hg] Nicki M Hoy Work Phone: [facility] DO Work Phone: 09-30-2021 14:12-0400 Body height 162.56 cm Nicki M Hoy Work Phone: [facility] DO Work Phone: 09-30-2021 14:12-0400 Body mass index (BMI) [Ratio] 36.05 kg/m2 Nicki M Hoy Work Phone: [facility] DO Work Phone: 09-30-2021 14:12-0400 Body surface area Derived from formula 2 m2 Nicki M Hoy Work Phone: [facility] DO Work Phone: 09-30-2021 14:12-0400 Body weight 95.26 kg Nicki M Hoy Work Phone: [facility] DO Work Phone: 09-30-2021 14:12-0400 Diastolic blood pressure 60 mm[Hg] Nicki M Hoy Work Phone: [facility] DO Work Phone: 09-30-2021 14:12-0400 Heart rate 54 /min Nicki M Hoy Work Phone: [facility] DO Work Phone: 09-30-2021 14:12-0400 Systolic blood pressure 140 mm[Hg] Nicki M Hoy Work Phone: [facility] DO Work Phone: 09-16-2021 09:34-0400 Diastolic blood pressure 80 mm[Hg] Nicki M Hoy Work Phone: [facility] DO Work Phone: 09-16-2021 09:34-0400 Systolic blood pressure 160 mm[Hg] Nicki M Hoy Work Phone: [facility] DO Work Phone: 09-16-2021 09:05-0400 Body height 162.56 cm Nicki M Hoy Work Phone: [facility] 250 DO Work Phone: 09-16-2021 09:05-0400 Body mass index (BMI) [Ratio] 35.87 kg/m2 Nicki Ricardo Hoy Work Phone: [facility] 250 DO Work Phone: 09-16-2021 09:05-0400 Body surface area Derived from formula 1.99 m2 Nicki M Hoy Work Phone: [facility] DO Work Phone: 09-16-2021 09:05-0400 Body weight 94.8 kg Nicki Ricardo Hoy Work Phone: [facility] DO Work Phone: 09-16-2021 09:05-0400 Diastolic blood pressure 80 mm[Hg] Nicki M Hoy Work Phone: [facility] DO Work Phone: 09-16-2021 09:05-0400 Heart rate 59 /min Nicki M Hoy Work Phone: [facility] 250 DO Work Phone: 09-16-2021 09:05-0400 Systolic blood pressure 150 mm[Hg] Nicki M Hoy Work Phone: [facility] 250 DO Work Phone: 09-07-2021 16:12-0400 5.8 1 Nicki M Hoy Work Phone: [facility] 250 DO Work Phone: Comment on above: [address] 09-07-2021 00:00-0400 45.2 1 Nicki M Hoy Work Phone: [facility] DO Work Phone: Comment on above: [facility] 03-18-2021 08:50-0500 Body height 162.56 cm Nicki M Hoy Work Phone: [facility] [address] [place] Work Phone: 03-18-2021 08:50-0500 Body mass index (BMI) [Ratio] 37.25 kg/m2 Nicki M Hoy Work Phone: [facility] [place] Work Phone: 03-18-2021 08:50-0500 Body surface area Derived from formula 2.03 m2 Nicki M Hoy Work Phone: [facility] [address] [place] Work Phone: 03-18-2021 08:50-0500 Body weight 98.43 kg Nicki M Hoy Work Phone: [facility] [address] [place] Work Phone: 03-18-2021 08:50-0500 Diastolic blood pressure 68 mm[Hg] Nicki M Hoy Work Phone: [facility] [place] Work Phone: 03-18-2021 08:50-0500 Heart rate 54 /min [facility] [place] Work Phone: 03-18-2021 08:50-0500 Systolic blood pressure 128 mm[Hg] [facility] [place] Work Phone: Encounters Encounter Date Encounter Type Care Provider Facility Start: 08-19-2024 End: 08-19-2024 Office outpatient visit 25 minutes Cari De Leon MD Work Phone: [facility] Comment on above: Paroxysmal atrial fi brillation (Multi) (Primary Dx); 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; High risk medication use; Essential hypertension; Mixed hyperlipidemia; Status post coronary angioplasty; Former smoker; BMI 35.0-35.9,adult; Class 2 obesity Start: 08-19-2024 End: 08-19-2024 ambulatory [facility] Start: 07-12-2024 End: 07-12-2024 Admission to same day surgery center Nicki Tamayo MD Work Phone: [facility] Work Phone: Start: 07-12-2024 End: 07-12-2024 ambulatory Nicki Tamayo MD Work Phone: [facility] Work Phone: Start: 07-05-2024 End: 07-05-2024 Professional / ancillary services management Alejandra Carcamo LPN [facility] Comment on above: Paroxysmal atrial fi brillation (Multi); Fatigue, unspecified type; Shortness of breath Start: 07-05-2024 End: 07-05-2024 ambulatory [facility] Start: 05-23-2024 End: 05-23-2024 Office outpatient visit 25 minutes Cari De Leon MD Work Phone: [facility] Comment on above: Atherosclerosis of n ative coronary 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; Essential hypertension; Paroxysmal atrial fibrillation (Multi); High risk medication use; Mixed hyperlipidemia; Status post coronary angioplasty; Anticoagulated; Obstructive sleep apnea; Former smoker; BMI 35.0-35.9,adult Start: 05-23-2024 End: 05-23-2024 ambulatory [facility] Start: 2024 End: 2024 Patient encounter procedure Nicki Tamayo MD Work Phone: [facility] [place] Work Phone: Start: 11-08-2023 End: 11-08-2023 Professional / ancillary services management Mando Aguirre [facility] Comment on above: Paroxysmal atrial fi brillation (Multi) Start: 11-08-2023 End: 11-08-2023 ambulatory [facility] Start: 11-02-2023 End: 11-02-2023 Admission to same day surgery center MD Nicki Tamayo Work Phone: [facility] Work Phone: Start: 11-02-2023 End: 11-02-2023 ambulatory MD Nicki Tamayo Work Phone: [facility] Work Phone: Start: 10-30-2023 End: 10-30-2023 Office outpatient visit 25 minutes Cari De Leon MD Work Phone: [facility] Comment on above: Obesity, Class I, BM I 30-34.9 (Primary Dx); 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; High risk medication use; Essential hypertension; Mixed hyperlipidemia; Paroxysmal atrial fibrillation (Multi); Status post coronary angioplasty; Obstructive sleep apnea; BMI 34.0-34.9,adult; Former smoker Start: 10-30-2023 End: 10-30-2023 ambulatory [facility] Start: 09-15-2022 Office outpatient vi sit 25 minutes Nicki Tamayo Work Phone: [facility] DO Work Phone: Start: 09-15-2022 ambulatory [facility] Facility : Start: 08-21-2022 End: 08-21-2022 ambulatory Kristin Giang Other [facility] Other Start: 08-21-2022 Office outpatient ne w 30 minutes Kristin Giang [facility] [place] Start: 08-15-2022 Rx Renewal Nickishantel Tamayo Work Phone: [facility] DO Work Phone: Start: 07-06-2022 Patient encounter procedure Nicki Tamayo Work Phone: [facility] DO Work Phone: Start: 07-01-2022 End: 07-02-[address] NICKI TAMAYO . Facility:[facility] Start: 06-16-2022 End: 06-17-[address] NICKI TAMAYO . Facility:[facility] Start: 04-05-2022 End: 04-06-[address] NICKI TAMAYO . Facility:[facility] Start: 03-23-2022 Office outpatient vi sit 25 minutes Nicki Hoffmanncarly Work Phone: [facility] DO Work Phone: Start: 03-23-[address] Nicki Tamayo Facility: Start: 11-12-2021 End: 11-13-[address] NICKI TAMAYO . Facility:[facility] Start: 10-06-[address] NICKI TAMAYO . Facili ty:[facility]1 Start: 09-30-2021 Office outpatient vi sit 10 minutes Nicki Tamayo Work Phone: [facility] DO Work Phone: Start: 09-30-[address] Nicki Tamayo Facility: Start: 09-16-2021 Office outpatient vi sit 25 minutes Nicki Tamayo Work Phone: [facility] DO Work Phone: Start: 09-07-2021 End: 09-08-[address] CARI DE LEON Facility:[facility] Start: 08-30-2021 End: 08-30-[address] NICKI TAMAYO . Facility:[facility] Start: 08-16-2021 Rx Renewal Nickishantel Tamayo Work Phone: [facility] DO Work Phone: Start: 05-26-2021 Rx Renewal Nicki Tamayo Work Phone: [facility] [address] [place] Work Phone: Start: 03-18-2021 Office outpatient vi sit 25 minutes Nickishantel Tamayo Work Phone: [facility] [address] [place] Work Phone: Start: 03-10-2021 Chart Update Cari De Leon MD Work Phone: [facility] 600 DO Work Phone: Start: 06-27-2018 Patient encounter procedure CARI DE LEON Facility:[id number] Start: 11-16-2017 Patient encounter procedure CARI DE LEON Facility:[id number] Procedures Date Procedure Procedure Detail Performing Clinician Start: 08-19-2024 Ecg routine ecg w/le ast 12 lds w/i&r Cari De Leon MD Work Phone: Start: 05-23-2024 Ecg routine ecg w/le ast 12 lds w/i&r Cari De Leon MD Work Phone: Start: 2024 Quick Strep (POC) Raul Tamayo MD Work Phone: Start: 10-30-2023 Ecg routine ecg w/le ast 12 lds w/i&r Cari De Leon MD Work Phone: Start: 09-01-2020 Lipid 1996 panel - S seven or Plasma Cari De Leon MD Work Phone: Start: 09-01-2020 Thyrotropin [Units/v olume] in Serum or Plasma Cari De Leon MD Work Phone: Cataract surgery Nicki Ely oy Work Phone: Barbi Tamayo Work Phone: Comment on above: [id number]; Plan of Treatment Date Care Activity Detail Author Start: 09-01-2025 Lipid panel Lipid Panel [facility] Start: 01-23-2025 End: 01-23-2025 Patient encounter procedure 01/23/2025 9:20 AM EDT Office Visit [facility] [address] [place] [address] Cari De Leon MD [address] [place] [address] [facility] Start: 01-06-2025 Influenza vaccination Influenza Vaccine (Season Ended) [facility] Start: 08-19-2024 End: 08-19-2025 Alanine aminotransferase [Enzymatic activity/volume] in Serum or Plasma by With P-5'-P Alanine Aminotransferase Lab Routine Mixed hyperlipidemia Expected: 08/19/2024, Expires: 08/19/2025 [facility] Service Area Work Phone: Comment on above: Expected: 08/19/2024, Expires: Start: 08-19-2024 End: 08-19-2025 Aspartate aminotransferase [Enzymatic activity/volume] in Serum or Plasma by With P-5'-P Aspartate Aminotransferase Lab Routine Mixed hyperlipidemia Expected: 08/19/2024, Expires: 08/19/2025 [facility] Work Phone: Comment on above: Expected: 08/19/2024, Expires: Start: 08-19-2024 End: 08-19-2025 Basic metabolic 2000 panel - Serum or Plasma Basic Metabolic Panel Lab Routine 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 Essential hypertension Paroxysmal atrial fibrillation (Multi) Expected: 08/19/2024, Expires: 08/19/2025 [facility] Work Phone: Comment on above: Expected: 08/19/2024, Expires: Start: 08-19-2024 End: 08-19-2025 CBC panel - Blood by Automated count CBC Lab Routine 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 Essential hypertension Paroxysmal atrial fibrillation (Multi) Expected: 08/19/2024, Expires: 08/19/2025 [facility] Work Phone: Comment on above: Expected: 08/19/2024, Expires: Start: 08-19-2024 End: 08-19-2025 Lipid 1996 panel - Serum or Plasma Lipid Panel Lab Routine Mixed hyperlipidemia Expected: 08/19/2024, Expires: 08/19/2025 [facility] Work Phone: Comment on above: Expected: 08/19/2024, Expires: Start: 08-19-2024 End: 08-19-2025 Thyrotropin [Units/volume] in Serum or Plasma Thyroid Stimulating Hormone Lab Routine 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 Essential hypertension Paroxysmal atrial fibrillation (Multi) Expected: 08/19/2024, Expires: 08/19/2025 [facility] Work Phone: Comment on above: Expected: 08/19/2024, Expires: Start: 07-12-2024 [facility] Start: 05-23-2024 End: 05-23-2025 Alanine aminotransferase [Enzymatic activity/volume] in Serum or Plasma by With P-5'-P Alanine Aminotransferase Lab Routine 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 Mixed hyperlipidemia Expected: 05/23/2024 (Approximate), Expires: 05/23/2025 [facility] Service Area Work Phone: Comment on above: Expected: 05/23/2024 (Approximate), Expi res: 05/23/2025 Start: 05-23-2024 End: 05-23-2025 Aspartate aminotransferase [Enzymatic activity/volume] in Serum or Plasma by With P-5'-P Aspartate Aminotransferase Lab Routine 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 Mixed hyperlipidemia Expected: 05/23/2024 (Approximate), Expires: 05/23/2025 [facility] Work Phone: Comment on above: Expected: 05/23/2024 (Approximate), Expi res: 05/23/2025 Start: 05-23-2024 End: 05-23-2025 Basic metabolic 2000 panel - Serum or Plasma Basic Metabolic Panel Lab Routine 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 Essential hypertension Expected: 05/23/2024 (Approximate), Expires: 05/23/2025 [facility] Work Phone: Comment on above: Expected: 05/23/2024 (Approximate), Expi res: 05/23/2025 Start: 05-23-2024 End: 05-23-2025 CBC panel - Blood by Automated count CBC Lab Routine 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 Anticoagulated Expected: 05/23/2024 (Approximate), Expires: 05/23/2025 [facility] Work Phone: Comment on above: Expected: 05/23/2024 (Approximate), Expi res: 05/23/2025 Start: 05-23-2024 End: 05-23-2025 Lipid 1996 panel - Serum or Plasma Lipid Panel Lab Routine 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 Mixed hyperlipidemia Expected: 05/23/2024 (Approximate), Expires: 05/23/2025 [facility] Work Phone: Comment on above: Expected: 05/23/2024 (Approximate), Expi res: 05/23/2025 Start: 05-23-2024 End: 05-23-2024 Patient encounter procedure 05/23/2024 9:30 AM EST Office Visit [facility] [address] [place] [address] Cari De Leon MD [address] [place] [address] [facility] Start: 03-18-2024 Zoster Vaccines (3 of 3) Zoster Vaccines (3 of 3) [facility] Start: 01-07-2024 COVID-19 Vaccine ( season) COVID-19 Vaccine ( season) [facility] Start: 01-07-2024 Influenza vaccination Influenza Vaccine (#1) [facility] Start: 11-06-2023 End: 10-29-2024 ECG 12 Lead ECG 12 Lead ECG Routine Paroxysmal atrial fibrillation (Multi) Expected: 11/06/2023 (Approximate), Expires: 10/29/2024 [facility] Work Phone: Comment on above: Expected: 11/06/2023 (Approximate), Expi res: 10/29/2024 Start: 11-02-2023 [facility] Start: 10-30-2023 End: 10-29-2024 Alanine aminotransferase [Enzymatic activity/volume] in Serum or Plasma by With P-5'-P Alanine Aminotransferase Lab Routine 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 Mixed hyperlipidemia Expected: 10/30/2023 (Approximate), Expires: 10/29/2024 [facility] Work Phone: Comment on above: Expected: 10/30/2023 (Approximate), Expi res: 10/29/2024 Start: 10-30-2023 End: 10-29-2024 Aspartate aminotransferase [Enzymatic activity/volume] in Serum or Plasma by With P-5'-P Aspartate Aminotransferase Lab Routine 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 Mixed hyperlipidemia Expected: 10/30/2023 (Approximate), Expires: 10/29/2024 [facility] Work Phone: Comment on above: Expected: 10/30/2023 (Approximate), Expi res: 10/29/2024 Start: 10-30-2023 End: 10-29-2024 Basic metabolic 2000 panel - Serum or Plasma Basic Metabolic Panel Lab Routine Paroxysmal atrial fibrillation (Multi) Expected: 10/30/2023 (Approximate), Expires: 10/29/2024 [facility] Service Area Work Phone: Comment on above: Expected: 10/30/2023 (Approximate), Expi res: 10/29/2024 Start: 10-30-2023 End: 10-29-2025 Cardioversion External Cardioversion External Cardiac Services Routine Paroxysmal atrial fibrillation (Multi) Expected: 10/30/2023 (Approximate), Expires: 10/29/2025 [facility] Work Phone: Comment on above: Expected: 10/30/2023 (Approximate), Expi res: 10/29/2025 Start: 10-30-2023 End: 10-29-2024 CBC panel - Blood by Automated count CBC Lab Routine Paroxysmal atrial fibrillation (Multi) Expected: 10/30/2023 (Approximate), Expires: 10/29/2024 [facility] Work Phone: Comment on above: Expected: 10/30/2023 (Approximate), Expi res: 10/29/2024 Start: 10-30-2023 End: 10-29-2024 Lipid 1996 panel - Serum or Plasma Lipid Panel Lab Routine 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 Mixed hyperlipidemia Expected: 10/30/2023 (Approximate), Expires: 10/29/2024 [facility] Work Phone: Comment on above: Expected: 10/30/2023 (Approximate), Expi res: 10/29/2024 Start: 08-28-2023 COVID-19 Vaccine ( season) COVID-19 Vaccine ( season) [facility] Start: 06-07-2023 Medicare Annual Wellness Visit Medicare Annual Wellness Visit (AWV) [facility] Start: 03-23-2023 FUV, Provider: Cari De Leon, Status: Pen, Time: 8:30 AM FUV, Provider: Cari De Leon, Status: Pen, Time: 8:30 AM [facility]am 250 DO Work Phone: Start: 09-15-2022 FUV, Provider: Cari De Leon, Status: Pen, Time: 9:00 AM FUV, Provider: Cari De Leon, Status: Pen, Time: 9:00 AM [facility] [facility] DO Work Phone: Start: 03-23-2022 FUV, Provider: Cari De Leon, Status: Pen, Time: 8:40 AM FUV, Provider: Cari De Leon, Status: Pen, Time: 8:40 AM [facility] DO Work Phone: Start: 09-30-2021 NURSEVST, Provider: JULIUS LANE WATER TRAINER 1,[id number], Status: Pen, Time: 2:00 PM NURSEVST, Provider: JULIUS LANE WATER TRAINER 1,[id number], Status: Pen, Time: 2:00 PM [facility] [address] DO Work Phone: Start: 09-16-2021 FUV, Provider: Cari De Leon, Status: Pen, Time: 9:10 AM FUV, Provider: Cari De Leon, Status: Pen, Time: 9:10 AM [facility] [address] [place] Work Phone: Start: 09-01-2021 Thyroid stimulating hormone measurement TSH Level [facility] Start: 03-18-2021 FUV, Provider: Cari De Leon, Status: Pen, Time: 9:00 AM FUV, Provider: Cari De Leon, Status: Pen, Time: 9:00 AM [facility] 600 DO Work Phone: Start: 2020 RSV High Risk: (Elderly (60+) or Population) (1 - 1-dose 75+ series) RSV High Risk: (Elderly (60+) or Population) (1 - 1-dose 75+ series) [facility] Start: 04-03-2012 Zoster Vaccines (2 of 3) Zoster Vaccines (2 of 3) [facility] Start: 2005 RSV patients and/or patients aged 60+ years (1 - 1-dose 60+ series) RSV patients and/or patients aged 60+ years (1 - 1-dose 60+ series) [facility] Start: 1967 DTaP/Tdap/Td Vaccines (1 - Tdap) DTaP/Tdap/Td Vaccines (1 - Tdap) [facility] Start: 1963 Diabetes mellitus screening Diabetes Screening [facility] Start: 1963 Hepatitis C screening Hepatitis C Screening [facility] Start: 1945 Medicare Annual Wellness Visit Medicare Annual Wellness Visit (AWV) [facility] ECG 12 Lead ECG 12 Lead ECG Routine Paroxysmal atrial fibrillation (Multi) 11/08/2023 8:37 AM EDT [facility] Work Phone: ECG 12 Lead ECG 12 Lead ECG Routine Paroxysmal atrial fibrillation (Multi) Fatigue, unspecified type Shortness of breath 07/05/2024 8:35 AM EST [facility] Work Phone: Patient Education Know your Meds [facility] Work Phone: Immunizations Immunization Date Immunization Notes Care Provider Thea disla 07-02-2024 zoster vaccine recombinant Cari De Leon MD Work Phone: [facility] Work Phone: 01-22-2024 zoster vaccine recombinant Cari De Leon MD Work Phone: [facility] 04-21-2023 influenza virus vacc ine, unspecified formulation Mando Aguirre [facility] Work Phone: 02-02-2022 Fluzone High-Dose Quadrivalent 0.7 ML Intramuscular Suspension Prefilled Syringe Nicki Ricardo Hoffmanncarly Work Phone: [facility] 250 DO Work Phone: 02-02-2022 influenza, high dose seasonal, preservative-free Cari De Leon MD Work Phone: [facility] Work Phone: 02-02-2022 Pfizer COVID-19 Vac Bivalent 30 MCG/0.3ML Intramuscular Suspension Nicki Tamayo Work Phone: [facility] [address] DO Work Phone: 02-02-2022 Pfizer Purple Cap SARS-CoV-2 Cari De Leon MD Work Phone: [facility] Work Phone: 02-08-2021 Pfizer-BioNTech COVI D-19 Vacc 30 MCG/0.3ML Intramuscular Suspension Nicki Tamayo Work Phone: [facility] [address] [place] Work Phone: 07-10-2020 Pfizer-BioNTech COVI D-19 Vacc 30 MCG/0.3ML Intramuscular Suspension Nicki Tamayo Work Phone: [facility] [address] [place] Work Phone: 06-19-2020 Pfizer-BioNTech COVI D-19 Vacc 30 MCG/0.3ML Intramuscular Suspension Nicki Tamayo Work Phone: [facility] [address] [place] Work Phone: 03-30-2020 Seasonal trivalent influenza vaccine, adjuvanted, preservative free Nicki Tamayo Work Phone: [facility] [address] [place] Work Phone: 02-06-2020 influenza virus vacc ine, unspecified formulation Nicki Tamayo Work Phone: [facility] [address] DO Work Phone: 02-06-2020 influenza, seasonal, injectable Nicki Tamayo Work Phone: [facility] [address] [place] Work Phone: 03-13-2019 pneumococcal conjuga te vaccine, 13 valent Cari De Leon MD Work Phone: [facility] Work Phone: 03-08-2019 influenza virus vacc ine, unspecified formulation Nicki Tamayo Work Phone: [facility] DO Work Phone: 03-08-2019 influenza, seasonal, injectable Nicki Tamayo Work Phone: [facility] [address] [place] Work Phone: 02-10-2019 influenza, high dose seasonal, preservative-free Nicki M Hoy Work Phone: [facility] 250 DO Work Phone: 02-05-2019 pneumococcal polysaccharide vaccine, 23 valent Nicki M Hoy Work Phone: [place] [address] [place] Work Phone: 02-05-2018 influenza virus vacc ine, unspecified formulation Nicki M Hoy Work Phone: [place] [address] DO Work Phone: 01-17-2017 influenza, injectabl e, quadrivalent, preservative free Nicki M Hoy Work Phone: [facility] [address] [place] Work Phone: 01-14-2017 influenza virus vacc ine, unspecified formulation Nicki M Hoy Work Phone: [place] [address] DO Work Phone: 06-08-2015 pneumococcal conjuga te vaccine, 13 valent Nicki M Hoy Work Phone: [facility] 250 DO Work Phone: 03-26-2015 influenza, injectabl e, quadrivalent, contains preservative Nicki M Hoy Work Phone: [facility] [address] [place] Work Phone: 03-08-2015 influenza virus vacc ine, unspecified formulation Nicki M Hoy Work Phone: [facility] 250 DO Work Phone: 02-11-2014 influenza virus vacc ine, whole virus Nicki M Hoy Work Phone: [facility] 250 DO Work Phone: 02-09-2012 influenza, injectabl e, quadrivalent, contains preservative Nicki M Hoy Work Phone: [facility] [address] [place] Work Phone: 02-07-2012 pneumococcal polysaccharide vaccine, 23 valent Nicki Silva Hoy Work Phone: [facility] [address] [place] Work Phone: 02-07-2012 zoster vaccine, live Nicki Tamayo Work Phone: [facility] 05-08-2011 pneumococcal polysaccharide vaccine, 23 valent Nicki Silva Hoy [facility] [place] Work Phone: influenza virus vacc ine, unspecified formulation Nicki Tamayo Work Phone: [facility] 250 DO Work Phone: Comment on above: 2012Feb 20122010 Payers Date Payer Category Payer Medicare (Managed Care) [facility] MEDICARE [id number] 2024 Unknown [id number] 2014 Medicare MEDICARE MEDICAR E PART A AND B [id number] 2014-Present [address] [place] [address] [id number] 2014 Unknown 2014 Unknown [id number] 1959 Medicare [id number] 1959 Self-pay 1959 Unknown [id number] 1945 Unknown [id number] 2.16.840.1.373284.3.579. 2.355 1945 Unknown [id number] 2.16.840.1.929196.3.579. 2.355 1945 Unknown [id number] 2.16.840.1.670310.3.579. 2.593 1945 Unknown [id number] 2.16.840.1.458739.3.579. 2.593 1945 Unknown [id number] 2.16.840.1.688377.3.579. 2.593 1945 Unknown [id number] 2.16.840.1.763058.3.579. 2.593 1945 Unknown [id number] 2.16.840.1.873839.3.579. 2.593 1945 Unknown [id number] 2.16.840.1.709717.3.579. 2.593 1945 Unknown [id number] 2.16.840.1.378102.3.579. 2.593 1945 Unknown [id number] 2.16.840.1.043345.3.579. 2.593 1945 Unknown [id number] 2.16.840.1.023031.3.579. 2.356 1945 Unknown [id number] 2.16.840.1.377186.3.579. 2.356 1945 Unknown [id number] 2.16.840.1.155718.3.579. 2.356 1945 Unknown [id number] 2.16.840.1.697420.3.579. 2.1244 1945 Unknown [id number] 2.16.840.1.048449.3.579. 2.1244 1945 Unknown [id number] 2.16.840.1.212396.3.579. 2.1244 1945 Unknown [id number] 2.16.840.1.037984.3.579. 2.1244 1945 Unknown [id number] 2.16.840.1.174918.3.579. 2.1244 Medicare [id number] Private Health Insurance [employer] [id number] Unknown [id number] Unknown [id number] 2.16.840.1.121039.3.579. 2.531 Unknown [id number] 2.16.840.1.911720.3.579. 2.531 Social History Date Type Detail Facility Start: 10-30-2023 End: 05-23-2024 Daily caffeine consumption, 2-3 servings a day Daily caffeine consumption, 2-3 servings a day [address] Work Phone: Comment on above: quit approx 1988, 1 PPD; Start: 10-30-2023 End: 05-23-2024 Sex Assigned At [facility] [employer] Other Start: 1945 Sex Assigned At Female [facility] Start: 10-30-2023 End: 2024 Tobacco smoking status NHIS Ex-smoker [facility] End: 05-08-1986 History of tobacco use Current smoker [facility] Work Phone: End: 05-08-1986 History of tobacco use Cigarette Smoker [facility] Work Phone: Start: 10-30-2023 Tobacco use and exposure Smokeless tobacco non-user [facility] Work Phone: Start: 10-30-2023 End: 05-23-2024 Alcoholic beverage intake Lifetime non-drinker (finding) [facility] Work Phone: Start: 02-10-2023 Gender identity Identifies as female gender (finding) [facility] Work Phone: Start: 10-20-2023 End: 08-19-2024 Exposure to SARS-CoV-2 (event) Not sure [facility] Start: 07-12-2024 Sex Female (finding) [facility] Clinical Notes 08-21-2022 to 08-19-2024 Cari De Leon MD - 08/19/2024 1:20 PM EDTPatient InstructionsCari De Leon MD - 05/23/2024 9:30 AM ESTPatient Instructions Note Date & Type Note Facility 08-19-2024 History of Present illness Narrative Chief Complaint Patient presents with Follow-up [facility] discharge 07/12/24 Subjective Mario Chow is a 79 y.o. female HPI Patient is in the office for follow-up for paroxysmal fibrillation status post cardioversion last month restoring normal sinus rhythm. She remains on Xarelto and sotalol. EKG today confirms normal sinus rhythm with normal intervals but with right bundle branch block. This is unchanged from previously. Review of system was normal physical examination was essentially normal except for class II obesity. ASSESSMENT AND PLAN: 1. Paroxysmal fibrillation, on sotalol and Xarelto, currently in normal sinus rhythm with normal QTc interval. She had cardioversion in October 2019 for and July 2024. Present medical therapy with left unchanged 2. Coronary artery disease, patient has two-vessel coronary artery disease and status post angioplasty in 1997 involving the right coronary artery and 2007 involving the LAD. Risk factor had been controlled. The patient has been compliant with no recurrent disease. Last stress test with 2017 was normal 3. Class II obesity. More weight loss with modification of lifestyle was recommended. 4. Essential hypertension, currently controlled. Renal function is normal 5. Hyperlipidemia, on maximal intensity atorvastatin, lipid profile is needed and was ordered. 6. Hypothyroidism on replacement therapy, followed periodically 7. Obstructive sleep apnea on CPAP machine 8. High risk medication with anticoagulants and antiarrhythmics with no complications 9. Systolic murmur suggestive of mild aortic stenosis, no recent echocardiogram, in the next couple of years I will order an echocardiogram. Review of Systems All other systems reviewed and are negative. Vitals: 08/19/24 1310 BP: 132/84 BP Location: Left arm Patient Position: Sitting Pulse: 52 Weight: 94.8 kg (209 lb) Height: 1.626 m (5' 4 ) EKG done in office today Objective Physical Exam Constitutional: Appearance: Normal appearance. HENT: Nose: Nose normal. Neck: Vascular: No carotid bruit. Cardiovascular: Rate and Rhythm: Normal rate. Pulses: Normal pulses. Heart sounds: Normal heart [...] Allergies Lisinopril Current Medications Current Outpatient Medications: amlodipine-valsartan (Exforge) 10-320 mg tablet, Take 1 tablet by mouth once daily., Disp: 30 tablet, Rfl: 11 ascorbic acid (Vitamin C) 1,000 mg tablet, [...] MCG (2000 UT) tablet, Take 1 tablet (50 mcg) by mouth once daily., Disp: , Rfl: cranberry extract 200 mg capsule, Take by mouth 2 times a day., Disp: , Rfl: Cytomel 5 mcg tablet, 1 tablet (5 mcg) once daily., Disp: , Rfl: ferrous sulfate 325 (65 Fe) MG EC tablet, Take 1 tablet by mouth once daily., Disp: , Rfl: fish,bora,flax oils-om3,6,9no1 ([place] 3-6-9) 1,200 mg capsule, Take 1 capsule by mouth 2 times a day., Disp: , Rfl: isosorbide mononitrate ER (Imdur) 30 mg 24 hr tablet, Take 1 tablet (30 mg) by mouth once daily., Disp: 90 tablet, Rfl: 3 levothyroxine (Synthroid, Levoxyl) 50 mcg tablet, Take 1 tablet (50 mcg) by mouth once daily., Disp: , Rfl: mv-min/iron/folic/calcium/vitK (WOMEN'S MULTIVITAMIN ORAL), 1 tablet early in the morning.., Disp: , Rfl: potassium chloride CR 20 [...] Disp: 90 tablet, Rfl: 3 Assessment/Plan 1. Paroxysmal atrial fibrillation (Multi) Basic Metabolic Panel CBC Thyroid Stimulating Hormone ECG 12 Lead Basic Metabolic Panel CBC Thyroid Stimulating Hormone 2. 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 Basic Metabolic Panel CBC Thyroid Stimulating Hormone Basic Metabolic Panel CBC Thyroid Stimulating Hormone 3. High risk medication use ECG 12 Lead 4. Essential hypertension Basic Metabolic Panel CBC Thyroid Stimulating Hormone Basic Metabolic Panel CBC Thyroid Stimulating Hormone 5. Mixed hyperlipidemia Alanine Aminotransferase Aspartate Aminotransferase Lipid Panel Alanine Aminotransferase Aspartate Aminotransferase Lipid Panel 6. Status post coronary angioplasty 7. Former smoker 8. BMI 35.0-35.9,adult 9. Class 2 obesity Scribe Attestation By signing my name below, I, Florecita Samson RN , Scribe attest that this documentation has been [...] discussion and plan. documented in this encounter [facility] Work Phone: 08-19-2024 Instructions Florecita Aden RN - 08/19/2024 1:20 PM EDT Please bring all medicines, vitamins, [...] since last visit (-) denotes wt loss -6 lbs Weight loss needed to achieve BMI 25: 63.7 Lbs Weight loss needed to achieve BMI 30: 34.6 Lbs Provided instructions on dietary changes Provided instructions on exercise. documented in this encounter [facility] Work Phone: 07-12-2024 Discharge summary [facility] 07-12-2024 Procedure note [facility] 05-23-2024 History of Present illness Narrative Formatting of this note is different fro m the original. Subjective Mario Chow is a 79 y.o. female Chief Complaint [...] once daily., Disp: , Rfl: fish,bora,flax oils-om3,6,9no1 ([place] 3-6-9) 1,200 mg capsule, Take 1 capsule [...] Disp: , Rfl: Assessment/Plan 1. 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 2. Essential hypertension 3. Paroxysmal atrial fibrillation (Multi) Follow Up In Cardiology 4. High risk medication use 5. Mixed hyperlipidemia 6. Status post coronary angioplasty 7. Anticoagulated 8. Obstructive sleep apnea 9. Former smoker 10. BMI 35.0-35.9,adult Scribe Attestation By signing my name below, Liliam Paul LPN , Scribe attest that this documentation has been [...] discussion and plan. documented in this encounter [facility] Work Phone: 05-23-2024 Instructions Liliam French LPN [...] up 6 months documented in this encounter [facility] Work Phone: 2024 Evaluation note Diagnosis Onset Date Resolution Viral URI with cough acute Dece mber 2023 9:20am [facility] Work Phone: 1(493) 868-457207-03-2024 History of Present illness Narrative* Mando Aguirre MA - 11/08/2023 9:00 AM EDT Patient is here for an EKG visit ordered by Dr. De Leon due to atrial fibrillation. Dr. De Leon is in suite. Patient is here status post Cardioversion completed on 11/01 @ [facility] by Dr. Cari De Leon MD. Medication [...] m (5' 4 ) documented in this [facility] Work Phone: 1(863) 254-427906-27-2024 Discharge summary Author Cari De Leon [facility] November 02, 2023 1:23pm Note Date/Time November 02, 2023 1:23 pm [facility] [address] [place] [address] Discharge Summary Signed Patient: Mario Chow MR#: [id number] : 1945 Acct:[id number] Age/Sex: 78 / F Adm Date: 4 Loc: PO Room: Attending Dr: Cari De Leon MD Copies to: MD Cari Quinonez MD, [facility]~ Providers Date of Discharge: 11/02/23 Discharging Provider: [...] administer with evening meal fish,bora,flax oils-om3,6,9no1 [Triple [place] 3-6-9] 400-400-400 mg capsule 3 cap PO [...] [facility] Cari De Leon> 11/02/23 1323 [facility] Work Phone: 1(338) 612-386906-27-2024 [facility] History of Present illness Narrative* Cari De Leon MD - 10/30/2023 1:00 PM EDT [facility] [address] [place] [address] Subjective Mario Chow is a 78 y.o. female Chief Complaint [...] once daily., Disp: , Rfl: fish,bora,flax oils-om3,6,9no1 ([place] 3-6-9) 1,200 mg capsule, Take 1 capsule [...] Class I, BMI 30-34.9 2. 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 Follow Up In [...] Scribe Attestation By signing my name below, IHalima LPN Scribe attest that this documentation has been [...] exam, discussion and plan. documented in this [facility] Work Phone: 1(839) 309-215706-24-2024 Instructions* Patient Instructions* Halima Funk LPN - [...] Provided instructions on exercise. [facility]: 1(914) 825-665204-16-2023 Evaluation note* Encounter Date Diagnosis Assessment Notes [...] no improvement in 2 to 3 days [employer] [facility] Other Discharge summary Author Cari De Leon [facility] Note Date/Time July 12, 2024 9:00 am [facility] [address] [place] [address] Discharge Summary Signed Patient: Mario Chow MR#: [id number] : 1945 Acct:[id number] Age/Sex: 79 / F Adm Date: 5 Loc: Room: Attending Dr: Cari De Leon MD Copies to: MD Cari Quinonez MD, [facility]~ Providers Date of Discharge: 07/12/24 Discharging Provider: Cari De Leon Primary Care Provider: Nicki Tamayo Discharge Diagnosis Final Diagnosis Final Discharge Diagnosis: Atrial fibrillation status post successful cardioversion Essential hypertension Summary Hospital Course Hospital course: Outpatient procedure Time Spent with Patient Time spent providing/coordinating discharge services (# min): 20 Discharge Plan Discharge Plan Patient Disposition: Home Activity: Ambulate as Tolerated Diet: Low-Sodium and Low-Cholesterol Instructions: Know your Meds Prescriptions: Continued aspirin [Adult Low Dose Aspirin] 81 mg [...] administer with evening meal fish,bora,flax oils-om3,6,9no1 [Triple [place] 3-6-9] 400-400-400 mg capsule 1 cap PO BID cranberry extract 200 mg capsule 200 mg [...] 5 mcg tablet 5 mcg PO DAILY amlodipine-valsartan [Exforge] 10-320 mg tablet 1 tab PO DAILY Diagnostic Studies Completed and Pending Studies Labs on day of discharge: 07/12/24 07:55: Sodium 140, Potassium 4.5, Chloride 107, Carbon Dioxide 24.5, Anion Gap 13.0 Documented By: Cari De Leon MD, [facility] 5 0905 Signed By: <Electronically signed by [facility] Cari De Leon> 07/12/24 0905 [facility] Work Phone: Evaluation noteNo assessment information available [facility] Work Phone: Evaluation note* Diagnosis Obesity, Class I, BMI 30-34.9- Primary 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 High risk medication use Essential hypertension Unspecified essential hypertension Mixed hyperlipidemia Paroxysmal atrial fibrillation (Multi) Atrial fibrillation Status post coronary angioplasty Postsurgical percutaneous transluminal coronary angioplasty status Obstructive sleep apnea Obstructive sleep apnea (adult) (pediatric) BMI 34.0-34.9,adult Former smoker Personal history of tobacco use, presenting hazards to health documented in this encounter [facility] Work Phone: Evaluation note* Diagnosis Paroxysmal atrial fibrillation (Multi) Atrial fibrillation documented in this encounter [facility] Work Phone: Evaluation note* Diagnosis 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 Essential hypertension Unspecified [...] health BMI 35.0-35.9,adult documented in this encounter [facility] Work Phone: Evaluation note* Diagnosis Paroxysmal atrial fibrillation (Multi) Atrial fibrillation Fatigue, unspecified type Shortness of breath documented in this encounter [facility] Work Phone: Evaluation note* Diagnosis Paroxysmal atrial fibrillation (Multi)- Primary Atrial fibrillation 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 High risk medication use Essential hypertension Unspecified essential hypertension Mixed hyperlipidemia Status post coronary angioplasty Postsurgical percutaneous transluminal coronary angioplasty status Former smoker Personal history of tobacco use, presenting hazards to health BMI 35.0-35.9,adult Class 2 obesity documented in this encounter [facility] Work Phone: History general Narrative - Reported* Type Description Date Medical History heart disease Surgical History 3 heart stents Hospitalization History see above [facility] Other History of Present illness Narrative* Alejandra Carcamo LPN - 07/05/2024 9:00 AM EST Patient here for EKG visit ordered by Dr. De Leon due to irregular heart beat and fatigue. Dr. Ro in suite to review EKG prior to discharge. Patient here due to AFIB and feeling fatigued at home . Medication list Updated verbally. Irregular heart beat and fatigue cardiac complaints. To Dr. De Leon to read Vitals: 07/05/24 0856 BP: 132/80 BP Location: Left arm Patient Position: Sitting Pulse: 92 Weight: 97.5 kg (215 lb) Height: 1.626 m (5' 4 ) EKG done in office today documented in this [facility] Work Phone: Summary Purpose Family History No Family History [...] 10, 2021 9:59am Chief Complaint * MARIO CHOW is being seen for a 6 month [...] was normal * 3. Obesity. Encouraged Mrs. Chow to cut back calorie intake on regular basis * 4. Hypertension, currently controlled. * 5. Hyperlipidemia, currently under control. LDL August 2020 * 6. Hypothyroidism on replacement therapy recent testing was reviewed with the patient * Six-month follow-up is scheduled * Cari De Leon MD, FACC * MARIO CHOW is being seen for a 6 month [...] was normal * 3. Obesity. Encouraged Mrs. Chow to cut back calorie intake on regular basis * 4. Hypertension, currently controlled. * 5. Hyperlipidemia, currently under control. LDL August 2020 * 6. Hypothyroidism on replacement therapy recent testing was reviewed with the patient * Six-month follow-up is scheduled * Cari De Leon MD, [facility] * MARIO CHOW is being seen for a 6 month [...] was normal * 3. Obesity. Encouraged Mrs. Chow to cut back calorie intake on regular [...] * Six-month follow-up is scheduled * MARIO CHOW is being seen for a 6 month [...] was normal * 3. Obesity. Encouraged Mrs. Chow to cut back calorie intake on regular [...] patient * Six-month follow-up is scheduled MARIO CHOW is being seen for hypertension.* MARIO CHOW is being seen for hypertension. * Patient is in the office for hypertension management. Since the changes made last visit her pressure is not completely under control. She had no side effect of medications and no changes are needed. * MARIO CHOW is being seen for a 6 month [...] was normal * 3. Obesity. Encouraged Mrs. Chow to cut back calorie intake on regular basis * 4. Hypertension, currently controlled. * 5. Hyperlipidemia, currently under control. LDL on target * 6. Hypothyroidism on replacement therapy * Six-month follow-up is scheduled * MARIO CHOW is being seen for a 6 month [...] was normal * 3. Obesity. Encouraged Mrs. Chow to cut back calorie intake on regular [...] and Reason for Visit Chief Complaint paf Chief Complaint Admit Date Sore throat, congestion, cough 2024 9:20am PAF SOB and Fatigue July 12, 2024 7:20 am Reason for Visit Admit Date Viral URI with cough 2024 9:20am Reason for Referral Specialty Diagnoses / Procedures Referred By Neema gonzalez Referred To Contact Diagnoses Paroxysmal atrial fibrillation (Multi) Procedures ECG 12 Lead Cari De Leon MD [address] [facility] 2, [address] [address] Referral ID Status Reason Start Date Expiration Date V isits Requested Visits Authorized [id number] Authorized 10/30/2023 10/29/2024 1 1 Specialty Diagnoses / Procedures Referred By Contac t Referred To Contact Cardiology Diagnoses Paroxysmal atrial fibrillation (Multi) Procedures Cardioversion External Cari De Leon MD [address] [place] [address] 2, [address] [address] Referral ID Status Reason Start Date Expiration Date V isits Requested Visits Authorized [id number] Pending Review 10/30/2023 10/29/2024 1 1 Referral ID Status Reason Start Date Expiration Date V isits Requested Visits Authorized [id number] Authorized 10/30/2023 10/29/2024 1 1 Specialty Diagnoses / Procedures Referred By Contac t Referred To Contact Cardiology Diagnoses Paroxysmal atrial fibrillation (Multi) Procedures Follow Up In Cardiology Cari De Leon MD [address] [place] [address] 2, [address] [address] Cari De Leon MD [address] [place] [address] 2, [address] [address] Referral ID Status Reason Start Date Expiration Date V isits Requested Visits Authorized [id number] Authorized 10/30/2023 10/29/2024 1 1 Additional Source Comments INFORMATION SOURCE (unrecogn ized section and content) DATE CREATED AUTHOR 07/10/2018 [facility] DATE CREATED AUTHOR AUTHOR'S ORGANIZ ATION 07/08/2022 [facility] DATE CREATED AUTHOR AUTHOR'S ORGANIZ ATION 09/17/2022 [facility] DATE CREATED AUTHOR AUTHOR'S ORGANIZ ATION 09/17/2022 [employer] DATE CREATED AUTHOR AUTHOR'S ORGANIZ ATION 07/23/2024 [facility] DATE CREATED AUTHOR AUTHOR'S ORGANIZ ATION 08/20/2024 [facility] REASON FOR VISIT (unrecogniz ed section and content) Reason Comments Follow-up 6m Specialty Diagnoses / Procedures Referred By Contac t Referred To Contact Cardiology Diagnoses 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 Procedures Follow Up In Cardiology Cari De Leon MD [address] [facility] 2, [address] [address] Cari De Leon MD [address] [facility] 2, [place] [address] [place] [id number] Referral ID Status Reason Start Date Expiration Date V isits Requested Visits Authorized [id number] Authorized 03/23/2023 03/22/2024 1 1 Reason Comments EKG visit Specialty Diagnoses / Procedures Referred By Contac t Referred To Contact Diagnoses Paroxysmal atrial fibrillation (Multi) Procedures ECG 12 Lead Cari De Leon MD [address] [facility] 2, [address] [address] Referral ID Status Reason Start Date Expiration Date V isits Requested Visits Authorized [id number] Authorized 10/30/2023 10/29/2024 1 1 Reason Comments Follow-up 6 months Specialty Diagnoses / Procedures Referred By Contac t Referred To Contact Cardiology Diagnoses Paroxysmal atrial fibrillation (Multi) Procedures Follow Up In Cardiology Cari De Leon MD [address] [place] [address] [address] [address] Phone: tel: fax: Cari De Leon MD [address] [facility] 2, [address] [address] Phone: tel: fax: Referral ID Status Reason Start Date Expiration Date V isits Requested Visits Authorized [id number] Pending Review 10/30/2023 10/29/2024 1 1 Reason Comments Atrial Fibrillation EKG visit for irregu lar heart beat Specialty Diagnoses / Procedures Referred By Contac t Referred To Contact Diagnoses Paroxysmal atrial fibrillation (Multi) Fatigue, unspecified type Shortness of breath Procedures ECG 12 Lead Cari De Leon MD [address], [address] [address] Phone: tel: fax: Referral ID Status Reason Start Date Expiration Date V isits Requested Visits Authorized [id number] Authorized 07/03/2024 07/03/2025 1 1 Reason Comments Follow-up [facility] discharge 5 Specialty Diagnoses / Procedures Referred By Contac t Referred To Contact Diagnoses High risk medication use Paroxysmal atrial fibrillation (Multi) Procedures ECG 12 Lead Cari De Leon MD [address] [address] Phone: tel: fax: Referral ID Status Reason Start Date Expiration Date V isits Requested Visits Authorized [id number] Authorized 08/19/2024 08/19/2025 1 1 Care Teams (unrecognized sec tion and content) Team Status: Active Member Role Status Dates Nicki Tamayo MD Primary Care Provider Active Team Status: Inactive Member Role Status Dates Nicki Tamayo MD Primary Care Provider Active Start: November 02, 2023 End: November 02, 2023 Cari De Leon MD Attending Provider, Referring Provider Active Start: November 02, 2023 End: November 02, 2023 Natural Developer Relationship Specialty Start Date End Date Nicki Tamayo MD [address] [place] [id number] PCP - General 03/18/21 Natural Developer Relationship Specialty Start Date End Date Nicki Tamayo MD [address] [place] [id number] PCP - General 03/18/21 Natural Developer Relationship Specialty Start Date End Date Nicki Tamayo MD [address] [place] [id number] PCP - General 03/18/21 Natural Developer Relationship Specialty Start Date End Date Nicki Tamayo MD [address] [place] [id number] PCP - General 03/18/21 Team Status: Inactive Member Role Status Dates Nicki Tamayo MD Primary Care Provider Active Start: 2024 End: 2024 Adela Omalley APRN Attending Provider Active Start: 2024 End: 2024 Team Status: Inactive Member Role Status Dates Nicki Tamayo MD Primary Care Provider Active Start: July 12, 2024 End: July 12, 2024 Cari De Leon MD Attending Provider, Referring Provider Active Start: July 12, 2024 End: July 12, 2024 Natural Developer Relationship Specialty Start Date End Date Nicki Tamayo MD [address] [place] [address] PCP - General 03/18/21 Goals (unrecognized section [...] BE BASED ON THE PRIMARY CLINICAL RECORDS. [facility] [employer] provides no warranty or guarantee of the accuracy or completeness of information in this document.
[2025-01-15 10:02] LABS: Hematocrit 40.6 % (36.0-48.0); Hemoglobin 13.1 g/dL (12.0-16.0); Immature Granulocytes Abs Auto 0.01 10^3/uL (0.00-0.03); Immature Granulocytes Pct Auto 0.1 % (0.0-0.5); Lymphocytes Absolute Auto 2.6 10^3/uL (1.2-3.8); Mean Corpuscular HGB Conc 32.3 g/dL (29.9-35.2); Mean Corpuscular Hemoglobin 29.4 pg (26.7-34.0); Mean Corpuscular Volume 91.0 fL (81.0-99.0); Platelet Count 252 10^3/uL (150-450); Red Blood Count 4.46 10^6/uL (4.20-5.40); White Blood Count 8.0 10^3/uL (4.0-11.0)
[2025-01-15 10:28] LABS: Alanine Aminotransferase 52 U/L (14-59); Anion Gap 10.5; Aspartate Amino Transferase 29 U/L (15-37); Blood Urea Nitrogen 18.0 mg/dL (7.0-18.0); Calcium 8.8 mg/dL (8.5-10.1); Carbon Dioxide 28.4 mmol/L (21.0-32.0); Chloride 109 mmol/L (98-107); Cholesterol 99 mg/dL (<=200); Estimated GFR (African America >60 (>=60 mL/min/1.73m^2); Estimated GFR (Non-African Ame >60 (>=60 mL/min/1.73m^2); Glucose 97 mg/dL (74-106); HDL Cholesterol 58 mg/dL (40-60); Potassium 3.9 mmol/L (3.5-5.1); Sodium 144 mmol/L (136-145); Thyroid Stimulating Hormone 1.864 uIU/mL (0.358-3.740); Triglycerides 47 mg/dL (<=150); VLDL CHOLESTEROL 9.4 mg/dL
== END 2025-01-15 09:11 | disposition home or self-care (01) ==
LOC: LAB 09:15
PROVIDERS: PCP Family Medicine; Visit Provider Internal Medicine Cardiovascular Disease
DX: E78.2 Mixed hyperlipidemia (principal); I25.10 Atherosclerotic heart disease of native coronary artery without angina pectoris; I10 Essential (primary) hypertension; I48.0 Paroxysmal atrial fibrillation
CPT/HCPCS: 36415; 80048; 80061; 84443; 84450; 84460; 85025